=== PATIENT | female | born 1950 | race Caucasian/White ===

== ENCOUNTER 2016-10-16 09:54 | Emergency (ER) | payer OTHER ==
[~2016-10-16 09:54] MED LIST: CARV12.52 PO; CLB200 PO; PHN/100 PO; RXC5 PO; XRL10 PO
[2016-10-16 10:03] VITALS: TEMP 36.8; Ht 154.9 cm
[2016-10-16] MEDS ORDERED: OXYCODONE/ACETAMINOPHEN 5-325 TAB PO STA (10:37)
[2016-10-16 11:08] LABS: BASO % 0.9 %; BASO ABS # 0.05 K/uL (0-0.2); COMPLETE YES; EOS % 5.8 %; HEMATOCRIT 41.6 % (37-47); IG% 0.2 %; LYMPH % 28.8 %; LYMPH ABS # 1.65 K/uL (1.2-3.4); MEAN CELL VOLUME 93.5 fL (80-100); MEAN CORPUSCULAR HEMOGLOBIN 31.2 pg (25-34); MEAN CORPUSCULAR HGB CONC 33.4 g/dl (32-36); MEAN PLATELET VOLUME 9.7 fL (7.4-10.4); MONO % 7.3 %; PLATELET COUNT 230 K/uL (130-400); RED BLOOD COUNT 4.45 M/uL (4.2-5.4); WHITE BLOOD COUNT 5.72 K/uL (4.8-10.8)
[2016-10-16 11:17] LABS: INR 0.9 (0.9-1.1); PARTIAL THROMBOPLASTIN RATIO 0.9; PROTHROMBIN TIME (PATIENT) 10.1 SECONDS (9.0-12.0)
--- NOTE | 2016-10-16 11:23 | DIAGNOSTIC IMAGING REPORT ---
BILATERAL LOWER EXTREMITY VENOUS DOPPLER HISTORY: RIGHT LEG PAIN, EVAL DVT. Symptoms are acute in nature. COMPARISON STUDY: Venous Doppler study 11/09/2008. FINDINGS: There is normal compressibility, flow, and augmentation within the right lower extremity deep venous system. There is limited visualization of the calf vessels. IMPRESSION: No evidence of deep venous thrombosis within the right lower extremity. Electronically signed by: Gt Voss M.D. 10/16/2016 11:21 AM Dictated Date/Time: 10/16/2016 11:19 AM
[2016-10-16 11:29] LABS: ALT/SGPT 24 U/L (12-78); AST/SGOT 16 U/L (15-37); BLOOD UREA NITROGEN 11 mg/dl (7-18); BUN/CREATININE RATIO 15.4 (10-20); CALCIUM 8.9 mg/dl (8.5-10.1); CARBON DIOXIDE 32 mmol/L (21-32); CHLORIDE 109 mmol/L (98-107); CREATININE 0.71 mg/dl (0.60-1.20); GLUCOSE 88 mg/dl (70-99); POTASSIUM 4.3 mmol/L (3.5-5.1); SODIUM 142 mmol/L (136-145)
[2016-10-16 11:32] LABS: ALB/GLOB RATIO 0.8 (0.9-2); ALKALINE PHOSPHATASE 198 U/L (45-117)
--- NOTE | 2016-10-16 11:37 | DIAGNOSTIC IMAGING REPORT ---
RIGHT KNEE 3 VIEWS CLINICAL HISTORY: Right knee pain. COMPARISON: None. DISCUSSION: There are postsurgical changes of a total right knee arthroplasty and patellar resurfacing. No acute fractures or dislocations are visualized. On the sunrise view, there is minor lateral patellar tilt. IMPRESSION: Postsurgical changes of a total knee arthroplasty. No acute fractures. Electronically signed by: Hilario Tipton M.D. 10/16/2016 11:35 AM Dictated Date/Time: 10/16/2016 11:34 AM
[2016-10-16] MEDS ORDERED: CLR10 PO (11:53)
[2016-10-16] MEDS ORDERED: FLUT0.15 NAE (11:53)
[2016-10-16] MEDS ORDERED: ASPI81TA28 PO (11:53)
[2016-10-16] MEDS ORDERED: LOSA50TA6 PO (11:53)
[2016-10-16] MEDS ORDERED: PRLSR20 PO (11:53)
[2016-10-16] MEDS ORDERED: MELO15TA4 PO (11:53)
[2016-10-16] MEDS ORDERED: ATOR-22 PO (11:53)
[2016-10-16] MEDS ORDERED: IPRA0.06 NAE (11:53)
--- NOTE | 2016-10-16 12:39 | DIAGNOSTIC IMAGING REPORT ---
L-SPINE MIN 4 VIEWS ROUTINE CLINICAL HISTORY: LOW BACK, RIGHT LEG PAIN COMPARISON STUDY: No previous studies for comparison. FINDINGS: The bones are osteopenic. There is a transitional vertebra with sacralization of the L5 vertebral body. There are superior endplate compression deformities at the L1, L2 and L3 levels. While age-indeterminate, these are likely old. No subluxations are visualized IMPRESSION: 1. Transitional vertebra 2. Osteopenia 3. Superior endplate deformities at the L1, L2, and L3 levels, likely old Electronically signed by: Hilario Tipton M.D. 10/16/2016 12:38 PM Dictated Date/Time: 10/16/2016 12:36 PM
[2016-10-16] MEDS ORDERED: OXYC-57 PO (13:23)
--- NOTE | 2016-10-16 13:24 | EMERGENCY ROOM VISIT NOTE ---
ED Visit Note First contact with patient: 10:09 CHIEF COMPLAINT: Right leg pain since yesterday HISTORY OF PRESENT ILLNESS: Patient is a 66-year-old white female who presents emergency department for evaluation of right leg pain. She describes pain in her calf, behind her right knee, in the medial aspect of her right thigh. It started acutely upon standing sometime yesterday. She notes pain with weightbearing. She also notes some numbness on the lateral aspect of her foot. She is status post right total knee arthroplasty, had a DVT after her knee replacement. She is not presently anticoagulated. She took a full-strength aspirin yesterday, and no medication for pain today. She denies any trauma to the leg, no unusual activity which could've aggravated her pain. There has been no recent surgeries, no long period of immobilization or long car or plane ride recently. She denies any chest pain, palpitations or shortness of breath, does report that she felt slightly dizzy this morning. She does have a history of back problems, but does not typically have any radicular symptoms with them. She denies any fever or chills. No symptoms in the left leg. She rates her pain 8/10. REVIEW OF SYSTEMS: Review of systems as per HPI. All other systems reviewed were negative. 10 systems reviewed. PMH: Electronic medical records are reviewed and summarized as above/below. See Problem List. SOCIAL HISTORY: Patient lives at home with her spouse. Nonsmoker. PHYSICAL EXAM: Vital Signs: Reviewed Nurse's notes. CONSTITUTIONAL: Patient is a well-appearing 58-year-old white female who is awake and alert and in no acute distress. HEART: Regular rate and rhythm. LUNGS: Clear to auscultation and breath sounds equal, no wheezes, rales, or rhonchi. ABDOMEN: Soft, non-tender, no hepatosplenomegaly, or masses. NEUROLOGICAL: Alert oriented, coherent. PERRL, EOMs full, antalgic gait. EXTREMITIES: Examination of the right lower extremity no a well-healed anterior knee surgical incision. There is no knee joint effusion appreciated. Range of motion is full. She has tenderness to palpation along the medial aspect of the thigh and in the medial aspect of the calf. There is no increased redness, warmth, induration or palpable cords. She does have some tenderness and fullness in the popliteal space of the right knee. There is no inguinal lymphadenopathy appreciated. Femoral pulses are easily palpable. Negative straight leg raise testing bilaterally. Negative logroll. Lower extremity DTRs are equal and symmetrical bilaterally. Good strength to great toe and ankle dorsiflexion/plantar flexion, and hip flexion. SPINE: No bony tenderness over the spinous processes of the lumbar spine. No pain over the SI joint or the sciatic notch. No pain over the greater trochanter. EMERGENCY DEPARTMENT COURSE: The patient was seen and evaluated as above. She was given one Percocet tablet orally for discomfort. IV lock was initiated them CBC, coags and CMP were drawn and were unremarkable. Ultrasound of the right lower extremity was obtained and was negative for DVT. X-rays of the right knee were obtained and showed alignment of her prosthesis without any acute pathology. Lumbar spine x-rays were obtained and showed some mild arthritic changes, with osteopenia. Patient presents emergency department for evaluation of medial right leg pain, with some reported numbness in the lateral aspect of her right foot. Differential diagnoses entertained included DVT, superficial thrombophlebitis, cellulitis, popliteal cyst, lumbar radiculopathy, among others. Workup in the emergency department is fairly unrevealing. She does not have any evidence for DVT. I cannot appreciate any infectious etiology. Patient history and presentation were reviewed with attending physician who also independently evaluated her. She will be placed on a short course of oral Percocet to use as needed for pain, and was advised to follow-up with orthopedics or her primary care provider if her symptoms are not improving. Patient was discharged home in good condition. She rated her pain a 6/10 at discharge. Medication reconciliation: I attest that I have personally reviewed the patient' s current medication list. Blood pressure screening: Patient was found to have a slightly elevated blood pressure due to circumstances. I do not believe that the patient requires hypertension monitoring. Patient was reviewed in the [facility] of [facility] Prescription Drug Monitoring Program, and there were no red flags noted. BILATERAL LOWER EXTREMITY VENOUS DOPPLER HISTORY: RIGHT LEG PAIN, EVAL DVT. Symptoms are acute in nature. COMPARISON STUDY: Venous Doppler study 11/09/2008. FINDINGS: There is normal compressibility, flow, and augmentation within the right lower extremity deep venous system. There is limited visualization of the calf vessels. IMPRESSION: No evidence of deep venous thrombosis within the right lower extremity. RIGHT KNEE 3 VIEWS CLINICAL HISTORY: Right knee pain. COMPARISON: None. DISCUSSION: There are postsurgical changes of a total right knee arthroplasty and patellar resurfacing. No acute fractures or dislocations are visualized. On the sunrise view, there is minor lateral patellar tilt. IMPRESSION: Postsurgical changes of a total knee arthroplasty. No acute fractures. L-SPINE MIN 4 VIEWS ROUTINE CLINICAL HISTORY: LOW BACK, RIGHT LEG PAIN COMPARISON STUDY: No previous studies for comparison. FINDINGS: The bones are osteopenic. There is a transitional vertebra with sacralization of the L5 vertebral body. There are superior endplate compression deformities at the L1, L2 and L3 levels. While age-indeterminate, these are likely old. No subluxations are visualized IMPRESSION: 1. Transitional vertebra 2. Osteopenia 3. Superior endplate deformities at the L1, L2, and L3 levels, likely old Problem List Medical Problems: (1) Fall Status: Resolved (2) Hypertension Status: Chronic (3) Instability of prosthetic hip Status: Resolved (4) Pulmonary embolism Status: Resolved (5) Seizure Status: Chronic Surgical Problems: (1) S/P hip replacement Status: Resolved (2) S/P hysterectomy Status: Resolved (3) S/P knee replacement Status: Resolved Current/Historical Medications Scheduled Aspirin (Aspirin Ec), 81 MG PO DAILY Atorvastatin (Lipitor), 20 MG PO DAILY Carvedilol (Coreg), 12.5 MG PO BID Fluticasone Propionate (Nasal) (Flonase Allergy Relief), 2 SPRAYS FUNMI DAILY Ipratropium [place] (Nasal) (Ipratropium [place]), 2 SPRAYS FUNMI TID Loratadine (Claritin), 10 MG PO DAILY Losartan Potassium (Cozaar), 50 MG PO DAILY Meloxicam (Mobic), 15 MG PO DAILY Omeprazole (Prilosec), 20 MG PO DAILY Phenytoin Sodium (Dilantin), 200 MG PO BID Scheduled PRN Oxycodone/Acetaminophen 5MG/325MG (Percocet 5MG/325MG), 1-2 TABS PO Q4 PRN for Pain Allergies Coded Allergies: No Known Allergies (Verified , 03/04/13) Vital Signs Date Time Temp Pulse Resp B/P (MAP) Pulse Ox O2 Delivery O2 Flow Rate FiO2 10/16/16 13:44 72 20 129/74 97 10/16/16 13:18 70 20 129/74 97 Room Air 10/16/16 11:35 62 20 150/80 97 Room Air 10/16/16 10:03 36.8 68 18 171/114 96 Room Air Laboratory Results 10/16/16 10:47 Red Blood Count 4.45, Mean Corpuscular Volume 93.5, Mean Corpuscular Hemoglobin 31.2, Mean Corpuscular Hemoglobin Concent 33.4, Mean Platelet Volume 9.7, Neutrophils (%) (Auto) 57.0, Lymphocytes (%) (Auto) 28.8, Monocytes (%) (Auto) 7.3, Eosinophils (%) (Auto) 5.8, Basophils (%) (Auto) 0.9, Neutrophils # (Auto) 3.26, Lymphocytes # (Auto) 1.65, Monocytes # (Auto) 0.42, Eosinophils # (Auto) 0.33, Basophils # (Auto) 0.05 10/16/16 10:47 Test 10/16/16 10:47 White Blood Count 5.72 K/uL (4.8-10.8) Red Blood Count 4.45 M/uL (4.2-5.4) Hemoglobin 13.9 g/dL (12.0-16.0) Hematocrit 41.6 % (37-47) Mean Corpuscular Volume 93.5 fL (80-100) Mean Corpuscular Hemoglobin 31.2 pg (25-34) Mean Corpuscular Hemoglobin Concent 33.4 g/dl (32-36) Platelet Count 230 K/uL (130-400) Mean Platelet Volume 9.7 fL (7.4-10.4) Neutrophils (%) (Auto) 57.0 % Lymphocytes (%) (Auto) 28.8 % Monocytes (%) (Auto) 7.3 % Eosinophils (%) (Auto) 5.8 % Basophils (%) (Auto) 0.9 % Neutrophils # (Auto) 3.26 K/uL (1.4-6.5) Lymphocytes # (Auto) 1.65 K/uL (1.2-3.4) Monocytes # (Auto) 0.42 K/uL (0.11-0.59) Eosinophils # (Auto) 0.33 K/uL (0-0.5) Basophils # (Auto) 0.05 K/uL (0-0.2) RDW Standard Deviation 46.3 fL (36.4-46.3) RDW Coefficient of Variation 13.5 % (11.5-14.5) Immature Granulocyte % (Auto) 0.2 % Immature Granulocyte # (Auto) 0.01 K/uL (0.00-0.02) Prothrombin Time 10.1 SECONDS (9.0-12.0) Prothromb Time International Ratio 0.9 (0.9-1.1) Activated Partial Thromboplast Time 23.9 SECONDS (21.0-31.0) Partial Thromboplastin Ratio 0.9 Anion Gap 1.0 mmol/L (3-11) Estimated GFR () 101.4 Estimated GFR (Non- 87.5 BUN/Creatinine Ratio 15.4 (10-20) Calcium Level 8.9 mg/dl (8.5-10.1) Total Bilirubin 0.3 mg/dl (0.2-1) Aspartate Amino Transf (AST/SGOT) 16 U/L (15-37) Alanine Aminotransferase (ALT/SGPT) 24 U/L (12-78) Alkaline Phosphatase 198 U/L (45-117) Total Protein 7.0 gm/dl (6.4-8.2) Albumin 3.2 gm/dl (3.4-5.0) Globulin 3.8 gm/dl (2.5-4.0) Albumin/Globulin Ratio 0.8 (0.9-2) Medications Administered Medications (Trade) Dose Ordered Sig/Marguerite Route Start Time Stop Time Status Last Admin Dose Admin Oxycodone/ Acetaminophen (Percocet 5-325mg Tab) 1 tab NOW STAT PO 10/16/16 10:37 10/16/16 10:39 DC 10/16/16 10:43 1 TAB Departure Information Impression Primary Impression: Leg pain, right Prescriptions Oxycodone/Acetaminophen 5MG/325MG (PERCOCET 5MG/325MG) Tab 1-2 TABS PO Q4 Y for Pain, #20 TAB For Initial Treatment Prov: Jennifer Mosley PA 10/16/16 Referrals Aditya Daniels M.D. (PCP) Forms HOME CARE DOCUMENTATION FORM, IMPORTANT VISIT INFORMATION Patient Instructions My [facility] [address] Additional Instructions DO NOT drive, drink alcohol, operate machinery, or perform dangerous activities today. You were given medications in the ER that can affect your ability to safely function or operate a vehicle. Percocet 5/325 mg: Take 1-2 pills every four hours for breakthrough pain. Avoid alcohol, operating machinery or dangerous equipment, working on ladders or roofs, DRIVING, or situations where being under the influence may be dangerous. It is recommended to use an [id number]-ausemrz stool softener such as Colace, 100mg twice daily while taking this medication to avoid constipation. Ibuprofen(Motrin, Advil) may be used for fever or pain. Use 600mg every six hours as needed. Take with food. Avoid using more than 2400mg in a 24 hour period. Do not use 2400mg per day for more than three consecutive days without physician direction. Prolonged inappropriate use can lead to stomach upset or ulcers. This medication can be taken if you need to drive, work, or perform activities which may be dangerous when taking narcotic pain medication. (AND/OR) Acetaminophen(Tylenol) may be used for fever or pain. Use 1000mg every six hours as needed. Avoid using more than 3000mg in a 24 hour period. This medication can be taken if you need to drive, work, or perform activities which may be dangerous when taking narcotic pain medication. Rest and elevate your injury. Continue current medications. Return to the ER immediately for any numbness, tingling, severe pain, extreme swelling in the extremity or as needed. Follow-up with your primary care physician or with the orthopedic surgeon for further care and evaluation if your symptoms are not improving.
[2016-10-16 13:44] VITALS: BP 129/74; PULSE 72; O2SAT 97
== END 2016-10-16 13:44 | disposition home or self-care (01) ==
LOC: C.EDB 09:55 → C.EDA 13:44
DX: M79.604 Pain in right leg (principal); M54.9 Dorsalgia, unspecified; I10 Essential (primary) hypertension; R56.9 Unspecified convulsions; Z96.651 Presence of right artificial knee joint; Z86.718 Personal history of other venous thrombosis and embolism; Z96.649 Presence of unspecified artificial hip joint; Z90.710 Acquired absence of both cervix and uterus; Z79.82 Long term (current) use of aspirin

== ENCOUNTER → 2016-10-30 | Outpatient (CLI) | payer OTHER ==
[~2016-10-30] MED LIST changes: +ASPI81TA28 PO; +ATOR-22 PO; -CLB200 PO; +CLR10 PO; +FLUT0.15 NAE; +IPRA0.06 NAE; +LOSA50TA6 PO; +MELO15TA4 PO; +OXYC-57 PO; +PRLSR20 PO; -RXC5 PO; -XRL10 PO
[2016-10-30 17:20] LABS: LYME DISEASE AB IGG NEG (NEG); LYME DISEASE AB IGM NEG (NEG)
--- NOTE | 2016-10-30 18:27 | DIAGNOSTIC IMAGING REPORT ---
THREE-PHASE NUCLEAR BONE SCAN OF THE KNEES CLINICAL HISTORY: Right knee pain status post arthroplasty. COMPARISON STUDY: Progressive the right knee dated 10/16/2016. TECHNIQUE: Following the IV administration of 27 mCi of technetium 99m MDP, three-phase bone scan of the knees was performed. Flow and blood pool phase imaging was performed both anteriorly and posteriorly. Bone phase imaging of both knees was performed at three hours in multiple obliquities. FINDINGS: There is no hyperemia seen around either knee on the flow or blood pool phase imaging. On the bone phase imaging there is a photopenic defect in the right knee consistent with a right knee arthroplasty. There is increased activity identified along the tibial component of the arthroplasty in the right knee. No abnormal activity seen around the femoral component. Low-level patellar activity is of doubtful significance. Low-level activity in the left knee is typical in appearance for mild degenerative change. Urine contamination is noted in the groin. IMPRESSION: 1. Three-phase negative bone scan of the right knee. 2. There is increased/abnormal activity identified along the tibial component of the right knee arthroplasty on the bone phase imaging. This is nonspecific but suggests aseptic loosening. Clinical correlation will be required. Electronically signed by: Jorge Dobbins M.D. 10/30/2016 6:26 PM Dictated Date/Time: 10/30/2016 6:23 PM
== END | disposition home or self-care (01) ==
LOC: C.NUCL 14:12
PROVIDERS: ATTEND Orthopaedic Surgery
DX: M25.561 Pain in right knee (principal); M25.461 Effusion, right knee; R93.7 Abnormal findings on diagnostic imaging of other parts of musculoskeletal system; Z96.651 Presence of right artificial knee joint

== ENCOUNTER → 2016-12-15 | Outpatient (CLI) | payer OTHER | END | disposition home or self-care (01) | LOC: C.CPL 10:51 | PROVIDERS: ATTEND Orthopaedic Surgery | DX: L91.0 Hypertrophic scar (principal) ==

== ENCOUNTER → 2016-12-20 | Outpatient (CLI) | payer OTHER | END | disposition home or self-care (01) | LOC: C.LABSPEC 17:15 | PROVIDERS: ATTEND Orthopaedic Surgery | DX: M25.469 Effusion, unspecified knee (principal) ==

== ENCOUNTER 2017-04-24 11:20 | Inpatient (IN) | payer OTHER ==
[~2017-04-24] VITALS: Ht 162.6 cm; Wt 95.0 kg
[2017-04-24] VITALS (7 sets, daily range): BP systolic 94–182; BP diastolic 60–93; PULSE 68–92; TEMP 36.4–36.8; O2SAT 90–99; Ht 162.6 cm; Wt 95.0 kg
--- NOTE | 2017-04-24 07:12 | History and Physical ---
History & Physical Date Apr 24, 2017. Chief Complaint Sarar 67-year-old female presents after having sustained a tear for VMO quad insertion of her left knee issues have weakness of for extension subsequently knees buckling giving out palpable defect as well as defect its for final CT scan involving her VMO insertion in the quite clinically evident that she's had a defect from a fall Hi-Per Flex needed xylol responded History of Present Illness The patient is a 67 year old female with complaints of With this status post VMO quad insertion dehiscence patient presents for repair of the VMO quad dehiscence. Past Medical/Surgical History Medical Problems: (1) Fall (2) Hypertension (3) Instability of prosthetic hip (4) Pulmonary embolism (5) Seizure Surgical Problems: (1) S/P hip replacement (2) S/P hysterectomy (3) S/P knee replacement Additional History Hepatic Disease: No Endocrine Disorder: No Kidney Disease: No Hypertension: Yes Heart Disease: Yes Bleeding Tendencies: No Infectious Diseases: No Allergies Coded Allergies: No Known Allergies (Verified , 03/04/13) Home Medications Scheduled Aspirin (Aspirin Ec), 81 MG PO DAILY Atorvastatin (Lipitor), 20 MG PO DAILY Carvedilol (Coreg), 12.5 MG PO BID Fluticasone Propionate (Nasal) (Flonase Allergy Relief), 2 SPRAYS FUNMI DAILY Ipratropium [place] (Nasal) (Ipratropium [place]), 2 SPRAYS FUNMI TID Loratadine (Claritin), 10 MG PO DAILY Losartan Potassium (Cozaar), 50 MG PO DAILY Meloxicam (Mobic), 15 MG PO DAILY Omeprazole (Prilosec), 20 MG PO DAILY Phenytoin Sodium (Dilantin), 200 MG PO BID Physical Examination Skin: warm/dry, no rash Eyes: normal inspection, EOMI, sclerae normal ENT: normal ENT inspection, pharynx normal Head: normocephalic, atraumatic Neck: supple, no adenopathy, trachea midline Respiratory/Chest: lungs clear, normal breath sounds, no respiratory distress Cardiovascular: regular rate, rhythm, no edema, no murmur Abdomen / GI: normal bowel sounds, non tender Back: normal inspection Extremities: + pertinent finding (patient presents with a palpable defect in the region VMO quad repair) Diagnosis Tear left VMO quad insertion palpable defect weakness and inability to ambulate without a cane Plan of Treatment Posterior pain management DVT prophylaxis physical therapy therapy antibiotics and ambulation therapy is necessary
--- NOTE | 2017-04-24 09:29 | History & Physical Bridge Note ---
H&P Re-Evaluation Bridge Note: I have examined the patient, reviewed the History & Physical and in the interval since the performance of the History & Physical I have noted the following changes of clinical significance: No changes noted
[~2017-04-24 11:20] MED LIST changes: +ATROPINE SULFATE 0.1 MG/ML 5ML SYR IV PRN; +CEFAZOLIN 1000MG IV PUSH 7.5 ML IV SCH; +EpHEDrine SULFATE INJ 50 MG/ML AMP IV PRN; +FENTANYL CITRATE INJ 50 MCG/1 ML 2 ML VIAL IV PRN; +HYDROmorphone INJ 1 MG/ML SYR IV PRN; +LABETALOL HCL IV 5 MG/ML 20ML IV PRN; +LACTATED RINGER'S 1000ML 1,000 ML IV SCH; +MELO-84 PO; -MELO15TA4 PO; +MEPERIDINE HCL 25 MG/ML CARP IV PRN; +MISSING PHYSICIAN SIGNATURE ON ORDER SCH; +ONDANSETRON INJ 2 MG/ML 2 ML VIAL IV PRN; -OXYC-57 PO; +PATIENT'S HEIGHT AND/OR WEIGHT NEEDED SCH
[2017-04-24] MEDS ORDERED: FENTANYL CITRATE INJ 50 MCG/1 ML 2 ML VIAL ONE (12:15)
[2017-04-24] MEDS ORDERED: LIDOCAINE HCL 2% 2 ML VIAL (20MG/ML) ONE (12:15)
[2017-04-24] MEDS ORDERED: DEXAMETHASONE SOD INJ 4 MG/ML VIAL ONE (12:15)
[2017-04-24] MEDS ORDERED: ONDANSETRON INJ 2 MG/ML 2 ML VIAL ONE (12:15)
[2017-04-24] MEDS ORDERED: PROPOFOL IV EMULSION 10 MG/ML 20 ML VIAL IV ONE (12:15)
[2017-04-24] MEDS ORDERED: MIDAZOLAM HCL 1 MG/ML 2ML VIAL ONE ×2 (12:15)
[2017-04-24] MEDS ORDERED: BACITRACIN 50000 UNIT VIAL ONE (12:42)
[2017-04-24] MEDS ORDERED: BUPIVACAINE 0.5 % 5 MG/1 ML PF 10ML VIAL ONE ×3 (13:22→13:43)
--- NOTE | 2017-04-24 13:24 | History & Physical Bridge Note ---
H&P Re-Evaluation Bridge Note: I have examined the patient, reviewed the History & Physical and in the interval since the performance of the History & Physical I have noted the following changes of clinical significance: No changes notedPlease note the correct knee is the right knee the right knee is the vmo repair knee
[2017-04-24] MEDS ORDERED: BUPIVACAINE 0.25% 30 ML VIAL ONE (13:31)
[2017-04-24] MEDS ORDERED: POVIDONE-IODINE OP SOLN 30 ML BTL ONE (14:17)
--- NOTE | 2017-04-24 14:36 | [facility] Post Operative Brief Note ---
Immediate Operative Summary Operative Date Apr 24, 2017. Pre-Operative Diagnosis Tear VMO quad right total knee arthroplasty Post-Operative Diagnosis Attenuation VMO quad repair mild laxity total knee arthroplasty Procedure(s) Performed Poly-change upsize to an 11 x 3 4 Lakia with VMO quad tendon repair right total knee arthroplasty Surgeon Carlos Interior Decorator Paperhanging Surgeon(s) dillan Estimated Blood Loss 5cc Findings Consistent with Post-Op Diagnosis Specimens none Anesthesia Type MAC Spinal Regional Complication(s) none Disposition Disposition: Recovery Room / PACU
--- NOTE | 2017-04-24 14:40 | [facility] Operative Report ---
Operative Report Operative Date Apr 24, 2017. Pre-Operative Diagnosis Tear VMO quad right total knee arthroplasty Post-Operative Diagnosis Attenuation VMO quad repair mild laxity total knee arthroplasty Procedure(s) Performed Poly-change upsize to an 11 x 3 4 Lakia with VMO quad tendon repair right total knee arthroplasty Surgeon Carlos Industrial Relations Worker Surgeon(s) dillan Estimated Blood Loss 5cc Findings Patient presents having after having had a fall flex knee with laxity and weakness of for extension ability climb steps arise from a seated position bone to conservative management including physical therapy bracing and anti- inflammatories presents for VMO quad repair at 5 surgery patient is was noted to have some mild lateral compartment laxity this reason incision made changes poly-to size 11 from a size Corrected the mild laxity medial collateral ligament laxity was noted intraoperatively not appreciated preoperatively the consent was changed with the family interoperatively via discussion and meeting with her . Subsequently the consent was recommended poly-was changed as was the VMO repair Specimens none Drains None Anesthesia Type MAC Spinal Regional Complication(s) none Disposition Recovery Room / PACU Indications Patient presents with weakness for for extension after having a fall flex knee having a tear of the VMO quad repair of the previous total knee arthroplasty from 2012 doing well until this did not repeatable and physical therapy and presents for VMO quad repair times surgery liters and be some mild laxity incision made upsize the poly-thickness was poly-was upsize from 9-11 to accommodate the mild laxity noted Description of Procedure After proper prepping draping the right lower extremity incision made over the region presents extensor incision dissection carried anchors in the VMO quadriceps attenuation VMO quad repair socially the knee was examined to be some mild medial lateral collateral ligament laxity for further evaluation intraoperatively there is noted to be 23 mm lateral collateral ligament laxity for this reason poly-was changed and upsize to a size 11 corrected the laxity the VMO quad repair was performed utilizing #5 FiberWire and #1 Vicryl the wound was less sterilization via pulsatile lavage with meticulous hemostasis obtained and maintained medial proptosis and closed with #5 Ethibond 1 Vicryl subcutaneous closed with 2-0 Vicryl skin was closed skin clips sterile compressive dressing was placed patient taken to the recovery in stable condition operative report dictated by Carlos NINO was necessary for prepping draping retraction wound closure defect is subcutaneous and skin was necessary for the case I attest to the content of the Intraoperative Record and any orders documented therein. Any exceptions are noted below.
[2017-04-24] MEDS ORDERED: BISACODYL 10 MG SUPP PR PRN (14:45)
[2017-04-24] MEDS ORDERED: ZOLPIDEM TARTRATE 5 MG TAB PO PRN (14:45)
[2017-04-24] MEDS ORDERED: SOD PHOSPHATE/SOD BIPHOSPHATE ENEMA 132 ML BTL PR PRN (14:45)
[2017-04-24] MEDS ORDERED: ALUMINUM/MAGNESIUM/SIMETH (MAALOX MAX) 30 ML UDC PO PRN (14:45)
[2017-04-24] MEDS ORDERED: MAGNESIUM HYDROXIDE SUSP 30 ML UDC PO PRN (14:45)
[2017-04-24] MEDS ORDERED: TRAMADOL HCL 50 MG TAB PO PRN (14:45)
[2017-04-24] MEDS ORDERED: MoRPHine SULFATE 2 MG/ML CARP IV PRN (14:45)
[2017-04-24] MEDS ORDERED: ONDANSETRON INJ 2 MG/ML 2 ML VIAL IV PRN (14:45)
--- NOTE | 2017-04-24 15:38 | DIAGNOSTIC IMAGING REPORT ---
R KNEE 1 OR 2 VIEWS ROUTINE HISTORY: 67 years-old Female AP/LATERAL IN PACU RIGHT KNEE status post right knee total joint arthroplasty. Degenerative joint disease. COMPARISON: Right knee radiographs 10/16/2016 TECHNIQUE: 2 views of the right knee FINDINGS: Postoperative changes from right knee total joint arthroplasty with patellar resurfacing. Bones appear mildly demineralized. Alignment is satisfactory without periprosthetic fracture identified. Expected postsurgical soft tissue swelling and deep tissue air with anterior midline skin john and surgical drain. IMPRESSION: Right knee total joint arthroplasty and patellar resurfacing without complication identified. The above report was generated using voice recognition software. It may contain grammatical, syntax or spelling errors. Electronically signed by: Gt Voss M.D. 04/24/2017 3:37 PM Dictated Date/Time: 04/24/2017 3:35 PM
--- NOTE | 2017-04-24 16:11 | Anesthesiology Progress Note ---
Anesthesia Post Op Note Date & Time Apr 24, 2017 at 16:10 Vital Signs Pain Intensity: 0 Vital Signs Past 12 Hours Date Time Temp Pulse Resp B/P (MAP) Pulse Ox O2 Delivery O2 Flow Rate FiO2 04/24/17 16:02 76 20 100 04/24/17 16:02 75 20 04/24/17 16:01 128/84 04/24/17 16:00 36.6 04/24/17 15:57 71 15 04/24/17 15:57 72 15 99 04/24/17 15:56 130/83 04/24/17 15:52 72 23 04/24/17 15:52 74 23 99 04/24/17 15:51 144/80 04/24/17 15:49 78 16 96 04/24/17 15:49 74 16 04/24/17 15:46 129/77 04/24/17 15:44 70 14 04/24/17 15:44 68 14 100 04/24/17 15:41 119/76 04/24/17 15:39 69 12 99 04/24/17 15:39 69 12 04/24/17 15:38 69 13 99 04/24/17 15:38 70 13 04/24/17 15:36 118/71 04/24/17 15:33 73 13 04/24/17 15:33 72 13 93 04/24/17 15:31 120/70 04/24/17 15:28 71 14 04/24/17 15:28 71 14 94 04/24/17 15:27 71 13 94 04/24/17 15:27 71 13 04/24/17 15:26 122/70 04/24/17 15:22 69 15 96 04/24/17 15:22 72 15 04/24/17 15:21 115/71 04/24/17 15:17 70 16 95 04/24/17 15:17 69 16 04/24/17 15:16 150/80 04/24/17 15:15 137/99 04/24/17 15:12 72 13 91/51 95 04/24/17 15:12 36.0 74 16 137/99 96 Oxymask 10 04/24/17 15:12 72 13 04/24/17 12:21 36.8 76 20 182/79 97 Room Air Notes Mental Status: alert / awake / arousable, participated in evaluation Pt Amnestic to Procedure: Yes Nausea / Vomiting: adequately controlled Pain: adequately controlled Airway Patency, RR, SpO2: stable & adequate BP & HR: stable & adequate Hydration State: stable & adequate Anesthetic Complications: no major complications apparent
[2017-04-24] MEDS ORDERED: MoRPHine SULFATE 4 MG/ML 1 ML CARP\\VIAL IV PRN (17:00)
[2017-04-24] MEDS ORDERED: MoRPHine SULFATE 10 MG/ML CARP/VIAL IV PRN (17:00)
[2017-04-24] MEDS: D5W AND 1/2NSS + 20MEQ KCL 1,000 ML IV SCH (17:02)
[2017-04-24] MEDS: OXYCODONE HCL IR 5 MG TAB (IMMEDIATE RELEASE) PO PRN ×2 (18:40→21:59)
[2017-04-24] MEDS: IPRATROPIUM BROMIDE NASAL SPRAY 0.06% 15ML NAE SCH (21:00)
[2017-04-24] MEDS: SENNA 8.6 MG TAB PO SCH (21:00)
[2017-04-24] MEDS: KETOROLAC TROMETHAMINE 15 MG/ML VIAL IV. PRN (21:08)
[2017-04-24] MEDS: DOCUSATE SODIUM 100 MG CAP PO SCH (21:10)
[2017-04-24] MEDS: ASPIRIN 81 MG ECTAB PO SCH (21:10)
[2017-04-24] MEDS: PHENYTOIN SODIUM ER 100 MG CAP PO SCH (21:11)
[2017-04-24] MEDS: CARVEDILOL 12.5 MG TAB PO SCH (21:11)
[2017-04-24] MEDS: ACETAMINOPHEN 500 MG TAB PO SCH (21:59)
[2017-04-24] MEDS: CEFAZOLIN IV 2,000 MG in SYRINGE 0 ML IV SCH (21:59)
[2017-04-25] MEDS: OXYCODONE HCL IR 5 MG TAB (IMMEDIATE RELEASE) PO PRN ×5 (02:24→20:09)
[2017-04-25] MEDS: D5W AND 1/2NSS + 20MEQ KCL 1,000 ML IV SCH ×2 (02:25→12:02)
[2017-04-25 03:03] VITALS: BP 106/67; PULSE 71; TEMP 36.3; O2SAT 93
[2017-04-25] MEDS: KETOROLAC TROMETHAMINE 15 MG/ML VIAL IV. PRN ×2 (03:16→09:33)
[2017-04-25] MEDS: CEFAZOLIN IV 2,000 MG in SYRINGE 0 ML IV SCH (05:53)
[2017-04-25] MEDS: ACETAMINOPHEN 500 MG TAB PO SCH ×3 (05:53→21:33)
[2017-04-25] MEDS ORDERED: CEFAZOLIN 2000MG IV PUSH 15 ML IV SCH (06:00)
[2017-04-25 07:14] VITALS: BP 94/60; PULSE 69; TEMP 36.6; O2SAT 95
--- NOTE | 2017-04-25 07:39 | Orthopedic Progress Note ---
Orthopedic Progress Note Date of Service Apr 25, 2017. Subjective Post OP Day: 1 Reports: feeling well, Denies: chest pain, SOB, nausea / vomiting, light headedness, calf pain Additional Notes: increased pain last evening, states somewhat better this am. Objective calves soft nontender, N/V intact, capillary refill less than 2 sec., dressing C /D/I, A&O x3, toes mobile Date Time Temp Pulse Resp B/P (MAP) Pulse Ox O2 Delivery O2 Flow Rate FiO2 04/25/17 07:14 36.6 69 16 94/60 (71) 95 Room Air 04/25/17 03:03 36.3 71 16 106/67 (80) 93 Room Air 04/25/17 00:15 Room Air 04/24/17 23:04 36.5 68 16 94/60 (71) 90 Room Air 04/24/17 19:21 36.7 77 16 129/77 (94) 93 Room Air 04/24/17 18:18 36.5 80 16 167/93 (117) 93 Room Air 04/24/17 17:18 36.4 92 16 137/80 (99) 97 Nasal Cannula 2.0 04/24/17 16:46 36.4 75 16 170/93 (118) 99 Nasal Cannula 2.0 04/24/17 16:15 99 Nasal Cannula 2.0 04/24/17 16:15 97 Nasal Cannula 2.0 04/24/17 16:15 36.4 74 14 148/88 (108) 98 Nasal Cannula 2.0 04/24/17 16:02 76 20 100 04/24/17 16:02 75 20 04/24/17 16:01 128/84 04/24/17 16:00 36.6 04/24/17 15:57 71 15 04/24/17 15:57 72 15 99 04/24/17 15:56 130/83 04/24/17 15:52 72 23 04/24/17 15:52 74 23 99 04/24/17 15:51 144/80 04/24/17 15:49 78 16 96 04/24/17 15:49 74 16 04/24/17 15:46 129/77 04/24/17 15:44 70 14 04/24/17 15:44 68 14 100 04/24/17 15:41 119/76 04/24/17 15:39 69 12 99 04/24/17 15:39 69 12 04/24/17 15:38 69 13 99 04/24/17 15:38 70 13 04/24/17 15:36 118/71 04/24/17 15:33 73 13 04/24/17 15:33 72 13 93 04/24/17 15:31 120/70 04/24/17 15:28 71 14 04/24/17 15:28 71 14 94 04/24/17 15:27 71 13 94 04/24/17 15:27 71 13 04/24/17 15:26 122/70 04/24/17 15:22 69 15 96 04/24/17 15:22 72 15 04/24/17 15:21 115/71 04/24/17 15:17 70 16 95 04/24/17 15:17 69 16 04/24/17 15:16 150/80 04/24/17 15:15 137/99 04/24/17 15:12 72 13 91/51 95 04/24/17 15:12 36.0 74 16 137/99 96 Oxymask 10 04/24/17 15:12 72 13 04/24/17 12:21 36.8 76 20 182/79 97 Room Air Laboratory Results 24 Hours: Test 04/25/17 06:41 Assessment & Plan Assessment: POD #1 s/p Poly-change upsize to an 11 x 3 4 Lakia with VMO quad tendon repair right total knee arthroplasty -pt/ot -dvt proph with araceli/scd/asa -will make arrangements for HHPT for d/c when stable Discharge Planning Discharge Planning: home with home health DVT Prophylaxis: TEDs, SCDs, ASA Therapy: Physical Therapy
[2017-04-25 07:54] LABS: HEMATOCRIT 35.8 % (37-47); HEMOGLOBIN 11.6 g/dL (12.0-16.0); MEAN CELL VOLUME 94.5 fL (80-100); MEAN CORPUSCULAR HEMOGLOBIN 30.6 pg (25-34); MEAN CORPUSCULAR HGB CONC 32.4 g/dl (32-36); MEAN PLATELET VOLUME 10.3 fL (7.4-10.4); PLATELET COUNT 173 K/uL (130-400); RED CELL DISTRIBUTION WIDTH CV 12.8 % (11.5-14.5); RED CELL DISTRIBUTION WIDTH SD 44.3 fL (36.4-46.3)
[2017-04-25 08:28] LABS: CREATININE 0.93 mg/dl (0.60-1.20)
[2017-04-25 08:29] LABS: CALCIUM 8.2 mg/dl (8.5-10.1); POTASSIUM 4.3 mmol/L (3.5-5.1)
[2017-04-25] MEDS: FLUTICASONE PROPIONATE NA SPR 16 GM BTL NAE SCH (09:00)
[2017-04-25] MEDS: IPRATROPIUM BROMIDE NASAL SPRAY 0.06% 15ML NAE SCH ×3 (09:00→20:36)
--- NOTE | 2017-04-25 09:06 | Anesthesiology Progress Note ---
Anesthesia Post Op Note Date & Time Apr 25, 2017 at 09:06 Vital Signs Pain Intensity: 8.0 Vital Signs Past 12 Hours Date Time Temp Pulse Resp B/P (MAP) Pulse Ox O2 Delivery O2 Flow Rate FiO2 04/25/17 07:50 Room Air 04/25/17 07:14 36.6 69 16 94/60 (71) 95 Room Air 04/25/17 03:03 36.3 71 16 106/67 (80) 93 Room Air 04/25/17 00:15 Room Air 04/24/17 23:04 36.5 68 16 94/60 (71) 90 Room Air Notes Mental Status: alert / awake / arousable, participated in evaluation Pt Amnestic to Procedure: Yes Nausea / Vomiting: adequately controlled Pain: adequately controlled Airway Patency, RR, SpO2: stable & adequate BP & HR: stable & adequate Hydration State: stable & adequate Neuraxial Anesthesia: sensory block resolved Anesthetic Complications: no major complications apparent
[2017-04-25] MEDS: PANTOprazole SOD 40 MG TAB PO SCH (09:24)
[2017-04-25] MEDS: PHENYTOIN SODIUM ER 100 MG CAP PO SCH ×2 (09:24→20:39)
[2017-04-25] MEDS: ATORVASTATIN 20 MG TAB PO SCH (09:24)
[2017-04-25] MEDS: MULTIVITAMIN TAB PO SCH (09:24)
[2017-04-25] MEDS: LOSARTAN POTASSIUM 50 MG TAB PO SCH (09:24)
[2017-04-25] MEDS: DOCUSATE SODIUM 100 MG CAP PO SCH ×2 (09:25→20:38)
[2017-04-25] MEDS: CARVEDILOL 12.5 MG TAB PO SCH ×2 (09:25→20:38)
[2017-04-25] MEDS: LORATADINE 10 MG TAB PO SCH (09:25)
[2017-04-25] MEDS: ASPIRIN 81 MG ECTAB PO SCH ×2 (09:25→20:38)
[2017-04-25 09:27] VITALS: BP 103/67; PULSE 76
[2017-04-25 15:05] VITALS: BP 97/61; PULSE 73; TEMP 36.7; O2SAT 92
[2017-04-25 20:38] VITALS: BP 118/76; PULSE 97
[2017-04-25] MEDS: CeleBREX 200 MG CAP PO SCH (20:39)
[2017-04-25] MEDS: SENNA 8.6 MG TAB PO SCH (20:40)
[2017-04-25 23:55] VITALS: BP 109/69; PULSE 84; TEMP 36.7; O2SAT 92
[2017-04-26] MEDS: OXYCODONE HCL IR 5 MG TAB (IMMEDIATE RELEASE) PO PRN ×2 (02:29→07:57)
[2017-04-26] MEDS: ACETAMINOPHEN 500 MG TAB PO SCH (05:51)
[2017-04-26 07:20] VITALS: BP 136/84; PULSE 79; TEMP 36.6; O2SAT 94
[2017-04-26] MEDS: IPRATROPIUM BROMIDE NASAL SPRAY 0.06% 15ML NAE SCH (07:52)
[2017-04-26] MEDS: FLUTICASONE PROPIONATE NA SPR 16 GM BTL NAE SCH (07:52)
[2017-04-26] MEDS: MULTIVITAMIN TAB PO SCH (07:53)
[2017-04-26] MEDS: ATORVASTATIN 20 MG TAB PO SCH (07:53)
[2017-04-26] MEDS: PANTOprazole SOD 40 MG TAB PO SCH (07:53)
[2017-04-26] MEDS: LOSARTAN POTASSIUM 50 MG TAB PO SCH (07:53)
[2017-04-26] MEDS: LORATADINE 10 MG TAB PO SCH (07:53)
--- NOTE | 2017-04-26 09:07 | Orthopedic Progress Note ---
Orthopedic Progress Note Date of Service Apr 26, 2017. Subjective Post OP Day: 2 Reports: feeling well (Moderate pain) Objective calves soft nontender, N/V intact, dressing C/D/I (Prevena in place), toes mobile Date Time Temp Pulse Resp B/P (MAP) Pulse Ox O2 Delivery O2 Flow Rate FiO2 04/26/17 07:20 36.6 79 16 136/84 (101) 94 Room Air 04/25/17 23:55 36.7 84 16 109/69 (82) 92 Room Air 04/25/17 22:20 Room Air 04/25/17 20:38 97 118/76 (90) 04/25/17 15:05 36.7 73 18 97/61 (73) 92 Room Air 04/25/17 15:00 Room Air 04/25/17 09:27 76 103/67 (79) Assessment & Plan Assessment: POD #2 s/p Poly-change upsize to an 11 x 3 4 Lakia with VMO quad tendon repair right total knee arthroplasty -pt/ot -dvt proph with araceli/scd/asa -will make arrangements for HHPT for d/c when stable Discharge Planning Discharge Planning: home with home health DVT Prophylaxis: TEDs, SCDs, ASA Therapy: Physical Therapy
[2017-04-26] MEDS ORDERED: ASPEC81 PO (09:10)
[2017-04-26] MEDS ORDERED: ACET-24 PO (09:10)
[2017-04-26] MEDS ORDERED: RXC5 PO (09:10)
[2017-04-26] MEDS ORDERED: CLB200 PO (09:10)
[2017-04-26 09:12] VITALS: BP 136/84; PULSE 79; TEMP 36.6; O2SAT 94
--- NOTE | 2017-04-26 09:12 | Discharge Instructions ---
Discharge Instructions Date of Service Apr 26, 2017. Admission Reason for Admission: Right Knee Other Muscle(S) & Tendon(S) Strain Discharge Discharge Diagnosis / Problem: Right TKA poly change and VMO repair Discharge Goals Goal(s): Decrease discomfort, Improve function Activity Recommendations Activity Limitations: as noted below Weightbearing Status: Right weightbearing (as tolerated) . Instructions / Follow-Up Instructions / Follow-Up ACTIVITY RECOMMENDATIONS: SELF CARE INSTRUCTIONS AFTER TOTAL KNEE REPLACEMENT A. You may need to continue a physical therapy program after discharge from the hospital. There are several options available to you. Your doctor will assist you in selecting the best one for you. 1. An out-patient facility 2 to 3 times a week for therapy or home therapy. 2. Continue working on all exercises taught to you in the hospital. Your goals should be to increase bending of your knee to 90 degrees and beyond and to fully straighten your knee. B. You may progress at your own pace from walking with a walker or crutches to a cane; then to no assistive devices. C. Make walking a part of your daily routine. Be up as much as comfortable with rest periods throughout the day. Rest with leg elevation is very important. Use the ice wrap frequently for the first 3-4 weeks. D. There are no restrictions on activities. You may ride in a car, shop, participate in coal inspector and all social activities. E. Wear the long elastic stockings (PATRIA hose) 20 hours a day for 2 weeks after surgery. They can be removed several times a day for laundering and for a bath. F. You may shower, no tub baths until cleared by your doctor. SPECIAL CARE INSTRUCTIONS: VERY IMPORTANT TO READ AND REVIEW A. There are a few signs you need to watch for after you are home. Call [facility] if you notice any of the followin. Increased severe knee pain. Some pain is expected especially when you exercise. 2. Increased swelling in your leg or knee; pain or swelling of the calf muscle in either lower leg. 3. Any fluid drainage from the incision. 4. Shortness of breath or chest pain. B. Please call [facility] at if you have any concerns or questions about your operation or recovery. The doctor or his nurse will return your call promptly. C. You must take antibiotics before dental work, bladder, bowel or other surgery. Your doctor will provide you with a permanent care to carry describing this precaution. IMPORTANT: * REMEMBER TO TAKE ASPIRIN, 81 MG, TWICE DAILY FOR 4 WEEKS UNLESS OTHERWISE DIRECTED. THIS IS YOUR BLOOD THINNER. * HIGH RISK PATIENTS MAY BE PRESCRIBED A STRONGER BLOOD THINNER. THIS WILL BE PROVIDED AT DISCHARGE. * CALL IF INCREASED PAIN, REDNESS, DRAINAGE OR FEVER GREATER THAT 101. * WEAR PATRIA HOSE 20 HOURS PER DAY FOR 2 WEEKS. Prevena- This is a large suction dressing covering your incision. This will help pull any excess drainage from the wound and allow your incision to heal properly. You may shower with this if you can keep the unit outside of the shower. If any bleeding or leakage is noted please call your doctor's office. This will remain on your incision for 7 days and then should be removed. This can be done yourself or by the home nursing staff if applicable. The entire unit is disposable once removed. Once removed, keep incision clean and dry. If redness or drainage is noted, please call your surgeon. FOLLOW UP VISIT: If appointment is not already scheduled: Please call [facility] to make a follow-up appointment for 2 weeks after your surgery at . Current Hospital Diet Patient's current hospital diet: Regular Diet Discharge Diet Recommended Diet: Regular Diet Procedures Procedures Performed: Poly-change upsize to an 11 x 3 4 Lakia with VMO quad tendon repair righttotal knee arthroplasty Pending Studies Studies pending at discharge: no Medical Emergencies . Who to Call and When: Medical Emergencies: If at any time you feel your situation is an emergency, please call 911 immediately. . Non-Emergent Contact Non-Emergency issues call your: Surgeon Call Non-Emergent contact if: temperature is above 101.5, your pain is not controlled, wound has increased drainage, wound has increased redness . "Provider Documentation" section prepared by Terry Rivera PA-C. . VTE Core Measure Inpt VTE Proph given/why not?: Other Anticoagulation (ASA 81mg bid), T.E.D. Stockings, SCD's [place] Drug Monitoring Program Search Results: patient reviewed within database, no issues identified
[2017-04-26] MEDS: CeleBREX 200 MG CAP PO SCH (10:43)
[2017-04-26] MEDS: CARVEDILOL 12.5 MG TAB PO SCH (10:43)
[2017-04-26] MEDS: DOCUSATE SODIUM 100 MG CAP PO SCH (10:43)
[2017-04-26] MEDS: ASPIRIN 81 MG ECTAB PO SCH (10:43)
[2017-04-26] MEDS: PHENYTOIN SODIUM ER 100 MG CAP PO SCH (11:16)
--- NOTE | 2017-04-30 09:07 | Discharge Summary ---
Orthopedic Discharge Summary Admission Date/Reason Apr 24, 2017 at 12:15 Right Knee Other Muscle(S) & Tendon(S) Strain. Discharge Date/Disposition Apr 26, 2017 Home with services Diagnosis Principal Diagnosis: Attenuation VMO quad repair mild laxity total knee arthroplasty Secondary Diagnoses/Problems: Hypertension and heart disease Procedure(s) Performed Poly-change upsize to an 11 x 3 4 Lakia with VMO quad tendon repair right total knee arthroplasty Medication Reconciliation New Medications: Acetaminophen (Sb Non-Aspirin Extra Stre) 500 Mg Tab 1000 MG PO Q8 for 14 Days, TAB Aspirin (Aspirin EC Low Dose) 81 Mg Ectab 81 MG PO BID for 28 Days Celecoxib (Celebrex) 200 Mg Cap 200 MG PO BID, #60 CAP Oxycodone HCl (Oxycodone HCl) 5 Mg Tab 5-10 MG PO Q4H PRN for Pain, #60 TAB Continued Medications: Atorvastatin (Lipitor) 20 Mg Tab 20 MG PO DAILY Carvedilol (Coreg) 12.5 Mg Tab 12.5 MG PO BID, TAB Fluticasone Propionate (Nasal) (Flonase Allergy Relief) 50 Mcg/Act Spr 2 SPRAYS FUNMI DAILY Ipratropium [place] (Nasal) (Ipratropium [place]) 0.06 % Spr 2 SPRAYS FUNMI TID Loratadine (Claritin) 10 Mg Tab 10 MG PO DAILY Losartan Potassium (Cozaar) 50 Mg Tab 50 MG PO DAILY Omeprazole (Prilosec) 20 Mg Capcr 20 MG PO DAILY Phenytoin Sodium (Dilantin) 100 Mg Cap 200 MG PO BID, CAP Discontinued Medications: Aspirin (Aspirin Ec) 81 Mg Tab 81 MG PO DAILY Meloxicam (Mobic) 15 Mg Tab 15 MG PO DAILY Admission Physical Exam As per Admitting History & Physical. Hospital Course Patient was admitted on the above-noted date and had the above noted surgery performed. She tolerated the procedure well. Her first postoperative day, she was remaining stable. Vital signs were stable and she was afebrile. Hemoglobin was stable. Dressings are clean dry and intact and she was started on physical therapy protocol and continued on DVT prophylaxis and pain management. By her second postoperative day, she continued to remain stable. She was progressing with her physical therapy and was felt that she could be discharged to home with home health services. Discharge Instructions Please refer to the electronic Patient Visit Report (Discharge Instructions) for additional information.
== END 2017-04-26 11:45 | disposition home health service (06) | DRG 489 ==
LOC: C.ACU 11:20 → C.3E 12:15 → ENRESERV 15:46
PROVIDERS: ADMIT Orthopaedic Surgery; ATTEND Orthopaedic Surgery
PROC: 0SPC09Z Removal of Liner from Right Knee Joint, Open Approach (ICD-10-PCS; principal; 2017-04-24 13:45)
PROC: 0SUV09Z Supplement Right Knee Joint, Tibial Surface with Liner, Open Approach (ICD-10-PCS; principal; 2017-04-24 13:45)
PROC: 0KQQ0ZZ Repair Right Upper Leg Muscle, Open Approach (ICD-10-PCS; principal; 2017-04-24 13:45)
DX: S76.111A Strain of right quadriceps muscle, fascia and tendon, initial encounter (principal); M23.8X1 Other internal derangements of right knee; Z96.651 Presence of right artificial knee joint; I10 Essential (primary) hypertension; R56.9 Unspecified convulsions; Z79.899 Other long term (current) drug therapy; Z79.82 Long term (current) use of aspirin; Z86.711 Personal history of pulmonary embolism; W19.XXXA Unspecified fall, initial encounter

== ENCOUNTER 2017-07-02 07:37 | Inpatient (IN) | payer OTHER ==
[2017-06-22 14:07] VITALS: Ht 165.1 cm; Wt 100.4 kg
--- NOTE | 2017-06-22 15:00 | PAT Medication Instructions ---
Service Date Jun 22, 2017. Current Home Medication List Aspirin (Aspirin Ec), 81 MG PO QPM Atorvastatin (Lipitor), 20 MG PO QAM Carvedilol (Coreg), 12.5 MG PO BID Fluticasone Propionate (Nasal) (Flonase Allergy Relief), 2 SPRAYS NA QD PRN for Nasal Congestion Hydrocodone/Acetaminophen 5MG/325MG (Craig 5MG/325MG), 1 TABLET PO QD PRN for Pain Ipratropium Honor (Nasal) (Ipratropium Honor), 2 SPRAYS FUNMI TID PRN for SOB/ Wheezing Loratadine (Claritin), 10 MG PO DAILY PRN for Allergic Reaction Losartan Potassium (Cozaar), 50 MG PO QAM Meloxicam (Meloxicam), 1 TAB PO QAM Omeprazole (Prilosec), 20 MG PO QAM Phenytoin Sodium (Dilantin), 2 CAP PO QAM Phenytoin Sodium (Dilantin), 1 CAP PO QPM Medication Instructions For Your Scheduled Surgery -Check with your surgeon for instructions for: Meloxicam (Meloxicam), 1 TAB PO QAM - Hold the following medications the morning of surgery: Loratadine (Claritin), 10 MG PO DAILY PRN for Allergic Reaction Losartan Potassium (Cozaar), 50 MG PO QAM - Take the following medications the morning of surgery with a sip of water: Atorvastatin (Lipitor), 20 MG PO QAM Carvedilol (Coreg), 12.5 MG PO BID Fluticasone Propionate (Nasal) (Flonase Allergy Relief), 2 SPRAYS NA QD PRN for Nasal Congestion (if needed) Hydrocodone/Acetaminophen 5MG/325MG (Craig 5MG/325MG), 1 TABLET PO QD PRN for Pain (if needed, can be taken up to four hours before surgery) Ipratropium Honor (Nasal) (Ipratropium Honor), 2 SPRAYS FUNMI TID PRN for SOB/ Wheezing (if needed) Omeprazole (Prilosec), 20 MG PO QAM Phenytoin Sodium (Dilantin), 2 CAP PO QAM - Take the following medications as scheduled the night before surgery: Aspirin (Aspirin Ec), 81 MG PO QPM Carvedilol (Coreg), 12.5 MG PO BID Fluticasone Propionate (Nasal) (Flonase Allergy Relief), 2 SPRAYS NA QD PRN for Nasal Congestion (if needed) Hydrocodone/Acetaminophen 5MG/325MG (Craig 5MG/325MG), 1 TABLET PO QD PRN for Pain (if needed) Ipratropium Honor (Nasal) (Ipratropium Honor), 2 SPRAYS FUNMI TID PRN for SOB/ Wheezing (if needed) Phenytoin Sodium (Dilantin), 1 CAP PO QPM If you have any questions please call us at [phone] or [phone] or [phone]
[2017-06-22 15:14] LABS: BASO % 1.3 %; BASO ABS # 0.08 K/uL (0-0.2); EOS % 4.1 %; EOS ABS # 0.26 K/uL (0-0.5); HEMATOCRIT 39.1 % (37-47); HEMOGLOBIN 12.8 g/dL (12.0-16.0); IG# 0.01 K/uL (0.00-0.02); LYMPH % 34.1 %; LYMPH ABS # 2.15 K/uL (1.2-3.4); MEAN CELL VOLUME 91.4 fL (80-100); MEAN CORPUSCULAR HEMOGLOBIN 29.9 pg (25-34); MEAN CORPUSCULAR HGB CONC 32.7 g/dl (32-36); MEAN PLATELET VOLUME 9.5 fL (7.4-10.4); MONO % 9.8 %; MONO ABS # 0.62 K/uL (0.11-0.59); NEUT % 50.5 %; NEUT ABS # 3.18 K/uL (1.4-6.5); PLATELET COUNT 218 K/uL (130-400); RED CELL DISTRIBUTION WIDTH CV 13.2 % (11.5-14.5)
[2017-06-22 15:23] LABS: ALBUMIN 3.1 gm/dl (3.4-5.0); CALCIUM 8.6 mg/dl (8.5-10.1); CREATININE 0.71 mg/dl (0.60-1.20); POTASSIUM 4.3 mmol/L (3.5-5.1); PTT PATIENT 23.4 SECONDS (21.0-31.0)
[2017-06-22 15:25] LABS: TOTAL PROTEIN 6.8 gm/dl (6.4-8.2)
--- NOTE | 2017-06-22 15:36 | DIAGNOSTIC IMAGING REPORT ---
CHEST 2 VIEWS ROUTINE HISTORY: 67 years-old Female PAT preoperative exam. No acute chest complaints. COMPARISON: Chest radiograph 03/04/2013, CT chest 03/04/2013, lumbar spine radiographs 10/16/2016 TECHNIQUE: PA and lateral views of the chest FINDINGS: Cardiac silhouette is upper limits of normal, unchanged. Atherosclerosis of the aorta. No pneumothorax, pleural effusion, focal airspace consolidation or overt pulmonary edema. Minimal subsegmental left basilar atelectasis. Degenerative changes are seen within the shoulders and spine. Remote compression deformity of the L2 vertebral body. IMPRESSION: No acute process of the chest. The above report was generated using voice recognition software. It may contain grammatical, syntax or spelling errors. Electronically signed by: Gt Voss M.D. 06/22/2017 3:35 PM Dictated Date/Time: 06/22/2017 3:33 PM
--- NOTE | 2017-06-30 08:08 | History and Physical ---
History & Physical Date Jun 30, 2017. Chief Complaint RIGHT HIP PAIN History of Present Illness The patient is a 67 year old female with complaints of right hip and groin pain for years. Has trouble walking for years. Limping all the time. has failed canes and pt. Past Medical/Surgical History Medical Problems: (1) Fall (2) Hypertension (3) Instability of prosthetic hip (4) Pulmonary embolism (5) Quadriceps muscle rupture (6) Seizure Surgical Problems: (1) S/P hip replacement (2) S/P hysterectomy (3) S/P knee replacement Additional History Hepatic Disease: No Endocrine Disorder: No Kidney Disease: No Hypertension: Yes Heart Disease: Yes Bleeding Tendencies: No Infectious Diseases: No Allergies Coded Allergies: No Known Allergies (Verified , 06/22/17) Home Medications Scheduled Aspirin (Aspirin Ec), 81 MG PO QPM Atorvastatin (Lipitor), 20 MG PO QAM Carvedilol (Coreg), 12.5 MG PO BID Losartan Potassium (Cozaar), 50 MG PO QAM Meloxicam (Meloxicam), 1 TAB PO QAM Omeprazole (Prilosec), 20 MG PO QAM Phenytoin Sodium (Dilantin), 2 CAP PO QAM Phenytoin Sodium (Dilantin), 1 CAP PO QPM Scheduled PRN Fluticasone Propionate (Nasal) (Flonase Allergy Relief), 2 SPRAYS NA QD PRN for Nasal Congestion Hydrocodone/Acetaminophen 5MG/325MG ([place] 5MG/325MG), 1 TABLET PO QD PRN for Pain Ipratropium Spicer (Nasal) (Ipratropium Spicer), 2 SPRAYS FUNMI TID PRN for SOB/ Wheezing Loratadine (Claritin), 10 MG PO DAILY PRN for Allergic Reaction Physical Examination Skin: warm/dry, no rash Eyes: normal inspection, EOMI, sclerae normal ENT: normal ENT inspection, pharynx normal Head: normocephalic, atraumatic Neck: supple, no adenopathy, trachea midline Respiratory/Chest: lungs clear, normal breath sounds, no respiratory distress Cardiovascular: regular rate, rhythm, no edema, no murmur Abdomen / GI: normal bowel sounds, non tender Back: normal inspection Extremities: normal inspection, normal range of motion, + pertinent finding ( pain with rom right hip) Neurologic/Psych: no motor/sensory deficits, alert, normal reflexes, oriented x 3 Diagnosis DJD RIGHT HIP Plan of Treatment ADMIT, UNDERGO RIGHT ROSALINA. HOME PT AND ASA POST OP.
[~2017-07-02] VITALS: Ht 165.1 cm; Wt 100.4 kg
[2017-07-02] VITALS (9 sets, daily range): BP systolic 98–153; BP diastolic 62–89; PULSE 65–91; TEMP 36.3–36.6; O2SAT 92–99
[2017-07-02] MEDS: TRANEXAMIC ACID INJ 1,000 MG x 2 Bags IV SCH ×4 (06:30→09:52)
[~2017-07-02 07:37] MED LIST changes: +ACETAMINOPHEN 500 MG TAB PO SCH; -ATROPINE SULFATE 0.1 MG/ML 5ML SYR IV PRN; +BUPIVACAINE 0.5 % 5 MG/1 ML PF 10ML VIAL ONE; -CEFAZOLIN 1000MG IV PUSH 7.5 ML IV SCH; +CeleBREX 200 MG CAP PO SCH; +DEXAMETHASONE 4 MG TAB PO SCH; +DLN100 PO; -EpHEDrine SULFATE INJ 50 MG/ML AMP IV PRN; +FAMOTIDINE 20 MG TAB PO SCH; -FENTANYL CITRATE INJ 50 MCG/1 ML 2 ML VIAL IV PRN; +FLUT0.15; -FLUT0.15 NAE; +HYDR-5688 PO; -HYDROmorphone INJ 1 MG/ML SYR IV PRN; -LABETALOL HCL IV 5 MG/ML 20ML IV PRN; +LACTATED RINGER'S 1000ML 500 ML IV SCH; +LACTATED RINGER'S 1000ML IV SCH; +MELO-83 PO; -MELO-84 PO; -MEPERIDINE HCL 25 MG/ML CARP IV PRN; +METOCLOPRAMIDE HCL 10 MG TAB PO SCH; -MISSING PHYSICIAN SIGNATURE ON ORDER SCH; -ONDANSETRON INJ 2 MG/ML 2 ML VIAL IV PRN; -PATIENT'S HEIGHT AND/OR WEIGHT NEEDED SCH; -PHN/100 PO; +ROPIVACAINE 5MG/ML 30 ML 150 MG, BUPIVACAINE 0.5% MPF INJ 30 ML, EpINEphrine HCL INJ 0.... INFIL SCH
[2017-07-02] MEDS ORDERED: MIDAZOLAM HCL 1 MG/ML 2ML VIAL ONE (09:08)
[2017-07-02] MEDS ORDERED: FENTANYL CITRATE INJ 50 MCG/1 ML 2 ML VIAL ONE (09:08)
[2017-07-02] MEDS ORDERED: ORTHO JOINT ANESTHETIC ONE (09:58)
[2017-07-02] MEDS ORDERED: BACITRACIN 50000 UNIT VIAL ONE (09:58)
[2017-07-02] MEDS ORDERED: POVIDONE-IODINE OP SOLN 30 ML BTL ONE (09:58)
[2017-07-02] MEDS ORDERED: ONDANSETRON INJ 2 MG/ML 2 ML VIAL IV PRN ×2 (10:00→11:45)
[2017-07-02] MEDS ORDERED: EpHEDrine SULFATE INJ 50 MG/ML AMP IV PRN (10:00)
[2017-07-02] MEDS ORDERED: FENTANYL CITRATE INJ 50 MCG/1 ML 2 ML VIAL IV PRN (10:00)
[2017-07-02] MEDS ORDERED: ATROPINE SULFATE 0.1 MG/ML 5ML SYR IV PRN (10:00)
[2017-07-02] MEDS: CEFAZOLIN 2000MG IV PUSH 15 ML IV SCH ×2 (10:22→13:19)
[2017-07-02] MEDS ORDERED: LIDOCAINE HCL 2% 2 ML VIAL (20MG/ML) ONE (11:06)
[2017-07-02] MEDS ORDERED: EpHEDrine SULFATE 50MG/5ML SYR ONE (11:06)
[2017-07-02] MEDS ORDERED: PROPOFOL IV EMULSION 10 MG/ML 20 ML VIAL IV ONE (11:06)
[2017-07-02] MEDS ORDERED: PHENYLEPHRINE 100MCG/ML 5ML SYR ONE (11:06)
--- NOTE | 2017-07-02 11:42 | [facility] Operative Report ---
Operative Report Operative Date Jul 02, 2017. Pre-Operative Diagnosis Degenerative Joint Disease, Right Hip Post-Operative Diagnosis Degenerative Joint Disease, Right Hip Procedure(s) Performed Right Total Hip Arthroplasty Surgeon Dr. Nemesio Scruggs Marble Installer Supervisor Surgeon(s) Denilson To PA-C Estimated Blood Loss 50 ML Specimens Permanent Solution: A.) Right Femoral Head Drains one Anesthesia Type MAC Spinal Regional Complication(s) none Disposition no Recovery Room / PACU Description of Procedure IMPLANTS USED: [place] size 58 mm PSL JIMENES coated acetabular cup, one acetabular screw, a 36 mm X3 elevated liner, a #8 Accolade 2 stem with a 132 neck and a 36 mm -5 ceramic head INDICATIONS: Mrs. Wilder is a pleasant female)] who has unfortunately failed all forms of conservative measures. Therefore, they have has decided to undergo elective surgical intervention. All risks and benefits of the surgery were discussed with the patient and the family in entirety. PROCEDURE: The patient was brought to the operating room and properly identified by myself, anesthesia, and staff. Patient was given a spinal anesthetic and placed on the operating table with the right hip up. The hip was then prepped and draped in the standard orthopedic fashion. We made a standard posterolateral approach over the greater trochanteric area. We then dissected down to subcutaneous tissue until the fascia was identified. We incised the fascia in line with the skin incision. We then split the gluteus sindy muscles with finger dissection. We then put the Charnley retractor in place. We placed the retractor underneath the gluteus medius to expose the piriformis. The piriformis was then tagged with a tag suture and released from the insertion from the greater trochanteric area with the use of electrocautery. We then performed a T capsulotomy and the femoral head and neck were atraumatically dislocated. We then performed femoral neck osteotomy at the pre-template site. We removed the femoral head and neck without difficulty. We then placed the retractor around the acetabulum. We then began to ream the acetabulum to the appropriate size. We then impacted the cup into place and had a very good fixation within the pelvis. We then put the liner in place as well. Then using multiple size approaches from the Accolade 2 system a size #8 fit very nicely in the proximal femur. I then put trial components in place. WE had very good range of motion, excellent stability, and excellent leg length equality. We removed the trial components and irrigated the wound. We then impacted the components in place and irrigated the wound once more. We then closed the capsule and fascia with a 0 Vicryl suture, the deep dermis with 2-0 Vicryl suture, and finally the skin with a running 3-0 Vicryl subcuticular stitch. A sterile dressing was applied. The patient was taken to the recovery room in stable condition. Due to the complex nature of the procedure, the entire surgery was performed with the operational assistance of Denilson To PA-C. The assistant city attorney was under direct supervision, was involved in the actual performance of all aspects of the surgical procedure including hemostasis, tissue retraction and incision, instrument management, patient positioning, and wound closure. I attest to the content of the Intraoperative Record and any orders documented therein. Any exceptions are noted below.
[2017-07-02] MEDS ORDERED: BISACODYL 10 MG SUPP PR PRN (11:45)
[2017-07-02] MEDS ORDERED: LORATADINE 10 MG TAB PO PRN (11:45)
[2017-07-02] MEDS ORDERED: MAGNESIUM HYDROXIDE SUSP 30 ML UDC PO PRN (11:45)
[2017-07-02] MEDS ORDERED: FLUTICASONE PROPIONATE NA SPR 16 GM BTL PRN (11:45)
[2017-07-02] MEDS ORDERED: ZOLPIDEM TARTRATE 5 MG TAB PO PRN (11:45)
[2017-07-02] MEDS ORDERED: ALUMINUM/MAGNESIUM/SIMETH (MAALOX MAX) 30 ML UDC PO PRN (11:45)
--- NOTE | 2017-07-02 12:41 | Anesthesiology Progress Note ---
Anesthesia Post Op Note Date & Time Jul 02, 2017 at 12:41 Vital Signs Pain Intensity: 0 Vital Signs Past 12 Hours Date Time Temp Pulse Resp B/P (MAP) Pulse Ox O2 Delivery O2 Flow Rate FiO2 07/02/17 12:40 36.4 69 16 122/68 97 Nasal Cannula 2 07/02/17 12:30 66 16 134/79 97 Nasal Cannula 2 07/02/17 12:20 65 16 123/75 97 Oxymask 10 07/02/17 12:12 36.4 60 16 110/62 99 Oxymask 10 07/02/17 08:20 36.6 74 20 153/80 94 Room Air Notes Mental Status: alert / awake / arousable, participated in evaluation Pt Amnestic to Procedure: Yes Nausea / Vomiting: adequately controlled Pain: adequately controlled Airway Patency, RR, SpO2: stable & adequate BP & HR: stable & adequate Hydration State: stable & adequate Neuraxial Anesthesia: was administered, sensory block is resolving Anesthetic Complications: no major complications apparent
[2017-07-02] MEDS: SODIUM CHLORIDE 0.9% 1000ML 1,000 ML IV SCH ×2 (14:01→21:04)
[2017-07-02] MEDS: ACETAMINOPHEN 500 MG TAB PO SCH ×2 (14:01→21:56)
[2017-07-02] MEDS: RIVAROXABAN 10 MG TAB PO SCH (15:45)
[2017-07-02] MEDS ORDERED: TRANEXAMIC ACID INJ 1,000 MG in SODIUM CHLORIDE 0.9% 100ML 100 ML IV SCH (18:00)
[2017-07-02] MEDS: OXYCODONE HCL IR 5 MG TAB (IMMEDIATE RELEASE) PO PRN ×2 (18:01→23:14)
[2017-07-02] MEDS: CEFAZOLIN IV 3,000 MG in SYRINGE 0 ML IV SCH (18:01)
[2017-07-02] MEDS: PHENYTOIN SODIUM ER 100 MG CAP PO SCH (21:02)
[2017-07-02] MEDS: ASPIRIN 81 MG ECTAB PO SCH (21:02)
[2017-07-02] MEDS: CARVEDILOL 12.5 MG TAB PO SCH (21:02)
[2017-07-02] MEDS: DOCUSATE SODIUM 100 MG CAP PO SCH (21:03)
[2017-07-03] MEDS: CEFAZOLIN IV 3,000 MG in SYRINGE 0 ML IV SCH (01:59)
[2017-07-03 03:21] VITALS: BP 93/60; PULSE 77; TEMP 36.4; O2SAT 93
[2017-07-03] MEDS: ACETAMINOPHEN 500 MG TAB PO SCH ×3 (05:18→22:11)
[2017-07-03] MEDS: OXYCODONE HCL IR 5 MG TAB (IMMEDIATE RELEASE) PO PRN ×3 (05:19→20:49)
[2017-07-03] MEDS ORDERED: TRANEXAMIC ACID INJ 1,000 MG x 1 bag Topical TOP SCH ×2 (06:00)
[2017-07-03] MEDS: SODIUM CHLORIDE 0.9% 1000ML 1,000 ML IV SCH (06:52)
[2017-07-03 06:57] LABS: BASO % 0.2 %; BASO ABS # 0.02 K/uL (0-0.2); EOS % 0.2 %; EOS ABS # 0.02 K/uL (0-0.5); HEMATOCRIT 34.3 % (37-47); IG# 0.03 K/uL (0.00-0.02); LYMPH % 14.6 %; LYMPH ABS # 1.62 K/uL (1.2-3.4); MEAN CELL VOLUME 91.5 fL (80-100); MEAN CORPUSCULAR HEMOGLOBIN 29.3 pg (25-34); MEAN CORPUSCULAR HGB CONC 32.1 g/dl (32-36); MONO % 10.7 %; MONO ABS # 1.19 K/uL (0.11-0.59); NEUT ABS # 8.24 K/uL (1.4-6.5); PLATELET COUNT 189 K/uL (130-400); RED CELL DISTRIBUTION WIDTH SD 43.9 fL (36.4-46.3); WHITE BLOOD COUNT 11.12 K/uL (4.8-10.8)
[2017-07-03 07:22] VITALS: BP 107/71; PULSE 73; TEMP 36.3; O2SAT 99
[2017-07-03] MEDS ORDERED: DEXAMETHASONE INJ 10 MG in SYRINGE 0 ML IV SCH (07:30)
--- NOTE | 2017-07-03 08:10 | Orthopedic Progress Note ---
Orthopedic Progress Note Date of Service Jul 03, 2017. Subjective Post OP Day: 1 Reports: feeling well, Denies: chest pain, SOB, nausea / vomiting, light headedness, calf pain Additional Notes: complains of groin pain that started last night will trying to get into bed. She feels that her leg twisted in a certain manor and she had immediate pain in the groin. Since then she has pain in the groin trying to do SLR's and and increased pain with weightbearing which she did not have before. Denies radicular symptoms. No other complaints. Objective calves soft nontender, N/V intact, hip located, dressing C/D/I, A&O x3, toes mobile, hemovac drainage (100ml latest shift) Date Time Temp Pulse Resp B/P (MAP) Pulse Ox O2 Delivery O2 Flow Rate FiO2 07/03/17 07:22 36.3 73 16 107/71 (83) 99 Room Air 07/03/17 03:21 36.4 77 14 93/60 (71) 93 Room Air 07/03/17 00:20 Room Air 07/02/17 23:38 36.5 91 15 98/62 (74) 95 Room Air 07/02/17 20:59 80 107/71 (83) 07/02/17 19:36 36.4 70 16 108/66 (80) 92 Room Air 07/02/17 16:09 36.4 74 16 123/80 (94) 99 Room Air 07/02/17 15:15 Nasal Cannula 2.0 07/02/17 15:00 74 16 115/73 (87) 99 2.0 07/02/17 13:58 73 16 136/89 (105) 98 2.0 07/02/17 13:29 65 16 138/84 (102) 98 2.0 07/02/17 13:00 36.3 65 16 150/84 (106) 99 Nasal Cannula 2.0 07/02/17 13:00 Nasal Cannula 2.0 07/02/17 13:00 Nasal Cannula 2.0 07/02/17 12:40 36.4 69 16 122/68 97 Nasal Cannula 2 07/02/17 12:30 66 16 134/79 97 Nasal Cannula 2 07/02/17 12:20 65 16 123/75 97 Oxymask 10 07/02/17 12:12 36.4 60 16 110/62 99 Oxymask 10 07/02/17 08:20 36.6 74 20 153/80 94 Room Air Laboratory Results 24 Hours: Test 07/03/17 05:37 White Blood Count 11.12 K/uL Red Blood Count 3.75 M/uL Hemoglobin 11.0 g/dL Hematocrit 34.3 % Mean Corpuscular Volume 91.5 fL Mean Corpuscular Hemoglobin 29.3 pg Mean Corpuscular Hemoglobin Concent 32.1 g/dl Platelet Count 189 K/uL Mean Platelet Volume 10.0 fL Neutrophils (%) (Auto) 74.0 % Lymphocytes (%) (Auto) 14.6 % Monocytes (%) (Auto) 10.7 % Eosinophils (%) (Auto) 0.2 % Basophils (%) (Auto) 0.2 % Neutrophils # (Auto) 8.24 K/uL Lymphocytes # (Auto) 1.62 K/uL Monocytes # (Auto) 1.19 K/uL Eosinophils # (Auto) 0.02 K/uL Basophils # (Auto) 0.02 K/uL Assessment & Plan Assessment: POD 1 s/p Right ROSALINA Plan: Will order Hip film due to increased pain with WB Wait on PT/OT to assess film. If film neg, continue PT /OT and plan for dc to home today if pain controlled. Inhouse Planning Pain Management: PO Tylenol, Oxy IR DVT Prophylaxis: TEDs, SCDs, Xarelto Discharge Planning Discharge Planning: home with home health
[2017-07-03] MEDS ORDERED: TRAM-10 PO (08:14)
[2017-07-03] MEDS ORDERED: ACET-24 PO (08:14)
[2017-07-03] MEDS ORDERED: XRL10 PO ×2 (08:14→09:01)
--- NOTE | 2017-07-03 08:16 | Discharge Instructions ---
Discharge Instructions Date of Service Jul 03, 2017. Admission Reason for Admission: Right Hip Osteoarthritis Discharge Discharge Diagnosis / Problem: Right Hip Djd Discharge Goals Goal(s): Decrease discomfort, Improve function, Increase independence Activity Recommendations Activity Limitations: per Instructions/Follow-up section Weightbearing Status: Right weightbearing (as tolerated) . Instructions / Follow-Up Instructions / Follow-Up ACTIVITY RECOMMENDATIONS: SELF CARE INSTRUCTIONS AFTER TOTAL HIP REPLACEMENT Until the incision and soft tissues around your hip have healed, there is a possibility that the hip prosthesis could dislocate. A. Observe the following precautions to prevent dislocation: 1. Don't bend your hip greater than 90 degrees. 2. Avoid crossing your legs or ankles while standing or lying. 3. Sit with your feet placed 6 inches apart. 4. When sitting, keep your knees below your hips. Sit on a firm surface, avoid deep, soft chairs and couches. Use an elevated toilet seat in the bathroom. 5. Don't bend over at the waist. Use a long handled shoehorn and a sock aid to help you put on your shoes and socks. A cupola worker can help you medicinal plant picker objects that are too high or too low to reach. 6. Keep car riding to a minimum for at least one month after surgery. B. Your balance may be shaky for a while. Use crutches or a walker until directed by your doctor. C. Use hand rails when walking on stairs. D. Wear low heeled shoes with non-slip soles. E. Be sure that your floors are free of things that could trip you - throw rugs , electrical cords, small objects. Avoid wet and waxed floors, especially with crutches and canes. F. Try to walk several times a day with rest periods between. G. Continue with all the exercises taught to you in the hospital. Again, make walking a part of your daily routine. SPECIAL CARE INSTRUCTIONS: VERY IMPORTANT TO READ AND REVIEW A. You may still be at risk for phlebitis and blood clots. 1. Wear surgical stockings (PATRIA hose) for 2 weeks after surgery to improve circulation and reduce swelling. 2. Take Aspirin 81mg twice daily for 4 weeks or as directed by your doctor. This is your blood thinner. 3. High risk patients may be prescribed a stronger blood thinner if necessary. 4. If you are on Coumadin normally, your family doctor/pad assembler should monitor your blood work. Expect a phone call the day of or the day after bloodwork is drawn to adjust your dosage. B. You must take antibiotics before having dental work, bladder, bowel and other surgery. Your doctor will provide you with a permanent card to carry describing precautions. C. Call [facility] if you have a fever, redness or swelling around the incision, cloudy drainage from incision, or sudden increase in pain in your hip, not relieved by your regular pain medication. D. Please call the office at if you have any concerns or questions about your operation or recovery. * YOU MAY SHOWER, NO TUB BATHS UNTIL CLEARED BY YOUR DOCTOR. * WEAR PATRIA HOSE 20 HOURS PER DAY FOR 2 WEEKS. * YOU SHOULD USE A WALKER OR CRUTCHES FOR 2-4 WEEKS. THIS WILL HELP PREVENT STRAIN ON YOUR HIP MUSCLE AND ALLOW IT TO HEAL PROPERLY. YOU MAY WEAN TO A CANE TOLERATED. * MOST PATIENTS WILL HAVE HOME NURSING FOR THERAPY. IF YOU DECIDE TO DO OUTPATIENT PHYSICAL THERAPY, PLEASE SCHEDULE THIS 3 TIMES PER WEEK. * Prevena- This is a large suction dressing covering your incision. This will help pull any excess drainage from the wound and allow your incision to heal properly. You may shower with this if you can keep the unit outside of the shower. If any bleeding or leakage is noted please call your doctor's office. This will remain on your incision for 7 days and then should be removed. This can be done yourself or by the home nursing staff if applicable. The entire unit is disposable once removed. Once removed, keep incision clean and dry. If redness or drainage is noted, please call your surgeon. . FOLLOW UP VISIT: If appointment is not already scheduled: Please call [facility] to make a follow-up appointment for 2 weeks after your surgery at . Current Hospital Diet Patient's current hospital diet: Regular Diet Discharge Diet Recommended Diet: Regular Diet Procedures Procedures Performed: Right Total Hip Arthroplasty Pending Studies Studies pending at discharge: no Medical Emergencies . Who to Call and When: Medical Emergencies: If at any time you feel your situation is an emergency, please call 911 immediately. . Non-Emergent Contact Non-Emergency issues call your: Surgeon Call Non-Emergent contact if: temperature is above 101.5, your pain is not controlled, your pain is worsening, wound has increased drainage, wound has increased redness . "Provider Documentation" section prepared by Denilson To. . [place] Drug Monitoring Program Search Results: patient reviewed within database, no issues identified
--- NOTE | 2017-07-03 08:18 | Anesthesiology Progress Note ---
Anesthesia Post Op Note Date & Time Jul 03, 2017 at 08:17 Vital Signs Pain Intensity: 7.0 Vital Signs Past 12 Hours Date Time Temp Pulse Resp B/P (MAP) Pulse Ox O2 Delivery O2 Flow Rate FiO2 07/03/17 07:22 36.3 73 16 107/71 (83) 99 Room Air 07/03/17 03:21 36.4 77 14 93/60 (71) 93 Room Air 07/03/17 00:20 Room Air 07/02/17 23:38 36.5 91 15 98/62 (74) 95 Room Air 07/02/17 20:59 80 107/71 (83) Notes Mental Status: alert / awake / arousable, participated in evaluation Pt Amnestic to Procedure: Yes Nausea / Vomiting: adequately controlled Pain: adequately controlled Airway Patency, RR, SpO2: stable & adequate BP & HR: stable & adequate Hydration State: stable & adequate Neuraxial Anesthesia: was administered, sensory block resolved Anesthetic Complications: no major complications apparent
[2017-07-03] MEDS: DOCUSATE SODIUM 100 MG CAP PO SCH ×2 (08:54→20:55)
[2017-07-03] MEDS: LOSARTAN POTASSIUM 50 MG TAB PO SCH (08:54)
[2017-07-03] MEDS: CARVEDILOL 12.5 MG TAB PO SCH ×2 (08:54→20:55)
[2017-07-03] MEDS: ATORVASTATIN 20 MG TAB PO SCH (08:55)
[2017-07-03] MEDS: PHENYTOIN SODIUM ER 100 MG CAP PO SCH ×2 (08:55→20:54)
--- NOTE | 2017-07-03 10:02 | DIAGNOSTIC IMAGING REPORT ---
SINGLE VIEW PELVIS; TWO VIEWS RIGHT HIP CLINICAL HISTORY: Postoperative examination. FINDINGS: An AP portable view of the hips and pelvis with AP and crosstable lateral portable views of the right hip are obtained. Comparison is made to study dated 06/19/2013. A bipolar right hip arthroplasty is in near-anatomic alignment. A single cortical lag screw transfixes the acetabular cup. No acute fracture is identified. There are expected postoperative changes overlying the right hip including skin clips, subcutaneous gas, a surgical drain, and soft tissue swelling. A left hip arthroplasty is in place. IMPRESSION: Expected postoperative findings status post right hip arthroplasty. No acute fracture is seen. Electronically signed by: Jorge Dobbins M.D. 07/03/2017 10:01 AM Dictated Date/Time: 07/03/2017 10:00 AM
[2017-07-03 12:32] VITALS: BP 103/68; PULSE 84; TEMP 36.6; O2SAT 92
[2017-07-03 15:18] VITALS: BP 102/62; PULSE 78; TEMP 37.1; O2SAT 93
[2017-07-03] MEDS: RIVAROXABAN 10 MG TAB PO SCH (15:28)
[2017-07-03 20:51] VITALS: BP 131/76; PULSE 86
[2017-07-03] MEDS: ASPIRIN 81 MG ECTAB PO SCH (20:54)
[2017-07-03 23:16] VITALS: BP 112/60; PULSE 82; TEMP 37; O2SAT 96
[2017-07-04] MEDS: OXYCODONE HCL IR 5 MG TAB (IMMEDIATE RELEASE) PO PRN ×3 (02:53→20:46)
[2017-07-04] MEDS: ACETAMINOPHEN 500 MG TAB PO SCH ×3 (06:20→22:00)
[2017-07-04 06:34] VITALS: BP 113/57; PULSE 83; TEMP 36.7; O2SAT 95
[2017-07-04] MEDS: CARVEDILOL 12.5 MG TAB PO SCH ×2 (07:21→20:43)
[2017-07-04] MEDS: LOSARTAN POTASSIUM 50 MG TAB PO SCH (07:21)
[2017-07-04] MEDS: DOCUSATE SODIUM 100 MG CAP PO SCH ×2 (07:21→20:43)
[2017-07-04] MEDS: PHENYTOIN SODIUM ER 100 MG CAP PO SCH ×2 (07:21→20:43)
[2017-07-04] MEDS: ATORVASTATIN 20 MG TAB PO SCH (07:21)
--- NOTE | 2017-07-04 08:31 | Orthopedic Progress Note ---
Orthopedic Progress Note Date of Service Jul 04, 2017. Subjective Post OP Day: 2 Reports: feeling well, complaints (CONTINUES TO COMPLAIN OF RIGHT GROIN PAIN. STATES THIS IS THE SAME PAIN SHE HAD PRIOR TO SURGERY. PAIN IS ONLY WITH WB. SHE HAS NO PAIN SITTING OR WITH SIMPLE ROM. ), Denies: chest pain, SOB, nausea / vomiting, light headedness, calf pain Objective calves soft nontender, N/V intact, hip located, capillary refill less than 2 sec., dressing C/D/I, A&O x3, toes mobile Date Time Temp Pulse Resp B/P (MAP) Pulse Ox O2 Delivery O2 Flow Rate FiO2 07/04/17 07:15 Room Air 07/04/17 06:34 36.7 83 16 113/57 (75) 95 Room Air 07/03/17 23:45 Room Air 07/03/17 23:16 37.0 82 15 112/60 (77) 96 Room Air 07/03/17 20:51 86 131/76 (94) 07/03/17 15:25 Room Air 07/03/17 15:18 37.1 78 16 102/62 (75) 93 07/03/17 12:32 36.6 84 16 103/68 (80) 92 Room Air 07/03/17 09:21 Room Air Assessment & Plan Assessment: POD 2 s/p Right ROSALINA Plan: Will order Hip film due to increased pain with WB- XRAYS WNL. COMPONENTS STABLE. NO EVIDENCE OF FRACTURE OR SUBSIDENCE. CONT PT/OT TODAY PAIN MANAGEMENT DVT PROPH- ASA 81MG DC HOME LATER TODAY IF TOLERATES PT. IF NOT PROGRESSING, MAY NEED TO CONSIDER SHORT REHAB STAY. Inhouse Planning Pain Management: PO Tylenol, Oxy IR DVT Prophylaxis: TEDs, SCDs, Xarelto Discharge Planning Discharge Planning: home with home health
[2017-07-04 10:48] VITALS: BP 99/63
[2017-07-04 14:29] LABS: HEMATOCRIT 31.9 % (37-47); HEMOGLOBIN 10.3 g/dL (12.0-16.0); MEAN CELL VOLUME 91.4 fL (80-100); MEAN CORPUSCULAR HEMOGLOBIN 29.5 pg (25-34); MEAN CORPUSCULAR HGB CONC 32.3 g/dl (32-36); MEAN PLATELET VOLUME 9.5 fL (7.4-10.4); PLATELET COUNT 179 K/uL (130-400); RED CELL DISTRIBUTION WIDTH CV 13.6 % (11.5-14.5); RED CELL DISTRIBUTION WIDTH SD 45.3 fL (36.4-46.3); WHITE BLOOD COUNT 8.93 K/uL (4.8-10.8)
[2017-07-04] MEDS: RIVAROXABAN 10 MG TAB PO SCH (15:36)
[2017-07-04 16:00] VITALS: BP 116/76; PULSE 77; TEMP 36.6; O2SAT 94
--- NOTE | 2017-07-04 16:02 | Progress Note ---
Orthopedic SOAP Note Subjective Date of Service: Jul 04, 2017. Additional Notes: More than typical groin pain status post hip replacement. Patient described an incident when after walking without pain she sort of twisted her hip a little and then she has had pain since then Problem List Medical Problems: (1) Leg pain, right Status: Acute Objective Patient can actively flex hip. Passive range of motion hip is painful in groin with both flexion and abduction. Leg out to length distal neurological exam is intact no evidence of dislocation clinically Date Time Temp Pulse Resp B/P (MAP) Pulse Ox O2 Delivery O2 Flow Rate FiO2 07/04/17 07:15 Room Air 07/04/17 06:34 36.7 83 16 113/57 (75) 95 Room Air 07/03/17 23:45 Room Air 07/03/17 23:16 37.0 82 15 112/60 (77) 96 Room Air 07/03/17 20:51 86 131/76 (94) Laboratory Results 24 Hours: Test 07/04/17 14:18 Hematocrit 31.9 % Hemoglobin 10.3 g/dL Assessment POD 2 s/p Right ROSALINA Plan Repeat hip film PAIN MANAGEMENT DVT PROPH- ASA 81MG DC HOME LATER TODAY IF TOLERATES PT. IF NOT PROGRESSING, MAY NEED TO CONSIDER SHORT REHAB STAY.
--- NOTE | 2017-07-04 19:26 | DIAGNOSTIC IMAGING REPORT ---
R HIP UNILATERAL 2 VIEWS CLINICAL HISTORY: Right hip pain status post arthroplasty. COMPARISON: Pelvis and right hip radiographs July 03, 2017. FINDINGS: Exam is compromised due to suboptimal penetration related to body habitus. Alignment of the total right hip arthroplasty is anatomic. No periprosthetic fracture or unexpected radiopaque foreign bodies are identified. Acetabular screw is noted. There are surgical drains and skin john. IMPRESSION: 1. Expected findings following total right hip arthroplasty. 2. Study compromised due to suboptimal penetration related to body habitus. Electronically signed by: Antonio Garcia M.D. 07/04/2017 7:25 PM Dictated Date/Time: 07/04/2017 7:24 PM
[2017-07-04 20:35] VITALS: BP 145/68; PULSE 90
[2017-07-04] MEDS: ASPIRIN 81 MG ECTAB PO SCH (20:43)
[2017-07-04 22:02] VITALS: BP 127/74; PULSE 94
[2017-07-04 22:49] VITALS: BP 133/79; PULSE 94; TEMP 37; O2SAT 92
[2017-07-05] MEDS: ACETAMINOPHEN 500 MG TAB PO SCH (05:56)
[2017-07-05 07:49] VITALS: BP 111/72; PULSE 78; TEMP 36.9; O2SAT 94
--- NOTE | 2017-07-05 08:00 | Orthopedic Progress Note ---
Orthopedic Progress Note Date of Service Jul 05, 2017. Subjective Post OP Day: 3 Reports: complaints (CONTINUED GROIN PAIN. DR. ROSE EVALUATED AND RECHECKED FILMS LAST NIGHT. NO EVIDENCE OF COMPONENT ISSUES.), Denies: chest pain, SOB, nausea / vomiting, light headedness, calf pain Objective calves soft nontender, N/V intact, hip located, capillary refill less than 2 sec., dressing C/D/I (PREVENA), A&O x3, toes mobile, hemovac drainage (50CC LAST SHIFT) Date Time Temp Pulse Resp B/P (MAP) Pulse Ox O2 Delivery O2 Flow Rate FiO2 07/05/17 07:49 36.9 78 17 111/72 (85) 94 Room Air 07/05/17 07:05 Room Air 07/04/17 22:50 Room Air 07/04/17 22:49 37.0 94 16 133/79 (97) 92 Room Air 07/04/17 22:02 94 127/74 (91) 07/04/17 20:35 90 145/68 (93) 07/04/17 16:00 36.6 77 16 116/76 (89) 94 Room Air 07/04/17 15:30 Room Air Laboratory Results 24 Hours: Test 07/04/17 14:18 Hematocrit 31.9 % Hemoglobin 10.3 g/dL Assessment & Plan Assessment: POD 3 s/p Right ROSALINA Plan: Repeat hip film 07/04- WNL. PAIN MANAGEMENT DVT PROPH- XARELTO REFERRAL PLACED TO [facility]. HOPEFUL TRANSFER TODAY WILL LIMIT WB STATUS TO PARTIAL WITH WALKER. Inhouse Planning Pain Management: PO Tylenol, Oxy IR DVT Prophylaxis: TEDs, SCDs, Xarelto Discharge Planning Discharge Planning: home with home health
--- NOTE | 2017-07-05 08:02 | Discharge Instructions ---
Discharge Instructions Date of Service Jul 05, 2017. Admission Reason for Admission: Right Hip Osteoarthritis Discharge Discharge Diagnosis / Problem: SP RIGHT ROSALINA Discharge Goals Goal(s): Decrease discomfort, Improve function, Increase independence Activity Recommendations Activity Level: Assistance Required Therapies: Physical Therapy, Weight Bearing Status (RIGHT PARTIAL WB), Occupational Therapy Weightbearing Status: Right partial . Additional Information Patient informed of condition: Yes Advance Directives: Yes DNR: No Level of Care: Acute Rehab Communicable Disease: No Prognosis: Stable Instructions / Follow-Up Instructions / Follow-Up ACTIVITY RECOMMENDATIONS: SELF CARE INSTRUCTIONS AFTER TOTAL HIP REPLACEMENT Until the incision and soft tissues around your hip have healed, there is a possibility that the hip prosthesis could dislocate. A. Observe the following precautions to prevent dislocation: 1. Don't bend your hip greater than 90 degrees. 2. Avoid crossing your legs or ankles while standing or lying. 3. Sit with your feet placed 6 inches apart. 4. When sitting, keep your knees below your hips. Sit on a firm surface, avoid deep, soft chairs and couches. Use an elevated toilet seat in the bathroom. 5. Don't bend over at the waist. Use a long handled shoehorn and a sock aid to help you put on your shoes and socks. A slab depiler operator can help you slat pickler objects that are too high or too low to reach. 6. Keep car riding to a minimum for at least one month after surgery. B. Your balance may be shaky for a while. Use crutches or a walker until directed by your doctor. C. Use hand rails when walking on stairs. D. Wear low heeled shoes with non-slip soles. E. Be sure that your floors are free of things that could trip you - throw rugs , electrical cords, small objects. Avoid wet and waxed floors, especially with crutches and canes. F. Try to walk several times a day with rest periods between. G. Continue with all the exercises taught to you in the hospital. Again, make walking a part of your daily routine. SPECIAL CARE INSTRUCTIONS: VERY IMPORTANT TO READ AND REVIEW A. You may still be at risk for phlebitis and blood clots. 1. Wear surgical stockings (PATRIA hose) for 2 weeks after surgery to improve circulation and reduce swelling. 2. Take XARELTO 10MG DAILY X 4 WEEKS. 3. High risk patients may be prescribed a stronger blood thinner if necessary. 4. If you are on Coumadin normally, your family doctor/direct marketing manager should monitor your blood work. Expect a phone call the day of or the day after bloodwork is drawn to adjust your dosage. B. You must take antibiotics before having dental work, bladder, bowel and other surgery. Your doctor will provide you with a permanent card to carry describing precautions. C. Call [facility] if you have a fever, redness or swelling around the incision, cloudy drainage from incision, or sudden increase in pain in your hip, not relieved by your regular pain medication. D. Please call the office at if you have any concerns or questions about your operation or recovery. * YOU MAY SHOWER, NO TUB BATHS UNTIL CLEARED BY YOUR DOCTOR. * WEAR PATRIA HOSE 20 HOURS PER DAY FOR 2 WEEKS. * YOU SHOULD USE A WALKER OR CRUTCHES FOR 2-4 WEEKS. THIS WILL HELP PREVENT STRAIN ON YOUR HIP MUSCLE AND ALLOW IT TO HEAL PROPERLY. YOU MAY WEAN TO A CANE TOLERATED. * MOST PATIENTS WILL HAVE HOME NURSING FOR THERAPY. IF YOU DECIDE TO DO OUTPATIENT PHYSICAL THERAPY, PLEASE SCHEDULE THIS 3 TIMES PER WEEK. * Prevena- This is a large suction dressing covering your incision. This will help pull any excess drainage from the wound and allow your incision to heal properly. You may shower with this if you can keep the unit outside of the shower. If any bleeding or leakage is noted please call your doctor's office. This will remain on your incision for 7 days and then should be removed. This can be done yourself or by the home nursing staff if applicable. The entire unit is disposable once removed. Once removed, keep incision clean and dry. If redness or drainage is noted, please call your surgeon. MAINTAIN PARTIAL WB STATUS UNTIL 2 WEEK POST OP VISIT DUE TO ATYPICAL POST OP PAIN. XRAYS NEGATIVE X 2. FOLLOW UP VISIT: If appointment is not already scheduled: Please call [facility] to make a follow-up appointment for 2 weeks after your surgery at . Current Hospital Diet Patient's current hospital diet: Regular Diet Discharge Diet Recommended Diet: Low Fat Diet Procedures Procedures Performed: Right Total Hip Arthroplasty Pending Studies Studies pending at discharge: no Medical Emergencies . Who to Call and When: Medical Emergencies: If at any time you feel your situation is an emergency, please call 911 immediately. . Non-Emergent Contact Non-Emergency issues call your: Surgeon . . "Provider Documentation" section prepared by Silvia Sellers. . Core Measure Problem Core Measures: None
[2017-07-05] MEDS: ATORVASTATIN 20 MG TAB PO SCH (08:24)
[2017-07-05] MEDS: PHENYTOIN SODIUM ER 100 MG CAP PO SCH (08:25)
[2017-07-05] MEDS: CARVEDILOL 12.5 MG TAB PO SCH (08:25)
[2017-07-05] MEDS: DOCUSATE SODIUM 100 MG CAP PO SCH (08:26)
[2017-07-05] MEDS: LOSARTAN POTASSIUM 50 MG TAB PO SCH (08:26)
[2017-07-05] MEDS: OXYCODONE HCL IR 5 MG TAB (IMMEDIATE RELEASE) PO PRN (08:29)
[2017-07-05 10:10] VITALS: BP 111/72; PULSE 78; TEMP 36.9; O2SAT 94
== END 2017-07-05 11:44 | DRG 470 ==
LOC: C.ACU 07:37 → C.3E 09:00 → ENRESERV 12:22
PROVIDERS: ADMIT Orthopaedic Surgery; ATTEND Orthopaedic Surgery
PROC: 0SR90JA Replacement of Right Hip Joint with Synthetic Substitute, Uncemented, Open Approach (ICD-10-PCS; principal; 2017-07-02 10:45)
DX: M16.11 Unilateral primary osteoarthritis, right hip (principal); I10 Essential (primary) hypertension; Z79.82 Long term (current) use of aspirin; Z79.899 Other long term (current) drug therapy

== ENCOUNTER 2022-01-16 02:55 | Inpatient (IN) ==
[2022-01-16] MEDS ORDERED: SODIUM CHLORIDE 0.9% 1000ML 2,000 ML IV ONE (03:11)
--- NOTE | 2022-01-16 03:29 | Emergency Department Note ---
History of Present Illness General Chief complaint: Weakness Stated complaint: Weakness, Hypotension Time Seen by Provider: 01/16/22 03:08 History of Present Illness 71-year-old female presents emergency department with a 2-day history of generalized malaise. Patient states she received the COVID booster on Sunday she has been feeling extremely weak since Sunday and started with diarrhea today patient states she is so weak she could not stand up. Patient called EMS EMS found the patient have a blood pressure 60/40 was given 1 L of IV fluids and Zofran prior to hospital arrival. Patient states that she is much improved. Patient's blood pressure is now 84 systolic. Patient denies vomiting denies abd ominal pain denies chest pain shortness of breath. There are no other mitigating or alleviating factors Home Medications Medication Instructions Recorded Confirmed Type aspirin 81 mg tablet 81 mg PO QAM 10/25/21 11/02/21 History atorvastatin 20 mg tablet 20 mg PO QAM 10/25/21 11/02/21 History carvedilol 12.5 mg tablet 12.5 mg PO BID 10/25/21 11/02/21 History enoxaparin 100 mg/mL subcutaneous 100 mg subcut UD 10/25/21 11/02/21 History syringe fluticasone propionate 50 2 spray intranasal QAM PRN 10/25/21 11/02/21 History mcg/actuation nasal Congestion spray,suspension loratadine 10 mg tablet 10 mg PO QAM PRN allergies 10/25/21 10/25/21 History losartan 50 mg tablet 50 mg PO QAM 10/25/21 11/02/21 History omeprazole 20 mg tablet,delayed 20 mg PO QAM 10/25/21 11/02/21 History release phenytoin sodium 100 mg capsule 200 mg PO BID 10/25/21 11/02/21 History warfarin 5 mg tablet 5 mg PO UD 10/25/21 11/02/21 History Allergies Allergy/AdvReac Type Severity Reaction Status Date / Time No Known Allergies Allergy Unknown Verified 11/02/21 08:20 Past Med/Surg History Medical History Degenerative joint disease of right hip Hypertension 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 Was afraid to go off of the medicine." Surgical History History of cardiac cath "my heart was beating fast">[facility], no stents; f/u PCP. Hx of bladder repair surgery "bladder tacked" Hx of colonoscopy S/P hip replacement bilat. S/P hysterectomy S/P knee replacement rt. Social History Smoking Status: Former smoker Second Hand Exposure: No; Hx Alcohol Use: Yes Alcohol type: beer Hx Substance Use: No Preferred Language: Citizen Of [place] Communication Ability: Effective Law Researcher Required: No Beliefs That Will Affect Care: None Current Living Situation: Spouse Feels Safe at Home: Yes Assistive Devices: Cane, Denture - Upper and Denture - Lower Review of Systems A total of 10 systems reviewed and were otherwise negative Constitutional: + body aches and + weakness; no fever Respiratory: no cough Cardiovascular: no chest pain Gastrointestinal: + diarrhea/loose stools; no abdominal pain Neurologic: + unsteadiness and + generalized weakness Physical Exam Vital Signs Vital Signs - 24 hr 01/16/22 03:07 01/16/22 03:00 01/16/22 03:24 Temperature Temperature Source Pulse Rate Pulse Rate from SpO2 Sensor Respiratory Rate Respiratory Effort / Characteristics Respiratory Depth Blood Pressure Blood Pressure [Right Arm] 84/49 L Blood Pressure Mean Blood Pressure Mean [Right Arm] 60 Pulse Oximetry 93 99 Oxygen Delivery Method Room Air Nasal Cannula Oxygen Flow Rate 2 Sepsis Recent Fever Within 48 Hours Sepsis New/Unexplained Change in Mental Status Sepsis Action Taken by Nursing 01/16/22 02:46 01/16/22 03:19 01/16/22 03:27 Temperature 37.8 C H Temperature Source Oral Pulse Rate 85 81 76 Pulse Rate from SpO2 Sensor 76 Respiratory Rate 24 16 23 Respiratory Effort / Characteristics Non-Labored Spontaneous Respiratory Depth Normal Blood Pressure 71/47 L 83/49 L Blood Pressure [Right Arm] Blood Pressure Mean 55 60 Blood Pressure Mean [Right Arm] Pulse Oximetry 99 93 98 Oxygen Delivery Method Room Air Nasal Cannula Nasal Cannula Oxygen Flow Rate 2 2 Sepsis Recent Fever Within 48 Hours No Sepsis New/Unexplained Change in Mental Status No Sepsis Action Taken by Nursing No Action Required 01/16/22 03:45 01/16/22 04:00 01/16/22 04:45 Temperature Temperature Source Pulse Rate 75 75 78 Pulse Rate from SpO2 Sensor 74 75 73 Respiratory Rate 22 24 16 Respiratory Effort / Characteristics Respiratory Depth Blood Pressure 83/47 L 81/47 L 69/42 L Blood Pressure [Right Arm] Blood Pressure Mean 59 58 51 Blood Pressure Mean [Right Arm] Pulse Oximetry 98 98 94 Oxygen Delivery Method Room Air Nasal Cannula Nasal Cannula Oxygen Flow Rate 2 2 Sepsis Recent Fever Within 48 Hours Sepsis New/Unexplained Change in Mental Status Sepsis Action Taken by Nursing 01/16/22 05:18 Temperature Temperature Source Pulse Rate 71 Pulse Rate from SpO2 Sensor 71 Respiratory Rate 24 Respiratory Effort / Characteristics Respiratory Depth Blood Pressure 76/45 L Blood Pressure [Right Arm] Blood Pressure Mean 55 Blood Pressure Mean [Right Arm] Pulse Oximetry 93 Oxygen Delivery Method Nasal Cannula Oxygen Flow Rate 2 Sepsis Recent Fever Within 48 Hours Sepsis New/Unexplained Change in Mental Status Sepsis Action Taken by Nursing GENERAL: Patient is awake alert in no acute distress patient is resting comfortably and showing no signs of anxiety; having diarrhea while im in room with patient EYES: The conjunctivae are clear. The pupils are round and reactive. EARS, NOSE, MOUTH AND THROAT: The nose is without any evidence of any deformity. Mucous membranes are moist. Tongue is midline. NECK: The neck is nontender and supple. RESPIRATORY: Normal respiratory effort is noted there is no evidence of wheezing rhonchi or rales CARDIOVASCULAR: Regular rate and rhythm noted there no murmurs rubs or gallops normal S1 normal S2. GASTROINTESTINAL: The abdomen is soft. Abdomen is nontender. PELVIS: The Pelvis is stable. No tenderness to palpation is noted. BACK: No midline tenderness or or step-off noted range of motion in flexion extension as well as rotation no signs of muscle spasm noted MUSCULOSKELETAL/EXTREMITIES: There is no evidence of gross deformity full range of motion is noted in the hips and shoulders. SKIN: There is no obvious evidence of any rash. There are no petechiae, pallor or cyanosis noted. NEUROLOGIC: Patient is awake alert and oriented x3 strength is symmetric Course Reevaluation(s) Reevaluation #1: Patient was started on IV fluids; she was given a 3 L IV fluid bolus. Patient is on Coreg patient is on Coumadin. Patient is hypotensive has been around 70s to 82. Patient is resting in no distress not tachycardic. Patient has not not had any further diarrhea. Patient has a normal lactic acid level her creatinine is 1.8. Concern for hypovolemic shock. The case was discussed with the [facility] for admission. On my repeat examination the patient's interactive mentating without any difficulty. Time: 05:09 Consultations Consultation #1: [facility] for admission Time: 05:09 Administered Medications Sodium Chloride (Nss 1000ml) 1,000 mls @ 999 mls/hr IV .Q1H1M ONE Stop: 01/16/22 05:49 Last Admin: 01/16/22 04:55 Dose: 999 mls/hr Documented By: INESSA Magnesium Sulfate/Dextrose (Magnesium Sulfate / D5w) 1 gm in 100 mls @ 50 mls/hr IV Q2H MICHAEL Stop: 01/16/22 11:14 Last Admin: 01/16/22 05:12 Dose: 50 mls/hr Documented By: INESSA Piperacillin Sod/Tazobactam Sod (Zosyn) 4.5 gm in 120 mls @ 240 mls/hr IV NOW ONE Stop: 01/16/22 05:36 Last Admin: 01/16/22 05:13 Dose: 240 mls/hr Documented By: INESSA Metronidazole (Flagyl) 500 mg in 100 mls @ 100 mls/hr IV NOW STA Stop: 01/16/22 06:10 Last Admin: 01/16/22 05:28 Dose: 100 mls/hr Documented By: INESSA Discontinued Medications Acetaminophen (Acetaminophen 325 Mg Tab) 650 mg PO NOW STA Stop: 01/16/22 04:58 Last Admin: 01/16/22 05:16 Dose: 650 mg Documented By: INESSA Dexamethasone (Dexamethasone Sod Inj 4 Mg/Ml Vial) 4 mg IV ONE ONE Stop: 01/16/22 05:16 Last Admin: 01/16/22 05:26 Dose: 4 mg Documented By: INESSA Sodium Chloride (Nss 1000ml) 2,000 mls @ 999 mls/hr IV .Q2H1M ONE Stop: 01/16/22 05:11 Last Infusion: 01/16/22 05:30 Dose: 0 mls/hr Documented By: Admin: 01/16/22 03:35 Dose: 999 mls/hr Documented By: INESSA Potassium Chloride (Potassium Chloride Pwd 20 Meq Pack) 40 meq PO NOW STA Stop: 01/16/22 05:08 Last Admin: 01/16/22 05:25 Dose: 40 meq Documented By: INESSA Critical Care Time Critical Care Time: Yes Total Critical Care Time: 45 I have personally spent greater than 45 minutes of critical care time in the direct management of this patient. This includes bedside care, interpretation of diagnostic studies, and testing, discussion with consultants, patient, and family members, and other required patient management activities. These minutes are in excess of all separately billable procedures. Medical Decision Making Medical Records Attestation: I reviewed the patient's medical records. Home Medications Current Medication List: was personally reviewed by me Laboratory Data Attestation: I reviewed the patient's lab results. Patient has a leukocytosis, mild anemia, mild thrombocytopenia, elevated creatinine in comparison to 2018, a low magnesium; low albumin, plan is to give magnesium, IV fluids, albumin Result diagrams: 01/16/22 04:05 01/16/22 04:05 Lab Results 01/16/22 01/16/22 01/16/22 Range/Units 03:12 03:12 03:12 WBC Cancelled RBC Cancelled Hgb Cancelled Hct Cancelled MCV Cancelled MCH Cancelled MCHC Cancelled RDW Std Deviation Cancelled RDW Coeff of Benny Cancelled Plt Count Cancelled MPV Cancelled Immature Gran % (Auto) Cancelled Neut % (Auto) Cancelled Lymph % (Auto) Cancelled [place] % (Auto) Cancelled Eos % (Auto) Cancelled Baso % (Auto) Cancelled Neut # (Auto) Cancelled Lymph # (Auto) Cancelled [place] # (Auto) Cancelled Eos # (Auto) Cancelled Baso # (Auto) Cancelled Immature Gran # (Auto) Cancelled Absolute Nucleated RBC Cancelled Nucleated RBC % (auto) Cancelled Neutrophils % (Manual) Cancelled Band Neutrophils % Cancelled Lymphocytes % (Manual) Cancelled Prolymphocyte % Cancelled Reactive Lymphs % (Man) Cancelled Monocytes % (Manual) Cancelled Eosinophils % (Manual) Cancelled Basophils % (Manual) Cancelled Metamyelocytes % (Man) Cancelled Myelocytes % (Man) Cancelled Promyelocytes % (Man) Cancelled Blast Cells % (Manual) Cancelled Plasma Cell % (Manual) Cancelled Other Cells % Cancelled Nucleated RBC % Cancelled Neutrophils # (Manual) Cancelled Band Neutrophils # Cancelled Total Absolute Neuts Cancelled Lymphocytes # (Manual) Cancelled Prolymphocyte # Cancelled Reactive Lymphs # Cancelled Total Abs Lymphocytes Cancelled Monocytes # (Manual) Cancelled Eosinophils # (Manual) Cancelled Basophils # (Manual) Cancelled Metamyelocytes # (Man) Cancelled Myelocytes # (Manual) Cancelled Promyelocytes # (Man) Cancelled Blast Cells # (Man) Cancelled Plasma Cell # (Manual) Cancelled Other Cells # Cancelled Nucleated RBCs # (Man) Cancelled Hypersegmented Neuts Cancelled Hyposegmented Neuts Cancelled Hypogranular Neuts Cancelled Large Granular Lymphs Cancelled # Lrg Granular Lymphs Cancelled Hairy Cells Cancelled Smudge Cells Cancelled Toxic Granulation Cancelled Toxic Vacuolation Cancelled Dohle Bodies Cancelled Lesley Rods Cancelled Platelet Estimate Cancelled Hypogranular Platelets Cancelled Clumped Platelets Cancelled Giant Platelets Cancelled Platelet Satelliting Cancelled RBC Morphology Cancelled Polychromasia Cancelled Hypochromasia Cancelled Poikilocytosis Cancelled Basophilic Stippling Cancelled Anisocytosis Cancelled Microcytosis Cancelled Macrocytosis Cancelled Spherocytes Cancelled Pappenheimer Bodies Cancelled Sickle Cells Cancelled Target Cells Cancelled Tear Drop Cells Cancelled Ovalocytes Cancelled Stomatocytes Cancelled [place] Bodies Cancelled Echinocytes Cancelled Acanthocytes (Spur) Cancelled Rouleaux Cancelled RBC Agglutinates Cancelled Schistocytes Cancelled Sezary Cell Cancelled Sodium Cancelled Potassium Cancelled Chloride Cancelled Carbon Dioxide Cancelled Anion Gap Cancelled BUN Cancelled Creatinine Cancelled Est Cr Clr Drug Dosing Cancelled Est GFR ( Amer) Cancelled Est GFR (Non-Af Amer) Cancelled BUN/Creatinine Ratio Cancelled Glucose Cancelled Lactate Cancelled Calcium Cancelled Magnesium Cancelled Total Bilirubin Cancelled Direct Bilirubin Cancelled AST Cancelled ALT Cancelled Alkaline Phosphatase Cancelled Troponin I High Sens Cancelled Total Protein Cancelled Albumin Cancelled Procalcitonin SARS-CoV-2 (PCR) (Negative) Influenza Type A (PCR) (Neg) Influenza Type B (PCR) (Neg) RSV (RT-PCR) (Neg) Blood Parasites ID Cancelled 01/16/22 01/16/22 01/16/22 Range/Units 03:12 03:30 04:05 WBC RBC Hgb Hct MCV MCH MCHC RDW Std Deviation RDW Coeff of Benny Plt Count MPV Immature Gran % (Auto) Neut % (Auto) Lymph % (Auto) [place] % (Auto) Eos % (Auto) Baso % (Auto) Neut # (Auto) Lymph # (Auto) [place] # (Auto) Eos # (Auto) Baso # (Auto) Immature Gran # (Auto) Absolute Nucleated RBC Nucleated RBC % (auto) Neutrophils % (Manual) Band Neutrophils % Lymphocytes % (Manual) Prolymphocyte % Reactive Lymphs % (Man) Monocytes % (Manual) Eosinophils % (Manual) Basophils % (Manual) Metamyelocytes % (Man) Myelocytes % (Man) Promyelocytes % (Man) Blast Cells % (Manual) Plasma Cell % (Manual) Other Cells % Nucleated RBC % Neutrophils # (Manual) Band Neutrophils # Total Absolute Neuts Lymphocytes # (Manual) Prolymphocyte # Reactive Lymphs # Total Abs Lymphocytes Monocytes # (Manual) Eosinophils # (Manual) Basophils # (Manual) Metamyelocytes # (Man) Myelocytes # (Manual) Promyelocytes # (Man) Blast Cells # (Man) Plasma Cell # (Manual) Other Cells # Nucleated RBCs # (Man) Hypersegmented Neuts Hyposegmented Neuts Hypogranular Neuts Large Granular Lymphs # Lrg Granular Lymphs Hairy Cells Smudge Cells Toxic Granulation Toxic Vacuolation Dohle Bodies Lesley Rods Platelet Estimate Hypogranular Platelets Clumped Platelets Giant Platelets Platelet Satelliting RBC Morphology Polychromasia Hypochromasia Poikilocytosis Basophilic Stippling Anisocytosis Microcytosis Macrocytosis Spherocytes Pappenheimer Bodies Sickle Cells Target Cells Tear Drop Cells Ovalocytes Stomatocytes [place] Bodies Echinocytes Acanthocytes (Spur) Rouleaux RBC Agglutinates Schistocytes Sezary Cell Sodium Potassium Chloride Carbon Dioxide Anion Gap BUN Creatinine Est Cr Clr Drug Dosing Est GFR ( Amer) Est GFR (Non-Af Amer) BUN/Creatinine Ratio Glucose Lactate 0.9 Calcium Magnesium Total Bilirubin Direct Bilirubin AST ALT Alkaline Phosphatase Troponin I High Sens Total Protein Albumin Procalcitonin Cancelled SARS-CoV-2 (PCR) NEGATIVE (Negative) Influenza Type A (PCR) Negative (Neg) Influenza Type B (PCR) Negative (Neg) RSV (RT-PCR) Negative (Neg) Blood Parasites ID 01/16/22 01/16/22 01/16/22 Range/Units 04:05 04:05 04:05 WBC 14.31 H RBC 3.52 L Hgb 11.0 L Hct 32.7 L MCV 92.9 MCH 31.3 MCHC 33.6 RDW Std Deviation 45.8 RDW Coeff of Benny 13.5 Plt Count 128 L MPV 9.9 Immature Gran % (Auto) 0.6 Neut % (Auto) 79.9 Lymph % (Auto) 5.6 [place] % (Auto) 13.6 Eos % (Auto) 0.0 Baso % (Auto) 0.3 Neut # (Auto) 11.44 H Lymph # (Auto) 0.80 L [place] # (Auto) 1.94 H Eos # (Auto) 0.00 Baso # (Auto) 0.04 Immature Gran # (Auto) 0.09 H Absolute Nucleated RBC Nucleated RBC % (auto) Neutrophils % (Manual) Band Neutrophils % Lymphocytes % (Manual) Prolymphocyte % Reactive Lymphs % (Man) Monocytes % (Manual) Eosinophils % (Manual) Basophils % (Manual) Metamyelocytes % (Man) Myelocytes % (Man) Promyelocytes % (Man) Blast Cells % (Manual) Plasma Cell % (Manual) Other Cells % Nucleated RBC % Neutrophils # (Manual) Band Neutrophils # Total Absolute Neuts Lymphocytes # (Manual) Prolymphocyte # Reactive Lymphs # Total Abs Lymphocytes Monocytes # (Manual) Eosinophils # (Manual) Basophils # (Manual) Metamyelocytes # (Man) Myelocytes # (Manual) Promyelocytes # (Man) Blast Cells # (Man) Plasma Cell # (Manual) Other Cells # Nucleated RBCs # (Man) Hypersegmented Neuts Hyposegmented Neuts Hypogranular Neuts Large Granular Lymphs # Lrg Granular Lymphs Hairy Cells Smudge Cells Toxic Granulation Toxic Vacuolation Dohle Bodies Lesley Rods Platelet Estimate Decreased L Hypogranular Platelets Clumped Platelets Giant Platelets Platelet Satelliting RBC Morphology Polychromasia Hypochromasia Poikilocytosis Basophilic Stippling Anisocytosis Microcytosis Macrocytosis Spherocytes Pappenheimer Bodies Sickle Cells Target Cells Tear Drop Cells Ovalocytes Stomatocytes [place] Bodies Echinocytes Acanthocytes (Spur) Rouleaux RBC Agglutinates Schistocytes Sezary Cell Sodium 134 L Potassium 3.3 L Chloride 105 Carbon Dioxide 21 Anion Gap 8 BUN 32 H Creatinine 1.80 H Est Cr Clr Drug Dosing 32.2 Est GFR ( Amer) 31.8 Est GFR (Non-Af Amer) 27.4 BUN/Creatinine Ratio 17.8 Glucose 115 H Lactate Calcium 6.7 L Magnesium 1.4 L Total Bilirubin 0.6 Direct Bilirubin 0.1 AST 16 ALT 13 Alkaline Phosphatase 97 Troponin I High Sens 28.7 H Total Protein 4.9 L Albumin 2.5 L Procalcitonin 8.33 H SARS-CoV-2 (PCR) (Negative) Influenza Type A (PCR) (Neg) Influenza Type B (PCR) (Neg) RSV (RT-PCR) (Neg) Blood Parasites ID Imaging Data Attestation: I personally reviewed and interpreted this imaging study as follows: My Impression: Chest x-ray interpreted by me negative for infiltrate ECG Data Attestation: I personally reviewed and interpreted this ECG as follows: Additional Comments: EKG interpreted by me normal sinus rhythm normal intervals normal axis rate of [address] segment elevation or depression MDM Narrative Medical decision making differential diagnosis includes sepsis, dehydration, metabolic derangement, pneumonia, urinary tract infection, electrolyte abnormality. Plan is to check sepsis protocol give IV fluids. Patient was evaluated for hypovolemic shock. Patient has a normal lactic acid level has an elevated creatinine of 1.8 ; pt is definitely having diarrhea. Patient was given 3 L of IV fluids remains hypotensive. Patient is not tachycardic. Patient is afebrile. Concern is the patient is volume depleted. Patient was given empiric antibiotics. Patient will be admitted to the [facility]. Concern for hypovolemic shock, septic shock, dehydration, infectious diarrhea, electrolye imbalances Impression & Plan Hypovolemic shock, MADELIN (acute kidney injury), Diarrhea, Hypomagnesemia Discharge Plan Visit Data Chief Complaint: Weakness Stated Complaint: Weakness, Hypotension ED Provider: Rick Rivera Discharge Problem: Hypovolemic shock, MADELIN (acute kidney injury), Diarrhea, Hypomagnesemia Patient Disposition: Being Evaluated by Hospitalist Forms Stand Alone Forms: My [facility] Prescriptions Prescriptions: No Action losartan 50 mg Tablet 50 mg PO QAM atorvastatin 20 mg Tablet 20 mg PO QAM carvedilol 12.5 mg Tablet 12.5 mg PO BID Rx Instructions: must administer with a meal/food phenytoin sodium 100 mg Capsule 200 mg PO BID warfarin 5 mg Tablet 5 mg PO UD Rx Instructions: once @1600. aspirin 81 mg Tablet 81 mg PO QAM fluticasone propionate 50 mcg/actuation [place],Suspension 2 spray INTRANASAL QAM PRN (Reason: Congestion) Rx Instructions: administer into each nostril loratadine 10 mg Tablet 10 mg PO QAM PRN (Reason: allergies) enoxaparin 100 mg/mL Syringe 100 mg SUBCUT UD Rx Instructions: inject at 0600 and 1800. omeprazole 20 mg Tablet,Delayed Release (Dr/Ec) 20 mg PO QAM Referrals Referrals: Elle Oakes DO [Primary Care Provider] -
[2022-01-16 04:43] LABS: Albumin Level 2.5 gm/dl (3.4-5.0); BUN Creatinine Ratio 17.8 (10-20); Bilirubin Direct 0.1 mg/dl (0-0.2); Bilirubin,Total 0.6 mg/dl (0.2-1.0); Calcium 6.7 mg/dl (8.5-10.1); Creatinine Clr Calc Pharmacy 32.2 ml/min; Est GFR (African American) 31.8 ml/min; Est GFR (Non-African American) 27.4 ml/min; Magnesium 1.4 mg/dl (1.7-2.4); Potassium 3.3 mmol/L (3.5-5.1); Total Protein 4.9 gm/dl (6.0-8.3)
[2022-01-16 04:45] LABS: Troponin I High Sensitivity 28.7 pg/ml (0-14)
[2022-01-16] MEDS ORDERED: SODIUM CHLORIDE 0.9% 1000ML 1,000 ML IV ONE (04:49)
[2022-01-16 04:53] LABS: Influenza A virus by PCR Negative (Neg); Influenza B virus by PCR Negative (Neg); RSV by PCR Negative (Neg); SARS CoV2 RNA(COVID-19)Cepheid NEGATIVE (Negative)
[2022-01-16] MEDS ORDERED: ACETAMINOPHEN 325 MG TAB PO STA (04:57)
--- NOTE | 2022-01-16 05:03 | History & Physical Report ---
Date of Service January 16, 2022 Assessment & Plan (1) Hypotension: Plan: Possible sepsis secondary to infectious enteritis. Positive possible bacterial agent given elevated procalcitonin. Rule out obstructive cardiac pathology Rule out adrenal insufficiency given outpatient steroid injection for hip arthritis given a few weeks ago ARF secondary to above Troponin elevation secondary to illness in the setting of kidney dysfunction chronic diastolic dysfunction, patient on the dry side (EF 60 to 65%, TTE 2018), mild TR, pulmonary hypertension TTE postop PE/DVT status post Coumadin, INR pending hx SVT status post ablation, hyperlipidemia, on statin Rx seizure disorder, stable on regimen chronic anemia, hemoglobin at baseline Hyperglycemia rule out DM past tobacco abuse PCU IVF Clear liquids for now Stool work-up CS, Ceftriaxone, Flagyl Appropriate to hold multiple antihypertensive medications for now Follow troponin, TTE Re: Hypotension with troponin elevation Decadron 1 dose for possible adrenal insufficiency Baseline UA, monitor creatinine response to IVF, renal ultrasound if without improvement Continue Coumadin and Dilantin once INR and Dilantin levels back, respectively. Check hemoglobin A1c DVT prophylaxis. Coumadin INR goal between 2 and 3 Full code Total critical care time was 40 minutes. Text document was generated using [employer] voice recognition software. It may contain grammatical or spelling errors. Kindly contact undersigned for clarification of any documentation item in question. History of Present Illness Chief Complaint: Weakness, explosive diarrhea Primary Care Provider: Elle Oakes, History obtained from patient, family, and records. Medical history significant for chronic diastolic dysfunction (EF 60 to 65%, TTE 2018), mild TR, pulmonary hypertension, postop PE/DVT status post Coumadin, SVT status post ablation, hypertension, hyperlipidemia, GERD, seizure disorder, chronic anemia (baseline hemoglobin of 11), past tobacco abuse. 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 Patient discharged on Coumadin. Patient received COVID-19 booster 3 days ago. Shortly after, patient experienced explosive diarrhea without abdominal pain. No known sick contacts/out-of-town travel/recent antibiotic Rx history. Poor appetite, chills, weakness. No headache, no chest pain, no shortness of breath. No nausea, no emesis. SBP noted to be 60s upon EMS arrival at home. Multiple IVF boluses and Zosyn administered at the ER. MEDICAL HISTORY: As above. Colonoscopy from 2010 showed diverticulosis. SURGERIES: Hip surgery, wrist surgery, knee surgery, hysterectomy, bladder suspension, cataract surgery. FAMILY HISTORY: There is a family history of breast cancer, DM, lung cancer, ovarian cancer, alcoholism PERSONAL AND SOCIAL HISTORY: Past tobacco abuse, no chronic intake of alcoholic beverages. 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 Allergies Allergy/AdvReac Type Severity Reaction Status Date / Time No Known Allergies Allergy Unknown Verified 11/02/21 08:20 Home Medications Medication Instructions Recorded Confirmed Type aspirin 81 mg tablet 81 mg PO QAM 10/25/21 11/02/21 History atorvastatin 20 mg tablet 40 mg PO QAM 10/25/21 11/02/21 History carvedilol 12.5 mg tablet 12.5 mg PO BID 10/25/21 11/02/21 History loratadine 10 mg tablet 10 mg PO QAM 10/25/21 10/25/21 History losartan 50 mg tablet 50 mg PO QAM 10/25/21 11/02/21 History warfarin 5 mg tablet 5 mg PO UD 10/25/21 11/02/21 History ipratropium bromide 2 spray NA BID PRN Nasal Congestion 01/16/22 01/16/22 History phenytoin sodium extended 100 mg 100 mg PO UD 01/16/22 01/16/22 History capsule Past Med/Surg History Medical History Degenerative joint disease of right hip Hypertension 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 Was afraid to go off of the medicine." Surgical History History of cardiac cath "my heart was beating fast">[place], no stents; f/u PCP. Hx of bladder repair surgery "bladder tacked" Hx of colonoscopy S/P hip replacement bilat. S/P hysterectomy S/P knee replacement rt. Social History Smoking Status: Former smoker Second Hand Exposure: No; Hx Alcohol Use: Yes Alcohol type: beer Hx Substance Use: No Preferred Language: Slovak Communication Ability: Effective Home Health Care Provider Required: No Beliefs That Will Affect Care: None Current Living Situation: Spouse Other Information That Helps Us Care for You: No Feels Safe at Home: Yes Safety Concerns: Feels Safe At This Time Assistive Devices: Cane, Denture - Upper and Denture - Lower Review of Systems Review of Systems: As per HPI, all other systems reviewed and negative Physical Exam Physical Exam: GENERAL: uncomfortable, obese, pleasant, no respiratory distress SKIN: Normal color, warm HEENT: [place] palpebral conjunctivae, no ptosis, dry buccal mucosa NECK : Supple, short neck, no tenderness CHEST : Decreased breath sounds, no tenderness HEART : RRR, no obvious murmurs ABDOMEN: Some distention, nontender EXTREMITIES : Minimal LE swelling, no LE tenderness, no other conspicuous deformities noted NEUROLOGIC : Coherent, no facial asymmetry, gait and stance not assessed Results & Data Results & Data ([facility]) Vital Signs (Past 12 Hours) Vital Signs Temp Pulse Resp BP BP Pulse Ox O2 Del Method 01/16/22 04:45 78 16 69/42 L 94 Nasal Cannula 01/16/22 04:00 75 24 81/47 L 98 Nasal Cannula 01/16/22 03:45 75 22 83/47 L 98 Room Air 01/16/22 03:27 76 23 83/49 L 98 Nasal Cannula 01/16/22 03:19 81 16 71/47 L 93 Nasal Cannula 01/16/22 02:46 37.8 C H 85 24 99 Room Air 01/16/22 03:24 99 Nasal Cannula 01/16/22 03:00 84/49 L 01/16/22 03:07 93 Room Air O2 Flow Rate 01/16/22 04:45 2 01/16/22 04:00 2 01/16/22 03:45 01/16/22 03:27 2 01/16/22 03:19 2 01/16/22 02:46 01/16/22 03:24 2 01/16/22 03:00 01/16/22 03:07 Laboratory Results 01/16/22 04:05 01/16/22 04:05 Lab Results 01/16/22 01/16/22 01/16/22 Range/Units 03:12 03:12 03:12 WBC Cancelled RBC Cancelled Hgb Cancelled Hct Cancelled MCV Cancelled MCH Cancelled MCHC Cancelled RDW Std Deviation Cancelled RDW Coeff of Benny Cancelled Plt Count Cancelled MPV Cancelled Immature Gran % (Auto) Cancelled Neut % (Auto) Cancelled Lymph % (Auto) Cancelled [place] % (Auto) Cancelled Eos % (Auto) Cancelled Baso % (Auto) Cancelled Neut # (Auto) Cancelled Lymph # (Auto) Cancelled [place] # (Auto) Cancelled Eos # (Auto) Cancelled Baso # (Auto) Cancelled Immature Gran # (Auto) Cancelled Absolute Nucleated RBC Cancelled Nucleated RBC % (auto) Cancelled Neutrophils % (Manual) Cancelled Band Neutrophils % Cancelled Lymphocytes % (Manual) Cancelled Prolymphocyte %B Cancelled Reactive Lymphs % (Man) Cancelled Monocytes % (Manual) Cancelled Eosinophils % (Manual) Cancelled Basophils % (Manual) Cancelled Metamyelocytes % (Man) Cancelled Myelocytes % (Man) Cancelled Promyelocytes % (Man) Cancelled Blast Cells % (Manual)B Cancelled Plasma Cell % (Manual) Cancelled Other Cells % Cancelled Nucleated RBC % Cancelled Neutrophils # (Manual) Cancelled Band Neutrophils # Cancelled Total Absolute Neuts Cancelled Lymphocytes # (Manual) Cancelled Prolymphocyte # Cancelled Reactive Lymphs # Cancelled Total Abs Lymphocytes Cancelled Monocytes # (Manual) Cancelled Eosinophils # (Manual) Cancelled Basophils # (Manual) Cancelled D Metamyelocytes # (Man) Cancelled Myelocytes # (Manual) Cancelled Promyelocytes # (Man) Cancelled Blast Cells # (Man) Cancelled Plasma Cell # (Manual) Cancelled Other Cells # Cancelled Nucleated RBCs # (Man) Cancelled Hypersegmented Neuts Cancelled Hyposegmented Neuts Cancelled Hypogranular Neuts Cancelled Large Granular Lymphs Cancelled # Lrg Granular Lymphs Cancelled Hairy Cells Cancelled Smudge Cells Cancelled B Toxic Granulation Cancelled Toxic Vacuolation Cancelled Dohle Bodies Cancelled Lesley Rods Cancelled Platelet Estimate Cancelled Hypogranular Platelets Cancelled Clumped Platelets Cancelled Giant Platelets Cancelled Platelet Satelliting Cancelled RBC Morphology Cancelled Polychromasia Cancelled Hypochromasia Cancelled Poikilocytosis Cancelled Basophilic Stippling Cancelled Anisocytosis Cancelled Microcytosis Cancelled Macrocytosis Cancelled Spherocytes Cancelled Pappenheimer Bodies Cancelled Sickle Cells Cancelled Target Cells Cancelled Tear Drop Cells Cancelled Ovalocytes Cancelled Stomatocytes Cancelled [place] Bodies Cancelled Echinocytes Cancelled Acanthocytes (Spur) Cancelled Rouleaux Cancelled RBC Agglutinates Cancelled Schistocytes Cancelled [place] Cell Cancelled Sodium Cancelled Potassium Cancelled Chloride Cancelled Carbon Dioxide Cancelled Anion Gap Cancelled BUN Cancelled Creatinine Cancelled Est Cr Clr Drug Dosing Cancelled Est GFR ( Amer) Cancelled Est GFR (Non-Af Amer) Cancelled BUN/Creatinine Ratio Cancelled Glucose Cancelled Lactate Cancelled Calcium Cancelled Magnesium Cancelled Total Bilirubin Cancelled Direct Bilirubin Cancelled AST Cancelled ALT Cancelled Alkaline Phosphatase Cancelled Troponin I High Sens Cancelled D Total Protein Cancelled Albumin Cancelled Procalcitonin SARS-CoV-2 (PCR) (Negative) Influenza Type A (PCR) (Neg) Influenza Type B (PCR) (Neg) RSV (RT-PCR) (Neg) Blood Parasites ID Cancelled 01/16/22 01/16/22 01/16/22 Range/Units 03:12 03:30 04:05 WBC RBC B Hgb Hct MCV MCH B MCHC RDW Std Deviation RDW Coeff of Benny Plt Count MPV Immature Gran % (Auto) Neut % (Auto) Lymph % (Auto) [place] % (Auto) Eos % (Auto) Baso % (Auto) Neut # (Auto) Lymph # (Auto) [place] # (Auto) Eos # (Auto) Baso # (Auto) Immature Gran # (Auto) Absolute Nucleated RBC Nucleated RBC % (auto) Neutrophils % (Manual) Band Neutrophils % Lymphocytes % (Manual) Prolymphocyte % Reactive Lymphs % (Man) Monocytes % (Manual) Eosinophils % (Manual) Basophils % (Manual) Metamyelocytes % (Man) Myelocytes % (Man) Promyelocytes % (Man) Blast Cells % (Manual) Plasma Cell % (Manual) Other Cells % Nucleated RBC % Neutrophils # (Manual) Band Neutrophils # Total Absolute Neuts Lymphocytes # (Manual) Prolymphocyte # Reactive Lymphs # Total Abs Lymphocytes Monocytes # (Manual) Eosinophils # (Manual) Basophils # (Manual) Metamyelocytes # (Man) Myelocytes # (Manual) Promyelocytes # (Man) Blast Cells # (Man) Plasma Cell # (Manual) Other Cells # Nucleated RBCs # (Man) Hypersegmented Neuts Hyposegmented Neuts Hypogranular Neuts Large Granular Lymphs # Lrg Granular Lymphs Hairy Cells Smudge Cells Toxic Granulation Toxic Vacuolation Dohle Bodies Lesley Rods Platelet Estimate Hypogranular Platelets Clumped Platelets Giant Platelets Platelet Satelliting D RBC Morphology Polychromasia Hypochromasia Poikilocytosis Basophilic Stippling Anisocytosis Microcytosis Macrocytosis Spherocytes Pappenheimer Bodies Sickle Cells Target Cells Tear Drop Cells Ovalocytes Stomatocytes [place] Bodies Echinocytes Acanthocytes (Spur) Rouleaux RBC Agglutinates Schistocytes Sezary Cell Sodium Potassium Chloride Carbon Dioxide Anion Gap BUN Creatinine Est Cr Clr Drug Dosing Est GFR ( Amer) Est GFR (Non-Af Amer) BUN/Creatinine Ratio Glucose Lactate 0.9 Calcium Magnesium Total Bilirubin Direct Bilirubin AST ALT Alkaline Phosphatase Troponin I High Sens Total Protein Albumin Procalcitonin Cancelled SARS-CoV-2 (PCR) NEGATIVE (Negative) Influenza Type A (PCR) Negative (Neg) Influenza Type B (PCR) Negative (Neg) RSV (RT-PCR) Negative (Neg) Blood Parasites ID 01/16/22 01/16/22 01/16/22 Range/Units 04:05 04:05 04:05 WBC 14.31 H RBC 3.52 L Hgb 11.0 L Hct 32.7 L MCV 92.9 MCH 31.3 MCHC 33.6 RDW Std Deviation 45.8 RDW Coeff of Benny 13.5 Plt Count 128 L MPV 9.9 Immature Gran % (Auto) 0.6 Neut % (Auto) 79.9 Lymph % (Auto) 5.6 [place] % (Auto) 13.6 Eos % (Auto) 0.0 Baso % (Auto) 0.3 Neut # (Auto) 11.44 H Lymph # (Auto) 0.80 L D [place] # (Auto) 1.94 H Eos # (Auto) 0.00 Baso # (Auto) 0.04 Immature Gran # (Auto) 0.09 H Absolute Nucleated RBC Nucleated RBC % (auto) Neutrophils % (Manual) Band Neutrophils % Lymphocytes % (Manual) Prolymphocyte % Reactive Lymphs % (Man) Monocytes % (Manual) Eosinophils % (Manual) Basophils % (Manual) Metamyelocytes % (Man) Myelocytes % (Man) Promyelocytes % (Man) Blast Cells % (Manual) Plasma Cell % (Manual) Other Cells % Nucleated RBC % Neutrophils # (Manual) Band Neutrophils # Total Absolute Neuts Lymphocytes # (Manual) B Prolymphocyte # Reactive Lymphs # Total Abs Lymphocytes Monocytes # (Manual) Eosinophils # (Manual) Basophils # (Manual) Metamyelocytes # (Man) Myelocytes # (Manual) Promyelocytes # (Man) Blast Cells # (Man) Plasma Cell # (Manual) Other Cells # Nucleated RBCs # (Man) Hypersegmented Neuts Hyposegmented Neuts Hypogranular Neuts Large Granular Lymphs # Lrg Granular Lymphs Hairy Cells Smudge Cells Toxic Granulation Toxic Vacuolation Dohle Bodies Lesley Rods Platelet Estimate Decreased L Hypogranular Platelets Clumped Platelets Giant Platelets D Platelet Satelliting RBC Morphology Polychromasia Hypochromasia Poikilocytosis Basophilic Stippling Anisocytosis Microcytosis Macrocytosis Spherocytes Pappenheimer Bodies Sickle Cells Target Cells Tear Drop Cells Ovalocytes Stomatocytes [place] Bodies Echinocytes Acanthocytes (Spur) Rouleaux RBC Agglutinates Schistocytes Sezary Cell Sodium 134 L Potassium 3.3 L Chloride 105 Carbon Dioxide 21 Anion Gap 8 BUN 32 H Creatinine 1.80 H Est Cr Clr Drug Dosing 32.2 Est GFR ( Amer) 31.8 Est GFR (Non-Af Amer) 27.4 BUN/Creatinine Ratio 17.8 Glucose 115 H Lactate Calcium 6.7 L Magnesium 1.4 L Total Bilirubin 0.6 Direct Bilirubin 0.1 AST 16 ALT 13 Alkaline Phosphatase 97 Troponin I High Sens 28.7 H Total Protein 4.9 L Albumin 2.5 L Procalcitonin 8.33 H SARS-CoV-2 (PCR) (Negative) Influenza Type A (PCR) (Neg) Influenza Type B (PCR) (Neg) RSV (RT-PCR) (Neg) Blood Parasites ID Diagnostic Findings Chest x-ray per my interpretation atelectasis EKG as per my interpretation : Rate 85, NSR, normal axis, T wave abnormalities inferior leads
[2022-01-16] MEDS ORDERED: PIPERACILLIN/TAZOBACTAM 4.5 GM/120 ML BAG IV ONE (05:07)
[2022-01-16] MEDS ORDERED: POTASSIUM CHLORIDE PWD 20 MEQ PACK PO STA (05:07)
[2022-01-16] MEDS ORDERED: metroNIDAZOLE 500 MG/100 ML BAG IV STA (05:11)
[2022-01-16] MEDS: MAGNESIUM SULFATE / D5W 1 GM/100 ML BAG IV SCH ×4 (05:12→08:23)
[2022-01-16] MEDS ORDERED: dexAMETHasone 4 MG in SYRINGE 0 ML IV ONE (05:15)
[2022-01-16] MEDS ORDERED: DEXAMETHASONE SOD INJ 4 MG/ML VIAL IV ONE (05:15)
[2022-01-16 05:21] LABS: Basophils # (auto) 0.04 K/uL (0-0.2); Basophils % (auto) 0.3 %; Hematocrit (blood only) 32.7 % (34.1-44.9); Immature Granulocytes # (auto) 0.09 K/uL (0.00-0.02); Immature Granulocytes % (auto) 0.6 %; Lymphocytes % (auto) 5.6 %; Mean Corpuscular Hemoglobin 31.3 pg (25.0-34.0); Mean Corpuscular Hgb Conc 33.6 g/dL (32.0-36.0); Mean Corpuscular Volume 92.9 fL (80.0-100.0); Mean Platelet Volume 9.9 fL (9.4-12.3); Monocytes # (auto) 1.94 K/uL (0.24-0.82); Monocytes % (auto) 13.6 %; Neutrophils # (auto) 11.44 K/uL (1.4-6.5); Neutrophils % (auto) 79.9 %; Platelet Count 128 K/uL (130-400); Platelet Estimate Decreased (Normal); RDW Coefficient of Variation 13.5 % (11.5-14.5); RDW Standard Deviation 45.8 fL (36.4-46.3); Red Blood Count 3.52 M/uL (3.93-5.22); White Blood Count 14.31 K/ul (4.8-10.8)
[2022-01-16] MEDS ORDERED: oxyCODONE HCL IR 5 MG TAB (IMMEDIATE RELEASE) PO PRN (05:53)
[2022-01-16] MEDS ORDERED: LACTATED RINGER'S 1,000 ML IV ONE ×2 (05:53→10:00)
[2022-01-16] MEDS ORDERED: PROMETHAZINE HCL 12.5 MG in SODIUM CHLORIDE 0.9% 50 ML IV PRN (05:53)
[2022-01-16] MEDS ORDERED: LORazepam 0.5 MG TAB PO PRN (05:53)
[2022-01-16] MEDS ORDERED: IPRATROPIUM BROMIDE NASAL SPRAY 0.06% 15ML PRN (06:03)
--- NOTE | 2022-01-16 06:41 | XRay Report ---
SINGLE VIEW CHEST CLINICAL HISTORY: Sepsis. FINDINGS: 2 AP, portable, upright chest radiographs are compared to study dated 03/04/2013 and correl ated with chest CT dated 08/07/2017. The cardiomediastinal silhouette is top normal for projection. Th ere is mild elevation of the right hemidiaphragm and bibasilar scarring/atelectasis. The lungs and pl eural spaces are otherwise clear. No pneumothorax is seen. The skeletal structures are osteopenic. Th e bony thorax is grossly intact. Arthritic change is seen in the shoulders. IMPRESSION: No active disease in the chest. ACT 112: Negative or not required by law. Electronically signed by: Jorge Dobbins M.D. 01/16/2022 6:39 AM
[2022-01-16 06:50] LABS: Appearance Urine Turbid (Clear); Bacteria Urine Automated 3+ (Negative); Bilirubin Urine Negative (Negative); Blood Urine 3+ (Negative); Color Urine Yellow; Epithelial Cell Urine Auto >30 /lpf (0-5); Glucose Urine UA Negative (Negative); Ketones Urine Negative (Negative); Leukocyte Esterase Urine 2+ (Negative); Nitrite Urine Negative (Negative); Protein Urine 3+ (Negative); Specific Gravity Urine 1.018 (1.000-1.030); Urobilinogen Urine Negative (Negative); WBC Urine Automated >30 /hpf (0-5)
[2022-01-16 07:08] LABS: Cast Urine Automated >30 /lpf (0-5); Renal Epithelial Cells Urine 0-5 /lpf (0-5)
[2022-01-16 07:12] LABS: Prothrombin Time 20.4 Seconds (9.0-12.0)
[2022-01-16 07:18] LABS: Estimated Average Glucose 117 mg/dl; Hemoglobin A1C 5.7 % (4.5-5.6)
[2022-01-16 07:29] LABS: Adenovirus F 40/41 PCR Not Detected (NotDetected); Astrovirus PCR Not Detected (NotDetected); Campylobacter PCR Not Detected (NotDetected); Cryptosporidium PCR Not Detected (NotDetected); Cyclospora cayetanensis PCR Not Detected (NotDetected); Entamoeba histolytica PCR Not Detected (NotDetected); Enteroaggregative E.coli(EAEC) Not Detected (NotDetected); Enteropathogenic E.coli (EPEC) Not Detected (NotDetected); Enterotoxigenic E.coli (ETEC) Not Detected (NotDetected); Giardia lamblia PCR Not Detected (NotDetected); Norovirus GI/GII PCR Not Detected (NotDetected); Plesiomonas shigelloides PCR Not Detected (NotDetected); Rotavirus A PCR Not Detected (NotDetected); Salmonella PCR Not Detected (NotDetected); Sapovirus PCR Not Detected (NotDetected); Shiga-like Toxin E.coli (STEC) Not Detected (NotDetected); Shigella/Enteroinvasive E.coli Not Detected (NotDetected); Vibrio cholerae PCR Not Detected (NotDetected); Vibrio species PCR Not Detected (NotDetected); Yersinia enterocolitica PCR Not Detected (NotDetected)
[2022-01-16 07:44] LABS: BUN Creatinine Ratio 18.1 (10-20); Calcium 6.5 mg/dl (8.5-10.1); Est GFR (African American) 29.2 ml/min; Est GFR (Non-African American) 25.2 ml/min
[2022-01-16] MEDS ORDERED: SODIUM CHLORIDE 0.9% 1000ML 500 ML IV ONE (08:20)
[2022-01-16] MEDS ORDERED: ALBUMIN 25% 100 mL 25 GM/100 ML VIAL IV ONE (08:22)
[2022-01-16 08:27] LABS: Troponin I High Sensitivity 29.3 pg/ml (0-14)
[2022-01-16] MEDS ORDERED: cefTRIAXone SODIUM 2,000 MG in DEXTROSE 5% 50 ML IV ONE (09:42)
[2022-01-16] MEDS ORDERED: STAT IV STA (09:42)
[2022-01-16] MEDS ORDERED: CALCIUM GLUCONATE 10% 1,000 MG in DEXTROSE 5% 50 ML IV ONE (10:00)
[2022-01-16] MEDS: ATORVASTATIN 40 MG TAB PO SCH (10:14)
[2022-01-16] MEDS: PHENYTOIN SODIUM ER 100 MG CAP PO SCH ×2 (10:14→21:26)
--- NOTE | 2022-01-16 10:16 | Electrocardiogram Report ---
Test Reason : Blood Pressure : / mmHG Vent. Rate : 086 BPM Atrial Rate : 086 BPM P-R Int : 134 ms QRS Dur : 082 ms QT Int : 372 ms P-R-T Axes : 014 031 009 degrees QTc Int : 445 ms Normal sinus rhythm Normal ECG When compared with ECG of 07-AUG-2017 17:10, No significant change was found Confirmed by Jalen Koenig ([id number]) on 01/16/2022 10:16:11 AM Referred By: REFERRED SELF Confirmed By:Jalen Koenig
[2022-01-16] MEDS: SODIUM CHLORIDE 0.9% 1000ML 1,000 ML IV SCH ×2 (10:49→17:38)
[2022-01-16] MEDS: LORATADINE 10 MG TAB PO SCH (10:57)
[2022-01-16] MEDS: ASPIRIN 81 MG ECTAB PO SCH (11:28)
[2022-01-16] MEDS: metroNIDAZOLE 500 MG/100 ML BAG IV SCH ×2 (13:28→21:26)
--- NOTE | 2022-01-16 13:40 | Hospitalist Progress Note ---
Date of Service January 16, 2022 Assessment & Plan (1) Hypotension: Plan: Possible sepsis DD:Enteritis; UTI Dehydration In setting of Recent COVID Vaccine Presented with hypotension, diarrhea Hypoalbuminemia likely contributing to hypotension as well -CXR:No active disease in the chest. -Blood, Urine Culture pending -Negative COVID, influenza, RSV screen -Stool studies negative -Normal lactic acid, elevated procalcitonin -ECHO pending -Hold antihypertensives secondary to significant hypotension Continue IV fluids Empirically on Rocephin, Flagyl Acute Kidney Injury Troponin elevation likely demand Ischemia due to Hypotension in setting of MADELIN Cr: 1.93 Losartan held Avoid nephrotoxic agents as able Continue IV fluids Monitor renal function Consider renal ultrasound if needed Bladder scan as needed Hypomagnesemia Hypocalcemia Hypokalemia Hyponatremia Replete electrolytes as needed Monitor Chronic diastolic dysfunction Clinically dehydrated Last EF 60 to 65%, TTE 2018), mild TR, pulmonary hypertension TTE Update ECHO Monitor Volume status H/O PE/DVT INR 2.0 Continue Coumadin Monitor INR H/O SVT S/P ablation Carvedilol held due to hypotension Resume Carvedilol as able Hyperlipidemia on statin Seizure disorder Continue phenytoin Prediabetes HbA1c 5.7 Past tobacco abuse As per records DVT Px: Coumadin Code Status Full code Admission and Anticipated Discharge Date Admission Date: January 16, 2022 Subjective Patient is seen and examined at bedside States having generalized weakness after having COVID-vaccine recently Also reports diarrhea Denies any nausea, vomiting, chest pain, dyspnea, abdominal pain No other complaints Review of Systems Review of Systems: All systems reviewed & are unremarkable except as noted in Subjective Physical Exam Physical Exam: Physical Exam: Vitals signs as noted above General Appearance:Obese, no apparent distress Head: normocephalic, Atraumatic Eyes: normal inspection, EOMI Neck: supple, Trachea midline Respiratory/Chest: Decreased breath sounds, CTA, No accessory muscle use Cardiovascular: S1, S2, No murmur Abdomen/GI:Soft, Non tender, Bowel sounds present Extremities/Musculoskeletal:normal inspection, Trace pedal edema Neurologic/Psych:AAOX3, grossly no focal neurological deficits, hearing impairment Skin: normal color, warm Results & Data Results & Data ([facility]) Vital Signs (Past 12 Hours) Vital Signs Temp Pulse Pulse Resp BP BP Pulse Ox 01/16/22 11:25 67 20 96/58 L 93 01/16/22 10:00 11/07/22 09:35 60 01/16/22 10:00 01/16/22 09:30 36.7 C 57 L 20 88/58 L 98 01/16/22 09:30 36.6 C 60 18 89/54 L 96 01/16/22 08:34 63 18 88/58 L 98 01/16/22 07:00 59 L 20 77/53 L 93 01/16/22 06:30 65 19 69/45 L 93 01/16/22 06:39 36.6 C 01/16/22 06:00 71 18 83/49 L 93 01/16/22 05:30 71 18 75/41 L 96 01/16/22 05:18 71 24 76/45 L 93 01/16/22 04:45 78 16 69/42 L 94 01/16/22 04:00 75 24 81/47 L 98 01/16/22 03:45 75 22 83/47 L 98 01/16/22 03:27 76 23 83/49 L 98 01/16/22 03:19 81 16 71/47 L 93 01/16/22 02:46 37.8 C H 85 24 99 01/16/22 03:24 99 01/16/22 03:00 84/49 L 01/16/22 03:07 93 Pulse Ox O2 Del Method O2 Del Method O2 Flow Rate O2 Flow Rate 01/16/22 11:25 Oxymask 3 01/16/22 10:00 96 Nasal Cannula 2 01/16/22 09:35 01/16/22 10:00 Nasal Cannula 2 01/16/22 09:30 Oxymask 3 01/16/22 09:30 Nasal Cannula 2 01/16/22 08:34 Room Air 01/16/22 07:00 Room Air 01/16/22 06:30 Nasal Cannula 2 01/16/22 06:39 01/16/22 06:00 Nasal Cannula 2 01/16/22 05:30 Room Air 01/16/22 05:18 Nasal Cannula 2 01/16/22 04:45 Nasal Cannula 2 01/16/22 04:00 Nasal Cannula 2 01/16/22 03:45 Room Air 01/16/22 03:27 Nasal Cannula 2 01/16/22 03:19 Nasal Cannula 2 01/16/22 02:46 Room Air 01/16/22 03:24 Nasal Cannula 2 01/16/22 03:00 01/16/22 03:07 Room Air Laboratory Results Short CBC 01/16/22 01/16/22 Range/Units 03:12 04:05 WBC Cancelled 14.31 H Hgb Cancelled 11.0 L Hct Cancelled 32.7 L Plt Count Cancelled 128 L BMP 01/16/22 01/16/22 01/16/22 03:12 04:05 06:47 Sodium Cancelled 134 L 134 L Potassium Cancelled 3.3 L 4.0 D Chloride Cancelled 105 106 Carbon Dioxide Cancelled 22 BUN Cancelled 32 H 35 H Creatinine Cancelled 1.80 H 1.93 H Glucose Cancelled 115 H 179 H Calcium Cancelled 6.7 L 6.5 L Liver Function 01/16/22 01/16/22 Range/Units 03:12 04:05 Total Bilirubin Cancelled 0.6 Direct Bilirubin Cancelled 0.1 AST Cancelled 16 ALT Cancelled 13 Alkaline Phosphatase Cancelled 97 Albumin Cancelled 2.5 L Urine 01/16/22 Range/Units 06:25 Urine Color Yellow Urine Appearance Turbid A (Clear) Urine pH 5.0 (4.5-7.5) Ur Specific [place] 1.018 (1.000-1.030) Urine Protein 3+ H (Negative) Urine Glucose (UA) Negative (Negative)
[2022-01-16] MEDS: WARFARIN SOD 5 MG TAB PO SCH (15:43)
[2022-01-16 17:38] LABS: A calco-baum cmplx NotReported Not Detected (NotDetected); Bact fragilis Not Reported Not Detected (NotDetected); C auris Not Reported Not Detected (NotDetected); CTX-M Resistant Gene Not Detected (NotDetected); Calbicans Not Reported Not Detected (NotDetected); Candida glabrata Not Reported Not Detected (NotDetected); Candida krusei Not Reported Not Detected (NotDetected); Cneoformans/gatti Not Reported Not Detected (NotDetected); Cparapsilosis Not Reported Not Detected (NotDetected); Ctropicalis Not Reported Not Detected (NotDetected); E cloacae compx Not Reported Not Detected (NotDetected); Efaecalis Not Reported Not Detected (NotDetected); Efaecium Not Reported Not Detected (NotDetected); Enterobacterales DETECTED (NotDetected); Enterobacterales Not Reported DETECTED (NotDetected); Escherichia coli Not Reported DETECTED (NotDetected); H influenzae Not Reported Not Detected (NotDetected); IMP Resistant Gene Not Detected (NotDetected); K aerogenes Not Reported Not Detected (NotDetected); KPC Resistant Gene Not Detected (NotDetected); Koxytoca Not Reported Not Detected (NotDetected); Kpneumoniae grp Not Reported Not Detected (NotDetected); Lmonocyt Not Reported Not Detected (NotDetected); N meningitidis Not Reported Not Detected (NotDetected); NDM Resistant Gene Not Detected (NotDetected); OXA 48 Like Resistant Gene Not Detected (NotDetected); P aeruginosa Not Reported Not Detected (NotDetected); Proteus spp Not Reported Not Detected (NotDetected); Salmonella spp Not Reported Not Detected (NotDetected); Smarcescens Not Reported Not Detected (NotDetected); Staph lugdunensis Not Reported Not Detected (NotDetected); Staph spp. Not Reported Not Detected (NotDetected); Staphaureus Not Reported Not Detected (NotDetected); Staphepi Not Reported Not Detected (NotDetected); Stenmaltophilia Not Reported Not Detected (NotDetected); Strep agal(GrpB) Not Reported Not Detected (NotDetected); Strep pneum Not Reported Not Detected (NotDetected); Strep pyog (GrpA) Not Reported Not Detected (NotDetected); Strep spp Not Reported Not Detected (NotDetected); VIM Resistant Gene Not Detected (NotDetected); mcr-1 Colistin Resistant Gene Not Detected (NotDetected)
[2022-01-16] MEDS: ACETAMINOPHEN 325 MG TAB PO PRN (19:57)
[2022-01-17] MEDS ORDERED: SODIUM CHLORIDE 0.9% 1000ML 500 ML IV ONE (00:30)
[2022-01-17] MEDS ORDERED: dexAMETHasone 4 MG in SYRINGE 0 ML IV ONE ×2 (00:45→02:30)
[2022-01-17 01:38] LABS: INR 3.4 (0.9-1.1)
[2022-01-17 01:42] LABS: Hematocrit (blood only) 33.9 % (34.1-44.9); Hemoglobin 11.2 g/dl (12.0-16.0); Mean Corpuscular Hemoglobin 31.3 pg (25.0-34.0); Mean Corpuscular Volume 94.7 fL (80.0-100.0); Mean Platelet Volume 10.4 fL (9.4-12.3); Platelet Count 116 K/uL (130-400); RDW Coefficient of Variation 13.4 % (11.5-14.5); RDW Standard Deviation 47.3 fL (36.4-46.3); Red Blood Count 3.58 M/uL (3.93-5.22); White Blood Count 20.52 K/ul (4.8-10.8)
[2022-01-17 01:44] LABS: Basophils # (auto) 0.03 K/uL (0-0.2); Basophils % (auto) 0.1 %; Echinocytes 2+; Immature Granulocytes # (auto) 0.31 K/uL (0.00-0.02); Immature Granulocytes % (auto) 1.5 %; Lymphocytes # (auto) 0.72 K/uL (1.2-3.4); Lymphocytes % (auto) 3.5 %; Monocytes # (auto) 2.16 K/uL (0.24-0.82); Monocytes % (auto) 10.5 %; Neutrophils % (auto) 84.4 %
[2022-01-17 01:54] LABS: BUN Creatinine Ratio 12.8 (10-20); Calcium 7.1 mg/dl (8.5-10.1); Creatinine Clr Calc Pharmacy 18.7 ml/min; Est GFR (African American) 16.3 ml/min; Est GFR (Non-African American) 14.1 ml/min; Magnesium 2.1 mg/dl (1.7-2.4); Potassium 3.3 mmol/L (3.5-5.1)
[2022-01-17] MEDS ORDERED: POTASSIUM CHLORIDE PWD 20 MEQ PACK PO STA (01:57)
[2022-01-17] MEDS ORDERED: LACTATED RINGER'S 1,000 ML IV ONE (01:57)
[2022-01-17] MEDS: SODIUM CHLORIDE 0.9% 1000ML 1,000 ML IV SCH ×2 (03:26→17:30)
[2022-01-17] MEDS: LACTATED RINGER'S 1,000 ML IV SCH ×3 (04:20→17:35)
[2022-01-17] MEDS: metroNIDAZOLE 500 MG/100 ML BAG IV SCH ×3 (06:05→20:45)
[2022-01-17 07:23] LABS: BUN Creatinine Ratio 12.8 (10-20); Calcium 7.3 mg/dl (8.5-10.1); Creatinine Clr Calc Pharmacy 17.8 ml/min; Est GFR (African American) 15.4 ml/min; Est GFR (Non-African American) 13.3 ml/min; Potassium 4.4 mmol/L (3.5-5.1)
[2022-01-17] MEDS ORDERED: COUGH DROP (SUGAR FREE) LOZ 24 LOZ/1 BOX BUCCAL ONE (07:41)
[2022-01-17] MEDS: PHENYTOIN SODIUM ER 100 MG CAP PO SCH ×2 (08:53→20:46)
[2022-01-17] MEDS: ASPIRIN 81 MG ECTAB PO SCH (08:53)
[2022-01-17] MEDS: LORATADINE 10 MG TAB PO SCH (08:54)
[2022-01-17] MEDS: ADVANCED PROBIOTIC 1250 MG CAPSULE PO SCH (08:54)
[2022-01-17] MEDS: ATORVASTATIN 40 MG TAB PO SCH (10:11)
[2022-01-17] MEDS: cefTRIAXone SODIUM 2,000 MG in DEXTROSE 5% 50 ML IV SCH (10:12)
--- NOTE | 2022-01-17 12:48 | Ultrasound Report ---
US renal/blad retro comp CLINICAL HISTORY: renal failure TECHNIQUE: Multiple sonographic real-time images of the kidneys and bladder were obtained. COMPARISON: None available at the time of this dictation. FINDINGS: The right kidney measures 11.8 cm in length, and the left kidney measures 9.8 cm in length. The right kidney is normal in size, contour, cortical thickness, and echogenicity. No hydronephrosis is identified. No renal lesion is identified. No perinephric fluid collection is seen. The left kidney is normal in size, contour, cortical thickness and echogenicity. No hydronephrosis i s identified. No renal lesion is identified. No perinephric fluid collection is seen. A [place] catheter is not well visualized by ultrasound. A right adnexal mass is seen measuring 6.4 x 6 .8 x 6.7 cm. Patient is status post hysterectomy. IMPRESSION: 1. No evidence of hydronephrosis. 2. Incidental note is made of a right adnexal mass measuring up to 6.8 cm. Correlation with outside imaging, if available, is recommended. ACT 112: Negative or not required by law. Electronically signed by: Benny Gill M.D. 01/17/2022 12:47 PM
--- NOTE | 2022-01-17 13:39 | Urology Consultation ---
Date of Consultation January 17, 2022 Assessment & Plan (1) Difficult Vidales catheter placement: Plan Urology consulted for difficult Vidales - Afebrile, lab work reviewed - creatinine 3.28, WBC 20.52. - Urine and blood cultures showing gram neg bacilli. - Currently on Rocephin and Flagyl - continue broad spectrum antibiotics and narrow per sensitivity data. - 16 F Vidales catheter inserted without difficulty. - SD showed no hydronephrosis. - Continue antibiotics, supportive care, and management per hospital team. - Can attempt voiding trial prior to discharge. - will sign off. History of Present Illness Requesting Physician: Dr. Ray Attending Physician: Heladio Ray MD History of Present Illness This is a 71 year old female with past medical history significant for chronic diastolic dysfunction, pulmonary hypertension,postop PE/DVT status post Coumadin, SVT status post ablation, hypertension, hyperlipidemia, GERD, seizure disorder, chronic anemia, and past tobacco abuse admitted for weakness, hypotension, and acute kidney injury. Patient presented to [facility] emergency department on 01/16/2022 with 2-day history of malaise, diarrhea and ill feelings. On arrival, she was afebrile and hypotensive. Lab work independently reviewed and notable for creatinine 1.8, WBC 14.31, Hgb 11.0, Magnesium 1.4. Lactate was 0.9. Urinalysis on arrival showed 3+ blood, 2+ leukocytes, >30 WBC, 5-10 RBC, 3+ bacteria. Urine and blood cultures collected. She was treated with IV fluid boluses and Zosyn in the ER. She was admitted to hospital medicine. Urology consulted for Vidales catheter placement. Chart review: Afebrile overnight, Tmax 38.3 on 01/16 @1948 Creatinine 3.28 WBC 20.52 Hgb 11.2 Urine culture 01/16 - Gram negative bacilli Blood cultures 01/16 - Gram negative bacilli Renal US showed no hydronephrosis On IV Flagyl and Rocephin Patient seen and examined at bedside. She is awake, alert and sitting up in bedside chair. at bedside. Subjectively feeling better since arrival. No abdominal or suprapubic pain. No nausea or vomiting. No fever or chills. Vidales catheter was removed this AM. She has not voided since removal. Diarrhea improving. Reports hx of pyelonephritis 50 years ago. No stone history. No family history of malignancy. Allergies Allergy/AdvReac Type Severity Reaction Status Date / Time No Known Allergies Allergy Unknown Verified 11/02/21 08:20 Home Medications Medication Instructions Recorded Confirmed Type aspirin 81 mg tablet 81 mg PO QAM 10/25/21 11/02/21 History atorvastatin 20 mg tablet 40 mg PO QAM 10/25/21 11/02/21 History carvedilol 12.5 mg tablet 12.5 mg PO BID 10/25/21 11/02/21 History loratadine 10 mg tablet 10 mg PO QAM 10/25/21 10/25/21 History losartan 50 mg tablet 50 mg PO QAM 10/25/21 11/02/21 History warfarin 5 mg tablet 5 mg PO UD 10/25/21 11/02/21 History ipratropium bromide 2 spray NA BID PRN Nasal Congestion 01/16/22 01/16/22 History phenytoin sodium extended 100 mg 100 mg PO UD 01/16/22 01/16/22 History capsule Patient History Medical History Degenerative joint disease of right hip Hypertension 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 Was afraid to go off of the medicine." Surgical History History of cardiac cath "my heart was beating fast">[facility] [place], no stents; f/u PCP. Hx of bladder repair surgery "bladder tacked" Hx of colonoscopy S/P hip replacement bilat. S/P hysterectomy S/P knee replacement rt. Social History Smoking Status: Former smoker Second Hand Exposure: No; Hx Alcohol Use: Yes Alcohol type: beer Hx Substance Use: No Preferred Language: Kazakh Communication Ability: Effective Starch And Prosize Mixer Required: No Beliefs That Will Affect Care: None Current Living Situation: Spouse Other Information That Helps Us Care for You: No Feels Safe at Home: Yes Safety Concerns: Feels Safe At This Time Assistive Devices: Cane, Denture - Upper and Denture - Lower Review of Systems Review of Systems: All systems reviewed & are unremarkable except as noted in HPI & below Physical Exam Constitutional: well developed, well nourished and + obese; no acute distress and not ill appearing Eyes: no scleral abnormality Neck: normal visual inspection Respiratory: normal respiratory effort and able to speak in complete sentences; no respiratory distress and no labored breathing Cardiovascular: Extremities: no pedal edema Gastrointestinal (Abdomen): Inspection/Auscultation: abdomen normal to inspection; abdomen not distended Percussion/Palpation: abdomen soft; abdomen nontender and no guarding Musculoskeletal: Head/Neck/Chest: normocephalic and head atraumatic Skin: no visible skin rashes Neurologic: moves all extremities and awake Psychiatric: Orientation: alert and oriented x 3 Genitourinary: no CVA tenderness After preparing using sterile technique, a 16 F catheter was inserted into urethra with immediate return of clear yellow urine. Balloon was inflated with 10 mL. Patient tolerated procedure well, no complications noted. Results & Data ([facility]) Vital Signs (Past 12 Hours) Vital Signs Temp Pulse Pulse Resp BP Pulse Ox O2 Del Method 01/17/22 06:17 64 01/17/22 09:00 Room Air 01/17/22 11:06 36.4 C L 68 19 101/66 98 Room Air 01/17/22 07:11 36.6 C 64 18 99/66 L 99 Nasal Cannula 01/17/22 06:06 102/60 01/17/22 05:30 89/54 L 01/17/22 04:01 87/55 L 01/17/22 03:10 36.5 C 73 20 92/58 L 96 Nasal Cannula 01/17/22 02:17 95/61 L 01/17/22 01:47 76 71/45 L O2 Flow Rate 01/17/22 06:17 01/17/22 09:00 01/17/22 11:06 01/17/22 07:11 1 01/17/22 06:06 01/17/22 05:30 01/17/22 04:01 01/17/22 03:10 2 01/17/22 02:17 01/17/22 01:47 PG Care Time/CCT Total # of Minutes Spent Total Time Spent with Patient: Total time spent is greater than 50% in coordination of care (as documented) at patient's floor/unit and/or counseling patient: Coding Level of Care Code 60962 Initial Inpt Care Lvl 2 Diagnoses Difficult Vidales catheter placement T83.9XXA
--- NOTE | 2022-01-17 14:04 | Hospitalist Progress Note ---
Date of Service January 17, 2022 Assessment & Plan (1) Hypotension: Plan: Sepsis due to Escherichia Coli-POA Sources:Bacteremia, UTI, Enteritis Dehydration In setting of Recent COVID Vaccine Presented with hypotension, diarrhea Hypoalbuminemia likely contributing to hypotension as well -CXR:No active disease in the chest. -Blood Culture: Growing gram-negative bacilli Urine culture growing gram-negative bacilli Repeat blood cultures pending Biofire: Enterobacterales, E. coli -Negative COVID, influenza, RSV screen -Stool studies negative -Normal lactic acid, elevated procalcitonin -Hold antihypertensives secondary to hypotension/Low BP Cautious use of IV fluids given H/O diastolic heart failure Continue Rocephin, Flagyl Acute Kidney Injury Troponin elevation likely demand Ischemia due to Hypotension in setting of MADELIN Cr: 1.93>>3.28 Renal USD:No evidence of hydronephrosis. Losartan held Avoid nephrotoxic agents as able On IV fluids Monitor renal function Bladder scan as needed Nephrology consulted Hypomagnesemia Hypocalcemia Hypokalemia Hyponatremia Replete electrolytes as needed Monitor Right adnexal mass Incidental finding on Ultrasound USD:A right adnexal mass is seen measuring 6.4 x 6.8 x 6.7 cm. Patient is status post hysterectomy. Needs follow up with OBGYN as outpatient Chronic diastolic heart failure Clinically dehydrated on presentation ECHO: Normal LV chamber size and wall thickness. EF 60 to 60%. No segmental left ventricle wall motion abnormality. Grade additional dysfunction. No significant valvular pathology. There is interatrial septum is intact with no evidence of ASD. Monitor Volume status closely H/O PE/DVT INR 2.0>>3.4 Monitor INR Hold Coumadin today H/O SVT S/P ablation Carvedilol held due to hypotension Resume Carvedilol as able Hyperlipidemia on statin Seizure disorder Continue phenytoin Prediabetes HbA1c 5.7 Past tobacco abuse As per records DVT Px: Coumadin--Held INR supratherapeutic Code Status Full code Admission and Anticipated Discharge Date Admission Date: January 16, 2022 Subjective Patient is seen and examined at bedside States feeling better subjectively Has diarrhea but no bleeding issues RN overnight noted decreased urine output Renal function worsening Tolerates diet Discussed with Nephrology today Denies any nausea, vomiting, chest pain, dyspnea, abdominal pain No other complaints Review of Systems Review of Systems: All systems reviewed & are unremarkable except as noted in Subjective Physical Exam Physical Exam: Physical Exam: Vitals signs as noted above General Appearance:Obese, no apparent distress Head: normocephalic, Atraumatic Eyes: normal inspection, EOMI Neck: supple, Trachea midline Respiratory/Chest: Decreased breath sounds, basal crackles, No accessory muscle use Cardiovascular: S1, S2, No murmur Abdomen/GI:Soft, Non tender, Bowel sounds present Extremities/Musculoskeletal:normal inspection, Trace pedal edema Neurologic/Psych:AAOX3, grossly no focal neurological deficits, hearing impairment Skin: normal color, warm Results & Data Results & Data ([facility]) Vital Signs (Past 12 Hours) Vital Signs Temp Pulse Pulse Resp BP Pulse Ox O2 Del Method 01/17/22 06:17 64 01/17/22 09:00 Room Air 01/17/22 11:06 36.4 C L 68 19 101/66 98 Room Air 01/17/22 07:11 36.6 C 64 18 99/66 L 99 Nasal Cannula 01/17/22 06:06 102/60 01/17/22 05:30 89/54 L 01/17/22 04:01 87/55 L 01/17/22 03:10 36.5 C 73 20 92/58 L 96 Nasal Cannula 01/17/22 02:17 95/61 L O2 Flow Rate 01/17/22 06:17 01/17/22 09:00 01/17/22 11:06 01/17/22 07:11 1 01/17/22 06:06 01/17/22 05:30 01/17/22 04:01 01/17/22 03:10 2 01/17/22 02:17 Laboratory Results Short CBC 01/17/22 Range/Units 01:06 WBC 20.52 H (4.8-10.8) K/ul Hgb 11.2 L (12.0-16.0) g/dl Hct 33.9 L (34.1-44.9) % Plt Count 116 L (130-400) K/uL BMP 01/17/22 01/17/22 01:06 06:32 Sodium 133 L 134 L Potassium 3.3 L 4.4 D Chloride 106 106 Carbon Dioxide 18 L 19 L BUN 40 H 42 H Creatinine 3.13 H D 3.28 H Glucose 116 H 115 H Calcium 7.1 L 7.3 L
--- NOTE | 2022-01-17 14:18 | Nephrology Consultation ---
Date of Consultation January 17, 2022 Assessment & Plan (1) MADELIN (acute kidney injury): Stage 3 oliguric ischemic ATN from hypotension in the setting of septicemia; HTN is improved but not resolved, with baseline creatinine 0.9. renal u/s reassuring; cumulative I/O state she has had 8.3 L in and only 400 mL urine output; RN reports 3-4 BM / day as well; urology has replaced sevilla today -cont to hold antihypertensives -check CK, recheck lactate if indicated, CXR -recommend q 1 -2 hr BP check until MAP>65 consistently for up to 12 hrs -continue current LR; low threshold to add pressor if BP drops again -daily bmp, cbc -recommend renal diet and for now no fluid limit -cont strict I/O -given her persistent hypotension, her renal function is likely to continue to worsen for the next 24-48 hrs even if we stabilize her hypotension/improve her blood pressure immediately -no indication for urgent dialysis but cannot rule out need (2) Hypotension: -f/u TTE/ report pending >>unremarkable but for mild diastolic dysfunction/ unchanged from prior -CXR as above -continue LR at 125 ml/hr as tolerated >>>low threshold for pressor if needed to keep MAP > 65 History of Present Illness Reason for Consultation: MADELIN Requesting Physician: Dr Ray Attending Physician: Heladio Ray MD History of Present Illness Community dwelling 71 y/o F whom I'm asked to see for MADELIN was admitted here yesterday with hypotension and diarrhea and presenting creatinine 1.8, climbing further today to 3.3. Her baseline creatinine as of September 2021 and in 2020 is 0.9. Admission cultures remarkable for GNR bacteremia and + urine culture. PMH includes HTN, chronic diastolic dysfunction (EF 60 to 65%, TTE 2018), pulmonary hypertension,postop PE/DVT RLE status post Coumadin, SVT status post ablation, hyperlipidemia, GERD, seizure disorder, chronic anemia (baseline hemoglobin of 11), reformed tobacco abuse, chronic ambulatory dysfunction. Pt developed explosive diarrhea 3 days prior to admission. No abdominal pain, no JIMENES/ chest pain/ SOB; no N or emesis reported at admission. Generalized weakness prior to admission and no rash. No sick contacts or recent abtx. Her SBP when EMS arrived were in 60s. Pt reported to me that she fell prior to admi ssion landing next to her bed without loss of consciousness or injury; she was however unable to get up until EMS arrived despite her children and trying to help her. She has been receiving IVF and zosyn; her losartan and coreg were held at admission. Pt denies NSAID use prior to admission except remotely although later in the interview she tells me she may have taken an advil/tylenol co mbination medication a few times in days before admission. Her SBP has remained 70-90s through this AM at 0530; she is receiving LR at 125 ml/hr. Her WBC on presentation were 14K; increased to 21K today. Renal u/s unremarkable. she currently c/o RLE edema and generalized weakness; denies uncontrolled musculoskeletal pain. no dyspnea or cough. denies abd pain or further diarrhea or poor po. Allergies Allergy/AdvReac Type Severity Reaction Status Date / Time No Known Allergies Allergy Unknown Verified 11/02/21 08:20 Home Medications Medication Instructions Recorded Confirmed Type aspirin 81 mg tablet 81 mg PO QAM 10/25/21 11/02/21 History atorvastatin 20 mg tablet 40 mg PO QAM 10/25/21 11/02/21 History carvedilol 12.5 mg tablet 12.5 mg PO BID 10/25/21 11/02/21 History loratadine 10 mg tablet 10 mg PO QAM 10/25/21 10/25/21 History losartan 50 mg tablet 50 mg PO QAM 10/25/21 11/02/21 History warfarin 5 mg tablet 5 mg PO UD 10/25/21 11/02/21 History ipratropium bromide 2 spray NA BID PRN Nasal Congestion 01/16/22 01/16/22 History phenytoin sodium extended 100 mg 100 mg PO UD 01/16/22 01/16/22 History capsule Patient History Medical History Degenerative joint disease of right hip Hypertension 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 Was afraid to go off of the medici ne." Surgical History History of cardiac cath "my heart was beating fast">[facility] [place], no stents; f/u PCP. Hx of bladder repair surgery "bladder tacked" Hx of colonoscopy S/P hip replacement bilat. S/P hysterectomy S/P knee replacement rt. Family History Other Breast cancer Diabetes Ovarian cancer Social History Smoking Status: Former smoker Second Hand Exposure: No; Hx Alcohol Use: Yes Alcohol type: beer Hx Substance Use: No Preferred Language: Nigerien Communication Ability: Effective Tube Teller Required: No Beliefs That Will Affect Care: None Current Living Situation: Spouse Other Information That Helps Us Care for You: No Feels Safe at Home: Yes Safety Concerns: Feels Safe At This Time Assistive Devices: Cane Review of Systems Review of Systems: All systems reviewed & are unremarkable except as noted in HPI & below Physical Exam Constitutional: well developed, well nourished and + obese; no acute distress Eyes: EOM intact bilaterally ENMT: Ears: no external ear abnormality Nose: no external nose abnormality Mouth: + dry oral mucous membranes Neck: no nuchal rigidity Respiratory: normal respiratory effort and able to speak in complete sentences (but pauses/ a bit dyspneic w/ speech) Auscultation: + diminished lung sounds Cardiovascular: Rate/Rhythm: regular rate and regular rhythm Extremities: + edema (trace BLE) Gastrointestinal (Abdomen): Inspection/Auscultation: normal bowel sounds Percussion/Palpation: abdomen soft; abdomen nontender Musculoskeletal: Extremities: strength 5/5 throughout Skin: no rashes, warm and dry Neurologic: myles, fluent speech, no tremor Psychiatric: Orientation: oriented to person, oriented to place and cooperative (? if she is a reliable historian) Speech: normal rate/rhythm/volume of speech Genitourinary: sevilla w/ jaylyn urine Results & Data ([facility]) Vital Signs (Past 12 Hours) Vital Signs Temp Pulse Pulse Resp BP Pulse Ox O2 Del Method 01/17/22 06:17 64 01/17/22 09:00 Room Air 01/17/22 11:06 36.4 C L 68 19 101/66 98 Room Air 01/17/22 07:11 36.6 C 64 18 99/66 L 99 Nasal Cannula 01/17/22 06:06 102/60 01/17/22 05:30 89/54 L 01/17/22 04:01 87/55 L 01/17/22 03:10 36.5 C 73 20 92/58 L 96 Nasal Cannula 01/17/22 02:17 95/61 L O2 Flow Rate 01/17/22 06:17 01/17/22 09:00 01/17/22 11:06 01/17/22 07:11 1 01/17/22 06:06 01/17/22 05:30 01/17/22 04:01 01/17/22 03:10 2 01/17/22 02:17 Laboratory Results 01/17/22 01:06 01/17/22 06:32 UA w/ sg 1018, turbid urine , > 30 epi and WBC, 3+ prot and blood and bacteria, granular casts CXS > urine GNR; blood 1/4 w/ GNR at admission Diagnostic Findings renal u/s today The right kidney measures 11.8 cm in length, and the left kidney measures 9.8 cm in length. The right kidney is normal in size, contour, cortical thickness, and echogenicity. No hydronephrosis is identified. No renal lesion is identified. No perinephric fluid collection is seen. The left kidney is normal in size, contour, cortical thickness and ec hogenicity. No hydronephrosis is identified. No renal lesion is identified. No perinephric fluid collection is seen. A Sev[place] catheter is not well visualized by ultrasound. A right adnexal mass is s een measuring 6.4 x 6.8 x 6.7 cm. Patient is status post hysterectomy. IMPRESSION: 1. No evidence of hydronephrosis. 2. Incidental note is made of a right adnexal mass measuring up to 6.8 cm. Correlation with outside imaging, if available, is recommended. cxr yesterday > CLINICAL HISTORY: Sepsis. FINDINGS: 2 AP, portable, upright chest radiographs are compared to study dated 03/04/2013 and correlated with chest CT dated 08/07/2017. The cardiomediastinal silhouette is top normal for projection. There is mild elevation of the right hemidiaphragm and bibasilar scarring/atelectasis. The lungs and pleural spaces are otherwise clear. No pneumothorax is seen. The skeletal structures are osteopenic. The bony thorax is grossly intact. Arthritic change is seen in the shoulders. IMPRESSION: No active disease in the chest.
--- NOTE | 2022-01-17 15:43 | XRay Report ---
SINGLE VIEW CHEST CLINICAL HISTORY: Volume overload. FINDINGS: An AP, portable, upright chest radiograph is compared to study dated 01/16/2022 and correlat ed with chest CT dated 08/07/2017. The examination is degraded by portable technique and apical lordot ic positioning. The heart is enlarged. There is prominence of the pulmonary vasculature. There are lo w lung volumes with elevation of the right hemidiaphragm and bibasilar atelectasis. No airspace conso lidation or large pleural effusion is identified. No pneumothorax is seen. The skeletal structures ar e osteopenic. The bony thorax is grossly intact. Advanced arthritic change is seen in the shoulders. IMPRESSION: 1. Cardiomegaly with prominence of the pulmonary vasculature. Correlate clinically for evidence of fl uid overload. 2. No airspace consolidation or large pleural effusion is identified. ACT 112: Negative or not required by law. Electronically signed by: Jorge Dobbins M.D. 01/17/2022 3:41 PM
--- NOTE | 2022-01-17 16:55 | Critical Care Consultation ---
Date of Consultation January 17, 2022 Assessment & Plan (1) Sepsis associated hypotension: Patient initially had a presentation of severe sepsis yesterday with persistently low systolic blood pressures likely resulting in ischemic ATN. Her systolic blood pressures are currently improving. Continue with Rocephin and Flagyl. Recommend judicious use of colloids and crystalloids at this time. I do not see a role for a central line or invasive blood pressure monitoring given her improved mental status, improved urine output and improved systolic blood pressures. Lactates have been unremarkable. Maintain MAP goals above 65 mmHg. We will start the patient on low-dose midodrine 2.5 mg 3 times daily. I discussed this with the hospitalist. This could be discontinued as her systolic blood pressures continue to improve. I also discussed the case with the nursing supervisor electronics inspection and the bedside nurse. Echo from yesterday revealed grade 2 diastolic dysfunction and normal LVEF of 60 to 65%. (2) Complicated urinary tract infection: Antibiotics per primary team. Renal ultrasound without signs of obstructive uropathy. Vidales catheter in place. (3) MADELIN (acute kidney injury): Hopefully her creatinine will plateau soon and she will not require hemodialys is. Nephrology is currently following the patient. (4) Diarrhea: Patient is currently on Flagyl. Consider CT abdomen without contrast if symptoms worsen. Stool bio fire negative. Recommend checking stool C. difficile antigen. History of Present Illness Reason for Consultation: Hypotension Attending Physician: Heladio Ray MD History of Present Illness 71-year-old female who presented yesterday due to hypotension and diarrhea. She was found to be hypotensive in the ER with systolics in the 60s and 70s. She was also found to have MADELIN. There is concern for the fall prior to admission and altered mental status. Her mental status is improved significantly today. She remained hypotensive throughout the day yesterday with systolic blood pressures in the 70s to 90s. Today her most recent systolic blood pressures have been in the 1 teens. She denies any abdominal pain, chest pain, shortness of breath, fevers or chills. She has had increasing MADELIN. Creatinine is climbed to 3.28. She had a Vidales catheter placed today by urology. Blood cultures and urine cultures are growing E. coli and Enterobacterales. Stool bio fire was negative. She is currently on Rocephin and Flagyl. She is almost 9 L positive since hospital admission. Chest x-ray completed today suggestive of cardiomegaly and prominence of the pulmonary vasculature. Renal ultrasound with no evidence of hydronephrosis. Incidental note of a right adnexal mass measuring up to 6.8 cm. Allergies Allergy/AdvReac Type Severity Reaction Status Date / Time No Known Allergies Allergy Unknown Verified 11/02/21 08:20 Home Medications Medication Instructions Recorded Confirmed Type aspirin 81 mg tablet 81 mg PO QAM 10/25/21 11/02/21 History atorvastatin 20 mg tablet 40 mg PO QAM 10/25/21 11/02/21 History carvedilol 12.5 mg tablet 12.5 mg PO BID 10/25/21 11/02/21 History loratadine 10 mg tablet 10 mg PO QAM 10/25/21 10/25/21 History losartan 50 mg tablet 50 mg PO QAM 10/25/21 11/02/21 History warfarin 5 mg tablet 5 mg PO UD 10/25/21 11/02/21 History ipratropium bromide 2 spray NA BID PRN Nasal Congestion 01/16/22 01/16/22 History phenytoin sodium extended 100 mg 100 mg PO UD 01/16/22 01/16/22 History capsule Patient History Medical History (Updated 01/17/22 @ 16:50 by Quincy Reyna MD) Complicated urinary tract infection Degenerative joint disease of right hip Hypertension 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 Was afraid to go off of the medicine." Sepsis associated hypotension Surgical History History of cardiac cath "my heart was beating fast">[facility], no stents; f/u PCP. Hx of bladder repair surgery "bladder tacked" Hx of colonoscopy S/P hip replacement bilat. S/P hysterectomy S/P knee replacement rt. Family History Other Breast cancer Diabetes Ovarian cancer Social History Smoking Status: Former smoker Second Hand Exposure: No; Hx Alcohol Use: Yes Alcohol type: beer Hx Substance Use: No Preferred Language: Mohawk Communication Ability: Effective Environmental Journalist Required: No Beliefs That Will Affect Care: None Current Living Situation: Spouse Other Information That Helps Us Care for You: No Feels Safe at Home: Yes Safety Concerns: Feels Safe At This Time Assistive Devices: Cane Review of Systems Review of Systems: All systems reviewed & are unremarkable except as noted in HPI & below Physical Exam Physical Exam: Constitutional: Patient appears to be of their stated age. Patient is in no apparent distress. Patient is well-developed. Eyes: Pupils are equal round and reactive to light. Conjunctivae are normal. Anicteric sclera. Ears nose, mouth and throat: Mallampati class 2. Normal posterior oropharynx. Uvula is midline. Neck: Trachea is midline. Visual inspection is normal. Respiratory: Clear to auscultation bilaterally. No use of accessory muscles. No significant clubbing noted. Cardiovascular: Regular rate and rhythm. No murmurs. No edema. Gastrointestinal: Normal bowel sounds, soft, nontender and nondistended. No hepatosplenomegaly noted. Musculoskeletal: No cyanosis. Patient is able to move all extremities. Strength is 5 out of 5 in the upper and lower extremities. Skin: No rashes, warm dry and intact. Neurologic: No obvious focal neurological deficits seen. Psychiatric: Alert and oriented x3 with a euthymic affect. Results & Data Results & Data ([facility]) Vital Signs (Past 12 Hours) Vital Signs Temp Pulse Pulse Resp BP Pulse Ox O2 Del Method 01/17/22 15:07 36.3 C L 79 18 111/73 91 Room Air 01/17/22 06:17 64 01/17/22 09:00 Room Air 01/17/22 11:06 36.4 C L 68 19 101/66 98 Room Air 01/17/22 07:11 36.6 C 64 18 99/66 L 99 Nasal Cannula 01/17/22 06:06 102/60 01/17/22 05:30 89/54 L O2 Flow Rate 01/17/22 15:07 01/17/22 06:17 01/17/22 09:00 01/17/22 11:06 01/17/22 07:11 1 01/17/22 06:06 01/17/22 05:30 Coding Level of Care Code 27748 Inpt Consult Level 5 Diagnoses Sepsis associated hypotension A41.9; I95.9 Complicated urinary tract infection N39.0 MADELIN (acute kidney injury) N17.9 Diarrhea R19.7
[2022-01-17] MEDS: MIDODRINE HCL 2.5 MG TAB PO SCH (18:06)
[2022-01-18] MEDS: SODIUM CHLORIDE 0.9% 1000ML 1,000 ML IV SCH (06:19)
[2022-01-18] MEDS: metroNIDAZOLE 500 MG/100 ML BAG IV SCH (06:20)
[2022-01-18 07:29] LABS: Hematocrit (blood only) 34.6 % (34.1-44.9); Hemoglobin 11.7 g/dl (12.0-16.0); Mean Corpuscular Hemoglobin 30.9 pg (25.0-34.0); Mean Corpuscular Hgb Conc 33.8 g/dL (32.0-36.0); Mean Corpuscular Volume 91.3 fL (80.0-100.0); Platelet Count 128 K/uL (130-400); RDW Coefficient of Variation 13.8 % (11.5-14.5); RDW Standard Deviation 46.1 fL (36.4-46.3); Red Blood Count 3.79 M/uL (3.93-5.22); White Blood Count 14.63 K/ul (4.8-10.8)
[2022-01-18 07:34] LABS: Basophils # (auto) 0.02 K/uL (0-0.2); Basophils % (auto) 0.1 %; Echinocytes 3+; Eosinophils # (auto) 0.01 K/uL (0-0.50); Eosinophils % (auto) 0.1 %; Immature Granulocytes # (auto) 0.16 K/uL (0.00-0.02); Immature Granulocytes % (auto) 1.1 %; Lymphocytes # (auto) 0.72 K/uL (1.2-3.4); Lymphocytes % (auto) 4.9 %; Monocytes % (auto) 9.6 %; Neutrophils # (auto) 12.32 K/uL (1.4-6.5); Neutrophils % (auto) 84.2 %
[2022-01-18 07:42] LABS: Albumin Globulin Ratio 1.1 (0.9-2); Albumin Level 2.8 gm/dl (3.4-5.0); BUN Creatinine Ratio 13.7 (10-20); Bilirubin,Total 0.2 mg/dl (0.2-1.0); Calcium 7.4 mg/dl (8.5-10.1); Creatinine Clr Calc Pharmacy 15.4 ml/min; Est GFR (African American) 12.9 ml/min; Est GFR (Non-African American) 11.2 ml/min; Globulin 2.5 gm/dl (2.5-4.0); Magnesium 2.1 mg/dl (1.7-2.4); Phosphorus 4.5 mg/dl (2.5-4.9); Potassium 3.9 mmol/L (3.5-5.1); Total Protein 5.3 gm/dl (6.0-8.3)
[2022-01-18 07:47] LABS: Prothrombin Time 60.2 Seconds (9.0-12.0)
[2022-01-18 08:05] LABS: INR 6.2 (0.9-1.1)
[2022-01-18] MEDS: ASPIRIN 81 MG ECTAB PO SCH (08:56)
[2022-01-18] MEDS: ATORVASTATIN 40 MG TAB PO SCH (08:57)
[2022-01-18] MEDS: ADVANCED PROBIOTIC 1250 MG CAPSULE PO SCH (08:57)
[2022-01-18] MEDS: LORATADINE 10 MG TAB PO SCH (08:57)
[2022-01-18] MEDS: PHENYTOIN SODIUM ER 100 MG CAP PO SCH ×2 (08:57→20:19)
[2022-01-18] MEDS: MIDODRINE HCL 2.5 MG TAB PO SCH ×3 (08:58→17:13)
[2022-01-18] MEDS: cefTRIAXone SODIUM 2,000 MG in DEXTROSE 5% 50 ML IV SCH (09:35)
--- NOTE | 2022-01-18 09:35 | Nephrology Progress Note ---
Date of Service January 18, 2022 Assessment & Plan (1) MADELIN (acute kidney injury): Plan: Stage 3 now nonoliguric ischemic ATN from hypotension in the setting of E coli bacteremia; hypotension is improved past 18 hrs with baseline creatinine 0.9. renal u/s reassuring; cumulative I/O state she has had 11.1 L in and only 1000 mL urine output; RN reports 3-4 BM / day as well; urology has replaced sevilla today; CK mildly elevated at 830 -cont to hold antihypertensives -continue q 2-3 hr BP check until MAP>65 consistently for up to 36 hrs -changed IVF as below; monitor heart rhythm on midodrine but so far tolerating; low threshold to add pressor if BP drops again -daily bmp, cbc -recommend renal diet and for now no fluid limit -cont strict I/O -given her persistent hypotension, her renal function is likely to continue to worsen for the next 24 hrs at least even as we have stabilized her hypotension/improve her blood pressure immediately -no indication for urgent dialysis but cannot rule out need (2) Hypotension: Plan: >>unremarkable but for mild diastolic dysfunction/ unchanged from prior -change NS back to LR d/t hyperchloremic acidosis, already worse w/ diarrhea >>>low threshold for pressor if needed to keep MAP > 65; midodrine started and she seems to be tolerating Admission and Anticipated Discharge Date Admission Date: January 16, 2022 Subjective started on midodrine ON and BP improved for now; also LR changed to NS; SBP rebounding Review of Systems Review of Systems: All systems reviewed & are unremarkable except as noted in Subjective Physical Exam Constitutional: well developed, well nourished and + obese; no acute distress Eyes: EOM intact bilaterally ENMT: Ears: no external ear abnormality Nose: no external nose abnormality Mouth: + dry oral mucous membranes Neck: no nuchal rigidity Respiratory: normal respiratory effort, able to speak in complete sentences (but pauses/ a bit dyspneic w/ speech) and + paradoxical thoraco-abdominal movement Auscultation: + diminished lung sounds Cardiovascular: Rate/Rhythm: regular rate and regular rhythm Extremities: + edema (trace BLE) Gastrointestinal (Abdomen): Inspection/Auscultation: normal bowel sounds Percussion/Palpation: abdomen soft; abdomen nontender Musculoskeletal: Extremities: strength 5/5 throughout Skin: no rashes, warm and dry Psychiatric: Orientation: oriented to person, oriented to place and coope rative (? if she is a reliable historian) Speech: normal rate/rhythm/volume of speech Results & Data ([facility]) Vital Signs (Past 12 Hours) Vital Signs Temp Pulse Pulse Resp BP BP Pulse Ox 01/18/22 07:56 36.2 C L 98 H 18 114/66 97 01/18/22 03:48 35.8 C L 91 H 18 102/70 95 01/17/22 22:59 36.7 C 73 16 116/74 95 01/17/22 22:50 73 O2 Del Method 01/18/22 07:56 01/18/22 03:48 Room Air 01/17/22 22:59 Room Air 01/17/22 22:50 Laboratory Results 01/18/22 06:29 01/18/22 06:29 Diagnostic Findings cxr 1. Cardiomegaly with prominence of the pulmonary vasculature. Correlate clinically for evidence of fluid overload. 2. No airspace consolidation or large pleural effusion is identified.
[2022-01-18] MEDS: LACTATED RINGER'S 1,000 ML IV SCH (10:37)
[2022-01-18] MEDS ORDERED: SIMETHICONE 80 MG CHEW PO PRN (13:52)
[2022-01-18] MEDS ORDERED: LOPERAMIDE HCL 2 MG CAP PO PRN (13:59)
--- NOTE | 2022-01-18 13:59 | Hospitalist Progress Note ---
Date of Service January 18, 2022 Assessment & Plan (1) Sepsis: Plan: - Presented with hypotension, diarrhea - found to have E coli UTI and bacteremia - CXR:No active disease in the chest. - Blood Culture: E coli - Urine culture growing E coli - Repeat blood cultures 01/17/2022 NGTD - Negative COVID, influenza, RSV screen - Stool studies negative - Normal lactic acid, elevated procalcitonin - continue to hold antihypertensives secondary to hypotension/Low BP - improving - Cautious use of IV fluids given H/O diastolic heart failure - LR per renal - Continue ceftriaxone - will need abx for 2 weeks total for bacteremia - can switch to PO after 1 week - started on midodrine for hypotension by ICU - wean as tolerated (2) Complicated urinary tract infection: Plan: - see plan above (3) MADELIN (acute kidney injury): Plan: - in the setting of sepsis with E coli bacteremia and persistent hypotension - Cr continues to rise >3.5, likely representing ATN - renal following - nonoliguric MADELIN - IVF with LR per renal - continue to monitor UOP - trend Cr - avoid nephrotoxic medications - monitor for volume overload (4) Acute respiratory failure with hypoxia: Plan: - unclear etiology - lungs clear on exam but difficult exam given body habitus - will repeat CXR - judicious IVF as above given history of HFpEF - O2 to maintain SpO2 >92% - wean O2 as tolerated (5) Diarrhea: Plan: - unclear etiology but in setting of E coli UTI and bacteremia - abx as above - stool studies negative - loperamide prn (6) (HFpEF) heart failure with preserved ejection fraction: Plan: - EF 60% with G2DD on TTE 01/2022 - does not appear to be in exacerbation - CXR as above to assess respiratory status - LE with trace edema, nonpitting - holding BP meds in setting of hypotension - slowly resolving on midodrine - wean midodrine as tolerated (7) Adnexal mass: Plan: - incidental finding on renal US - right adnexal mass is seen measuring 6.4 x 6.8 x 6.7 cm - will need OBGYN follow up (8) Personal history of DVT (deep vein thrombosis): Plan: - 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 - goal INR 2-3 - daily INR while inpatient - INR up to 6 - unclear etiology - no signs of bleeding, vitals stable, hgb stable - continue to hold Coumadin for now (9) HLD (hyperlipidemia): Plan: - continue statin (10) Seizure disorder: Plan: - continue phenytoin Plan DVT Px: Coumadin --> Held given INR >3 Code Status: Full Code Dispo: telemetry Andrea Shannon MD [facility] Medicine Admission and Anticipated Discharge Date Admission Date: January 16, 2022 Subjective Patient with HFpEF (EF 60%, G2DD 01/2022), h/o DVT/PE on Coumadin, SVT s/p ablation, HLD, GERD, seizure disorder, HTN presented with diarrhea, found to have UTI and bacteremia with E coli. Started on ceftriaxone, IVF. Had persistent hypotension with resultant MADELIN, likely ATN. Renal consulted. Repeat blood cultures negative. Patient reports feeling weak today and still having diarrhea. Denies chest pain, has some shortness of breath, denies abdominal pain, dysuria, flank pain, cough. Review of Systems Review of Systems: All systems reviewed & are unremarkable except as noted in Subjective Physical Exam Physical Exam: General Appearance:Obese, no apparent distress Head: normocephalic, Atraumatic Eyes: normal inspection, EOMI Neck: supple, Trachea midline Respiratory/Chest: Decreased breath sounds, basal crackles, No accessory muscle use Cardiovascular: S1, S2, No murmur Abdomen/GI:Soft, Non tender, Bowel sounds present Extremities/Musculoskeletal:normal inspection, Trace pedal edema Neurologic/Psych:AAOX3, grossly no focal neurological deficits, hearing impairment Skin: normal color, warm Results & Data Results & Data ([facility]) Vital Signs (Past 12 Hours) Vital Signs Temp Pulse Resp BP Pulse Ox O2 Del Method 01/18/22 10:00 36.5 C 98 H 16 108/66 97 01/18/22 07:56 36.2 C L 98 H 18 114/66 97 01/18/22 03:48 35.8 C L 91 H 18 102/70 95 Room Air Diagnostic Findings Laboratory Results WBC 14.63 K/ul (4.8-10.8) H 01/18/22 06:29 RBC 3.79 M/uL (3.93-5.22) L 01/18/22 06:29 Hgb 11.7 g/dl (12.0-16.0) L 01/18/22 06:29 Hct 34.6 % (34.1-44.9) 01/18/22 06:29 MCV 91.3 fL (80.0-100.0) 01/18/22 06:29 MCH 30.9 pg (25.0-34.0) 01/18/22 06:29 MCHC 33.8 g/dL (32.0-36.0) 01/18/22 06:29 RDW Std Deviation 46.1 fL (36.4-46.3) 01/18/22 06:29 RDW Coeff of Benny 13.8 % (11.5-14.5) 01/18/22 06:29 Plt Count 128 K/uL (130-400) L 01/18/22 06:29 MPV 11.0 fL (9.4-12.3) 01/18/22 06:29 Immature Gran % (Auto) 1.1 % 01/18/22 06:29 Neut % (Auto) 84.2 % 01/18/22 06:29 Lymph % (Auto) 4.9 % 01/18/22 06:29 [place] % (Auto) 9.6 % 01/18/22 06:29 Eos % (Auto) 0.1 % 01/18/22 06:29 Baso % (Auto) 0.1 % 01/18/22 06:29 Neut # (Auto) 12.32 K/uL (1.4-6.5) H 01/18/22 06:29 Lymph # (Auto) 0.72 K/uL (1.2-3.4) L 01/18/22 06:29 [place] # (Auto) 1.40 K/uL (0.24-0.82) H 01/18/22 06:29 Eos # (Auto) 0.01 K/uL (0-0.50) 01/18/22 06:29 Baso # (Auto) 0.02 K/uL (0-0.2) 01/18/22 06:29 Immature Gran # (Auto) 0.16 K/uL (0.00-0.02) H 01/18/22 06:29 Absolute Nucleated RBC Cancelled 01/16/22 03:12 Nucleated RBC % (auto) Cancelled 01/16/22 03:12 Neutrophils % (Manual) Cancelled 01/16/22 03:12 Band Neutrophils % Cancelled 01/16/22 03:12 Lymphocytes % (Manual) Cancelled 01/16/22 03:12 Prolymphocyte % Cancelled 01/16/22 03:12 Reactive Lymphs % (Man) Cancelled 01/16/22 03:12 Monocytes % (Manual) Cancelled 01/16/22 03:12 Eosinophils % (Manual) Cancelled 01/16/22 03:12 Basophils % (Manual) Cancelled 01/16/22 03:12 Metamyelocytes % (Man) Cancelled 01/16/22 03:12 Myelocytes % (Man) Cancelled 01/16/22 03:12 Promyelocytes % (Man) Cancelled 01/16/22 03:12 Blast Cells % (Manual) Cancelled 01/16/22 03:12 Plasma Cell % (Manual) Cancelled 01/16/22 03:12 Other Cells % Cancelled 01/16/22 03:12 Nucleated RBC % Cancelled 01/16/22 03:12 Neutrophils # (Manual) Cancelled 01/16/22 03:12 Band Neutrophils # Cancelled 01/16/22 03:12 Total Absolute Neuts Cancelled 01/16/22 03:12 Lymphocytes # (Manual) Cancelled 01/16/22 03:12 Prolymphocyte # Cancelled 01/16/22 03:12 Reactive Lymphs # Cancelled 01/16/22 03:12 Total Abs Lymphocytes Cancelled 01/16/22 03:12 Monocytes # (Manual) Cancelled 01/16/22 03:12 Eosinophils # (Manual) Cancelled 01/16/22 03:12 Basophils # (Manual) Cancelled 01/16/22 03:12 Metamyelocytes # (Man) Cancelled 01/16/22 03:12 Myelocytes # (Manual) Cancelled 01/16/22 03:12 Promyelocytes # (Man) Cancelled 01/16/22 03:12 Blast Cells # (Man) Cancelled 01/16/22 03:12 Plasma Cell # (Manual) Cancelled 01/16/22 03:12 Other Cells # Cancelled 01/16/22 03:12 Nucleated RBCs # (Man) Cancelled 01/16/22 03:12 Hypersegmented Neuts Cancelled 01/16/22 03:12 Hyposegmented Neuts Cancelled 01/16/22 03:12 Hypogranular Neuts Cancelled 01/16/22 03:12 Large Granular Lymphs Cancelled 01/16/22 03:12 # Lrg Granular Lymphs Cancelled 01/16/22 03:12 Hairy Cells Cancelled 01/16/22 03:12 Smudge Cells Cancelled 01/16/22 03:12 Toxic Granulation Cancelled 01/16/22 03:12 Toxic Vacuolation Cancelled 01/16/22 03:12 Dohle Bodies Cancelled 01/16/22 03:12 Lesley Rods Cancelled 01/16/22 03:12 Platelet Estimate Decreased (Normal) L 01/16/22 04:05 Hypogranular Platelets Cancelled 01/16/22 03:12 Clumped Platelets Cancelled 01/16/22 03:12 Giant Platelets Cancelled 01/16/22 03:12 Platelet Satelliting Cancelled 01/16/22 03:12 RBC Morphology Cancelled 01/16/22 03:12 Polychromasia Cancelled 01/16/22 03:12 Hypochromasia Cancelled 01/16/22 03:12 Poikilocytosis Cancelled 01/16/22 03:12 Basophilic Stippling Cancelled 01/16/22 03:12 Anisocytosis Cancelled 01/16/22 03:12 Microcytosis Cancelled 01/16/22 03:12 Macrocytosis Cancelled 01/16/22 03:12 Spherocytes Cancelled 01/16/22 03:12 Pappenheimer Bodies Cancelled 01/16/22 03:12 Sickle Cells Cancelled 01/16/22 03:12 Target Cells Cancelled 01/16/22 03:12 Tear Drop Cells Cancelled 01/16/22 03:12 Ovalocytes Cancelled 01/16/22 03:12 Stomatocytes Cancelled 01/16/22 03:12 [place] Bodies Cancelled 01/16/22 03:12 Echinocytes 3+ 01/18/22 06:29 Acanthocytes (Spur) Cancelled 01/16/22 03:12 Rouleaux Cancelled 01/16/22 03:12 RBC Agglutinates Cancelled 01/16/22 03:12 Schistocytes Cancelled 01/16/22 03:12 Sezary Cell Cancelled 01/16/22 03:12 PT 60.2 Seconds (9.0-12.0) H 01/18/22 06:29 INR 6.2 (0.9-1.1) H* 01/18/22 06:29 Sodium 136 mmol/L (136-145) 01/18/22 06:29 Potassium 3.9 mmol/L (3.5-5.1) 01/18/22 06:29 Chloride 110 mmol/L (98-107) H 01/18/22 06:29 Carbon Dioxide 17 mmol/L (21-32) L 01/18/22 06:29 Anion Gap 9 (3-11) 01/18/22 06:29 BUN 52 mg/dl (6-23) H 01/18/22 06:29 Creatinine 3.79 mg/dl (0.6-1.2) H D 01/18/22 06:29 Est Cr Clr Drug Dosing 15.4 ml/min 01/18/22 06:29 Est GFR ( Amer) 12.9 ml/min 01/18/22 06:29 Est GFR (Non-Af Amer) 11.2 ml/min 01/18/22 06:29 BUN/Creatinine Ratio 13.7 (10-20) 01/18/22 06:29 Glucose 92 mg/dl (70-99(Fasting)) 01/18/22 06:29 Estimat Average Glucose 117 mg/dl 01/16/22 04:05 Hemoglobin A1c 5.7 % (4.5-5.6) H 01/16/22 04:05 Lactate 0.9 mmol/L (0.4-2.0) 01/17/22 17:12 Calcium 7.4 mg/dl (8.5-10.1) L 01/18/22 06:29 Phosphorus 4.5 mg/dl (2.5-4.9) 01/18/22 06:29 Magnesium 2.1 mg/dl (1.7-2.4) 01/18/22 06:29 Total Bilirubin 0.2 mg/dl (0.2-1.0) 01/18/22 06:29 Direct Bilirubin 0.1 mg/dl (0-0.2) 01/16/22 04:05 AST 33 U/L (13-39) 01/18/22 06:29 ALT 20 U/L (7-52) 01/18/22 06:29 Alkaline Phosphatase 88 U/L (34-104) 01/18/22 06:29 Total Creatine Kinase 830 U/L (26-192) H 01/17/22 17:12 Troponin I High Sens 29.3 pg/ml (0-14) H 01/16/22 06:47 Total Protein 5.3 gm/dl (6.0-8.3) L 01/18/22 06:29 Albumin 2.8 gm/dl (3.4-5.0) L 01/18/22 06:29 Globulin 2.5 gm/dl (2.5-4.0) 01/18/22 06:29 Albumin/Globulin Ratio 1.1 (0.9-2) 01/18/22 06:29 Procalcitonin 22.35 ng/ml (0-0.5) H 01/17/22 01:06 TSH 1.046 uIu/ml (0.300-4.500) 01/16/22 04:05 Urine Color Yellow 01/16/22 06:25 Urine Appearance Turbid (Clear) A 01/16/22 06:25 Urine pH 5.0 (4.5-7.5) 01/16/22 06:25 Ur Specific [place] 1.018 (1.000-1.030) 01/16/22 06:25 Urine Protein 3+ (Negative) H 01/16/22 06:25 Urine Glucose (UA) Negative (Negative) 01/16/22 06:25 Urine Ketones Negative (Negative) 01/16/22 06:25 Urine Blood 3+ (Negative) H 01/16/22 06:25 Urine Nitrite Negative (Negative) 01/16/22 06:25 Urine Bilirubin Negative (Negative) 01/16/22 06:25 Urine Urobilinogen Negative (Negative) 01/16/22 06:25 Ur Leukocyte Esterase 2+ (Negative) H 01/16/22 06:25 Urine WBC (Auto) >30 /hpf (0-5) H 01/16/22 06:25 Urine RBC (Auto) 5-10 /hpf (0-4) H 01/16/22 06:25 U Hyaline Cast (Auto) >30 /lpf (0-5) H 01/16/22 06:25 U Epithel Cells (Auto) >30 /lpf (0-5) H 01/16/22 06:25 Urine Bacteria (Auto) 3+ (Negative) H 01/16/22 06:25 Ur Renal Epithelial Cell 0-5 /lpf (0-5) 01/16/22 06:25 Granular Casts 5-10 /lpf (0) H 01/16/22 06:25 Stl C. cayetanensis PCR Not Detected (NotDetected) 01/16/22 05:50 Stool Rotavirus A PCR Not Detected (NotDetected) 01/16/22 05:50 Stl Adenov F 40/41 PCR Not Detected (NotDetected) 01/16/22 05:50 Stool Astrovirus (PCR) Not Detected (NotDetected) 01/16/22 05:50 Stool Campylobacter PCR Not Detected (NotDetected) 01/16/22 05:50 Stool Cryptosporidium PCR Not Detected (NotDetected) 01/16/22 05:50 Stl E.coli Shiga Tox PCR Not Detected (NotDetected) 01/16/22 05:50 Stl Enterotoxigenic E PCR Not Detected (NotDetected) 01/16/22 05:50 Stool EPEC (PCR) Not Detected (NotDetected) 01/16/22 05:50 Stool EAEC (PCR) Not Detected (NotDetected) 01/16/22 05:50 Stl E. histolytica PCR Not Detected (NotDetected) 01/16/22 05:50 Stool Giardia Lamblia PCR Not Detected (NotDetected) 01/16/22 05:50 Stool Salmonella PCR Not Detected (NotDetected) 01/16/22 05:50 Stool Sapovirus (PCR) Not Detected (NotDetected) 01/16/22 05:50 Stl P. shigelloides PCR Not Detected (NotDetected) 01/16/22 05:50 Stl Shigella/EIEC PCR Not Detected (NotDetected) 01/16/22 05:50 St Y.enterocolitica PCR Not Detected (NotDetected) 01/16/22 05:50 Stool Vibrio (PCR) Not Detected (NotDetected) 01/16/22 05:50 Stl Vibrio cholerae PCR Not Detected (NotDetected) 01/16/22 05:50 Stl Norovirus GI/GII PCR Not Detected (NotDetected) 01/16/22 05:50 Phenytoin 5.1 mcg/ml (10-20) L 01/16/22 06:47 SARS-CoV-2 (PCR) NEGATIVE (Negative) 01/16/22 03:30 Enterobacterales (PCR) DETECTED (NotDetected) A 01/16/22 04:29 E. coli (PCR) DETECTED (NotDetected) A 01/16/22 04:29 Influenza Type A (PCR) Negative (Neg) 01/16/22 03:30 Influenza Type B (PCR) Negative (Neg) 01/16/22 03:30 RSV (RT-PCR) Negative (Neg) 01/16/22 03:30 mcr-1 [place] Res Gene PCR Not Detected (NotDetected) 01/16/22 04:29 blaIMP Car res Gene PCR Not Detected (NotDetected) 01/16/22 04:29 KPC-Carbap Res Gene PCR Not Detected (NotDetected) 01/16/22 04:29 blaNDM Car Res Gene PCR Not Detected (NotDetected) 01/16/22 04:29 OXA-48 Carbapenem Resis Gene (PCR) Not Detected (NotDetected) 01/16/22 04:29 blaVIM Car Res Gene PCR Not Detected (NotDetected) 01/16/22 04:29 CTX-M Gene Resistance (PCR) Not Detected (NotDetected) 01/16/22 04:29 Bld Cult ID Panel PCR See PCR Comment (NotDetected) 01/16/22 04:29 Blood Parasites ID Cancelled 01/16/22 03:12 Impressions Renal Ultrasound 01/17/22 07:00 US renal/blad retro comp CLINICAL HISTORY: renal failure TECHNIQUE: Multiple sonographic real-time images of the kidneys and bladder were obtained. COMPARISON: None available at the time of this dictation. FINDINGS: The right kidney measures 11.8 cm in length, and the left kidney measures 9.8 cm in length. The right kidney is normal in size, contour, cortical thickness, and echogenicity. No hydronephrosis is identified. No renal lesion is identified. No perinephric fluid collection is seen. The left kidney is normal in size, contour, cortical thickness and echogenicity. No hydronephrosis is identified. No renal lesion is identified. No perinephric fluid collection is seen. A Vidales catheter is not well visualized by ultrasound. A right adnexal mass is s een measuring 6.4 x 6.8 x 6.7 cm. Patient is status post hysterectomy. IMPRESSION: 1. No evidence of hydronephrosis. 2. Incidental note is made of a right adnexal mass measuring up to 6.8 cm. Carmelo elation with outside imaging, if available, is recommended. ACT 112: Negative or not required by law. Electronically signed by: Benny Gill M.D. 01/17/2022 12:47 PM Chest X-Ray 01/17/22 15:06 SINGLE VIEW CHEST CLINICAL HISTORY: Volume overload. FINDINGS: An AP, portable, upright chest radiograph is compared to study dated 01/16/2022 and correlated with chest CT dated 08/07/2017. The examination is degraded by portable technique and apical lordotic positioning. The heart is enlarged. There is prominence of the pulmonary vasculature. There are low lung v olumes with elevation of the right hemidiaphragm and bibasilar atelectasis. No airspace consolidation or large pleural effusion is identified. No pneumothorax is seen. The skeletal structures are osteopenic. The bony thorax is grossly intact. Advanced arthritic change is seen in the shoulders. IMPRESSION: 1. Cardiomegaly with prominence of the pulmonary vasculature. Correlate clinically for evidence of fluid overload. 2. No airspace consolidation or large pleural effusion is identified. ACT 112: Negative or not required by law. Electronically signed by: Jorge Dobbins M.D. 01/17/2022 3:41 PM Medications Administered Current Inpatient Medications Acetaminophen (Acetaminophen 325 Mg Tab) 650 mg PO Q4H PRN PRN Reason: Pain or Fever Stop: 02/15/22 09:41 Last Admin: 01/16/22 19:57 Dose: 650 mg Aspirin (Aspirin 81 Mg Ectab) [facility] Stop: 02/15/22 08:59 Last Admin: 01/18/22 08:56 Dose: 81 mg Atorvastatin Calcium (Atorvastatin 40 Mg Tab) [facility] Stop: 02/15/22 09:41 Last Admin: 01/18/22 08:57 Dose: 40 mg Promethazine HCl 12.5 mg/ (Sodium Chloride) 50.5 mls @ 202 mls/hr IV Q6H PRN PRN Reason: Nausea And Vomiting Stop: 02/15/22 05:52 Ceftriaxone Sodium 2,000 mg/ (Dextrose) 70 mls @ 100 mls/hr IV DAILY [facility]; Protocol Stop: 01/26/22 08:59 Last Infusion: 01/18/22 10:42 Dose: Infused Metronidazole (Flagyl) 500 mg in 100 mls @ 100 mls/hr IV Q8H MICHAEL Stop: 01/26/22 12:59 Last Infusion: 01/18/22 08:36 Dose: Infused Lactated Ringer's (Lr) 1,000 mls @ 50 mls/hr IV .Q20H MICHAEL Stop: 02/17/22 09:59 Last Infusion: 01/18/22 11:43 Dose: 50 mls/hr Ipratropium [place] (Ipratropium [place] Nasal [place] 0.06% 15ml) 2 sprays NA BID PRN PRN Reason: Nasal Congestion Stop: 02/15/22 06:02 Lactobacillus Acidophilus (Advanced Probiotic 1250 Mg Capsule) 2 cap PO DAILY [facility] Stop: 02/16/22 08:59 Last Admin: 01/18/22 08:57 Dose: 2 cap Loratadine (Loratadine 10 Mg Tab) 10 mg PO DAILY MICHAEL Stop: 02/15/22 08:59 Last Admin: 01/18/22 08:57 Dose: 10 mg Lorazepam (Lorazepam 0.5 Mg Tab) 0.5 mg PO TID PRN PRN Reason: Anxiety Stop: 02/15/22 05:52 Midodrine (Midodrine Hcl 2.5 Mg Tab) 2.5 mg PO TID@0800,1200,1700 [facility] Stop: 02/16/22 16:59 Last Admin: 01/18/22 11:44 Dose: 2.5 mg Oxycodone HCl (Oxycodone Hcl Ir 5 Mg Tab (Immediate Release)) 5 mg PO Q4H PRN PRN Reason: Pain Stop: 01/30/22 05:52 Phenytoin Sodium (Phenytoin Sodium Er 100 Mg Cap) 100 mg PO QAM [facility] Stop: 02/15/22 08:29 Last Admin: 01/18/22 08:57 Dose: 100 mg Phenytoin Sodium (Phenytoin Sodium Er 100 Mg Cap) 200 mg PO QPM [facility] Stop: 02/15/22 20:59 Last Admin: 01/17/22 20:46 Dose: 200 mg Simethicone (Simethicone 80 Mg Chew) 80 mg PO Q6H PRN PRN Reason: bloating, dypepsia Stop: 02/17/22 13:51 Warfarin Sodium (Warfarin Sod 5 Mg Tab) 5 mg PO DAILY@1600 [facility] Stop: 02/15/22 15:59 Last Admin: 01/16/22 15:43 Dose: 5 mg
--- NOTE | 2022-01-18 14:42 | XRay Report ---
XR chest 1V portable CLINICAL HISTORY: Shortness of breath. COMPARISON STUDY: Chest radiograph January 17, 2022. Chest CT August 07, 2017. FINDINGS: Elevation of the right hemidiaphragm is unchanged from earlier exams. Cardiomegaly is noted . There is no evidence for pulmonary edema. Bibasilar opacities are present. No pneumothorax or pleur al effusion is identified. IMPRESSION: 1. Bibasilar opacities which could reflect consolidation or atelectasis. 2. Cardiomegaly without evidence for pulmonary edema. ACT 112: Negative or not required by law. Electronically signed by: Antonio Garcia M.D. 01/18/2022 2:41 PM
[2022-01-19] MEDS: LACTATED RINGER'S 1,000 ML IV SCH (07:58)
[2022-01-19] MEDS: ATORVASTATIN 40 MG TAB PO SCH (07:58)
[2022-01-19] MEDS: MIDODRINE HCL 2.5 MG TAB PO SCH (07:58)
[2022-01-19] MEDS: ADVANCED PROBIOTIC 1250 MG CAPSULE PO SCH (07:59)
[2022-01-19] MEDS: LORATADINE 10 MG TAB PO SCH (07:59)
[2022-01-19] MEDS: ASPIRIN 81 MG ECTAB PO SCH (07:59)
[2022-01-19] MEDS: PHENYTOIN SODIUM ER 100 MG CAP PO SCH ×2 (07:59→20:35)
[2022-01-19] MEDS: cefTRIAXone SODIUM 2,000 MG in DEXTROSE 5% 50 ML IV SCH (08:04)
--- NOTE | 2022-01-19 08:20 | Nephrology Progress Note ---
Date of Service January 19, 2022 Assessment & Plan (1) MADELIN (acute kidney injury): Plan: Stage 3 now nonoliguric ischemic ATN from hypotension in the setting of E coli bacteremia (01/17 blood cxs clear after 48 hr); hypotension is improved past 18 hrs with baseline creatinine 0.9. renal u/s reassuring; cumulative I/O state she has had 12.7 L in and only 1000 mL now up to 2.7 L past 24 hr urine output; RN reports 2-4 BM / dayas well; urology has replaced sevilla today; CK mildly elevated at 830 -cont to hold antihypertensives -resume BP checks per unit protocol -stopped LR -monitor heart rhythm on now prn midodrine but so far tolerating -daily bmp, cbc -cont renal diet and for now no fluid limit -cont strict I/O -given her persistent hypotension for about 24-36 hr after admission but now w/ BP stabilization past 24 hr, her renal function should soon stabilize -no indication for urgent dialysis but cannot rule out need (2) Hypotension: Plan: improving/resolved >>TTE unremarkable but for mild diastolic dysfunction/ unchanged from prior >>changed midodrine to prn >>resume standard q4h BP; no need currently for intensive monitoring Admission and Anticipated Discharge Date Admission Date: January 16, 2022 Subjective feels improved/ stronger, more interested in ender on around her. some exertional dyspnea; no cough or orthopnea. 2 bm so far today Review of Systems Review of Systems: All systems reviewed & are unremarkable except as noted in Subjective Physical Exam Constitutional: well developed, well nourished and + obese; no acute distress Eyes: EOM intact bilaterally ENMT: Ears: no external ear abnormality Nose: no external nose abnormality Mouth: + dry oral mucous membranes Neck: no nuchal rigidity Respiratory: normal respiratory effort, able to speak in complete sentences (but pauses/ a bit dyspneic w/ speech) and + paradoxical thoraco-abdominal movement; no labored breathing Auscultation: + diminished lung sounds and + crackles (bibasilar) Cardiovascular: Rate/Rhythm: regular rate and regular rhythm Extremities: + edema (trace BLE) Gastrointestinal (Abdomen): Inspection/Auscultation: normal bowel sounds Percussion/Palpation: abdomen soft; abdomen nontender Musculoskeletal: Extremities: strength 5/5 throughout Skin: no rashes, warm and dry Psychiatric: Orientation: oriented to person, oriented to place and cooperative (? if she is a reliable historian) Speech: normal rate/rhythm/volume of speech Results & Data ([facility]) Vital Signs (Past 12 Hours) Vital Signs Temp Pulse Pulse Resp BP Pulse Ox O2 Del Method 01/19/22 08:12 36.6 C 82 18 132/73 97 Room Air 01/19/22 03:49 36.7 C 80 20 123/71 95 Nasal Cannula 01/18/22 22:47 36.7 C 80 18 120/74 92 Nasal Cannula 01/18/22 23:06 81 O2 Flow Rate 01/19/22 08:12 01/19/22 03:49 2.0 01/18/22 22:47 2.0 01/18/22 23:06 Laboratory Results 01/19/22 08:46 01/19/22 08:46 Diagnostic Findings cxr yesterday 1. Bibasilar opacities which could reflect consolidation or atelectasis. 2. Cardiomegaly without evidence for pulmonary edema.
[2022-01-19] MEDS ORDERED: MIDODRINE HCL 2.5 MG TAB PO PRN (08:21)
[2022-01-19 09:18] LABS: Basophils # (auto) 0.03 K/uL (0-0.2); Basophils % (auto) 0.3 %; Eosinophils # (auto) 0.04 K/uL (0-0.50); Eosinophils % (auto) 0.4 %; Hematocrit (blood only) 37.7 % (34.1-44.9); Hemoglobin 12.7 g/dl (12.0-16.0); Immature Granulocytes # (auto) 0.08 K/uL (0.00-0.02); Immature Granulocytes % (auto) 0.7 %; Lymphocytes # (auto) 0.77 K/uL (1.2-3.4); Lymphocytes % (auto) 6.8 %; Mean Corpuscular Hemoglobin 30.5 pg (25.0-34.0); Mean Corpuscular Hgb Conc 33.7 g/dL (32.0-36.0); Mean Corpuscular Volume 90.4 fL (80.0-100.0); Mean Platelet Volume 10.9 fL (9.4-12.3); Monocytes # (auto) 1.06 K/uL (0.24-0.82); Monocytes % (auto) 9.3 %; Neutrophils # (auto) 9.39 K/uL (1.4-6.5); Neutrophils % (auto) 82.5 %; Platelet Count 143 K/uL (130-400); RDW Coefficient of Variation 14.2 % (11.5-14.5); RDW Standard Deviation 47.2 fL (36.4-46.3); Red Blood Count 4.17 M/uL (3.93-5.22); White Blood Count 11.37 K/ul (4.8-10.8)
[2022-01-19 09:37] LABS: Prothrombin Time 69.6 Seconds (9.0-12.0)
[2022-01-19 09:46] LABS: Albumin Level 2.7 gm/dl (3.4-5.0); BUN Creatinine Ratio 12.9 (10-20); Bilirubin,Total 0.3 mg/dl (0.2-1.0); Calcium 7.6 mg/dl (8.5-10.1); Creatinine Clr Calc Pharmacy 14.8 ml/min; Est GFR (African American) 12.3 ml/min; Est GFR (Non-African American) 10.6 ml/min; Globulin 2.8 gm/dl (2.5-4.0); Phosphorus 3.9 mg/dl (2.5-4.9); Potassium 3.6 mmol/L (3.5-5.1); Total Protein 5.5 gm/dl (6.0-8.3)
[2022-01-19 09:48] LABS: INR 7.3 (0.9-1.1)
--- NOTE | 2022-01-19 12:27 | Hospitalist Progress Note ---
Date of Service January 19, 2022 Assessment & Plan (1) Sepsis: Plan: - Presented with hypotension, diarrhea - found to have E coli UTI and bacteremia - CXR:No active disease in the chest. - Blood Culture: E coli - Urine culture growing E coli - Repeat blood cultures 01/17/2022 NGTD - Negative COVID, influenza, RSV screen - Stool studies negative - Normal lactic acid, elevated procalcitonin - continue to hold antihypertensives secondary to hypotension/Low BP - improving - Cautious use of IV fluids given H/O diastolic heart failure - LR per renal - Continue ceftriaxone - will need abx for 2 weeks total for bacteremia - can switch to PO after 1 week - started on midodrine for hypotension by ICU - now prn after normalization of BP (2) Complicated urinary tract infection: Plan: - see plan above (3) MADELIN (acute kidney injury): Plan: - in the setting of sepsis with E coli bacteremia and persistent hypotension - Cr continues to rise >3.5, likely representing ATN - renal following - nonoliguric MADELIN - IVF with LR per renal - continue to monitor UOP - trend Cr - avoid nephrotoxic medications - monitor for volume overload - UOP increasing but Cr still elevated - continue to monitor output (4) Acute respiratory failure with hypoxia: Plan: - unclear etiology - lungs clear on exam but difficult exam given body habitus - tachypeneic and SpO2 88% on RA - improved from previous day - repeat CXR with likely atelectasis - judicious IVF as above given history of HFpEF - O2 to maintain SpO2 >92% - wean O2 as tolerated (5) Diarrhea: Plan: - unclear etiology but in setting of E coli UTI and bacteremia - abx as above - stool studies negative - loperamide prn (6) (HFpEF) heart failure with preserved ejection fraction: Plan: - EF 60% with G2DD on TTE 01/2022 - does not appear to be in exacerbation - CXR as above to assess respiratory status - LE with trace edema, nonpitting - holding BP meds in setting of hypotension - slowly resolving on midodrine - wean midodrine as tolerated (7) Adnexal mass: Plan: - incidental finding on renal US - right adnexal mass is seen measuring 6.4 x 6.8 x 6.7 cm - will need OBGYN follow up (8) Personal history of DVT (deep vein thrombosis): Plan: - 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 - goal INR 2-3 - daily INR while inpatient - INR up to 7 - unclear etiology - no signs of bleeding, vitals stable, hgb stable - continue to hold Coumadin for now (9) HLD (hyperlipidemia): Plan: - continue statin (10) Seizure disorder: Plan: - continue phenytoin Plan DVT Px: Coumadin --> Held given INR >3 Code Status: Full Code Dispo: telemetry Andrea Shannon MD [facility] Medicine Admission and Anticipated Discharge Date Admission Date: January 16, 2022 Subjective Patient with HFpEF (EF 60%, G2DD 01/2022), h/o DVT/PE on Coumadin, SVT s/p ablation, HLD, GERD, seizure disorder, HTN presented with diarrhea, found to have UTI and bacteremia with E coli. Started on ceftriaxone, IVF. Had persistent hypotension with resultant MADELIN, likely ATN. Renal consulted. Repeat blood cultures negative. Patient reports feeling weak today and still having diarrhea. Denies chest pain, has some shortness of breath, denies abdominal pain, dysuria, flank pain, cough. Review of Systems Review of Systems: As per HPI, all other systems reviewed and negative Physical Exam Physical Exam: General Appearance:Obese, no apparent distress Head: normocephalic, Atraumatic Eyes: normal inspection, EOMI Neck: supple, Trachea midline Respiratory/Chest: Decreased breath sounds, basal crackles, No accessory muscle use Cardiovascular: S1, S2, No murmur Abdomen/GI:Soft, Non tender, Bowel sounds present Extremities/Musculoskeletal:normal inspection, Trace pedal edema Neurologic/Psych:AAOX3, grossly no focal neurological deficits, hearing impairment Skin: normal color, warm Results & Data Results & Data ([facility]) Vital Signs (Past 12 Hours) Vital Signs Temp Pulse Resp BP BP Pulse Ox O2 Del Method 01/19/22 11:45 36.4 C L 78 18 150/72 H 95 Nasal Cannula 01/19/22 08:12 36.6 C 82 18 132/73 97 Room Air 01/19/22 03:49 36.7 C 80 20 123/71 95 Nasal Cannula O2 Flow Rate 01/19/22 11:45 2 01/19/22 08:12 01/19/22 03:49 2.0
[2022-01-19] MEDS ORDERED: PHYTONADIONE 5 MG TAB PO STA (12:29)
[2022-01-20 06:39] LABS: Basophils # (auto) 0.03 K/uL (0-0.2); Basophils % (auto) 0.3 %; Eosinophils # (auto) 0.14 K/uL (0-0.50); Eosinophils % (auto) 1.3 %; Hemoglobin 11.6 g/dl (12.0-16.0); Immature Granulocytes # (auto) 0.09 K/uL (0.00-0.02); Immature Granulocytes % (auto) 0.8 %; Lymphocytes # (auto) 1.13 K/uL (1.2-3.4); Lymphocytes % (auto) 10.1 %; Mean Corpuscular Hemoglobin 31.2 pg (25.0-34.0); Mean Corpuscular Hgb Conc 34.1 g/dL (32.0-36.0); Mean Corpuscular Volume 91.4 fL (80.0-100.0); Mean Platelet Volume 10.5 fL (9.4-12.3); Monocytes % (auto) 13.5 %; Neutrophils # (auto) 8.25 K/uL (1.4-6.5); Platelet Count 147 K/uL (130-400); RDW Coefficient of Variation 14.2 % (11.5-14.5); RDW Standard Deviation 47.8 fL (36.4-46.3); Red Blood Count 3.72 M/uL (3.93-5.22); White Blood Count 11.14 K/ul (4.8-10.8)
[2022-01-20 07:06] LABS: BUN Creatinine Ratio 12.8 (10-20); Calcium 7.3 mg/dl (8.5-10.1); Creatinine Clr Calc Pharmacy 14.6 ml/min; Est GFR (African American) 12.1 ml/min; Est GFR (Non-African American) 10.4 ml/min; Magnesium 1.9 mg/dl (1.7-2.4); Phosphorus 3.8 mg/dl (2.5-4.9); Potassium 3.7 mmol/L (3.5-5.1)
[2022-01-20 07:13] LABS: INR 1.9 (0.9-1.1)
[2022-01-20] MEDS ORDERED: LACTATED RINGER'S 1,000 ML IV SCH (07:45)
[2022-01-20] MEDS: ADVANCED PROBIOTIC 1250 MG CAPSULE PO SCH (08:45)
[2022-01-20] MEDS: ATORVASTATIN 40 MG TAB PO SCH (08:45)
[2022-01-20] MEDS: cefTRIAXone SODIUM 2,000 MG in DEXTROSE 5% 50 ML IV SCH (08:45)
[2022-01-20] MEDS: PHENYTOIN SODIUM ER 100 MG CAP PO SCH ×2 (08:45→19:56)
[2022-01-20] MEDS: ASPIRIN 81 MG ECTAB PO SCH (08:45)
[2022-01-20] MEDS: LORATADINE 10 MG TAB PO SCH (08:45)
--- NOTE | 2022-01-20 09:44 | Nephrology Progress Note ---
Date of Service January 20, 2022 Assessment & Plan (1) MADELIN (acute kidney injury): Plan: Stage 3 now nonoliguric ischemic ATN from hypotension in the setting of E coli bacteremia (01/17 blood cxs clear after 48 hr); hypotension is improved past 36+ hrs with baseline creatinine 0.9. curve of rise in creatinine has peaked which is great news; hope it will begin downtrend next 24-48 hrs renal u/s reassuring; cumulative I/O state she has had 13.6 L in and now w/ > 1L daily UP x 2 days running w/ 3.8L out total; RN reports 2-4 BM / day as well; CK mildly elevated at 830 -cont to hold antihypertensives -resume BP checks per unit protocol -stopped LR ->>>>from renal standpoint ok to d/c sevilla -daily bmp, cbc -cont renal diet and for now no fluid limit -cont strict I/O -given her persistent hypotension for about 24-36 hr after admission but now w/ BP stabilization, her renal function should soon stabilize -no indication for urgent dialysis and cannot rule out need though less likely now (2) Hypotension: Plan: now resolved; will stop IVF and monitor q4h BP per unit protocol >>TTE unremarkable but for mild diastolic dysfunction/ unchanged from prior >>stopped midodrine -- did not take any anyway Admission and Anticipated Discharge Date Admission Date: January 16, 2022 Subjective no interval events. feels her diarrhe is better controlled. still quite tired, w/ exertional sob Review of Systems Review of Systems: All systems reviewed & are unremarkable except as noted in Subjective Physical Exam Constitutional: well developed, well nourished and + obese; no acute distress Eyes: EOM intact bilaterally ENMT: Ears: no external ear abnormality Nose: no external nose abnormality Mouth: + dry oral mucous membranes Neck: no nuchal rigidity Respiratory: normal respiratory effort and able to speak in complete s entences; no labored breathing Auscultation: + diminished lung sounds and + crackles (bibasilar) Cardiovascular: Rate/Rhythm: regular rate and regular rhythm Extremities: + edema (trace BLE) Gastrointestinal (Abdomen): Inspection/Auscultation: normal bowel sounds Percussion/Palpation: abdomen soft; abdomen nontender Musculoskeletal: Extremities: strength 5/5 throughout Skin: no rashes, warm and dry Psychiatric: Orientation: oriented to person, oriented to place and learning coordinator perative (? if she is a reliable historian) Speech: normal rate/rhythm/volume of speech Results & Data ([facility]) Vital Signs (Past 12 Hours) Vital Signs Temp Pulse Pulse Resp BP BP Pulse Ox 01/20/22 07:46 36.7 C 83 18 161/83 H 97 01/20/22 03:41 36.6 C 87 20 136/73 95 01/19/22 23:06 36.6 C 81 16 124/72 95 01/19/22 22:46 82 O2 Del Method O2 Flow Rate 01/20/22 07:46 Nasal Cannula 01/20/22 03:41 Nasal Cannula 2.0 01/19/22 23:06 Nasal Cannula 2.0 01/19/22 22:46 Laboratory Results 01/20/22 06:10 01/20/22 06:10
--- NOTE | 2022-01-20 10:52 | Hospitalist Progress Note ---
Date of Service January 20, 2022 Assessment & Plan (1) Gram-negative bacteremia: Plan: - Presented with hypotension, diarrhea - found to have E coli UTI and bacteremia - CXR:No active disease in the chest. - Blood Culture: E coli - Urine culture growing E coli - Repeat blood cultures 01/17/2022 NGTD - Normal lactic acid, elevated procalcitonin - s/p IVF per renal - now stopped - Continue ceftriaxone - will need abx for 2 weeks total for bacteremia - can switch to PO after 1 week (2) Complicated urinary tract infection: Plan: - see plan above (3) MADELIN (acute kidney injury): Plan: - in the setting of sepsis with E coli bacteremia and persistent hypotension - Cr continues to rise >3.5, likely representing ATN - renal following - nonoliguric MADELIN - IVF with LR per renal - now stopped - continue to monitor UOP - remove sevilla today - Trial of void - trend Cr - avoid nephrotoxic medications - continue to monitor output (4) Acute respiratory failure with hypoxia: Plan: - unclear etiology - lungs clear on exam but difficult exam given body habitus - tachypeneic and SpO2 88% on RA - repeat CXR with likely atelectasis - encouraged OOB - encouraged IS - O2 to maintain SpO2 >92% - wean O2 as tolerated (5) Diarrhea: Plan: - unclear etiology but in setting of E coli UTI and bacteremia - abx as above - stool studies negative - loperamide prn - resolving (6) (HFpEF) heart failure with preserved ejection fraction: Plan: - EF 60% with G2DD on TTE 01/2022 - does not appear to be in exacerbation - CXR as above to assess respiratory status - LE with trace edema, nonpitting (7) Adnexal mass: Plan: - incidental finding on renal US - right adnexal mass is seen measuring 6.4 x 6.8 x 6.7 cm - will need OBGYN follow up (8) Personal history of DVT (deep vein thrombosis): Plan: - 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 - goal INR 2-3 - daily INR while inpatient - s/p PO vitamin K x1 - INR 1.9 01/20/2022 - no signs of bleeding, vitals stable, hgb stable - resume Coumadin tonight (9) HLD (hyperlipidemia): Plan: - continue statin (10) Seizure disorder: Plan: - continue phenytoin (11) Hypertension: Plan: - hypotension resolved - restart home medications Plan DVT Px: Coumadin Code Status: Full Code Dispo: telemetry Andrea Shannon MD [facility] Medicine Admission and Anticipated Discharge Date Admission Date: January 16, 2022 Subjective Patient with HFpEF (EF 60%, G2DD 01/2022), h/o DVT/PE on Coumadin, SVT s/p ablation, HLD, GERD, seizure disorder, HTN presented with diarrhea, found to have UTI and bacteremia with E coli. Started on ceftriaxone, IVF. Had persistent hypotension with resultant MADELIN, likely ATN. Renal consulted. Repeat blood cultures negative. Patient reports feeling weak today and has not had further diarrhea. Denies chest pain, still has some shortness of breath, denies abdominal pain, dysuria, flank pain, cough. Review of Systems Review of Systems: As per HPI, all other systems reviewed and negative Physical Exam Physical Exam: General Appearance:Obese, no apparent distress Head: normocephalic, Atraumatic Eyes: normal inspection, EOMI Neck: supple, Trachea midline Respiratory/Chest: Decreased breath sounds, CTAB, No accessory muscle use Cardiovascular: S1, S2, No murmur Abdomen/GI:Soft, Non tender, Bowel sounds present Extremities/Musculoskeletal:normal inspection, Trace pedal edema Neurologic/Psych:AAOX3, grossly no focal neurological deficits, hearing impairment Skin: normal color, warm Results & Data Results & Data ([facility]) Vital Signs (Past 12 Hours) Vital Signs Temp Pulse Resp BP BP Pulse Ox O2 Del Method 01/20/22 07:46 36.7 C 83 18 161/83 H 97 Nasal Cannula 01/20/22 03:41 36.6 C 87 20 136/73 95 Nasal Cannula 01/19/22 23:06 36.6 C 81 16 124/72 95 Nasal Cannula O2 Flow Rate 01/20/22 07:46 01/20/22 03:41 2.0 01/19/22 23:06 2.0 Diagnostic Findings Laboratory Results WBC 11.14 K/ul (4.8-10.8) H 01/20/22 06:10 RBC 3.72 M/uL (3.93-5.22) L 01/20/22 06:10 Hgb 11.6 g/dl (12.0-16.0) L 01/20/22 06:10 Hct 34.0 % (34.1-44.9) L 01/20/22 06:10 MCV 91.4 fL (80.0-100.0) 01/20/22 06:10 MCH 31.2 pg (25.0-34.0) 01/20/22 06:10 MCHC 34.1 g/dL (32.0-36.0) 01/20/22 06:10 RDW Std Deviation 47.8 fL (36.4-46.3) H 01/20/22 06:10 RDW Coeff of Benny 14.2 % (11.5-14.5) 01/20/22 06:10 Plt Count 147 K/uL (130-400) 01/20/22 06:10 MPV 10.5 fL (9.4-12.3) 01/20/22 06:10 Immature Gran % (Auto) 0.8 % 01/20/22 06:10 Neut % (Auto) 74.0 % 01/20/22 06:10 Lymph % (Auto) 10.1 % 01/20/22 06:10 Todd % (Auto) 13.5 % 01/20/22 06:10 Eos % (Auto) 1.3 % 01/20/22 06:10 Baso % (Auto) 0.3 % 01/20/22 06:10 Neut # (Auto) 8.25 K/uL (1.4-6.5) H 01/20/22 06:10 Lymph # (Auto) 1.13 K/uL (1.2-3.4) L 01/20/22 06:10 Todd # (Auto) 1.50 K/uL (0.24-0.82) H 01/20/22 06:10 Eos # (Auto) 0.14 K/uL (0-0.50) 01/20/22 06:10 Baso # (Auto) 0.03 K/uL (0-0.2) 01/20/22 06:10 Immature Gran # (Auto) 0.09 K/uL (0.00-0.02) H 01/20/22 06:10 Absolute Nucleated RBC Cancelled 01/16/22 03:12 Nucleated RBC % (auto) Cancelled 01/16/22 03:12 Neutrophils % (Manual) Cancelled 01/16/22 03:12 Band Neutrophils % Cancelled 01/16/22 03:12 Lymphocytes % (Manual) Cancelled 01/16/22 03:12 Prolymphocyte % Cancelled 01/16/22 03:12 Reactive Lymphs % (Man) Cancelled 01/16/22 03:12 Monocytes % (Manual) Cancelled 01/16/22 03:12 Eosinophils % (Manual) Cancelled 01/16/22 03:12 Basophils % (Manual) Cancelled 01/16/22 03:12 Metamyelocytes % (Man) Cancelled 01/16/22 03:12 Myelocytes % (Man) Cancelled 01/16/22 03:12 Promyelocytes % (Man) Cancelled 01/16/22 03:12 Blast Cells % (Manual) Cancelled 01/16/22 03:12 Plasma Cell % (Manual) Cancelled 01/16/22 03:12 Other Cells % Cancelled 01/16/22 03:12 Nucleated RBC % Cancelled 01/16/22 03:12 Neutrophils # (Manual) Cancelled 01/16/22 03:12 Band Neutrophils # Cancelled 01/16/22 03:12 Total Absolute Neuts Cancelled 01/16/22 03:12 Lymphocytes # (Manual) Cancelled 01/16/22 03:12 Prolymphocyte # Cancelled 01/16/22 03:12 Reactive Lymphs # Cancelled 01/16/22 03:12 Total Abs Lymphocytes Cancelled 01/16/22 03:12 Monocytes # (Manual) Cancelled 01/16/22 03:12 Eosinophils # (Manual) Cancelled 01/16/22 03:12 Basophils # (Manual) Cancelled 01/16/22 03:12 Metamyelocytes # (Man) Cancelled 01/16/22 03:12 Myelocytes # (Manual) Cancelled 01/16/22 03:12 Promyelocytes # (Man) Cancelled 01/16/22 03:12 Blast Cells # (Man) Cancelled 01/16/22 03:12 Plasma Cell # (Manual) Cancelled 01/16/22 03:12 Other Cells # Cancelled 01/16/22 03:12 Nucleated RBCs # (Man) Cancelled 01/16/22 03:12 Hypersegmented Neuts Cancelled 01/16/22 03:12 Hyposegmented Neuts Cancelled 01/16/22 03:12 Hypogranular Neuts Cancelled 01/16/22 03:12 Large Granular Lymphs Cancelled 01/16/22 03:12 # Lrg Granular Lymphs Cancelled 01/16/22 03:12 Hairy Cells Cancelled 01/16/22 03:12 Smudge Cells Cancelled 01/16/22 03:12 Toxic Granulation Cancelled 01/16/22 03:12 Toxic Vacuolation Cancelled 01/16/22 03:12 Dohle Bodies Cancelled 01/16/22 03:12 Lesley Rods Cancelled 01/16/22 03:12 Platelet Estimate Decreased (Normal) L 01/16/22 04:05 Hypogranular Platelets Cancelled 01/16/22 03:12 Clumped Platelets Cancelled 01/16/22 03:12 Giant Platelets Cancelled 01/16/22 03:12 Platelet Satelliting Cancelled 01/16/22 03:12 RBC Morphology Cancelled 01/16/22 03:12 Polychromasia Cancelled 01/16/22 03:12 Hypochromasia Cancelled 01/16/22 03:12 Poikilocytosis Cancelled 01/16/22 03:12 Basophilic Stippling Cancelled 01/16/22 03:12 Anisocytosis Cancelled 01/16/22 03:12 Microcytosis Cancelled 01/16/22 03:12 Macrocytosis Cancelled 01/16/22 03:12 Spherocytes Cancelled 01/16/22 03:12 Pappenheimer Bodies Cancelled 01/16/22 03:12 Sickle Cells Cancelled 01/16/22 03:12 Target Cells Cancelled 01/16/22 03:12 Tear Drop Cells Cancelled 01/16/22 03:12 Ovalocytes Cancelled 01/16/22 03:12 Stomatocytes Cancelled 01/16/22 03:12 [place] Bodies Cancelled 01/16/22 03:12 Echinocytes 3+ 01/18/22 06:29 Acanthocytes (Spur) Cancelled 01/16/22 03:12 Rouleaux Cancelled 01/16/22 03:12 RBC Agglutinates Cancelled 01/16/22 03:12 Schistocytes Cancelled 01/16/22 03:12 Sezary Cell Cancelled 01/16/22 03:12 PT 20.0 Seconds (9.0-12.0) H 01/20/22 06:10 INR 1.9 (0.9-1.1) H 01/20/22 06:10 Sodium 139 mmol/L (136-145) 01/20/22 06:10 Potassium 3.7 mmol/L (3.5-5.1) 01/20/22 06:10 Chloride 112 mmol/L (98-107) H 01/20/22 06:10 Carbon Dioxide 18 mmol/L (21-32) L 01/20/22 06:10 Anion Gap 9 (3-11) 01/20/22 06:10 BUN 51 mg/dl (6-23) H 01/20/22 06:10 Creatinine 4.00 mg/dl (0.6-1.2) H 01/20/22 06:10 Est Cr Clr Drug Dosing 14.6 ml/min 01/20/22 06:10 Est GFR ( Amer) 12.1 ml/min 01/20/22 06:10 Est GFR (Non-Af Amer) 10.4 ml/min 01/20/22 06:10 BUN/Creatinine Ratio 12.8 (10-20) 01/20/22 06:10 Glucose 88 mg/dl (70-99(Fasting)) 01/20/22 06:10 Estimat Average Glucose 117 mg/dl 01/16/22 04:05 Hemoglobin A1c 5.7 % (4.5-5.6) H 01/16/22 04:05 Lactate 0.9 mmol/L (0.4-2.0) 01/17/22 17:12 Calcium 7.3 mg/dl (8.5-10.1) L 01/20/22 06:10 Phosphorus 3.8 mg/dl (2.5-4.9) 01/20/22 06:10 Magnesium 1.9 mg/dl (1.7-2.4) 01/20/22 06:10 Total Bilirubin 0.3 mg/dl (0.2-1.0) 01/19/22 08:46 Direct Bilirubin 0.1 mg/dl (0-0.2) 01/16/22 04:05 AST 26 U/L (13-39) 01/19/22 08:46 ALT 21 U/L (7-52) 01/19/22 08:46 Alkaline Phosphatase 92 U/L (34-104) 01/19/22 08:46 Total Creatine Kinase 830 U/L (26-192) H 01/17/22 17:12 Troponin I High Sens 29.3 pg/ml (0-14) H 01/16/22 06:47 Total Protein 5.5 gm/dl (6.0-8.3) L 01/19/22 08:46 Albumin 2.7 gm/dl (3.4-5.0) L 01/19/22 08:46 Globulin 2.8 gm/dl (2.5-4.0) 01/19/22 08:46 Albumin/Globulin Ratio 1.0 (0.9-2) 01/19/22 08:46 Procalcitonin 22.35 ng/ml (0-0.5) H 01/17/22 01:06 TSH 1.046 uIu/ml (0.300-4.500) 01/16/22 04:05 Urine Color Yellow 01/16/22 06:25 Urine Appearance Turbid (Clear) A 01/16/22 06:25 Urine pH 5.0 (4.5-7.5) 01/16/22 06:25 Ur Specific Temple 1.018 (1.000-1.030) 01/16/22 06:25 Urine Protein 3+ (Negative) H 01/16/22 06:25 Urine Glucose (UA) Negative (Negative) 01/16/22 06:25 Urine Ketones Negative (Negative) 01/16/22 06:25 Urine Blood 3+ (Negative) H 01/16/22 06:25 Urine Nitrite Negative (Negative) 01/16/22 06:25 Urine Bilirubin Negative (Negative) 01/16/22 06:25 Urine Urobilinogen Negative (Negative) 01/16/22 06:25 Ur Leukocyte Esterase 2+ (Negative) H 01/16/22 06:25 Urine WBC (Auto) >30 /hpf (0-5) H 01/16/22 06:25 Urine RBC (Auto) 5-10 /hpf (0-4) H 01/16/22 06:25 U Hyaline Cast (Auto) >30 /lpf (0-5) H 01/16/22 06:25 U Epithel Cells (Auto) >30 /lpf (0-5) H 01/16/22 06:25 Urine Bacteria (Auto) 3+ (Negative) H 01/16/22 06:25 Ur Renal Epithelial Cell 0-5 /lpf (0-5) 01/16/22 06:25 Granular Casts 5-10 /lpf (0) H 01/16/22 06:25 Stl C. cayetanensis PCR Not Detected (NotDetected) 01/16/22 05:50 Stool Rotavirus A PCR Not Detected (NotDetected) 01/16/22 05:50 Stl Adenov F 40/41 PCR Not Detected (NotDetected) 01/16/22 05:50 Stool Astrovirus (PCR) Not Detected (NotDetected) 01/16/22 05:50 Stool Campylobacter PCR Not Detected (NotDetected) 01/16/22 05:50 Stool Cryptosporidium PCR Not Detected (NotDetected) 01/16/22 05:50 Stl E.coli Shiga Tox PCR Not Detected (NotDetected) 01/16/22 05:50 Stl Enterotoxigenic E PCR Not Detected (NotDetected) 01/16/22 05:50 Stool EPEC (PCR) Not Detected (NotDetected) 01/16/22 05:50 Stool EAEC (PCR) Not Detected (NotDetected) 01/16/22 05:50 Stl E. histolytica PCR Not Detected (NotDetected) 01/16/22 05:50 Stool Giardia Lamblia PCR Not Detected (NotDetected) 01/16/22 05:50 Stool Salmonella PCR Not Detected (NotDetected) 01/16/22 05:50 Stool Sapovirus (PCR) Not Detected (NotDetected) 01/16/22 05:50 Stl P. shigelloides PCR Not Detected (NotDetected) 01/16/22 05:50 Stl Shigella/EIEC PCR Not Detected (NotDetected) 01/16/22 05:50 St Y.enterocolitica PCR Not Detected (NotDetected) 01/16/22 05:50 Stool Vibrio (PCR) Not Detected (NotDetected) 01/16/22 05:50 Stl Vibrio cholerae PCR Not Detected (NotDetected) 01/16/22 05:50 Stl Norovirus GI/GII PCR Not Detected (NotDetected) 01/16/22 05:50 Phenytoin 5.1 mcg/ml (10-20) L 01/16/22 06:47 SARS-CoV-2 (PCR) NEGATIVE (Negative) 01/16/22 03:30 Enterobacterales (PCR) DETECTED (NotDetected) A 01/16/22 04:29 E. coli (PCR) DETECTED (NotDetected) A 01/16/22 04:29 Influenza Type A (PCR) Negative (Neg) 01/16/22 03:30 Influenza Type B (PCR) Negative (Neg) 01/16/22 03:30 RSV (RT-PCR) Negative (Neg) 01/16/22 03:30 mcr-1 Colistin Res Gene PCR Not Detected (NotDetected) 01/16/22 04:29 blaIMP Car res Gene PCR Not Detected (NotDetected) 01/16/22 04:29 KPC-Carbap Res Gene PCR Not Detected (NotDetected) 01/16/22 04:29 blaNDM Car Res Gene PCR Not Detected (NotDetected) 01/16/22 04:29 OXA-48 Carbapenem Resis Gene (PCR) Not Detected (NotDetected) 01/16/22 04:29 blaVIM Car Res Gene PCR Not Detected (NotDetected) 01/16/22 04:29 CTX-M Gene Resistance (PCR) Not Detected (NotDetected) 01/16/22 04:29 Bld Cult ID Panel PCR See PCR Comment (NotDetected) 01/16/22 04:29 Blood Parasites ID Cancelled 01/16/22 03:12 Impressions Renal Ultrasound 01/17/22 07:00 US renal/blad retro comp CLINICAL HISTORY: renal failure TECHNIQUE: Multiple sonographic real-time images of the kidneys and bladder were obtained. COMPARISON: None available at the time of this dictation. FINDINGS: The right kidney measures 11.8 cm in length, and the left kidney measures 9.8 cm in length. The right kidney is normal in size, contour, cortical thickness, and echogenicity. No hydronephrosis is identified. No renal lesion is identified. No perinephric fluid collection is seen. The left kidney is normal in size, contour, cortical thickness and echogenicity. No hydronephrosis is identified. No renal lesion is identified. No perinephric fluid collection is seen. A Sevilla catheter is not well visualized by ultrasound. A right adnexal mass is seen measuring 6.4 x 6.8 x 6.7 cm. Patient is status post hysterectomy. IMPRESSION: 1. No evidence of hydronephrosis. 2. Incidental note is made of a right adnexal mass measuring up to 6.8 cm. Correlation with outside imaging, if available, is recommended. ACT 112: Negative or not required by law. Electronically signed by: Benny Gill M.D. 01/17/2022 12:47 PM Chest X-Ray 01/18/22 13:47 XR chest 1V portable CLINICAL HISTORY: Shortness of breath. COMPARISON STUDY: Chest radiograph January 17, 2022. Chest CT August 07, 2017. FINDINGS: Elevation of the right hemidiaphragm is unchanged from earlier exams. Cardiomegaly is noted. There is no evidence for pulmonary edema. Bibasilar opacities are present. No pneumothorax or pleural effusion is identified. IMPRESSION: 1. Bibasilar opacities which could reflect consolidation or atelectasis. 2. Cardiomegaly without evidence for pulmonary edema. ACT 112: Negative or not required by law. Electronically signed by: Antonio Garcia M.D. 01/18/2022 2:41 PM Medications Administered Current Inpatient Medications Acetaminophen (Acetaminophen 325 Mg Tab) 650 mg PO Q4H PRN PRN Reason: Pain or Fever Stop: 02/15/22 09:41 Last Admin: 01/16/22 19:57 Dose: 650 mg Aspirin (Aspirin 81 Mg Ectab) 81 mg PO QAM [facility] Stop: 02/15/22 08:59 Last Admin: 01/20/22 08:45 Dose: 81 mg Atorvastatin Calcium (Atorvastatin 40 Mg Tab) 40 mg PO QAM [facility] Stop: 02/15/22 09:41 Last Admin: 01/20/22 08:45 Dose: 40 mg Promethazine HCl 12.5 mg/ (Sodium Chloride) 50.5 mls @ 202 mls/hr IV Q6H PRN PRN Reason: Nausea And Vomiting Stop: 02/15/22 05:52 Ceftriaxone Sodium 2,000 mg/ (Dextrose) 70 mls @ 100 mls/hr IV DAILY [facility]; Protocol Stop: 01/26/22 08:59 Last Infusion: 01/20/22 09:47 Dose: Infused Ipratropium [place] (Ipratropium [place] Nasal [place] 0.06% 15ml) 2 sprays NA BID PRN PRN Reason: Nasal Congestion Stop: 02/15/22 06:02 Lactobacillus Acidophilus (Advanced Probiotic 1250 Mg Capsule) 2 cap PO DAILY MICHAEL Stop: 02/16/22 08:59 Last Admin: 01/20/22 08:45 Dose: 2 cap Loperamide HCl (Loperamide Hcl 2 Mg Cap) 2 mg PO Q6 PRN PRN Reason: diarrhea Stop: 02/17/22 13:58 Loratadine (Loratadine 10 Mg Tab) 10 mg PO DAILY MICHAEL Stop: 02/15/22 08:59 Last Admin: 01/20/22 08:45 Dose: 10 mg Lorazepam (Lorazepam 0.5 Mg Tab) 0.5 mg PO TID PRN PRN Reason: Anxiety Stop: 02/15/22 05:52 Midodrine (Midodrine Hcl 2.5 Mg Tab) 2.5 mg PO TID@0800,1200,1700 PRN PRN Reason: Hypotension Stop: 02/16/22 16:59 Oxycodone HCl (Oxycodone Hcl Ir 5 Mg Tab (Immediate Release)) 5 mg PO Q4H PRN PRN Reason: Pain Stop: 01/30/22 05:52 Phenytoin Sodium (Phenytoin Sodium Er 100 Mg Cap) 100 mg PO QAM [facility] Stop: 02/15/22 08:29 Last Admin: 01/20/22 08:45 Dose: 100 mg Phenytoin Sodium (Phenytoin Sodium Er 100 Mg Cap) 200 mg PO QPM MICHAEL Stop: 02/15/22 20:59 Last Admin: 01/19/22 20:35 Dose: 200 mg Simethicone (Simethicone 80 Mg Chew) 80 mg PO Q6H PRN PRN Reason: bloating, dypepsia Stop: 02/17/22 13:51 Last Admin: 01/18/22 17:13 Dose: 80 mg Warfarin Sodium (Warfarin Sod 5 Mg Tab) 5 mg PO DAILY@1600 [facility] Stop: 02/15/22 15:59 Last Admin: 01/16/22 15:43 Dose: 5 mg
[2022-01-20] MEDS: WARFARIN SOD 5 MG TAB PO SCH (15:52)
[2022-01-20] MEDS: ACETAMINOPHEN 325 MG TAB PO PRN (15:52)
[2022-01-20] MEDS: carvediloL 12.5 MG TAB PO SCH (19:57)
[2022-01-21 07:08] LABS: Basophils # (auto) 0.05 K/uL (0-0.2); Basophils % (auto) 0.5 %; Eosinophils # (auto) 0.39 K/uL (0-0.50); Eosinophils % (auto) 3.9 %; Hematocrit (blood only) 36.4 % (34.1-44.9); Hemoglobin 12.1 g/dl (12.0-16.0); Immature Granulocytes # (auto) 0.14 K/uL (0.00-0.02); Immature Granulocytes % (auto) 1.4 %; Lymphocytes # (auto) 1.53 K/uL (1.2-3.4); Lymphocytes % (auto) 15.2 %; Mean Corpuscular Hemoglobin 30.6 pg (25.0-34.0); Mean Corpuscular Hgb Conc 33.2 g/dL (32.0-36.0); Mean Corpuscular Volume 92.2 fL (80.0-100.0); Mean Platelet Volume 10.2 fL (9.4-12.3); Monocytes # (auto) 1.21 K/uL (0.24-0.82); Neutrophils # (auto) 6.74 K/uL (1.4-6.5); Platelet Count 203 K/uL (130-400); RDW Coefficient of Variation 14.2 % (11.5-14.5); RDW Standard Deviation 48.2 fL (36.4-46.3); Red Blood Count 3.95 M/uL (3.93-5.22); White Blood Count 10.06 K/ul (4.8-10.8)
[2022-01-21 07:23] LABS: INR 2.2 (0.9-1.1); Prothrombin Time 22.4 Seconds (9.0-12.0)
[2022-01-21 07:28] LABS: BUN Creatinine Ratio 12.5 (10-20); Calcium 7.7 mg/dl (8.5-10.1); Creatinine Clr Calc Pharmacy 15.7 ml/min; Est GFR (African American) 12.8 ml/min; Magnesium 1.9 mg/dl (1.7-2.4); Phosphorus 3.9 mg/dl (2.5-4.9); Potassium 3.7 mmol/L (3.5-5.1)
[2022-01-21] MEDS: ATORVASTATIN 40 MG TAB PO SCH (09:16)
[2022-01-21] MEDS: ASPIRIN 81 MG ECTAB PO SCH (09:16)
[2022-01-21] MEDS: LORATADINE 10 MG TAB PO SCH (09:16)
[2022-01-21] MEDS: ADVANCED PROBIOTIC 1250 MG CAPSULE PO SCH (09:16)
[2022-01-21] MEDS: carvediloL 12.5 MG TAB PO SCH ×2 (09:16→19:24)
[2022-01-21] MEDS: cefTRIAXone SODIUM 2,000 MG in DEXTROSE 5% 50 ML IV SCH (09:17)
[2022-01-21] MEDS: PHENYTOIN SODIUM ER 100 MG CAP PO SCH ×2 (10:37→19:23)
--- NOTE | 2022-01-21 13:41 | Hospitalist Progress Note ---
Date of Service January 21, 2022 Assessment & Plan (1) Gram-negative bacteremia: Plan: - Presented with hypotension, diarrhea - found to have E coli UTI and bacteremia - CXR:No active disease in the chest. - Blood Culture: E coli - Urine culture growing E coli - Repeat blood cultures 01/17/2022 NGTD - Normal lactic acid, elevated procalcitonin - s/p IVF per renal - now stopped - Continue ceftriaxone - will need abx for 2 weeks total for bacteremia - can switch to PO after 1 week, likely 01/23/2022 (2) Complicated urinary tract infection: Plan: - see plan above (3) MADELIN (acute kidney injury): Plan: - in the setting of sepsis with E coli bacteremia and persistent hypotension - Cr continues to rise >3.5, likely representing ATN - renal following - nonoliguric MADELIN - IVF with LR per renal - now stopped - continue to monitor UOP - trend Cr - avoid nephrotoxic medications - continue to monitor output (4) Acute respiratory failure with hypoxia: Plan: - unclear etiology - lungs clear on exam but difficult exam given body habitus - tachypeneic and SpO2 88% on RA - repeat CXR with likely atelectasis - encouraged OOB - encouraged IS - O2 to maintain SpO2 >92% - wean O2 as tolerated (5) Diarrhea: Plan: - unclear etiology but in setting of E coli UTI and bacteremia - abx as above - stool studies negative - loperamide prn - resolved (6) (HFpEF) heart failure with preserved ejection fraction: Plan: - EF 60% with G2DD on TTE 01/2022 - does not appear to be in exacerbation - euvolemic on exam - monitor (7) Adnexal mass: Plan: - incidental finding on renal US - right adnexal mass is seen measuring 6.4 x 6.8 x 6.7 cm - will need OBGYN follow up (8) Personal history of DVT (deep vein thrombosis): Plan: - 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 - goal INR 2-3 - daily INR while inpatient - no signs of bleeding, vitals stable, hgb stable - continue Coumadin (9) HLD (hyperlipidemia): Plan: - continue statin (10) Seizure disorder: Plan: - continue phenytoin (11) Hypertension: Plan: - hypotension resolved - restart home medications as tolerated - holding ARB in setting of MADELIN/ATN Plan DVT Px: Coumadin Code Status: Full Code Dispo: telemetry Andrea Shannon MD [facility] Medicine Admission and Anticipated Discharge Date Admission Date: January 16, 2022 Subjective Patient with HFpEF (EF 60%, G2DD 01/2022), h/o DVT/PE on Coumadin, SVT s/p ablation, HLD, GERD, seizure disorder, HTN presented with diarrhea, found to have UTI and bacteremia with E coli. Started on ceftriaxone, IVF. Had persistent hypotension with resultant MADELIN, likely ATN. Renal consulted. Repeat blood cultures negative. Cr improving. Patient reports feeling well today. Denies chest pain, still has some shortness of breath but improved, denies abdominal pain, dysuria, flank pain, cough. Review of Systems Review of Systems: As per HPI, all other systems reviewed and negative Physical Exam Physical Exam: General Appearance:Obese, no apparent distress Head: normocephalic, Atraumatic Eyes: normal inspection, EOMI Neck: supple, Trachea midline Respiratory/Chest: Decreased breath sounds, CTAB, No accessory muscle use Cardiovascular: S1, S2, No murmur Abdomen/GI:Soft, Non tender, Bowel sounds present Extremities/Musculoskeletal:normal inspection, no LE edema Neurologic/Psych:AAOX3, grossly no focal neurological deficits, hearing impairment Skin: normal color, warm Results & Data Results & Data ([facility] [place]) Vital Signs (Past 12 Hours) Vital Signs Temp Pulse Pulse Resp BP Pulse Ox O2 Del Method 01/21/22 08:00 75 01/21/22 11:27 36.4 C L 70 20 101/67 96 Nasal Cannula 01/21/22 07:33 36.4 C L 69 18 115/74 99 Nasal Cannula 01/21/22 03:09 36.6 C 76 18 137/79 96 Nasal Cannula O2 Flow Rate 01/21/22 08:00 01/21/22 11:27 1 01/21/22 07:33 2 01/21/22 03:09 2 Diagnostic Findings Laboratory Results WBC 10.06 K/ul (4.8-10.8) 01/21/22 06:25 RBC 3.95 M/uL (3.93-5.22) 01/21/22 06:25 Hgb 12.1 g/dl (12.0-16.0) 01/21/22 06:25 Hct 36.4 % (34.1-44.9) 01/21/22 06:25 MCV 92.2 fL (80.0-100.0) 01/21/22 06:25 MCH 30.6 pg (25.0-34.0) 01/21/22 06:25 MCHC 33.2 g/dL (32.0-36.0) 01/21/22 06:25 RDW Std Deviation 48.2 fL (36.4-46.3) H 01/21/22 06:25 RDW Coeff of Benny 14.2 % (11.5-14.5) 01/21/22 06:25 Plt Count 203 K/uL (130-400) 01/21/22 06:25 MPV 10.2 fL (9.4-12.3) 01/21/22 06:25 Immature Gran % (Auto) 1.4 % 01/21/22 06:25 Neut % (Auto) 67.0 % 01/21/22 06:25 Lymph % (Auto) 15.2 % 01/21/22 06:25 Dixie % (Auto) 12.0 % 01/21/22 06:25 Eos % (Auto) 3.9 % 01/21/22 06:25 Baso % (Auto) 0.5 % 01/21/22 06:25 Neut # (Auto) 6.74 K/uL (1.4-6.5) H 01/21/22 06:25 Lymph # (Auto) 1.53 K/uL (1.2-3.4) 01/21/22 06:25 Dixie # (Auto) 1.21 K/uL (0.24-0.82) H 01/21/22 06:25 Eos # (Auto) 0.39 K/uL (0-0.50) 01/21/22 06:25 Baso # (Auto) 0.05 K/uL (0-0.2) 01/21/22 06:25 Immature Gran # (Auto) 0.14 K/uL (0.00-0.02) H 01/21/22 06:25 Absolute Nucleated RBC Cancelled 01/16/22 03:12 Nucleated RBC % (auto) Cancelled 01/16/22 03:12 Neutrophils % (Manual) Cancelled 01/16/22 03:12 Band Neutrophils % Cancelled 01/16/22 03:12 Lymphocytes % (Manual) Cancelled 01/16/22 03:12 Prolymphocyte % Cancelled 01/16/22 03:12 Reactive Lymphs % (Man) Cancelled 01/16/22 03:12 Monocytes % (Manual) Cancelled 01/16/22 03:12 Eosinophils % (Manual) Cancelled 01/16/22 03:12 Basophils % (Manual) Cancelled 01/16/22 03:12 Metamyelocytes % (Man) Cancelled 01/16/22 03:12 Myelocytes % (Man) Cancelled 01/16/22 03:12 Promyelocytes % (Man) Cancelled 01/16/22 03:12 Blast Cells % (Manual) Cancelled 01/16/22 03:12 Plasma Cell % (Manual) Cancelled 01/16/22 03:12 Other Cells % Cancelled 01/16/22 03:12 Nucleated RBC % Cancelled 01/16/22 03:12 Neutrophils # (Manual) Cancelled 01/16/22 03:12 Band Neutrophils # Cancelled 01/16/22 03:12 Total Absolute Neuts Cancelled 01/16/22 03:12 Lymphocytes # (Manual) Cancelled 01/16/22 03:12 Prolymphocyte # Cancelled 01/16/22 03:12 Reactive Lymphs # Cancelled 01/16/22 03:12 Total Abs Lymphocytes Cancelled 01/16/22 03:12 Monocytes # (Manual) Cancelled 01/16/22 03:12 Eosinophils # (Manual) Cancelled 01/16/22 03:12 Basophils # (Manual) Cancelled 01/16/22 03:12 Metamyelocytes # (Man) Cancelled 01/16/22 03:12 Myelocytes # (Manual) Cancelled 01/16/22 03:12 Promyelocytes # (Man) Cancelled 01/16/22 03:12 Blast Cells # (Man) Cancelled 01/16/22 03:12 Plasma Cell # (Manual) Cancelled 01/16/22 03:12 Other Cells # Cancelled 01/16/22 03:12 Nucleated RBCs # (Man) Cancelled 01/16/22 03:12 Hypersegmented Neuts Cancelled 01/16/22 03:12 Hyposegmented Neuts Cancelled 01/16/22 03:12 Hypogranular Neuts Cancelled 01/16/22 03:12 Large Granular Lymphs Cancelled 01/16/22 03:12 # Lrg Granular Lymphs Cancelled 01/16/22 03:12 Hairy Cells Cancelled 01/16/22 03:12 Smudge Cells Cancelled 01/16/22 03:12 Toxic Granulation Cancelled 01/16/22 03:12 Toxic Vacuolation Cancelled 01/16/22 03:12 Dohle Bodies Cancelled 01/16/22 03:12 Lesley Rods Cancelled 01/16/22 03:12 Platelet Estimate Decreased (Normal) L 01/16/22 04:05 Hypogranular Platelets Cancelled 01/16/22 03:12 Clumped Platelets Cancelled 01/16/22 03:12 Giant Platelets Cancelled 01/16/22 03:12 Platelet Satelliting Cancelled 01/16/22 03:12 RBC Morphology Cancelled 01/16/22 03:12 Polychromasia Cancelled 01/16/22 03:12 Hypochromasia Cancelled 01/16/22 03:12 Poikilocytosis Cancelled 01/16/22 03:12 Basophilic Stippling Cancelled 01/16/22 03:12 Anisocytosis Cancelled 01/16/22 03:12 Microcytosis Cancelled 01/16/22 03:12 Macrocytosis Cancelled 01/16/22 03:12 Spherocytes Cancelled 01/16/22 03:12 Pappenheimer Bodies Cancelled 01/16/22 03:12 Sickle Cells Cancelled 01/16/22 03:12 Target Cells Cancelled 01/16/22 03:12 Tear Drop Cells Cancelled 01/16/22 03:12 Ovalocytes Cancelled 01/16/22 03:12 Stomatocytes Cancelled 01/16/22 03:12 [place] Bodies Cancelled 01/16/22 03:12 Echinocytes 3+ 01/18/22 06:29 Acanthocytes (Spur) Cancelled 01/16/22 03:12 Rouleaux Cancelled 01/16/22 03:12 RBC Agglutinates Cancelled 01/16/22 03:12 Schistocytes Cancelled 01/16/22 03:12 Sezary Cell Cancelled 01/16/22 03:12 PT 22.4 Seconds (9.0-12.0) H 01/21/22 06:25 INR 2.2 (0.9-1.1) H 01/21/22 06:25 Sodium 141 mmol/L (136-145) 01/21/22 06:25 Potassium 3.7 mmol/L (3.5-5.1) 01/21/22 06:25 Chloride 113 mmol/L (98-107) H 01/21/22 06:25 Carbon Dioxide 19 mmol/L (21-32) L 01/21/22 06:25 Anion Gap 9 (3-11) 01/21/22 06:25 BUN 48 mg/dl (6-23) H 01/21/22 06:25 Creatinine 3.83 mg/dl (0.6-1.2) H 01/21/22 06:25 Est Cr Clr Drug Dosing 15.7 ml/min 01/21/22 06:25 Est GFR ( Amer) 12.8 ml/min 01/21/22 06:25 Est GFR (Non-Af Amer) 11.0 ml/min 01/21/22 06:25 BUN/Creatinine Ratio 12.5 (10-20) 01/21/22 06:25 Glucose 100 mg/dl (70-99(Fasting)) H 01/21/22 06:25 Estimat Average Glucose 117 mg/dl 01/16/22 04:05 Hemoglobin A1c 5.7 % (4.5-5.6) H 01/16/22 04:05 Lactate 0.9 mmol/L (0.4-2.0) 01/17/22 17:12 Calcium 7.7 mg/dl (8.5-10.1) L 01/21/22 06:25 Phosphorus 3.9 mg/dl (2.5-4.9) 01/21/22 06:25 Magnesium 1.9 mg/dl (1.7-2.4) 01/21/22 06:25 Total Bilirubin 0.3 mg/dl (0.2-1.0) 01/19/22 08:46 Direct Bilirubin 0.1 mg/dl (0-0.2) 01/16/22 04:05 AST 26 U/L (13-39) 01/19/22 08:46 ALT 21 U/L (7-52) 01/19/22 08:46 Alkaline Phosphatase 92 U/L (34-104) 01/19/22 08:46 Total Creatine Kinase 830 U/L (26-192) H 01/17/22 17:12 Troponin I High Sens 29.3 pg/ml (0-14) H 01/16/22 06:47 Total Protein 5.5 gm/dl (6.0-8.3) L 01/19/22 08:46 Albumin 2.7 gm/dl (3.4-5.0) L 01/19/22 08:46 Globulin 2.8 gm/dl (2.5-4.0) 01/19/22 08:46 Albumin/Globulin Ratio 1.0 (0.9-2) 01/19/22 08:46 Procalcitonin 22.35 ng/ml (0-0.5) H 01/17/22 01:06 TSH 1.046 uIu/ml (0.300-4.500) 01/16/22 04:05 Urine Color Yellow 01/16/22 06:25 Urine Appearance Turbid (Clear) A 01/16/22 06:25 Urine pH 5.0 (4.5-7.5) 01/16/22 06:25 Ur Specific [place] 1.018 (1.000-1.030) 01/16/22 06:25 Urine Protein 3+ (Negative) H 01/16/22 06:25 Urine Glucose (UA) Negative (Negative) 01/16/22 06:25 Urine Ketones Negative (Negative) 01/16/22 06:25 Urine Blood 3+ (Negative) H 01/16/22 06:25 Urine Nitrite Negative (Negative) 01/16/22 06:25 Urine Bilirubin Negative (Negative) 01/16/22 06:25 Urine Urobilinogen Negative (Negative) 01/16/22 06:25 Ur Leukocyte Esterase 2+ (Negative) H 01/16/22 06:25 Urine WBC (Auto) >30 /hpf (0-5) H 01/16/22 06:25 Urine RBC (Auto) 5-10 /hpf (0-4) H 01/16/22 06:25 U Hyaline Cast (Auto) >30 /lpf (0-5) H 01/16/22 06:25 U Epithel Cells (Auto) >30 /lpf (0-5) H 01/16/22 06:25 Urine Bacteria (Auto) 3+ (Negative) H 01/16/22 06:25 Ur Renal Epithelial Cell 0-5 /lpf (0-5) 01/16/22 06:25 Granular Casts 5-10 /lpf (0) H 01/16/22 06:25 Stl C. cayetanensis PCR Not Detected (NotDetected) 01/16/22 05:50 Stool Rotavirus A PCR Not Detected (NotDetected) 01/16/22 05:50 Stl Adenov F 40/41 PCR Not Detected (NotDetected) 01/16/22 05:50 Stool Astrovirus (PCR) Not Detected (NotDetected) 01/16/22 05:50 Stool Campylobacter PCR Not Detected (NotDetected) 01/16/22 05:50 Stool Cryptosporidium PCR Not Detected (NotDetected) 01/16/22 05:50 Stl E.coli Shiga Tox PCR Not Detected (NotDetected) 01/16/22 05:50 Stl Enterotoxigenic E PCR Not Detected (NotDetected) 01/16/22 05:50 Stool EPEC (PCR) Not Detected (NotDetected) 01/16/22 05:50 Stool EAEC (PCR) Not Detected (NotDetected) 01/16/22 05:50 Stl E. histolytica PCR Not Detected (NotDetected) 01/16/22 05:50 Stool Giardia Lamblia PCR Not Detected (NotDetected) 01/16/22 05:50 Stool Salmonella PCR Not Detected (NotDetected) 01/16/22 05:50 Stool Sapovirus (PCR) Not Detected (NotDetected) 01/16/22 05:50 Stl P. shigelloides PCR Not Detected (NotDetected) 01/16/22 05:50 Stl Shigella/EIEC PCR Not Detected (NotDetected) 01/16/22 05:50 St Y.enterocolitica PCR Not Detected (NotDetected) 01/16/22 05:50 Stool Vibrio (PCR) Not Detected (NotDetected) 01/16/22 05:50 Stl Vibrio cholerae PCR Not Detected (NotDetected) 01/16/22 05:50 Stl Norovirus GI/GII PCR Not Detected (NotDetected) 01/16/22 05:50 Phenytoin 5.1 mcg/ml (10-20) L 01/16/22 06:47 SARS-CoV-2 (PCR) NEGATIVE (Negative) 01/16/22 03:30 Enterobacterales (PCR) DETECTED (NotDetected) A 01/16/22 04:29 E. coli (PCR) DETECTED (NotDetected) A 01/16/22 04:29 Influenza Type A (PCR) Negative (Neg) 01/16/22 03:30 Influenza Type B (PCR) Negative (Neg) 01/16/22 03:30 RSV (RT-PCR) Negative (Neg) 01/16/22 03:30 mcr-1 [place] Res Gene PCR Not Detected (NotDetected) 01/16/22 04:29 blaIMP Car res Gene PCR Not Detected (NotDetected) 01/16/22 04:29 KPC-Carbap Res Gene PCR Not Detected (NotDetected) 01/16/22 04:29 blaNDM Car Res Gene PCR Not Detected (NotDetected) 01/16/22 04:29 OXA-48 Carbapenem Resis Gene (PCR) Not Detected (NotDetected) 01/16/22 04:29 blaVIM Car Res Gene PCR Not Detected (NotDetected) 01/16/22 04:29 CTX-M Gene Resistance (PCR) Not Detected (NotDetected) 01/16/22 04:29 Bld Cult ID Panel PCR See PCR Comment (NotDetected) 01/16/22 04:29 Blood Parasites ID Cancelled 01/16/22 03:12 Impressions Renal Ultrasound 01/17/22 07:00 US renal/blad retro comp CLINICAL HISTORY: renal failure TECHNIQUE: Multiple sonographic real-time images of the kidneys and bladder were obtained. COMPARISON: None available at the time of this dictation. FINDINGS: The right kidney measures 11.8 cm in length, and the left kidney measures 9.8 cm in length. The right kidney is normal in size, contour, cortical thickness, and echogenicity. No hydronephrosis is identified. No renal lesion is identified. No perinephric fluid collection is seen. The left kidney is normal in size, contour, cortical thickness and echogenicity. No hydronephrosis is identified. No renal lesion is identified. No perinephric fluid collection is seen. A [place] catheter is not well visualized by ultrasound. A right adnexal mass is seen measuring 6.4 x 6.8 x 6.7 cm. Patient is status post hysterectomy. IMPRESSION: 1. No evidence of hydronephrosis. 2. Incidental note is made of a right adnexal mass measuring up to 6.8 cm. Correlation with outside imaging, if available, is recommended. ACT 112: Negative or not required by law. Electronically signed by: Benny Gill M.D. 01/17/2022 12:47 PM Chest X-Ray 01/18/22 13:47 XR chest 1V portable CLINICAL HISTORY: Shortness of breath. COMPARISON STUDY: Chest radiograph January 17, 2022. Chest CT August 07, 2017. FINDINGS: Elevation of the right hemidiaphragm is unchanged from earlier exams. Cardiomegaly is noted. There is no evidence for pulmonary edema. Bibasilar opacities are present. No pneumothorax or pleural effusion is identified. IMPRESSION: 1. Bibasilar opacities which could reflect consolidation or atelectasis. 2. Cardiomegaly without evidence for pulmonary edema. ACT 112: Negative or not required by law. Electronically signed by: Antonio Garcia M.D. 01/18/2022 2:41 PM Medications Administered Current Inpatient Medications Acetaminophen (Acetaminophen 325 Mg Tab) 650 mg PO Q4H PRN PRN Reason: Pain or Fever Stop: 02/15/22 09:41 Last Admin: 01/20/22 15:52 Dose: 650 mg Aspirin (Aspirin 81 Mg Ectab) 81 mg PO QAM [facility] Stop: 02/15/22 08:59 Last Admin: 01/21/22 09:16 Dose: 81 mg Atorvastatin Calcium (Atorvastatin 40 Mg Tab) 40 mg PO QAM [facility] Stop: 02/15/22 09:41 Last Admin: 01/21/22 09:16 Dose: 40 mg Carvedilol (Carvedilol 12.5 Mg Tab) 12.5 mg PO BID [facility] Stop: 02/19/22 20:59 Last Admin: 01/21/22 09:16 Dose: 12.5 mg Promethazine HCl 12.5 mg/ (Sodium Chloride) 50.5 mls @ 202 mls/hr IV Q6H PRN PRN Reason: Nausea And Vomiting Stop: 02/15/22 05:52 Ceftriaxone Sodium 2,000 mg/ (Dextrose) 70 mls @ 100 mls/hr IV DAILY [facility]; Protocol Stop: 01/26/22 08:59 Last Infusion: 01/21/22 11:14 Dose: Infused Ipratropium [place] (Ipratropium [place] Nasal [place] 0.06% 15ml) 2 sprays NA BID PRN PRN Reason: Nasal Congestion Stop: 02/15/22 06:02 Lactobacillus Acidophilus (Advanced Probiotic 1250 Mg Capsule) 2 cap PO DAILY [facility] Stop: 02/16/22 08:59 Last Admin: 01/21/22 09:16 Dose: 2 cap Loperamide HCl (Loperamide Hcl 2 Mg Cap) 2 mg PO Q6 PRN PRN Reason: diarrhea Stop: 02/17/22 13:58 Loratadine (Loratadine 10 Mg Tab) 10 mg PO DAILY [facility] Stop: 02/15/22 08:59 Last Admin: 01/21/22 09:16 Dose: 10 mg Lorazepam (Lorazepam 0.5 Mg Tab) 0.5 mg PO TID PRN PRN Reason: Anxiety Stop: 02/15/22 05:52 Midodrine (Midodrine Hcl 2.5 Mg Tab) 2.5 mg PO TID@0800,1200,1700 PRN PRN Reason: Hypotension Stop: 02/16/22 16:59 Oxycodone HCl (Oxycodone Hcl Ir 5 Mg Tab (Immediate Release)) 5 mg PO Q4H PRN PRN Reason: Pain Stop: 01/30/22 05:52 Phenytoin Sodium (Phenytoin Sodium Er 100 Mg Cap) 100 mg PO QAM [facility] Stop: 02/15/22 08:29 Last Admin: 01/21/22 10:37 Dose: 100 mg Phenytoin Sodium (Phenytoin Sodium Er 100 Mg Cap) 200 mg PO QPM MICHAEL Stop: 02/15/22 20:59 Last Admin: 01/20/22 19:56 Dose: 200 mg Simethicone (Simethicone 80 Mg Chew) 80 mg PO Q6H PRN PRN Reason: bloating, dypepsia Stop: 02/17/22 13:51 Last Admin: 01/18/22 17:13 Dose: 80 mg Warfarin Sodium (Warfarin Sod 5 Mg Tab) 5 mg PO DAILY@1600 [facility] Stop: 02/15/22 15:59 Last Admin: 01/20/22 15:52 Dose: 5 mg
--- NOTE | 2022-01-21 14:01 | Nephrology Progress Note ---
Date of Service January 21, 2022 Assessment & Plan (1) MADELIN (acute kidney injury): Plan: slightly improved Stage 3 now nonoliguric ischemic ATN from hypotension in the setting of E coli bacteremia (01/17 blood cxs clear after 48 hr); hypotension is improved past 48+ hrs with baseline creatinine 0.9. curve of rise in creatinine has peaked which is great news; downtrend should continue now renal u/s reassuring; cumulative I/O state she has had 13.6 L in and now w/ > 1L daily UP x 2 days running w/ 3.8L out total; RN reports 2-4 BM / day as well; CK mildly elevated at 830 -cont to hold antihypertensives -resume BP checks per unit protocol ->>>>again, from renal standpoint ok to d/c [place] -daily bmp, cbc -cont renal diet and for now no fluid limit -cont strict I/O -given her persistent hypotension for about 24-36 hr after admission but now w/ BP stabilization, her renal function should soon stabilize -no indication for urgent dialysis and cannot rule out need though less likely now Admission and Anticipated Discharge Date Admission Date: January 16, 2022 Subjective no interval events. notes exertional dyspnea new since hospita.. dizzy last night getting up and again this am whne up to bathroom. also L frontal JIMENES down w/ tylenol/ intermittent Review of Systems Review of Systems: All systems reviewed & are unremarkable except as noted in Subjective Physical Exam Constitutional: well developed, well nourished and + obese; no acute distress Eyes: EOM intact bilaterally ENMT: Ears: no external ear abnormality Nose: no external nose abnormality Mouth: + dry oral mucous membranes Neck: no nuchal rigidity Respiratory: normal respiratory effort, able to speak in complete sentences and + paradoxical thoraco-abdominal movement; no labored breathing Auscult ation: + diminished lung sounds Cardiovascular: Rate/Rhythm: regular rate and regular rhythm Extremities: + edema (trace BLE) Gastrointestinal (Abdomen): Inspection/Auscultation: normal bowel sounds Percussion/Palpation: abdomen soft; abdomen nontender Musculoskeletal: Extremities: strength 5/5 throughout Skin: no rashes, warm and dry Psychiatric: Orientation: oriented to person, oriented to place and cooperative Speech: normal rate/rhythm/volume of speech Genitourinary: [place] /w ample urine Results & Data ([facility]) Vital Signs (Past 12 Hours) Vital Signs Temp Pulse Pulse Resp BP Pulse Ox O2 Del Method 01/21/22 08:00 75 01/21/22 11:27 36.4 C L 70 20 101/67 96 Nasal Cannula 01/21/22 07:33 36.4 C L 69 18 115/74 99 Nasal Cannula 01/21/22 03:09 36.6 C 76 18 137/79 96 Nasal Cannula O2 Flow Rate 01/21/22 08:00 01/21/22 11:27 1 01/21/22 07:33 2 01/21/22 03:09 2 Laboratory Results 01/21/22 06:25 01/21/22 06:25
[2022-01-21] MEDS: WARFARIN SOD 5 MG TAB PO SCH (17:06)
[2022-01-22 06:28] LABS: Hemoglobin 11.9 g/dl (12.0-16.0); Mean Corpuscular Hemoglobin 30.7 pg (25.0-34.0); Mean Corpuscular Volume 90.2 fL (80.0-100.0); Mean Platelet Volume 10.1 fL (9.4-12.3); Platelet Count 231 K/uL (130-400); RDW Coefficient of Variation 14.6 % (11.5-14.5); RDW Standard Deviation 48.1 fL (36.4-46.3); Red Blood Count 3.88 M/uL (3.93-5.22); White Blood Count 10.61 K/ul (4.8-10.8)
[2022-01-22 06:49] LABS: Prothrombin Time 55.6 Seconds (9.0-12.0)
[2022-01-22 06:54] LABS: INR 5.7 (0.9-1.1)
[2022-01-22 07:18] LABS: BUN Creatinine Ratio 13.7 (10-20); Calcium 7.7 mg/dl (8.5-10.1); Creatinine Clr Calc Pharmacy 17.9 ml/min; Est GFR (Non-African American) 12.9 ml/min; Magnesium 1.9 mg/dl (1.7-2.4); Phosphorus 3.7 mg/dl (2.5-4.9); Potassium 3.6 mmol/L (3.5-5.1)
[2022-01-22] MEDS: PHENYTOIN SODIUM ER 100 MG CAP PO SCH ×2 (08:55→20:45)
[2022-01-22] MEDS: cefTRIAXone SODIUM 2,000 MG in DEXTROSE 5% 50 ML IV SCH (08:55)
[2022-01-22] MEDS: LORATADINE 10 MG TAB PO SCH (08:55)
[2022-01-22] MEDS: carvediloL 12.5 MG TAB PO SCH ×2 (08:55→20:45)
[2022-01-22] MEDS: ATORVASTATIN 40 MG TAB PO SCH (08:55)
[2022-01-22] MEDS: ASPIRIN 81 MG ECTAB PO SCH (08:55)
[2022-01-22] MEDS: ADVANCED PROBIOTIC 1250 MG CAPSULE PO SCH (08:55)
--- NOTE | 2022-01-22 13:12 | Hospitalist Progress Note ---
Date of Service January 22, 2022 Assessment & Plan (1) Gram-negative bacteremia: Plan: - Presented with hypotension, diarrhea - found to have E coli UTI and bacteremia - CXR:No active disease in the chest. - Blood Culture: E coli - Urine culture growing E coli - Repeat blood cultures 01/17/2022 NGTD - Normal lactic acid, elevated procalcitonin - s/p IVF per renal - now stopped - Continue ceftriaxone - will need abx for 2 weeks total for bacteremia - can switch to PO after 1 week, likely 01/23/2022 (2) Complicated urinary tract infection: Plan: - see plan above (3) MADELIN (acute kidney injury): Plan: - in the setting of sepsis with E coli bacteremia and persistent hypotension - Cr continues to rise >3.5, likely representing ATN - renal following - nonoliguric MADELIN - IVF with LR per renal - now stopped - continue to monitor UOP - trend Cr - avoid nephrotoxic medications - continue to monitor output (4) Acute respiratory failure with hypoxia: Plan: - unclear etiology - lungs clear on exam but difficult exam given body habitus - tachypeneic and SpO2 88% on RA - repeat CXR with likely atelectasis - encouraged OOB - encouraged IS - O2 to maintain SpO2 >92% - wean O2 as tolerated - 2-step ordered - no oxygen needed at rest or with ambulation (5) Diarrhea: Plan: - unclear etiology but in setting of E coli UTI and bacteremia - abx as above - stool studies negative - loperamide prn (6) (HFpEF) heart failure with preserved ejection fraction: Plan: - EF 60% with G2DD on TTE 01/2022 - does not appear to be in exacerbation - euvolemic on exam - monitor (7) Adnexal mass: Plan: - incidental finding on renal US - right adnexal mass is seen measuring 6.4 x 6.8 x 6.7 cm - will need OBGYN follow up (8) Personal history of DVT (deep vein thrombosis): Plan: - 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 - goal INR 2-3 - daily INR while inpatient - no signs of bleeding, vitals stable, hgb stable - hold Coumadin due to elevated INR today - changed 2.5mg daily for now (9) HLD (hyperlipidemia): Plan: - continue statin (10) Seizure disorder: Plan: - continue phenytoin (11) Hypertension: Plan: - hypotension resolved - restart home medications as tolerated - holding ARB in setting of MADELIN/ATN Plan DVT Px: Coumadin Code Status: Full Code Dispo: telemetry Andrea Shannon MD [facility] Medicine Admission and Anticipated Discharge Date Admission Date: January 16, 2022 Subjective Patient with HFpEF (EF 60%, G2DD 01/2022), h/o DVT/PE on Coumadin, SVT s/p ablation, HLD, GERD, seizure disorder, HTN presented with diarrhea, found to have UTI and bacteremia with E coli. Started on ceftriaxone, IVF. Had persistent hypotension with resultant MADELIN, likely ATN. Renal consulted. Repeat blood cultures negative. Cr improving. Patient reports feeling well today. Denies chest pain, still has some shortness of breath but improved, denies abdominal pain, dysuria, flank pain, cough. Review of Systems Review of Systems: All systems reviewed & are unremarkable except as noted in Subjective Physical Exam Physical Exam: General Appearance:Obese, no apparent distress Head: normocephalic, Atraumatic Eyes: normal inspection, EOMI Neck: supple, Trachea midline Respiratory/Chest: Decreased breath sounds, CTAB, No accessory muscle use Cardiovascular: S1, S2, No murmur Abdomen/GI:Soft, Non tender, Bowel sounds present Extremities/Musculoskeletal:normal inspection, no LE edema Neurologic/Psych:AAOX3, grossly no focal neurological deficits, hearing i mpairment Skin: normal color, warm Results & Data Results & Data ([facility]) Vital Signs (Past 12 Hours) Vital Signs Temp Pulse Pulse Pulse Pulse Resp Resp 01/22/22 11:31 36.6 C 68 18 01/22/22 09:02 90 84 80 22 01/22/22 07:32 36.5 C 83 20 01/22/22 02:49 36.7 C 79 18 Resp Resp BP Pulse Ox Pulse Ox Pulse Ox Pulse Ox 01/22/22 11:31 119/75 94 01/22/22 09:02 18 18 90 92 94 01/22/22 07:32 157/79 H 94 01/22/22 02:49 143/76 H 90 O2 Del Method 01/22/22 11:31 Room Air 01/22/22 09:02 01/22/22 07:32 Room Air 01/22/22 02:49 Room Air
[2022-01-23 07:08] LABS: Calcium 7.7 mg/dl (8.5-10.1); Creatinine Clr Calc Pharmacy 18.9 ml/min; Est GFR (African American) 16.1 ml/min; Est GFR (Non-African American) 13.9 ml/min; Magnesium 1.8 mg/dl (1.7-2.4); Phosphorus 3.9 mg/dl (2.5-4.9); Potassium 3.7 mmol/L (3.5-5.1)
[2022-01-23 07:13] LABS: Prothrombin Time > 90.0 Seconds (9.0-12.0)
[2022-01-23 07:19] LABS: INR > 9.6 (0.9-1.1)
[2022-01-23] MEDS ORDERED: PHYTONADIONE 5 MG TAB PO STA (07:36)
[2022-01-23] MEDS: carvediloL 12.5 MG TAB PO SCH ×2 (08:12→19:55)
[2022-01-23] MEDS: LORATADINE 10 MG TAB PO SCH (08:12)
[2022-01-23] MEDS: ASPIRIN 81 MG ECTAB PO SCH (08:12)
[2022-01-23] MEDS: cefTRIAXone SODIUM 2,000 MG in DEXTROSE 5% 50 ML IV SCH (08:12)
[2022-01-23] MEDS: ATORVASTATIN 40 MG TAB PO SCH (08:12)
[2022-01-23] MEDS: PHENYTOIN SODIUM ER 100 MG CAP PO SCH ×2 (08:13→19:55)
[2022-01-23] MEDS: ADVANCED PROBIOTIC 1250 MG CAPSULE PO SCH (08:13)
--- NOTE | 2022-01-23 10:02 | Nephrology Progress Note ---
Date of Service January 23, 2022 Assessment & Plan Admission and Anticipated Discharge Date Admission Date: January 16, 2022 Subjective Assessment & Plan (1) MADELIN (acute kidney injury): Plan: Nonoliguric ischemic ATN from hypotension in the setting of E coli bacteremia and sepsis. baseline creatinine 0.9. Creat been in the low 3 now for 1 week. making good urine and Good vital signs. BP not low anymore--Can d/c Midodrine from renal standpoint ok to d/c sevilla -daily bmp, cbc -cont renal diet and for now no fluid limit -cont strict I/O No need of dialysis. Should gradually improve from now on. labs--reviewed. Subjective no interval events. notes exertional dyspnea new since admission. BP not low. Review of Systems Review of Systems: All systems reviewed & are unremarkable except as noted in Subjective Physical Exam Constitutional: well developed, well nourished and + obese; no acute distress Eyes: EOM intact bilaterally ENMT: Ears: no external ear abnormality Nose: no external nose abnormality Mouth: + dry oral mucous membranes Neck: no nuchal rigidity Respiratory: normal respiratory effort, able to speak in complete sentences and + paradoxical thoraco-abdominal movement; no labored breathing Auscultation: + diminished lung sounds Cardiovascular: Rate/Rhythm: regular rate and regular rhythm Extremities: + edema (trace BLE) Gastrointestinal (Abdomen): Inspection/Auscultation: normal bowel sounds Per cussion/Palpation: abdomen soft; abdomen nontender Musculoskeletal: Extremities: strength 5/5 throughout Skin: no rashes, warm and dry Psychiatric: Orientation: oriented to person, oriented to place and cooperative Speech: normal rate/rhythm/volume of speech Genitourinary: sevilla Results & Data ([facility]) Vital Signs (Past 12 Hours) Vital Signs Temp Pulse Resp BP BP Pulse Ox O2 Del Method 01/23/22 07:28 36.4 C L 77 18 151/79 H 95 Room Air 01/23/22 03:05 36.4 C L 77 18 129/77 92 Room Air 01/22/22 23:47 36.6 C 74 18 120/66 91 Room Air
[2022-01-23] MEDS ORDERED: CIPROFLOXACIN 250 MG TAB PO SCH (11:30)
[2022-01-23] MEDS: valACYclovir HCL 500 MG TABLET PO SCH (11:34)
--- NOTE | 2022-01-23 15:04 | Hospitalist Progress Note ---
Date of Service January 23, 2022 Assessment & Plan (1) Gram-negative bacteremia: Plan: - Presented with hypotension, diarrhea - found to have E coli UTI and bacteremia - CXR:No active disease in the chest. 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 - goal INR 2-3 - daily INR while inpatient - no signs of bleeding, vitals stable, hgb stable - hold Coumadin due to elevated INR today again 01/23/2022 - given 2.5mg PO vitamin K for INR 9.6 01/23/2022 - changed 2.5mg daily for now (3) Complicated urinary tract infection: Plan: - see plan above (4) MADELIN (acute kidney injury): Plan: - in the setting of sepsis with E coli bacteremia and persistent hypotension - Cr continues to rise >3.5, likely representing ATN - renal following - nonoliguric MADELIN - IVF with LR per renal - now stopped - continue to monitor UOP - trend Cr - avoid nephrotoxic medications - continue to monitor output (5) Diarrhea: Plan: - unclear etiology but in setting of E coli UTI and bacteremia - abx as above - stool studies negative - loperamide prn (6) (HFpEF) heart failure with preserved ejection fraction: Plan: - EF 60% with G2DD on TTE 01/2022 - does not appear to be in exacerbation - euvolemic on exam - monitor (7) Adnexal mass: Plan: - incidental finding on renal US - right adnexal mass is seen measuring 6.4 x 6.8 x 6.7 cm - will need OBGYN follow up (8) HLD (hyperlipidemia): Plan: - continue statin (9) Seizure disorder: Plan: - continue phenytoin (10) Hypertension: Plan: - hypotension resolved - restart home medications as tolerated - holding ARB in setting of MADELIN/ATN Plan DVT Px: Coumadin - being held for supratherapeutic INR Code Status: Full Code Dispo: telemetry Andrea Shannon MD [facility] Medicine Admission and Anticipated Discharge Date Admission Date: January 16, 2022 Subjective Patient with HFpEF (EF 60%, G2DD 01/2022), h/o DVT/PE on Coumadin, SVT s/p ablation, HLD, GERD, seizure disorder, HTN presented with diarrhea, found to have UTI and bacteremia with E coli. Started on ceftriaxone, IVF. Had persistent hypotension with resultant MADELIN, likely ATN. Renal consulted. Repeat blood cultures negative. Cr improving. Patient reports feeling well today. Denies chest pain, shortness of breath, denies abdominal pain, dysuria, flank pain, cough. INR was again elevated to >9. Review of Systems Review of Systems: All systems reviewed & are unremarkable except as noted in Subjective Physical Exam Physical Exam: General Appearance:Obese, no apparent distress Head: normocephalic, Atraumatic Eyes: normal inspection, EOMI Neck: supple, Trachea midline Respiratory/Chest: Decreased breath sounds, CTAB, No accessory muscle use Cardiovascular: S1, S2, No murmur Abdomen/GI:Soft, Non tender, Bowel sounds present Extremities/Musculoskeletal:normal inspection, no LE edema Neurologic/Psych:AAOX3, grossly no focal neurological deficits, hearing impairment Skin: normal color, warm Results & Data Results & Data ([facility]) Vital Signs (Past 12 Hours) Vital Signs Temp Pulse Pulse Resp BP BP Pulse Ox 01/23/22 11:22 36.6 C 71 18 139/75 95 01/23/22 08:00 75 01/23/22 08:00 01/23/22 07:28 36.4 C L 77 18 151/79 H 95 01/23/22 03:05 36.4 C L 77 18 129/77 92 O2 Del Method 01/23/22 11:22 Room Air 01/23/22 08:00 01/23/22 08:00 Room Air 01/23/22 07:28 Room Air 01/23/22 03:05 Room Air Diagnostic Findings Laboratory Results WBC 10.61 K/ul (4.8-10.8) 01/22/22 05:40 RBC 3.88 M/uL (3.93-5.22) L 01/22/22 05:40 Hgb 11.9 g/dl (12.0-16.0) L 01/22/22 05:40 Hct 35.0 % (34.1-44.9) 01/22/22 05:40 MCV 90.2 fL (80.0-100.0) 01/22/22 05:40 MCH 30.7 pg (25.0-34.0) 01/22/22 05:40 MCHC 34.0 g/dL (32.0-36.0) 01/22/22 05:40 RDW Std Deviation 48.1 fL (36.4-46.3) H 01/22/22 05:40 RDW Coeff of Benny 14.6 % (11.5-14.5) H 01/22/22 05:40 Plt Count 231 K/uL (130-400) 01/22/22 05:40 MPV 10.1 fL (9.4-12.3) 01/22/22 05:40 Immature Gran % (Auto) 1.4 % 01/21/22 06:25 Neut % (Auto) 67.0 % 01/21/22 06:25 Lymph % (Auto) 15.2 % 01/21/22 06:25 [place] % (Auto) 12.0 % 01/21/22 06:25 Eos % (Auto) 3.9 % 01/21/22 06:25 Baso % (Auto) 0.5 % 01/21/22 06:25 Neut # (Auto) 6.74 K/uL (1.4-6.5) H 01/21/22 06:25 Lymph # (Auto) 1.53 K/uL (1.2-3.4) 01/21/22 06:25 [place] # (Auto) 1.21 K/uL (0.24-0.82) H 01/21/22 06:25 Eos # (Auto) 0.39 K/uL (0-0.50) 01/21/22 06:25 Baso # (Auto) 0.05 K/uL (0-0.2) 01/21/22 06:25 Immature Gran # (Auto) 0.14 K/uL (0.00-0.02) H 01/21/22 06:25 Absolute Nucleated RBC Cancelled 01/16/22 03:12 Nucleated RBC % (auto) Cancelled 01/16/22 03:12 Neutrophils % (Manual) Cancelled 01/16/22 03:12 Band Neutrophils % Cancelled 01/16/22 03:12 Lymphocytes % (Manual) Cancelled 01/16/22 03:12 Prolymphocyte % Cancelled 01/16/22 03:12 Reactive Lymphs % (Man) Cancelled 01/16/22 03:12 Monocytes % (Manual) Cancelled 01/16/22 03:12 Eosinophils % (Manual) Cancelled 01/16/22 03:12 Basophils % (Manual) Cancelled 01/16/22 03:12 Metamyelocytes % (Man) Cancelled 01/16/22 03:12 Myelocytes % (Man) Cancelled 01/16/22 03:12 Promyelocytes % (Man) Cancelled 01/16/22 03:12 Blast Cells % (Manual) Cancelled 01/16/22 03:12 Plasma Cell % (Manual) Cancelled 01/16/22 03:12 Other Cells % Cancelled 01/16/22 03:12 Nucleated RBC % Cancelled 01/16/22 03:12 Neutrophils # (Manual) Cancelled 01/16/22 03:12 Band Neutrophils # Cancelled 01/16/22 03:12 Total Absolute Neuts Cancelled 01/16/22 03:12 Lymphocytes # (Manual) Cancelled 01/16/22 03:12 Prolymphocyte # Cancelled 01/16/22 03:12 Reactive Lymphs # Cancelled 01/16/22 03:12 Total Abs Lymphocytes Cancelled 01/16/22 03:12 Monocytes # (Manual) Cancelled 01/16/22 03:12 Eosinophils # (Manual) Cancelled 01/16/22 03:12 Basophils # (Manual) Cancelled 01/16/22 03:12 Metamyelocytes # (Man) Cancelled 01/16/22 03:12 Myelocytes # (Manual) Cancelled 01/16/22 03:12 Promyelocytes # (Man) Cancelled 01/16/22 03:12 Blast Cells # (Man) Cancelled 01/16/22 03:12 Plasma Cell # (Manual) Cancelled 01/16/22 03:12 Other Cells # Cancelled 01/16/22 03:12 Nucleated RBCs # (Man) Cancelled 01/16/22 03:12 Hypersegmented Neuts Cancelled 01/16/22 03:12 Hyposegmented Neuts Cancelled 01/16/22 03:12 Hypogranular Neuts Cancelled 01/16/22 03:12 Large Granular Lymphs Cancelled 01/16/22 03:12 # Lrg Granular Lymphs Cancelled 01/16/22 03:12 Hairy Cells Cancelled 01/16/22 03:12 Smudge Cells Cancelled 01/16/22 03:12 Toxic Granulation Cancelled 01/16/22 03:12 Toxic Vacuolation Cancelled 01/16/22 03:12 Dohle Bodies Cancelled 01/16/22 03:12 Lesley Rods Cancelled 01/16/22 03:12 Platelet Estimate Decreased (Normal) L 01/16/22 04:05 Hypogranular Platelets Cancelled 01/16/22 03:12 Clumped Platelets Cancelled 01/16/22 03:12 Giant Platelets Cancelled 01/16/22 03:12 Platelet Satelliting Cancelled 01/16/22 03:12 RBC Morphology Cancelled 01/16/22 03:12 Polychromasia Cancelled 01/16/22 03:12 Hypochromasia Cancelled 01/16/22 03:12 Poikilocytosis Cancelled 01/16/22 03:12 Basophilic Stippling Cancelled 01/16/22 03:12 Anisocytosis Cancelled 01/16/22 03:12 Microcytosis Cancelled 01/16/22 03:12 Macrocytosis Cancelled 01/16/22 03:12 Spherocytes Cancelled 01/16/22 03:12 Pappenheimer Bodies Cancelled 01/16/22 03:12 Sickle Cells Cancelled 01/16/22 03:12 Target Cells Cancelled 01/16/22 03:12 Tear Drop Cells Cancelled 01/16/22 03:12 Ovalocytes Cancelled 01/16/22 03:12 Stomatocytes Cancelled 01/16/22 03:12 [place] Bodies Cancelled 01/16/22 03:12 Echinocytes 3+ 01/18/22 06:29 Acanthocytes (Spur) Cancelled 01/16/22 03:12 Rouleaux Cancelled 01/16/22 03:12 RBC Agglutinates Cancelled 01/16/22 03:12 Schistocytes Cancelled 01/16/22 03:12 Sezary Cell Cancelled 01/16/22 03:12 PT > 90.0 Seconds (9.0-12.0) H 01/23/22 06:30 INR > 9.6 (0.9-1.1) H* 01/23/22 06:30 Sodium 143 mmol/L (136-145) 01/23/22 06:30 Potassium 3.7 mmol/L (3.5-5.1) 01/23/22 06:30 Chloride 114 mmol/L (98-107) H 01/23/22 06:30 Carbon Dioxide 22 mmol/L (21-32) 01/23/22 06:30 Anion Gap 7 (3-11) 01/23/22 06:30 BUN 41 mg/dl (6-23) H 01/23/22 06:30 Creatinine 3.16 mg/dl (0.6-1.2) H 01/23/22 06:30 Est Cr Clr Drug Dosing 18.9 ml/min 01/23/22 06:30 Est GFR ( Amer) 16.1 ml/min 01/23/22 06:30 Est GFR (Non-Af Amer) 13.9 ml/min 01/23/22 06:30 BUN/Creatinine Ratio 13.0 (10-20) 01/23/22 06:30 Glucose 83 mg/dl (70-99(Fasting)) 01/23/22 06:30 Estimat Average Glucose 117 mg/dl 01/16/22 04:05 Hemoglobin A1c 5.7 % (4.5-5.6) H 01/16/22 04:05 Lactate 0.9 mmol/L (0.4-2.0) 01/17/22 17:12 Calcium 7.7 mg/dl (8.5-10.1) L 01/23/22 06:30 Phosphorus 3.9 mg/dl (2.5-4.9) 01/23/22 06:30 Magnesium 1.8 mg/dl (1.7-2.4) 01/23/22 06:30 Total Bilirubin 0.3 mg/dl (0.2-1.0) 01/19/22 08:46 Direct Bilirubin 0.1 mg/dl (0-0.2) 01/16/22 04:05 AST 26 U/L (13-39) 01/19/22 08:46 ALT 21 U/L (7-52) 01/19/22 08:46 Alkaline Phosphatase 92 U/L (34-104) 01/19/22 08:46 Total Creatine Kinase 830 U/L (26-192) H 01/17/22 17:12 Troponin I High Sens 29.3 pg/ml (0-14) H 01/16/22 06:47 Total Protein 5.5 gm/dl (6.0-8.3) L 01/19/22 08:46 Albumin 2.7 gm/dl (3.4-5.0) L 01/19/22 08:46 Globulin 2.8 gm/dl (2.5-4.0) 01/19/22 08:46 Albumin/Globulin Ratio 1.0 (0.9-2) 01/19/22 08:46 Procalcitonin 22.35 ng/ml (0-0.5) H 01/17/22 01:06 TSH 1.046 uIu/ml (0.300-4.500) 01/16/22 04:05 Urine Color Yellow 01/16/22 06:25 Urine Appearance Turbid (Clear) A 01/16/22 06:25 Urine pH 5.0 (4.5-7.5) 01/16/22 06:25 Ur Specific [place] 1.018 (1.000-1.030) 01/16/22 06:25 Urine Protein 3+ (Negative) H 01/16/22 06:25 Urine Glucose (UA) Negative (Negative) 01/16/22 06:25 Urine Ketones Negative (Negative) 01/16/22 06:25 Urine Blood 3+ (Negative) H 01/16/22 06:25 Urine Nitrite Negative (Negative) 01/16/22 06:25 Urine Bilirubin Negative (Negative) 01/16/22 06:25 Urine Urobilinogen Negative (Negative) 01/16/22 06:25 Ur Leukocyte Esterase 2+ (Negative) H 01/16/22 06:25 Urine WBC (Auto) >30 /hpf (0-5) H 01/16/22 06:25 Urine RBC (Auto) 5-10 /hpf (0-4) H 01/16/22 06:25 U Hyaline Cast (Auto) >30 /lpf (0-5) H 01/16/22 06:25 U Epithel Cells (Auto) >30 /lpf (0-5) H 01/16/22 06:25 Urine Bacteria (Auto) 3+ (Negative) H 01/16/22 06:25 Ur Renal Epithelial Cell 0-5 /lpf (0-5) 01/16/22 06:25 Granular Casts 5-10 /lpf (0) H 01/16/22 06:25 Stl C. cayetanensis PCR Not Detected (NotDetected) 01/16/22 05:50 Stool Rotavirus A PCR Not Detected (NotDetected) 01/16/22 05:50 Stl Adenov F 40/41 PCR Not Detected (NotDetected) 01/16/22 05:50 Stool Astrovirus (PCR) Not Detected (NotDetected) 01/16/22 05:50 Stool Campylobacter PCR Not Detected (NotDetected) 01/16/22 05:50 Stool Cryptosporidium PCR Not Detected (NotDetected) 01/16/22 05:50 Stl E.coli Shiga Tox PCR Not Detected (NotDetected) 01/16/22 05:50 Stl Enterotoxigenic E PCR Not Detected (NotDetected) 01/16/22 05:50 Stool EPEC (PCR) Not Detected (NotDetected) 01/16/22 05:50 Stool EAEC (PCR) Not Detected (NotDetected) 01/16/22 05:50 Stl E. histolytica PCR Not Detected (NotDetected) 01/16/22 05:50 Stool Giardia Lamblia PCR Not Detected (NotDetected) 01/16/22 05:50 Stool Salmonella PCR Not Detected (NotDetected) 01/16/22 05:50 Stool Sapovirus (PCR) Not Detected (NotDetected) 01/16/22 05:50 Stl P. shigelloides PCR Not Detected (NotDetected) 01/16/22 05:50 Stl Shigella/EIEC PCR Not Detected (NotDetected) 01/16/22 05:50 St Y.enterocolitica PCR Not Detected (NotDetected) 01/16/22 05:50 Stool Vibrio (PCR) Not Detected (NotDetected) 01/16/22 05:50 Stl Vibrio cholerae PCR Not Detected (NotDetected) 01/16/22 05:50 Stl Norovirus GI/GII PCR Not Detected (NotDetected) 01/16/22 05:50 Phenytoin 5.1 mcg/ml (10-20) L 01/16/22 06:47 SARS-CoV-2 (PCR) NEGATIVE (Negative) 01/16/22 03:30 Enterobacterales (PCR) DETECTED (NotDetected) A 01/16/22 04:29 E. coli (PCR) DETECTED (NotDetected) A 01/16/22 04:29 Influenza Type A (PCR) Negative (Neg) 01/16/22 03:30 Influenza Type B (PCR) Negative (Neg) 01/16/22 03:30 RSV (RT-PCR) Negative (Neg) 01/16/22 03:30 mcr-1 [place] Res Gene PCR Not Detected (NotDetected) 01/16/22 04:29 blaIMP Car res Gene PCR Not Detected (NotDetected) 01/16/22 04:29 KPC-Carbap Res Gene PCR Not Detected (NotDetected) 01/16/22 04:29 blaNDM Car Res Gene PCR Not Detected (NotDetected) 01/16/22 04:29 OXA-48 Carbapenem Resis Gene (PCR) Not Detected (NotDetected) 01/16/22 04:29 blaVIM Car Res Gene PCR Not Detected (NotDetected) 01/16/22 04:29 CTX-M Gene Resistance (PCR) Not Detected (NotDetected) 01/16/22 04:29 Bld Cult ID Panel PCR See PCR Comment (NotDetected) 01/16/22 04:29 Blood Parasites ID Cancelled 01/16/22 03:12 Impressions Renal Ultrasound 01/17/22 07:00 US renal/blad retro comp CLINICAL HISTORY: renal failure TECHNIQUE: Multiple sonographic real-time images of the kidneys and bladder were obtained. COMPARISON: None available at the time of this dictation. FINDINGS: The right kidney measures 11.8 cm in length, and the left kidney measures 9.8 cm in length. The right kidney is normal in size, contour, cortical thickness, and echogenicity. No hydronephrosis is identified. No renal lesion is identified. No perinephric fluid collection is seen. The left kidney is normal in size, contour, cortical thickness and echogenicity. No hydronephrosis is identified. No renal lesion is identified. No perinephric fluid collection is seen. A [place] catheter is not well visualized by ultrasound. A right adnexal mass is seen measuring 6.4 x 6.8 x 6.7 cm. Patient is status post hysterectomy. IMPRESSION: 1. No evidence of hydronephrosis. 2. Incidental note is made of a right adnexal mass measuring up to 6.8 cm. Correlation with outside imaging, if available, is recommended. ACT 112: Negative or not required by law. Electronically signed by: Benny Gill M.D. 01/17/2022 12:47 PM Chest X-Ray 01/18/22 13:47 XR chest 1V portable CLINICAL HISTORY: Shortness of breath. COMPARISON STUDY: Chest radiograph January 17, 2022. Chest CT August 07, 2017. FINDINGS: Elevation of the right hemidiaphragm is unchanged from earlier exams. Cardiomegaly is noted. There is no evidence for pulmonary edema. Bibasilar opacities are present. No pneumothorax or pleural effusion is identified. IMPRESSION: 1. Bibasilar opacities which could reflect consolidation or atelectasis. 2. Cardiomegaly without evidence for pulmonary edema. ACT 112: Negative or not required by law. Electronically signed by: Antonio Garcia M.D. 01/18/2022 2:41 PM Medications Administered Current Inpatient Medications Acetaminophen (Acetaminophen 325 Mg Tab) 650 mg PO Q4H PRN PRN Reason: Pain or Fever Stop: 02/15/22 09:41 Last Admin: 01/20/22 15:52 Dose: 650 mg Aspirin (Aspirin 81 Mg Ectab) 81 mg PO QAM [facility] Stop: 02/15/22 08:59 Last Admin: 01/23/22 08:12 Dose: 81 mg Atorvastatin Calcium (Atorvastatin 40 Mg Tab) 40 mg PO QAM [facility] Stop: 02/15/22 09:41 Last Admin: 01/23/22 08:12 Dose: 40 mg Carvedilol (Carvedilol 12.5 Mg Tab) 12.5 mg PO BID [facility] Stop: 02/19/22 20:59 Last Admin: 01/23/22 08:12 Dose: 12.5 mg Ciprofloxacin (Ciprofloxacin 500 Mg Tab) 500 mg PO BID [facility]; Protocol Stop: 01/30/22 21:59 Promethazine HCl 12.5 mg/ (Sodium Chloride) 50.5 mls @ 202 mls/hr IV Q6H PRN PRN Reason: Nausea And Vomiting Stop: 02/15/22 05:52 Ipratropium [place] (Ipratropium [place] Nasal [place] 0.06% 15ml) 2 sprays NA BID PRN PRN Reason: Nasal Congestion Stop: 02/15/22 06:02 Lactobacillus Acidophilus (Advanced Probiotic 1250 Mg Capsule) 2 cap PO DAILY [facility] Stop: 02/16/22 08:59 Last Admin: 01/23/22 08:13 Dose: 2 cap Loperamide HCl (Loperamide Hcl 2 Mg Cap) 2 mg PO Q6 PRN PRN Reason: diarrhea Stop: 02/17/22 13:58 Loratadine (Loratadine 10 Mg Tab) 10 mg PO DAILY [facility] Stop: 02/15/22 08:59 Last Admin: 01/23/22 08:12 Dose: 10 mg Lorazepam (Lorazepam 0.5 Mg Tab) 0.5 mg PO TID PRN PRN Reason: Anxiety Stop: 02/15/22 05:52 Oxycodone HCl (Oxycodone Hcl Ir 5 Mg Tab (Immediate Release)) 5 mg PO Q4H PRN PRN Reason: Pain Stop: 01/30/22 05:52 Phenytoin Sodium (Phenytoin Sodium Er 100 Mg Cap) 100 mg PO QAM [facility] Stop: 02/15/22 08:29 Last Admin: 01/23/22 08:13 Dose: 100 mg Phenytoin Sodium (Phenytoin Sodium Er 100 Mg Cap) 200 mg PO QPM [facility] Stop: 02/15/22 20:59 Last Admin: 01/22/22 20:45 Dose: 200 mg Simethicone (Simethicone 80 Mg Chew) 80 mg PO Q6H PRN PRN Reason: bloating, dypepsia Stop: 02/17/22 13:51 Last Admin: 01/18/22 17:13 Dose: 80 mg Valacyclovir HCl (Valacyclovir Hcl 500 Mg Tablet) 1,000 mg PO DAILY [facility] Stop: 01/30/22 11:29 Last Admin: 01/23/22 11:34 Dose: 1,000 mg Warfarin Sodium (Warfarin Sod 2.5 Mg Tab) 2.5 mg PO DAILY@1600 [facility] Stop: 02/21/22 15:59
[2022-01-23] MEDS: CIPROFLOXACIN 500 MG TAB PO SCH (19:55)
[2022-01-24 06:34] LABS: INR 1.5 (0.9-1.1); Prothrombin Time 15.7 Seconds (9.0-12.0)
[2022-01-24] MEDS: CIPROFLOXACIN 500 MG TAB PO SCH ×2 (08:24→21:53)
[2022-01-24] MEDS: carvediloL 12.5 MG TAB PO SCH ×2 (08:24→21:56)
[2022-01-24] MEDS: valACYclovir HCL 500 MG TABLET PO SCH (08:26)
[2022-01-24] MEDS: ADVANCED PROBIOTIC 1250 MG CAPSULE PO SCH (08:27)
[2022-01-24] MEDS: PHENYTOIN SODIUM ER 100 MG CAP PO SCH ×2 (08:27→21:56)
[2022-01-24] MEDS: ASPIRIN 81 MG ECTAB PO SCH (08:27)
[2022-01-24] MEDS: ATORVASTATIN 40 MG TAB PO SCH (08:27)
[2022-01-24] MEDS: LORATADINE 10 MG TAB PO SCH (08:27)
[2022-01-24 08:41] LABS: BUN Creatinine Ratio 12.4 (10-20); Calcium 7.6 mg/dl (8.5-10.1); Creatinine Clr Calc Pharmacy 21.5 ml/min; Est GFR (African American) 19.1 ml/min; Est GFR (Non-African American) 16.4 ml/min; Magnesium 1.6 mg/dl (1.7-2.4); Phosphorus 3.6 mg/dl (2.5-4.9); Potassium 3.5 mmol/L (3.5-5.1)
[2022-01-24] MEDS ORDERED: POTASSIUM CHLORIDE CRTAB 20 MEQ TABCR PO STA (08:42)
--- NOTE | 2022-01-24 09:52 | Nephrology Progress Note ---
Date of Service January 24, 2022 Assessment & Plan Admission and Anticipated Discharge Date Admission Date: January 16, 2022 Subjective Subjective Assessment & Plan (1) MADELIN (acute kidney injury): Plan: Nonoliguric ischemic ATN from hypotension in the setting of E coli bacteremia and sepsis. baseline creatinine 0.9. Creat been in the low 3 now for 1 week. making good urine and Good vital signs. BP not low anymore--Can d/c Midodrine labs getting even better. -daily bmp, cbc d/c renal diet and d/c fluid limit. -cont strict I/O No need of dialysis. Should gradually improve from now on. labs--reviewed. Subjective no interval events. notes exertional dyspnea new since admission. BP not low. Review of Systems Review of Systems: All systems reviewed & are unremarkable except as noted in Subjective Physical Exam Constitutional: well developed, well nourished and + obese; no acute distress Eyes: EOM intact bilaterally ENMT: Ears: no external ear abnormality Nose: no external nose abnormality Mouth: + dry oral mucous membranes Neck: no nuchal rigidity Respiratory: normal respiratory effort, able to speak in complete sentences and + paradoxical thoraco-abdominal movement; no labored breathing Auscultation: + diminished lung sounds Cardiovascular: Rate/Rhythm: regular rate and regular rhythm Extremities: + edema (trace BLE) Gastrointestinal (Abdomen): Inspection/Auscultation: normal bowel sounds Percussion/Palpation: abdomen soft; abdomen nontender Musculoskeletal: Extremities: strength 5/5 throughout Skin:L no rashes, warm and dry Psychiatric: Orientation: oriented to person, oriented to place and cooperative Speech: normal rate/rhythm/volume of speech Genitourinary: [place] Results & Data ([facility]) Vital Signs (Past 12 Hours) Vital Signs Temp Pulse Pulse Resp BP Pulse Ox O2 Del Method 01/24/22 07:35 76 01/24/22 07:09 36.6 C 76 20 150/81 H 94 Room Air 01/24/22 02:45 36.8 C 68 20 153/88 H 91 Room Air 01/23/22 22:30 36.6 C 81 18 149/77 H 95
[2022-01-24] MEDS: MAGNESIUM OXIDE 400 MG TAB PO SCH ×3 (10:52→21:57)
--- NOTE | 2022-01-24 13:32 | Hospitalist Progress Note ---
Date of Service January 24, 2022 Assessment & Plan (1) Gram-negative bacteremia: Plan: - Presented with hypotension, diarrhea - found to have E coli UTI and bacteremia - CXR:No active disease in the chest. 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 Mireles about changing to DOAC but contraindication with her seizure medication Phenytoin, so will continue Coumadin - given 2.5mg PO vitamin K for INR 9.6 01/23/2022, Coumadin held --> INR 1.5 01/24/2022 - changed 2.5mg daily for now - resumed 01/24/2022 (4) Complicated urinary tract infection: Plan: - see plan above (5) MADELIN (acute kidney injury): Plan: - in the setting of sepsis with E coli bacteremia and persistent hypotension - Cr continues to rise >3.5, likely representing ATN - renal following - nonoliguric MADELIN - IVF with LR per renal - now stopped - continue to monitor UOP - trend Cr - continues to improve - avoid nephrotoxic medications - continue to monitor output (6) Diarrhea: Plan: - unclear etiology but in setting of E coli UTI and bacteremia - abx as above - C diff ordered 01/24/2022 - loperamide prn (7) (HFpEF) heart failure with preserved ejection fraction: Plan: - EF 60% with G2DD on TTE 01/2022 - does not appear to be in exacerbation - euvolemic on exam - monitor (8) Adnexal mass: Plan: - incidental finding on renal US - right adnexal mass is seen measuring 6.4 x 6.8 x 6.7 cm - will need OBGYN follow up (9) HLD (hyperlipidemia): Plan: - continue statin (10) Seizure disorder: Plan: - continue phenytoin (11) Hypertension: Plan: - hypotension resolved - restart home medications as tolerated - holding ARB in setting of MADELIN/ATN Plan DVT Px: Coumadin - being held for supratherapeutic INR Code Status: Full Code Dispo: telemetry Andrea Shannon MD [facility] Medicine Admission and Anticipated Discharge Date Admission Date: January 16, 2022 Subjective Patient with HFpEF (EF 60%, G2DD 01/2022), h/o DVT/PE on Coumadin, SVT s/p ablation, HLD, GERD, seizure disorder, HTN presented with diarrhea, found to have UTI and bacteremia with E coli. Started on ceftriaxone, IVF. Had persistent hypotension with resultant MADELIN, likely ATN. Renal consulted. Repeat blood cultures negative. Cr improving. INR labile, but restarted coumadin 01/24/2022 after INR improved from 9.6-->1.5 after po vitamin K - no bleeding, hgb stable. C diff ordered for persistent diarrhea. Patient reports feeling ok today. Denies chest pain, shortness of breath, denies abdominal pain, dysuria, flank pain, cough. INR was again elevated to 1.5 this morning. C diff ordered for persistent diarrhea Review of Systems Review of Systems: All systems reviewed & are unremarkable except as noted in Subjective Physical Exam Physical Exam: General Appearance:Obese, no apparent distress Head: normocephalic, Atraumatic Eyes: normal inspection, EOMI Neck: supple, Trachea midline Respiratory/Chest: Decreased breath sounds, CTAB, No accessory muscle use Cardiovascular: S1, S2, No murmur Abdomen/GI:Soft, Non tender, Bowel sounds present Extremities/Musculoskeletal:normal inspection, no LE edema. small rash with vesicles at different stages on left buttock Neurologic/Psych:AAOX3, grossly no focal neurological deficits, hearing impairment Skin: normal color, warm Results & Data Results & Data ([facility]) Vital Signs (Past 12 Hours) Vital Signs Temp Pulse Pulse Resp BP Pulse Ox O2 Del Method 01/24/22 12:23 36.6 C 84 20 109/67 91 Room Air 01/24/22 08:00 Room Air 01/24/22 07:35 76 01/24/22 07:09 36.6 C 76 20 150/81 H 94 Room Air 01/24/22 02:45 36.8 C 68 20 153/88 H 91 Room Air Diagnostic Findings Laboratory Results WBC 10.61 K/ul (4.8-10.8) 01/22/22 05:40 RBC 3.88 M/uL (3.93-5.22) L 01/22/22 05:40 Hgb 11.9 g/dl (12.0-16.0) L 01/22/22 05:40 Hct 35.0 % (34.1-44.9) 01/22/22 05:40 MCV 90.2 fL (80.0-100.0) 01/22/22 05:40 MCH 30.7 pg (25.0-34.0) 01/22/22 05:40 MCHC 34.0 g/dL (32.0-36.0) 01/22/22 05:40 RDW Std Deviation 48.1 fL (36.4-46.3) H 01/22/22 05:40 RDW Coeff of Benny 14.6 % (11.5-14.5) H 01/22/22 05:40 Plt Count 231 K/uL (130-400) 01/22/22 05:40 MPV 10.1 fL (9.4-12.3) 01/22/22 05:40 Immature Gran % (Auto) 1.4 % 01/21/22 06:25 Neut % (Auto) 67.0 % 01/21/22 06:25 Lymph % (Auto) 15.2 % 01/21/22 06:25 Wells % (Auto) 12.0 % 01/21/22 06:25 Eos % (Auto) 3.9 % 01/21/22 06:25 Baso % (Auto) 0.5 % 01/21/22 06:25 Neut # (Auto) 6.74 K/uL (1.4-6.5) H 01/21/22 06:25 Lymph # (Auto) 1.53 K/uL (1.2-3.4) 01/21/22 06:25 Wells # (Auto) 1.21 K/uL (0.24-0.82) H 01/21/22 06:25 Eos # (Auto) 0.39 K/uL (0-0.50) 01/21/22 06:25 Baso # (Auto) 0.05 K/uL (0-0.2) 01/21/22 06:25 Immature Gran # (Auto) 0.14 K/uL (0.00-0.02) H 01/21/22 06:25 Absolute Nucleated RBC Cancelled 01/16/22 03:12 Nucleated RBC % (auto) Cancelled 01/16/22 03:12 Neutrophils % (Manual) Cancelled 01/16/22 03:12 Band Neutrophils % Cancelled 01/16/22 03:12 Lymphocytes % (Manual) Cancelled 01/16/22 03:12 Prolymphocyte % Cancelled 01/16/22 03:12 Reactive Lymphs % (Man) Cancelled 01/16/22 03:12 Monocytes % (Manual) Cancelled 01/16/22 03:12 Eosinophils % (Manual) Cancelled 01/16/22 03:12 Basophils % (Manual) Cancelled 01/16/22 03:12 Metamyelocytes % (Man) Cancelled 01/16/22 03:12 Myelocytes % (Man) Cancelled 01/16/22 03:12 Promyelocytes % (Man) Cancelled 01/16/22 03:12 Blast Cells % (Manual) Cancelled 01/16/22 03:12 Plasma Cell % (Manual) Cancelled 01/16/22 03:12 Other Cells % Cancelled 01/16/22 03:12 Nucleated RBC % Cancelled 01/16/22 03:12 Neutrophils # (Manual) Cancelled 01/16/22 03:12 Band Neutrophils # Cancelled 01/16/22 03:12 Total Absolute Neuts Cancelled 01/16/22 03:12 Lymphocytes # (Manual) Cancelled 01/16/22 03:12 Prolymphocyte # Cancelled 01/16/22 03:12 Reactive Lymphs # Cancelled 01/16/22 03:12 Total Abs Lymphocytes Cancelled 01/16/22 03:12 Monocytes # (Manual) Cancelled 01/16/22 03:12 Eosinophils # (Manual) Cancelled 01/16/22 03:12 Basophils # (Manual) Cancelled 01/16/22 03:12 Metamyelocytes # (Man) Cancelled 01/16/22 03:12 Myelocytes # (Manual) Cancelled 01/16/22 03:12 Promyelocytes # (Man) Cancelled 01/16/22 03:12 Blast Cells # (Man) Cancelled 01/16/22 03:12 Plasma Cell # (Manual) Cancelled 01/16/22 03:12 Other Cells # Cancelled 01/16/22 03:12 Nucleated RBCs # (Man) Cancelled 01/16/22 03:12 Hypersegmented Neuts Cancelled 01/16/22 03:12 Hyposegmented Neuts Cancelled 01/16/22 03:12 Hypogranular Neuts Cancelled 01/16/22 03:12 Large Granular Lymphs Cancelled 01/16/22 03:12 # Lrg Granular Lymphs Cancelled 01/16/22 03:12 Hairy Cells Cancelled 01/16/22 03:12 Smudge Cells Cancelled 01/16/22 03:12 Toxic Granulation Cancelled 01/16/22 03:12 Toxic Vacuolation Cancelled 01/16/22 03:12 Dohle Bodies Cancelled 01/16/22 03:12 Lesley Rods Cancelled 01/16/22 03:12 Platelet Estimate Decreased (Normal) L 01/16/22 04:05 Hypogranular Platelets Cancelled 01/16/22 03:12 Clumped Platelets Cancelled 01/16/22 03:12 Giant Platelets Cancelled 01/16/22 03:12 Platelet Satelliting Cancelled 01/16/22 03:12 RBC Morphology Cancelled 01/16/22 03:12 Polychromasia Cancelled 01/16/22 03:12 Hypochromasia Cancelled 01/16/22 03:12 Poikilocytosis Cancelled 01/16/22 03:12 Basophilic Stippling Cancelled 01/16/22 03:12 Anisocytosis Cancelled 01/16/22 03:12 Microcytosis Cancelled 01/16/22 03:12 Macrocytosis Cancelled 01/16/22 03:12 Spherocytes Cancelled 01/16/22 03:12 Pappenheimer Bodies Cancelled 01/16/22 03:12 Sickle Cells Cancelled 01/16/22 03:12 Target Cells Cancelled 01/16/22 03:12 Tear Drop Cells Cancelled 01/16/22 03:12 Ovalocytes Cancelled 01/16/22 03:12 Stomatocytes Cancelled 01/16/22 03:12 [place] Bodies Cancelled 01/16/22 03:12 Echinocytes 3+ 01/18/22 06:29 Acanthocytes (Spur) Cancelled 01/16/22 03:12 Rouleaux Cancelled 01/16/22 03:12 RBC Agglutinates Cancelled 01/16/22 03:12 Schistocytes Cancelled 01/16/22 03:12 Sezary Cell Cancelled 01/16/22 03:12 PT 15.7 Seconds (9.0-12.0) H 01/24/22 05:57 INR 1.5 (0.9-1.1) H 01/24/22 05:57 Sodium 143 mmol/L (136-145) 01/24/22 06:01 Potassium 3.5 mmol/L (3.5-5.1) 01/24/22 06:01 Chloride 113 mmol/L (98-107) H 01/24/22 06:01 Carbon Dioxide 22 mmol/L (21-32) 01/24/22 06:01 Anion Gap 8 (3-11) 01/24/22 06:01 BUN 34 mg/dl (6-23) H 01/24/22 06:01 Creatinine 2.75 mg/dl (0.6-1.2) H D 01/24/22 06:01 Est Cr Clr Drug Dosing 21.5 ml/min 01/24/22 06:01 Est GFR ( Amer) 19.1 ml/min 01/24/22 06:01 Est GFR (Non-Af Amer) 16.4 ml/min 01/24/22 06:01 BUN/Creatinine Ratio 12.4 (10-20) 01/24/22 06:01 Glucose 92 mg/dl (70-99(Fasting)) 01/24/22 06:01 Estimat Average Glucose 117 mg/dl 01/16/22 04:05 Hemoglobin A1c 5.7 % (4.5-5.6) H 01/16/22 04:05 Lactate 0.9 mmol/L (0.4-2.0) 01/17/22 17:12 Calcium 7.6 mg/dl (8.5-10.1) L 01/24/22 06:01 Phosphorus 3.6 mg/dl (2.5-4.9) 01/24/22 06:01 Magnesium 1.6 mg/dl (1.7-2.4) L 01/24/22 06:01 Total Bilirubin 0.3 mg/dl (0.2-1.0) 01/19/22 08:46 Direct Bilirubin 0.1 mg/dl (0-0.2) 01/16/22 04:05 AST 26 U/L (13-39) 01/19/22 08:46 ALT 21 U/L (7-52) 01/19/22 08:46 Alkaline Phosphatase 92 U/L (34-104) 01/19/22 08:46 Total Creatine Kinase 830 U/L (26-192) H 01/17/22 17:12 Troponin I High Sens 29.3 pg/ml (0-14) H 01/16/22 06:47 Total Protein 5.5 gm/dl (6.0-8.3) L 01/19/22 08:46 Albumin 2.7 gm/dl (3.4-5.0) L 01/19/22 08:46 Globulin 2.8 gm/dl (2.5-4.0) 01/19/22 08:46 Albumin/Globulin Ratio 1.0 (0.9-2) 01/19/22 08:46 Procalcitonin 22.35 ng/ml (0-0.5) H 01/17/22 01:06 TSH 1.046 uIu/ml (0.300-4.500) 01/16/22 04:05 Urine Color Yellow 01/16/22 06:25 Urine Appearance Turbid (Clear) A 01/16/22 06:25 Urine pH 5.0 (4.5-7.5) 01/16/22 06:25 Ur Specific [place] 1.018 (1.000-1.030) 01/16/22 06:25 Urine Protein 3+ (Negative) H 01/16/22 06:25 Urine Glucose (UA) Negative (Negative) 01/16/22 06:25 Urine Ketones Negative (Negative) 01/16/22 06:25 Urine Blood 3+ (Negative) H 01/16/22 06:25 Urine Nitrite Negative (Negative) 01/16/22 06:25 Urine Bilirubin Negative (Negative) 01/16/22 06:25 Urine Urobilinogen Negative (Negative) 01/16/22 06:25 Ur Leukocyte Esterase 2+ (Negative) H 01/16/22 06:25 Urine WBC (Auto) >30 /hpf (0-5) H 01/16/22 06:25 Urine RBC (Auto) 5-10 /hpf (0-4) H 01/16/22 06:25 U Hyaline Cast (Auto) >30 /lpf (0-5) H 01/16/22 06:25 U Epithel Cells (Auto) >30 /lpf (0-5) H 01/16/22 06:25 Urine Bacteria (Auto) 3+ (Negative) H 01/16/22 06:25 Ur Renal Epithelial Cell 0-5 /lpf (0-5) 01/16/22 06:25 Granular Casts 5-10 /lpf (0) H 01/16/22 06:25 Stl C. cayetanensis PCR Not Detected (NotDetected) 01/16/22 05:50 Stool Rotavirus A PCR Not Detected (NotDetected) 01/16/22 05:50 Stl Adenov F 40/41 PCR Not Detected (NotDetected) 01/16/22 05:50 Stool Astrovirus (PCR) Not Detected (NotDetected) 01/16/22 05:50 Stool Campylobacter PCR Not Detected (NotDetected) 01/16/22 05:50 Stool Cryptosporidium PCR Not Detected (NotDetected) 01/16/22 05:50 Stl E.coli Shiga Tox PCR Not Detected (NotDetected) 01/16/22 05:50 Stl Enterotoxigenic E PCR Not Detected (NotDetected) 01/16/22 05:50 Stool EPEC (PCR) Not Detected (NotDetected) 01/16/22 05:50 Stool EAEC (PCR) Not Detected (NotDetected) 01/16/22 05:50 Stl E. histolytica PCR Not Detected (NotDetected) 01/16/22 05:50 Stool Giardia Lamblia PCR Not Detected (NotDetected) 01/16/22 05:50 Stool Salmonella PCR Not Detected (NotDetected) 01/16/22 05:50 Stool Sapovirus (PCR) Not Detected (NotDetected) 01/16/22 05:50 Stl P. shigelloides PCR Not Detected (NotDetected) 01/16/22 05:50 Stl Shigella/EIEC PCR Not Detected (NotDetected) 01/16/22 05:50 St Y.enterocolitica PCR Not Detected (NotDetected) 01/16/22 05:50 Stool Vibrio (PCR) Not Detected (NotDetected) 01/16/22 05:50 Stl Vibrio cholerae PCR Not Detected (NotDetected) 01/16/22 05:50 Stl Norovirus GI/GII PCR Not Detected (NotDetected) 01/16/22 05:50 Phenytoin 5.1 mcg/ml (10-20) L 01/16/22 06:47 SARS-CoV-2 (PCR) NEGATIVE (Negative) 01/16/22 03:30 Enterobacterales (PCR) DETECTED (NotDetected) A 01/16/22 04:29 E. coli (PCR) DETECTED (NotDetected) A 01/16/22 04:29 Influenza Type A (PCR) Negative (Neg) 01/16/22 03:30 Influenza Type B (PCR) Negative (Neg) 01/16/22 03:30 RSV (RT-PCR) Negative (Neg) 01/16/22 03:30 mcr-1 [place] Res Gene PCR Not Detected (NotDetected) 01/16/22 04:29 blaIMP Car res Gene PCR Not Detected (NotDetected) 01/16/22 04:29 KPC-Carbap Res Gene PCR Not Detected (NotDetected) 01/16/22 04:29 blaNDM Car Res Gene PCR Not Detected (NotDetected) 01/16/22 04:29 OXA-48 Carbapenem Resis Gene (PCR) Not Detected (NotDetected) 01/16/22 04:29 blaVIM Car Res Gene PCR Not Detected (NotDetected) 01/16/22 04:29 CTX-M Gene Resistance (PCR) Not Detected (NotDetected) 01/16/22 04:29 Bld Cult ID Panel PCR See PCR Comment (NotDetected) 01/16/22 04:29 Blood Parasites ID Cancelled 01/16/22 03:12 Impressions Renal Ultrasound 01/17/22 07:00 US renal/blad retro comp CLINICAL HISTORY: renal failure TECHNIQUE: Multiple sonographic real-time images of the kidneys and bladder were obtained. COMPARISON: None available at the time of this dictation. FINDINGS: The right kidney measures 11.8 cm in length, and the left kidney measures 9.8 cm in length. The right kidney is normal in size, contour, cortical thickness, and echogenicity. No hydronephrosis is identified. No renal lesion is identified. No perinephric fluid collection is seen. The left kidney is normal in size, contour, cortical thickness and echogenicity. No hydronephrosis is identified. No renal lesion is identified. No perinephric fluid collection is seen. A [place] catheter is not well visualized by ultrasound. A right adnexal mass is seen measuring 6.4 x 6.8 x 6.7 cm. Patient is status post hysterectomy. IMPRESSION: 1. No evidence of hydronephrosis. 2. Incidental note is made of a right adnexal mass measuring up to 6.8 cm. Correlation with outside imaging, if available, is recommended. ACT 112: Negative or not required by law. Electronically signed by: Benny Gill M.D. 01/17/2022 12:47 PM Chest X-Ray 01/18/22 13:47 XR chest 1V portable CLINICAL HISTORY: Shortness of breath. COMPARISON STUDY: Chest radiograph January 17, 2022. Chest CT August 07, 2017. FINDINGS: Elevation of the right hemidiaphragm is unchanged from earlier exams. Cardiomegaly is noted. There is no evidence for pulmonary edema. Bibasilar opacities are present. No pneumothorax or pleural effusion is identified. IMPRESSION: 1. Bibasilar opacities which could reflect consolidation or atelectasis. 2. Cardiomegaly without evidence for pulmonary edema. ACT 112: Negative or not required by law. Electronically signed by: Antonio Garcia M.D. 01/18/2022 2:41 PM Medications Administered Current Inpatient Medications Acetaminophen (Acetaminophen 325 Mg Tab) 650 mg PO Q4H PRN PRN Reason: Pain or Fever Stop: 02/15/22 09:41 Last Admin: 01/20/22 15:52 Dose: 650 mg Aspirin (Aspirin 81 Mg Ectab) [facility] Stop: 02/15/22 08:59 Last Admin: 01/24/22 08:27 Dose: 81 mg Atorvastatin Calcium (Atorvastatin 40 Mg Tab) [facility] Stop: 02/15/22 09:41 Last Admin: 01/24/22 08:27 Dose: 40 mg Carvedilol (Carvedilol 12.5 Mg Tab) 12.5 mg PO BID [facility] Stop: 02/19/22 20:59 Last Admin: 01/24/22 08:24 Dose: 12.5 mg Ciprofloxacin (Ciprofloxacin 500 Mg Tab) 500 mg PO BID [facility]; Protocol Stop: 01/30/22 21:59 Last Admin: 01/24/22 08:24 Dose: 500 mg Promethazine HCl 12.5 mg/ (Sodium Chloride) 50.5 mls @ 202 mls/hr IV Q6H PRN PRN Reason: Nausea And Vomiting Stop: 02/15/22 05:52 Ipratropium [place] (Ipratropium [place] Nasal [place] 0.06% 15ml) 2 sprays NA BID PRN PRN Reason: Nasal Congestion Stop: 02/15/22 06:02 Lactobacillus Acidophilus (Advanced Probiotic 1250 Mg Capsule) 2 cap PO DAILY [facility] Stop: 02/16/22 08:59 Last Admin: 01/24/22 08:27 Dose: 2 cap Loperamide HCl (Loperamide Hcl 2 Mg Cap) 2 mg PO Q6 PRN PRN Reason: diarrhea Stop: 02/17/22 13:58 Loratadine (Loratadine 10 Mg Tab) 10 mg PO DAILY [facility] Stop: 02/15/22 08:59 Last Admin: 01/24/22 08:27 Dose: 10 mg Lorazepam (Lorazepam 0.5 Mg Tab) 0.5 mg PO TID PRN PRN Reason: Anxiety Stop: 02/15/22 05:52 Magnesium Oxide (Magnesium Oxide 400 Mg Tab) 400 mg PO TID [facility] Stop: 01/25/22 08:59 Last Admin: 01/24/22 10:52 Dose: 400 mg Oxycodone HCl (Oxycodone Hcl Ir 5 Mg Tab (Immediate Release)) 5 mg PO Q4H PRN PRN Reason: Pain Stop: 01/30/22 05:52 Phenytoin Sodium (Phenytoin Sodium Er 100 Mg Cap) 100 mg PO QAM [facility] Stop: 02/15/22 08:29 Last Admin: 01/24/22 08:27 Dose: 100 mg Phenytoin Sodium (Phenytoin Sodium Er 100 Mg Cap) 200 mg PO QPM [facility] Stop: 02/15/22 20:59 Last Admin: 01/23/22 19:55 Dose: 200 mg Simethicone (Simethicone 80 Mg Chew) 80 mg PO Q6H PRN PRN Reason: bloating, dypepsia Stop: 02/17/22 13:51 Last Admin: 01/18/22 17:13 Dose: 80 mg Valacyclovir HCl (Valacyclovir Hcl 500 Mg Tablet) 1,000 mg PO DAILY [facility] Stop: 01/30/22 11:29 Last Admin: 01/24/22 08:26 Dose: 1,000 mg Warfarin Sodium (Warfarin Sod 2.5 Mg Tab) 2.5 mg PO DAILY@1600 [facility] Stop: 02/21/22 15:59
[2022-01-24] MEDS: WARFARIN SOD 2.5 MG TAB PO SCH (16:48)
[2022-01-25 06:32] LABS: Hematocrit (blood only) 34.1 % (34.1-44.9); Hemoglobin 11.3 g/dl (12.0-16.0); Mean Corpuscular Hemoglobin 30.8 pg (25.0-34.0); Mean Corpuscular Hgb Conc 33.1 g/dL (32.0-36.0); Mean Corpuscular Volume 92.9 fL (80.0-100.0); Mean Platelet Volume 9.4 fL (9.4-12.3); Platelet Count 316 K/uL (130-400); RDW Coefficient of Variation 14.1 % (11.5-14.5); RDW Standard Deviation 48.3 fL (36.4-46.3); Red Blood Count 3.67 M/uL (3.93-5.22); White Blood Count 11.26 K/ul (4.8-10.8)
[2022-01-25 06:40] LABS: INR 1.2 (0.9-1.1); Prothrombin Time 12.6 Seconds (9.0-12.0)
[2022-01-25 06:54] LABS: Albumin Level 2.9 gm/dl (3.4-5.0); BUN Creatinine Ratio 12.1 (10-20); Bilirubin,Total 0.4 mg/dl (0.2-1.0); Calcium 7.8 mg/dl (8.5-10.1); Creatinine Clr Calc Pharmacy 23.8 ml/min; Est GFR (African American) 21.6 ml/min; Est GFR (Non-African American) 18.6 ml/min; Magnesium 1.5 mg/dl (1.7-2.4); Phosphorus 3.2 mg/dl (2.5-4.9); Total Protein 5.9 gm/dl (6.0-8.3)
[2022-01-25] MEDS: ADVANCED PROBIOTIC 1250 MG CAPSULE PO SCH (07:52)
[2022-01-25] MEDS: valACYclovir HCL 500 MG TABLET PO SCH (07:53)
[2022-01-25] MEDS: ASPIRIN 81 MG ECTAB PO SCH (07:53)
[2022-01-25] MEDS: CIPROFLOXACIN 500 MG TAB PO SCH (07:53)
[2022-01-25] MEDS: PHENYTOIN SODIUM ER 100 MG CAP PO SCH (07:53)
[2022-01-25] MEDS: carvediloL 12.5 MG TAB PO SCH (07:54)
[2022-01-25] MEDS: LORATADINE 10 MG TAB PO SCH (07:54)
[2022-01-25] MEDS: ATORVASTATIN 40 MG TAB PO SCH (07:54)
[2022-01-25] MEDS ORDERED: MAGNESIUM SULFATE / D5W 1 GM/100 ML BAG IV ONE (09:20)
--- NOTE | 2022-01-25 10:26 | Nephrology Progress Note ---
Date of Service January 25, 2022 Assessment & Plan Admission and Anticipated Discharge Date Admission Date: January 16, 2022 Subjective Assessment & Plan (1) MADELIN (acute kidney injury): Plan: Nonoliguric ischemic ATN from hypotension in the setting of E coli bacteremia and sepsis. baseline creatinine 0.9. Creat been trending down every day making good urine and Good vital signs. daily bmp, cbc cont strict I/O No need of dialysis. Should gradually improve from now on. Give total of 3 gm iv mag today--low mag from Diarrhea labs--reviewed and improved. mag low creat down Subjective no interval events.Making urine. Labs better. BP not low. Review of Systems Review of Systems: All systems reviewed & are unremarkable except as noted in Subjective Physical Exam Constitutional: well developed, well nourished and + obese; no acute distress Eyes: EOM intact bilaterally ENMT: Ears: no external ear abnormality Nose: no external nose abnormality Mouth: + dry oral mucous membranes Neck: no nuchal rigidity Respiratory: normal respiratory effort, able to speak in complete sentences and + paradoxical thoraco-abdominal movement; no labored breathing Auscultation: + diminished lung sounds Cardiovascular: Rate/Rhythm: regular rate and regular rhythm Extremities: + edema (trace BLE) Gastrointestinal (Abdomen): Inspection/Auscultation: normal bowel sounds Percussion/Palpation: abdomen soft; abdomen nontender Musculoskeletal: Extremities: No edema Skin: no rashes, warm and dry Psychiatric: Orientation: oriented to person, oriented to place and cooperative Speech: normal rate/rhythm/volume of speech Results & Data ([facility]) Vital Signs (Past 12 Hours) Vital Signs Temp Pulse Pulse Resp BP Pulse Ox O2 Del Method 01/25/22 09:31 Room Air 01/25/22 07:00 75 01/25/22 07:59 36.6 C 73 18 152/78 H 96 Room Air 01/25/22 03:26 36.7 C 83 18 135/78 91 Room Air
[2022-01-25] MEDS: MAGNESIUM SULFATE / D5W 1 GM/100 ML BAG IV SCH ×2 (12:28→14:32)
[2022-01-25] MEDS: WARFARIN SOD 2.5 MG TAB PO SCH (15:33)
--- NOTE | 2022-01-26 09:15 | Discharge Summary ---
Date of Service January 25, 2022 Admission Exam Per Admitting Provider GENERAL: uncomfortable, obese, pleasant, no respiratory distress SKIN: Normal color, warm HEENT: [place] palpebral conjunctivae, no ptosis, dry buccal mucosa NECK : Supple, short neck, no tenderness CHEST : Decreased breath sounds, no tenderness HEART : RRR, no obvious murmurs ABDOMEN: Some distention, nontender EXTREMITIES : Minimal LE swelling, no LE tenderness, no other conspicuous deformities noted NEUROLOGIC : Coherent, no facial asymmetry, gait and stance not assessed Principal Diagnosis Gram-negative bacteremia: Urinary tract infection Shingles: History of deep vein thrombosis and MADELIN (acute kidney injury): Diarrhea: (HFpEF) heart failure with preserved ejection fraction: Adnexal mass: HLD (hyperlipidemia): Seizure disorder: Hypertension: Discharge Exam General Appearance:Obese, no apparent distress Head: normocephalic, Atraumatic Eyes: normal inspection, EOMI Neck: supple, Trachea midline Respiratory/Chest: Decreased breath sounds, CTAB, No accessory muscle use Cardiovascular: S1, S2, No murmur Abdomen/GI:Soft, Non tender, Bowel sounds present Extremities/Musculoskeletal:normal inspection, no LE edema. small rash with vesicles at different stages on left buttock Neurologic/Psych:AAOX3, grossly no focal neurological deficits, hearing impairment Skin: normal color, warm Discharge Data Allergies Allergy/AdvReac Type Severity Reaction Status Date / Time No Known Allergies Allergy Unknown Verified 11/02/21 08:20 Consultations 01/17/22 08:37 Consult Nephrology Routine 01/17/22 12:00 Consult Urology Routine 01/17/22 16:48 Consult Fire Protection Equipment Technician Routine Ordered Studies 01/17/22 07:00 US renal/blad retro comp Routine Laboratory Results WBC 11.26 K/ul (4.8-10.8) H 01/25/22 05:57 RBC 3.67 M/uL (3.93-5.22) L 01/25/22 05:57 Hgb 11.3 g/dl (12.0-16.0) L 01/25/22 05:57 Hct 34.1 % (34.1-44.9) 01/25/22 05:57 MCV 92.9 fL (80.0-100.0) 01/25/22 05:57 MCH 30.8 pg (25.0-34.0) 01/25/22 05:57 MCHC 33.1 g/dL (32.0-36.0) 01/25/22 05:57 RDW Std Deviation 48.3 fL (36.4-46.3) H 01/25/22 05:57 RDW Coeff of Benny 14.1 % (11.5-14.5) 01/25/22 05:57 Plt Count 316 K/uL (130-400) 01/25/22 05:57 MPV 9.4 fL (9.4-12.3) 01/25/22 05:57 Immature Gran % (Auto) 1.4 % 01/21/22 06:25 Neut % (Auto) 67.0 % 01/21/22 06:25 Lymph % (Auto) 15.2 % 01/21/22 06:25 Coffee % (Auto) 12.0 % 01/21/22 06:25 Eos % (Auto) 3.9 % 01/21/22 06:25 Baso % (Auto) 0.5 % 01/21/22 06:25 Neut # (Auto) 6.74 K/uL (1.4-6.5) H 01/21/22 06:25 Lymph # (Auto) 1.53 K/uL (1.2-3.4) 01/21/22 06:25 Coffee # (Auto) 1.21 K/uL (0.24-0.82) H 01/21/22 06:25 Eos # (Auto) 0.39 K/uL (0-0.50) 01/21/22 06:25 Baso # (Auto) 0.05 K/uL (0-0.2) 01/21/22 06:25 Immature Gran # (Auto) 0.14 K/uL (0.00-0.02) H 01/21/22 06:25 Absolute Nucleated RBC Cancelled 01/16/22 03:12 Nucleated RBC % (auto) Cancelled 01/16/22 03:12 Neutrophils % (Manual) Cancelled 01/16/22 03:12 Band Neutrophils % Cancelled 01/16/22 03:12 Lymphocytes % (Manual) Cancelled 01/16/22 03:12 Prolymphocyte % Cancelled 01/16/22 03:12 Reactive Lymphs % (Man) Cancelled 01/16/22 03:12 Monocytes % (Manual) Cancelled 01/16/22 03:12 Eosinophils % (Manual) Cancelled 01/16/22 03:12 Basophils % (Manual) Cancelled 01/16/22 03:12 Metamyelocytes % (Man) Cancelled 01/16/22 03:12 Myelocytes % (Man) Cancelled 01/16/22 03:12 Promyelocytes % (Man) Cancelled 01/16/22 03:12 Blast Cells % (Manual) Cancelled 01/16/22 03:12 Plasma Cell % (Manual) Cancelled 01/16/22 03:12 Other Cells % Cancelled 01/16/22 03:12 Nucleated RBC % Cancelled 01/16/22 03:12 Neutrophils # (Manual) Cancelled 01/16/22 03:12 Band Neutrophils # Cancelled 01/16/22 03:12 Total Absolute Neuts Cancelled 01/16/22 03:12 Lymphocytes # (Manual) Cancelled 01/16/22 03:12 Prolymphocyte # Cancelled 01/16/22 03:12 Reactive Lymphs # Cancelled 01/16/22 03:12 Total Abs Lymphocytes Cancelled 01/16/22 03:12 Monocytes # (Manual) Cancelled 01/16/22 03:12 Eosinophils # (Manual) Cancelled 01/16/22 03:12 Basophils # (Manual) Cancelled 01/16/22 03:12 Metamyelocytes # (Man) Cancelled 01/16/22 03:12 Myelocytes # (Manual) Cancelled 01/16/22 03:12 Promyelocytes # (Man) Cancelled 01/16/22 03:12 Blast Cells # (Man) Cancelled 01/16/22 03:12 Plasma Cell # (Manual) Cancelled 01/16/22 03:12 Other Cells # Cancelled 01/16/22 03:12 Nucleated RBCs # (Man) Cancelled 01/16/22 03:12 Hypersegmented Neuts Cancelled 01/16/22 03:12 Hyposegmented Neuts Cancelled 01/16/22 03:12 Hypogranular Neuts Cancelled 01/16/22 03:12 Large Granular Lymphs Cancelled 01/16/22 03:12 # Lrg Granular Lymphs Cancelled 01/16/22 03:12 Hairy Cells Cancelled 01/16/22 03:12 Smudge Cells Cancelled 01/16/22 03:12 Toxic Granulation Cancelled 01/16/22 03:12 Toxic Vacuolation Cancelled 01/16/22 03:12 Dohle Bodies Cancelled 01/16/22 03:12 Lesley Rods Cancelled 01/16/22 03:12 Platelet Estimate Decreased (Normal) L 01/16/22 04:05 Hypogranular Platelets Cancelled 01/16/22 03:12 Clumped Platelets Cancelled 01/16/22 03:12 Giant Platelets Cancelled 01/16/22 03:12 Platelet Satelliting Cancelled 01/16/22 03:12 RBC Morphology Cancelled 01/16/22 03:12 Polychromasia Cancelled 01/16/22 03:12 Hypochromasia Cancelled 01/16/22 03:12 Poikilocytosis Cancelled 01/16/22 03:12 Basophilic Stippling Cancelled 01/16/22 03:12 Anisocytosis Cancelled 01/16/22 03:12 Microcytosis Cancelled 01/16/22 03:12 Macrocytosis Cancelled 01/16/22 03:12 Spherocytes Cancelled 01/16/22 03:12 Pappenheimer Bodies Cancelled 01/16/22 03:12 Sickle Cells Cancelled 01/16/22 03:12 Target Cells Cancelled 01/16/22 03:12 Tear Drop Cells Cancelled 01/16/22 03:12 Ovalocytes Cancelled 01/16/22 03:12 Stomatocytes Cancelled 01/16/22 03:12 [place] Bodies Cancelled 01/16/22 03:12 Echinocytes 3+ 01/18/22 06:29 Acanthocytes (Spur) Cancelled 01/16/22 03:12 Rouleaux Cancelled 01/16/22 03:12 RBC Agglutinates Cancelled 01/16/22 03:12 Schistocytes Cancelled 01/16/22 03:12 Sezary Cell Cancelled 01/16/22 03:12 PT 12.6 Seconds (9.0-12.0) H 01/25/22 05:57 INR 1.2 (0.9-1.1) H 01/25/22 05:57 Sodium 142 mmol/L (136-145) 01/25/22 05:57 Potassium 4.0 mmol/L (3.5-5.1) 01/25/22 05:57 Chloride 112 mmol/L (98-107) H 01/25/22 05:57 Carbon Dioxide 23 mmol/L (21-32) 01/25/22 05:57 Anion Gap 7 (3-11) 01/25/22 05:57 BUN 30 mg/dl (6-23) H 01/25/22 05:57 Creatinine 2.48 mg/dl (0.6-1.2) H 01/25/22 05:57 Est Cr Clr Drug Dosing 23.8 ml/min 01/25/22 05:57 Est GFR ( Amer) 21.6 ml/min 01/25/22 05:57 Est GFR (Non-Af Amer) 18.6 ml/min 01/25/22 05:57 BUN/Creatinine Ratio 12.1 (10-20) 01/25/22 05:57 Glucose 87 mg/dl (70-99(Fasting)) 01/25/22 05:57 Estimat Average Glucose 117 mg/dl 01/16/22 04:05 Hemoglobin A1c 5.7 % (4.5-5.6) H 01/16/22 04:05 Lactate 0.9 mmol/L (0.4-2.0) 01/17/22 17:12 Calcium 7.8 mg/dl (8.5-10.1) L 01/25/22 05:57 Phosphorus 3.2 mg/dl (2.5-4.9) 01/25/22 05:57 Magnesium 1.5 mg/dl (1.7-2.4) L 01/25/22 05:57 Total Bilirubin 0.4 mg/dl (0.2-1.0) 01/25/22 05:57 Direct Bilirubin 0.1 mg/dl (0-0.2) 01/16/22 04:05 AST 37 U/L (13-39) 01/25/22 05:57 ALT 26 U/L (7-52) 01/25/22 05:57 Alkaline Phosphatase 116 U/L (34-104) H 01/25/22 05:57 Total Creatine Kinase 830 U/L (26-192) H 01/17/22 17:12 Troponin I High Sens 29.3 pg/ml (0-14) H 01/16/22 06:47 Total Protein 5.9 gm/dl (6.0-8.3) L 01/25/22 05:57 Albumin 2.9 gm/dl (3.4-5.0) L 01/25/22 05:57 Globulin 3.0 gm/dl (2.5-4.0) 01/25/22 05:57 Albumin/Globulin Ratio 1.0 (0.9-2) 01/25/22 05:57 Procalcitonin 22.35 ng/ml (0-0.5) H 01/17/22 01:06 TSH 1.046 uIu/ml (0.300-4.500) 01/16/22 04:05 Urine Color Yellow 01/16/22 06:25 Urine Appearance Turbid (Clear) A 01/16/22 06:25 Urine pH 5.0 (4.5-7.5) 01/16/22 06:25 Ur Specific [place] 1.018 (1.000-1.030) 01/16/22 06:25 Urine Protein 3+ (Negative) H 01/16/22 06:25 Urine Glucose (UA) Negative (Negative) 01/16/22 06:25 Urine Ketones Negative (Negative) 01/16/22 06:25 Urine Blood 3+ (Negative) H 01/16/22 06:25 Urine Nitrite Negative (Negative) 01/16/22 06:25 Urine Bilirubin Negative (Negative) 01/16/22 06:25 Urine Urobilinogen Negative (Negative) 01/16/22 06:25 Ur Leukocyte Esterase 2+ (Negative) H 01/16/22 06:25 Urine WBC (Auto) >30 /hpf (0-5) H 01/16/22 06:25 Urine RBC (Auto) 5-10 /hpf (0-4) H 01/16/22 06:25 U Hyaline Cast (Auto) >30 /lpf (0-5) H 01/16/22 06:25 U Epithel Cells (Auto) >30 /lpf (0-5) H 01/16/22 06:25 Urine Bacteria (Auto) 3+ (Negative) H 01/16/22 06:25 Ur Renal Epithelial Cell 0-5 /lpf (0-5) 01/16/22 06:25 Granular Casts 5-10 /lpf (0) H 01/16/22 06:25 Stl C. cayetanensis PCR Not Detected (NotDetected) 01/16/22 05:50 Stool Rotavirus A PCR Not Detected (NotDetected) 01/16/22 05:50 Stl Adenov F 40/41 PCR Not Detected (NotDetected) 01/16/22 05:50 Stool Astrovirus (PCR) Not Detected (NotDetected) 01/16/22 05:50 Stool Campylobacter PCR Not Detected (NotDetected) 01/16/22 05:50 Stool Cryptosporidium PCR Not Detected (NotDetected) 01/16/22 05:50 Stl E.coli Shiga Tox PCR Not Detected (NotDetected) 01/16/22 05:50 Stl Enterotoxigenic E PCR Not Detected (NotDetected) 01/16/22 05:50 Stool EPEC (PCR) Not Detected (NotDetected) 01/16/22 05:50 Stool EAEC (PCR) Not Detected (NotDetected) 01/16/22 05:50 Stl E. histolytica PCR Not Detected (NotDetected) 01/16/22 05:50 Stool Giardia Lamblia PCR Not Detected (NotDetected) 01/16/22 05:50 Stool Salmonella PCR Not Detected (NotDetected) 01/16/22 05:50 Stool Sapovirus (PCR) Not Detected (NotDetected) 01/16/22 05:50 Stl P. shigelloides PCR Not Detected (NotDetected) 01/16/22 05:50 Stl Shigella/EIEC PCR Not Detected (NotDetected) 01/16/22 05:50 St Y.enterocolitica PCR Not Detected (NotDetected) 01/16/22 05:50 Stool Vibrio (PCR) Not Detected (NotDetected) 01/16/22 05:50 Stl Vibrio cholerae PCR Not Detected (NotDetected) 01/16/22 05:50 Stl Norovirus GI/GII PCR Not Detected (NotDetected) 01/16/22 05:50 Phenytoin 5.1 mcg/ml (10-20) L 01/16/22 06:47 SARS-CoV-2 (PCR) NEGATIVE (Negative) 01/16/22 03:30 Enterobacterales (PCR) DETECTED (NotDetected) A 01/16/22 04:29 E. coli (PCR) DETECTED (NotDetected) A 01/16/22 04:29 Influenza Type A (PCR) Negative (Neg) 01/16/22 03:30 Influenza Type B (PCR) Negative (Neg) 01/16/22 03:30 RSV (RT-PCR) Negative (Neg) 01/16/22 03:30 mcr-1 [place]in Res Gene PCR Not Detected (NotDetected) 01/16/22 04:29 blaIMP Car res Gene PCR Not Detected (NotDetected) 01/16/22 04:29 KPC-Carbap Res Gene PCR Not Detected (NotDetected) 01/16/22 04:29 blaNDM Car Res Gene PCR Not Detected (NotDetected) 01/16/22 04:29 OXA-48 Carbapenem Resis Gene (PCR) Not Detected (NotDetected) 01/16/22 04:29 blaVIM Car Res Gene PCR Not Detected (NotDetected) 01/16/22 04:29 CTX-M Gene Resistance (PCR) Not Detected (NotDetected) 01/16/22 04:29 Bld Cult ID Panel PCR See PCR Comment (NotDetected) 01/16/22 04:29 Blood Parasites ID Cancelled 01/16/22 03:12 Impressions Renal Ultrasound 01/17/22 07:00 US renal/blad retro comp CLINICAL HISTORY: renal failure TECHNIQUE: Multiple sonographic real-time images of the kidneys and bladder were obtained. COMPARISON: None available at the time of this dictation. FINDINGS: The right kidney measures 11.8 cm in length, and the left kidney measures 9.8 cm in length. The right kidney is normal in size, contour, cortical thickness, and echogenicit y. No hydronephrosis is identified. No renal lesion is identified. No perinephric fluid collection is seen. The left kidney is normal in size, contour, cortical thickness and echogenicity. No hydronephrosis is identified. No renal lesion is identified. No perinephric fluid collection is seen. A [place] catheter is not well visualized by ultrasound. A right adnexal mass is seen measuring 6.4 x 6.8 x 6.7 cm. Patient is status post hysterectomy. IMPRESSION: 1. No evidence of hydronephrosis. 2. Incidental note is made of a right adnexal mass measuring up to 6.8 cm. Correlation with outside imaging, if available, is recommended. ACT 112: Negative or not required by law. Electronically signed by: Benny Gill M.D. 01/17/2022 12:47 PM Chest X-Ray 01/18/22 13:47 XR chest 1V portable CLINICAL HISTORY: Shortness of breath. COMPARISON STUDY: Chest radiograph January 17, 2022. Chest CT August 07, 2017. FINDINGS: Elevation of the right hemidiaphragm is unchanged from earlier exams. Cardiomegaly is noted. There is no evidence for pulmonary edema. Bibasilar opacities are present. No pneumothorax or pleural effusion is identified. IMPRESSION: 1. Bibasilar opacities which could reflect consolidation or atelectasis. 2. Cardiomegaly without evidence for pulmonary edema. ACT 112: Negative or not required by law. Electronically signed by: Antonio Garcia M.D. 01/18/2022 2:41 PM Hospital Course (1) Gram-negative bacteremia: - Presented with hypotension, diarrhea - found to have E coli UTI and bacteremia - CXR:No active disease in the chest. - Blood Culture: E coli - Urine culture growing E coli - Repeat blood cultures 01/17/2022 NGTD - Normal lactic acid, elevated procalcitonin - s/p IVF per renal - now stopped - s/p 7 days ceftriaxone - started on ciprofloxacin 500mg BID for additional 7 days - end date to be 01/30/2022 (2) Shingles: - noted on left buttock with vesicles - no pain - started on valacyclovir for 7 days - renally dosed - monitor for improvement - droplet and contact precautions (3) Personal history of DVT (deep vein thrombosis): - 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 - goal INR 2-3 - daily INR while inpatient - no signs of bleeding, vitals stable, hgb stable - discussed with Dr. Mireles about changing to DOAC but contraindication with her seizure medication Phenytoin, so will continue Coumadin - given 2.5mg PO vitamin K for INR 9.6 01/23/2022, Coumadin held --> INR 1.5 01/24/2022 - changed 2.5mg daily for now - resumed 01/24/2022 - INR 1.2 today - Coumadin clinic was notified and will follow the patient on discharge (4) Complicated urinary tract infection: - see plan above (5) MADELIN (acute kidney injury): - in the setting of sepsis with E coli bacteremia and persistent hypotension - Cr continues to rise >3.5, likely representing ATN - renal following - nonoliguric MADELIN - IVF with LR per renal - now stopped - continue to monitor UOP - trend Cr - continues to improve - avoid nephrotoxic medications - case discussed with nephro recommended to check BMP in 1 week - Follow up with nephrology (6) Diarrhea: - unclear etiology but in setting of E coli UTI and bacteremia - abx as above - C diff ordered 01/24/2022 - loperamide prn (7) (HFpEF) heart failure with preserved ejection fraction: - EF 60% with G2DD on TTE 01/2022 - does not appear to be in exacerbation - euvolemic on exam - monitor (8) Adnexal mass: - incidental finding on renal US - right adnexal mass is seen measuring 6.4 x 6.8 x 6.7 cm - will need OBGYN follow up (9) HLD (hyperlipidemia): - continue statin (10) Seizure disorder: - continue phenytoin (11) Hypertension: - hypotension resolved - restart home medications as tolerated - holding ARB in setting of MADELIN/ATN Plan DVT Px: Coumadin - being held for supratherapeutic INR Code Status: Full Code Dispo: Discharge home with home health Total Time Total Time Spent Total Time Spent (In Minutes): 35 minutes Discharge Plan Discharge Items Patient Disposition: Home - Home Health Services Reason For Visit: HYPOTENSION Discharge Diagnosis: Gram-negative bacteremia: Urinary tract infection Shingles: History of deep vein thrombosis and MADELIN (acute kidney injury): Diarrhea: (HFpEF) heart failure with preserved ejection fraction: Adnexal mass: HLD (hyperlipidemia): Seizure disorder: Hypertension: Activity: Resume your previous activity Non-emergency contact: Primary Care Provider, Salary And Wage Administrator and Home Supervisor Call non-emergency contact if: you have any medication questions and your symptoms worsen Follow-up/Referrals: Elle Oakes DO [Primary Care Provider] - (Date & Time 02/01/2022 11:10 AM Provider Elle Oakes DO Department Family Medicine [facility] ) Diet: Heart Healthy Addtl Attending Provider Instructions: You were admitted at [facility] for bacteria in your urine and your blood. You were found to be in acute kidney failure that improved. Follow up with your primary care provider Dr. Oakes 02/01/2022 @ 11:10 AM Elle Oakes DO [facility] Follow up with the coumadin clinic to monitor your PT/INR.( Check INR in 1-2 days). The pharmacist will advise you about the coumadin dose. Coumadin 2.5 mg given today. Follow up with nephrology in 4 to 6 weeks for your renal function It is very important to Follow with OB-MACHINE LEATHER TRIMMER for the right adnexal mass that was found on the renal ultrasound Continue to hold losartan due to elevate creatinine. Your provider will advise you when to resume it Continue monitor your blood pressure and bring your blood pressure log at your next follow up appointment with your provider Check BMP and magnesium in 1 week to monitor your kidney function and electrolytes Complete the course of the antibiotic with Cipro Continue Fall and seizure precaution Pending Studies at Discharge: No Stand-Alone Forms: My [facility], Smoking Cessation Medications and DC Order Prescriptions: New ciprofloxacin HCl 500 mg Tablet 500 mg PO BID 5 Days Qty: 10 0RF valacyclovir 500 mg Tablet 1,000 mg PO DAILY Qty: 4 0RF Advanced Probiotic 625 mg (10 billion cell) Capsule 2 cap PO DAILY Qty: 30 0RF loperamide 2 mg Capsule 2 mg PO Q6 PRN (Reason: diarrhea) Qty: 30 0RF magnesium oxide 400 mg magnesium tablet 400 mg PO BID Qty: 60 0RF Continued phenytoin sodium extended 100 mg capsule 100 mg PO UD Rx Instructions: 1 cap in AM, 2 caps in PM ipratropium bromide 2 spray NA BID PRN (Reason: Nasal Congestion) atorvastatin 20 mg Tablet 40 mg PO QAM carvedilol 12.5 mg Tablet 12.5 mg PO BID Rx Instructions: must administer with a meal/food warfarin 5 mg Tablet 5 mg PO UD Rx Instructions: once @1600. aspirin 81 mg Tablet 81 mg PO QAM loratadine 10 mg Tablet 10 mg PO QAM Discontinued losartan 50 mg Tablet 50 mg PO QAM Discharge Orders: Discharge Order (Routine); Ordered 01/25/22 Ordered By: Eli De La Cruz Admission Data Admit Date/Time: 01/16/22 05:50 Attending Provider: Eli De La Cruz Admit Provider: Christian Villa Primary Care Provider: Elle Oakes Other Providers: Bernie Block ; Quincy Reyna ; Andrea Shannon ; John Velasco [facility] Other Interventions: Discharge Summary Assessment (RN) Last Done: 01/25/22 15:40
== END 2022-01-25 16:00 | disposition home health service (06) | DRG 871 ==
LOC: ED 02:55 → 2S 05:50 → SUATTDRO 05:50 → 2S 09:30 → 2W 01-24 18:17

== ENCOUNTER 2022-03-21 10:05 | Inpatient (IN) ==
[2022-03-21 10:47] LABS: Basophils # (auto) 0.06 K/uL (0-0.2); Basophils % (auto) 0.8 %; Eosinophils # (auto) 0.14 K/uL (0-0.50); Eosinophils % (auto) 1.8 %; Hematocrit (blood only) 38.3 % (34.1-44.9); Hemoglobin 12.7 g/dl (12.0-16.0); Immature Granulocytes # (auto) 0.02 K/uL (0.00-0.02); Immature Granulocytes % (auto) 0.3 %; Lymphocytes # (auto) 1.74 K/uL (1.2-3.4); Lymphocytes % (auto) 22.2 %; Mean Corpuscular Hemoglobin 30.6 pg (25.0-34.0); Mean Corpuscular Hgb Conc 33.2 g/dL (32.0-36.0); Mean Corpuscular Volume 92.3 fL (80.0-100.0); Mean Platelet Volume 10.3 fL (9.4-12.3); Monocytes # (auto) 0.94 K/uL (0.24-0.82); Neutrophils # (auto) 4.94 K/uL (1.4-6.5); Neutrophils % (auto) 62.9 %; Platelet Count 224 K/uL (130-400); RDW Coefficient of Variation 13.4 % (11.5-14.5); RDW Standard Deviation 45.7 fL (36.4-46.3); Red Blood Count 4.15 M/uL (3.93-5.22); White Blood Count 7.84 K/ul (4.8-10.8)
[2022-03-21 11:08] LABS: Albumin Globulin Ratio 0.9 (0.9-2); Albumin Level 3.2 gm/dl (3.4-5.0); BUN Creatinine Ratio 11.9 (10-20); Bilirubin,Total 0.5 mg/dl (0.2-1.0); Calcium 8.6 mg/dl (8.5-10.1); Creatinine Clr Calc Pharmacy 63.2 ml/min; Est GFR (African American) 79.4 ml/min; Est GFR (Non-African American) 68.5 ml/min; Globulin 3.5 gm/dl (2.5-4.0); Potassium 3.8 mmol/L (3.5-5.1); Total Protein 6.7 gm/dl (6.0-8.3)
[2022-03-21] MEDS ORDERED: HYDROmorphone INJ 0.5 MG/0.5 ML SYR IV STA (13:03)
[2022-03-21] MEDS ORDERED: ONDANSETRON INJ 2 MG/ML 2 ML VIAL IV STA (13:03)
[2022-03-21] MEDS: SODIUM CHLORIDE 0.9% 1000ML 1,000 ML IV SCH ×2 (13:17→22:04)
--- NOTE | 2022-03-21 14:05 | Emergency Department Note ---
Impression & Plan Peritonitis, Continuous severe abdominal pain, Pelvic mass ED Provider Note INFORMANT: Patient and ED PROVIDER(S): Froylan Young MD CHIEF COMPLAINT: Abdominal pain PLAN: Disposition: Admitted Condition: Guarded Outpatient prescription management: none Referral: None MEDICAL DECISION MAKING: Patient presented to the emergency department because of abdominal pain. Patient was treated with IV fluids, IV Zofran and IV Dilaudid for pain control. On reassessment she was feeling significantly better. She was recently undergoing procedure for drainage of a cystic mass. I did attempt to obtain the CT imaging results from yesterday however they were unavailable. I did consult with her GI specialist Dr. Jay Reyes and he recommended repeat CT imaging given the patient's discomfort and pain. The patient had an unremarkable CBC and chemistry panel. Patient underwent CT imaging and this was concerning for a large pelvic mass which appears to have ruptured causing peritonitis. Hemorrhage is not ruled out. Patient does have a stable hemoglobin. I discu ssed this with Dr. Jose sherman. Multiple etiologies are possible and he recommended surgical consultation. I did administer IV Zosyn for prophylactic antibiotic coverage. I did discuss this with Dr. Diaz of general surgery. He did evaluate the CT imaging and recommended tertiary care consultation. I discussed the case with [facility] general surgery Dr. Lema. The patient was excepted however they do not have any available beds tonight. He recommended conservative management here until a bed is available and will accept the patient in transfer. He discussed serial CBCs and surgery moderate the patient. I did notify Dr. Diaz and we discussed this in detail. The patient will be admitted by the [facility] hospitalist service. I discussed this with the patient and . They feel very comfortable and are extremely pleased with the treatment provided in the emergency department. They are happy to stay here until [facility] is available. I discussed the case with Ariane Hobson PA-C as well as Dr. Alanis. Patient was evaluated by the [facility] team in the emerge ncy department and admitted for further management. Triage Nursing notes reviewed and agree them. Vital Signs: reviewed and remarkable for no significant abnormalities Prior /Outside records reviewed: none Differential diagnosis: Complication of recent procedure, appendicitis, ovarian cyst, ovarian torsion, ectopic , infections, diverticulitis, UTI, obstruction, mesenteric ischemia, aortic pathology, inflammatory bowel disease, renal colic, PUD, pancreatitis, biliary pathology, as well as other pathologies. Diagnostics, as interpreted by me: ECG: none Cardiac Monitoring: .Cardiac monitoring ordered by me: The patient was placed on continuous cardiac monitoring and observed. It revealed a normal sinus rhythm at 78 beats per minute without ectopy or evidence of dysrhythmia. Medical decision rules: none Imaging studies: CT imaging as discussed above. Large pelvic mass with peritonitis. I refer you to the EMR for further details. HPI: The patient is a 72year old female who presents to the Emergency Room with complaints of severe abdominal pain. It is mostly generalized but seems to be worse in the lower aspect. On March 16 the patient underwent a IR drainage procedure for a large pelvic mass at [facility]. Per her GI physician, Dr. Jay Reyes she had a 10 cm pelvic cyst that was drained by IR. He had gelatinous material expressed and culture and cytology were indeterminate. Patient notes that the pain worsened significantly over the last 24 hours. The patient also notes the following associated symptoms, fatigue. The patient has found no relieving factors. Current pain is rated as 9/10. Pt denies LOC, headache, fevers, chills, diaphoresis, visual changes, neck pain, chest pain, breathing difficulties, nausea, vomiting, back pain, melena, hematochezia, uri nary symptoms, numbness, weakness, lymphadenopathy, rash, or other complaints. PAST MEDICAL HISTORY: See Below, high cholesterol PAST SURGICAL HISTORY: See Below, hysterectomy SOCIAL HISTORY: See Below, HOME MEDICATIONS: See Below ALLERGIES: See Below VITALS: See Below PHYSICAL EXAMINATION: GENERAL: Awake, alert, uncomfortable-appearing, in no distress HENT: Normocephalic, atraumatic. Oropharynx unremarkable. EYES: Normal conjunctiva. Sclera non-icteric. NECK: Inspection normal. Non-tender. Supple. No nuchal rigidity. FROM. No masses. RESPIRATORY: Clear to auscultation. No wheezes. No rales. Normal respiratory effort. CARDIAC: Normal rate. Normal rhythm. No murmurs. No rubs. Extremities warm and well perfused. Pulses equal. No JVD. GI: Soft, non-distended. Diffuse tenderness to palpation. Mild rebound and moderate guarding. No masses. RECTAL: Deferred. MUSCULOSKELETAL: Atraumatic. Chest examination reveals no tenderness. The back is symmetrical on inspection without obvious abnormality. There is no CVA tenderness to palpation. No joint edema. LOWER EXTREMITIES: Calves are equal size bilaterally and non-tender. No edema. No discoloration. NEURO: Normal sensorium. No sensory or motor deficits noted. SKIN: No rash or jaundice noted. CRITICAL CARE: I have personally spent greater than 50 minutes of critical care time in the direct management of this patient. This includes bedside care, interpretation of diagnostic studies, and testing, discussion with consultants, patient, and family members, and other required patient management activities. These minutes are in excess of all separately billable procedures. 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 Hx of bladder repair surgery "bladder tacked" Hx of colonoscopy S/P hip replacement bilat. S/P hysterectomy complete S/P knee replacement rt. Family History Other Breast cancer Diabetes Ovarian cancer Social History Smoking Status: Never smoker Second Hand Exposure: No; Hx Alcohol Use: Yes Alcohol type: beer Hx Substance Use: No Preferred Language: Norwegian Communication Ability: Effective [employer] T[employer] Required: No Beliefs That Will Affect Care: None Current Living Situation: Spouse Feels Safe at Home: Yes Assistive Devices: Cane Allergies Allergies Allergy/AdvReac Type Severity Reaction Status Date / Time No Known Allergies Allergy Unknown Verified 03/21/22 16:03 Home Meds Home Medications Medication Instructions Recorded Confirmed aspirin 81 mg tablet 81 mg PO QAM 10/25/21 03/21/22 carvedilol 12.5 mg tablet 12.5 mg PO BID 10/25/21 03/21/22 loratadine 10 mg tablet 10 mg PO QAM 10/25/21 03/21/22 warfarin 5 mg tablet 5 mg PO FR@1600 10/25/21 03/21/22 phenytoin sodium extended 100 mg 100 mg PO UD 01/16/22 03/21/22 capsule amoxicillin 875 mg-potassium 1 tab PO BID 03/21/22 03/21/22 clavulanate 125 mg tablet atorvastatin 40 mg tablet 40 mg PO QAM 03/21/22 03/21/22 ipratropium bromide 42 mcg (0.06 2 spray intranasal BID PRN Nasal 03/21/22 03/21/22 %) nasal spray Congestion losartan 50 mg tablet 50 mg PO DAILY 03/21/22 03/21/22 valacyclovir 500 mg tablet 1,000 mg PO DAILY PRN .BREAKOUTS 03/21/22 03/21/22 warfarin 5 mg tablet 2.5 mg PO SUMOTUWETHSA@1600 03/21/22 03/21/22 Previous Rx's Medication Instructions Recorded L.acidop,casei,lactis,rham-B.lact,benji 2 cap PO DAILY #30 caps 01/25/22 625 mg (10 billion cell) capsule (Advanced Probiotic) Results & Data (ED) Vital Signs Vital Signs - 24 hr 03/21/22 10:08 03/21/22 12:05 03/21/22 14:00 Temperature 36.8 C Temperature Source Temporal Artery Scan Pulse Rate 85 Pulse Rate [Finger] 83 82 Pulse Rhythm [Finger] Pulse Strength [Finger] Respiratory Rate 18 18 18 Respiratory Effort / Characteristics Non-Labored Spontaneous Non-Labored Respiratory Depth Normal Normal Blood Pressure 147/92 H Blood Pressure [Right Arm] 163/83 H 136/82 Blood Pressure Mean 110 Blood Pressure Mean [Right Arm] 109 100 Blood Pressure Position Sitting Blood Pressure Position [Right Arm] Pulse Oximetry 93 95 97 Oxygen Delivery Method Room Air Room Air Sepsis Recent Fever Within 48 Hours No Sepsis New/Unexplained Change in Mental Status N/A Sepsis Action Taken by Nursing No Action Required 03/21/22 15:19 03/21/22 17:51 Temperature Temperature Source Pulse Rate Pulse Rate [Finger] 87 78 Pulse Rhythm [Finger] Regular Regular Pulse Strength [Finger] Normal Normal Respiratory Rate 18 19 Respiratory Effort / Characteristics Non-Labored Spontaneous Non-Labored Respiratory Depth Normal Normal Blood Pressure Blood Pressure [Right Arm] 137/81 126/79 Blood Pressure Mean Blood Pressure Mean [Right Arm] 99 94 Blood Pressure Position Blood Pressure Position [Right Arm] Lying Lying Pulse Oximetry 97 98 Oxygen Delivery Method Room Air Room Air Sepsis Recent Fever Within 48 Hours Sepsis New/Unexplained Change in Mental Status Sepsis Action Taken by Nursing Laboratory Data 03/21/22 10:33 03/21/22 10:33 Lab Results 03/21/22 03/21/22 03/21/22 Range/Units 10:33 10:33 15:38 WBC 7.84 (4.8-10.8) K/ul RBC 4.15 (3.93-5.22) M/uL Hgb 12.7 (12.0-16.0) g/dl Hct 38.3 (34.1-44.9) % MCV 92.3 (80.0-100.0) fL MCH 30.6 (25.0-34.0) pg MCHC 33.2 (32.0-36.0) g/dL RDW Std Deviation 45.7 (36.4-46.3) fL RDW Coeff of Benny 13.4 (11.5-14.5) % Plt Count 224 (130-400) K/uL MPV 10.3 (9.4-12.3) fL Immature Gran % (Auto) 0.3 % Neut % (Auto) 62.9 % Lymph % (Auto) 22.2 % Bethel % (Auto) 12.0 % Eos % (Auto) 1.8 % Baso % (Auto) 0.8 % Neut # (Auto) 4.94 (1.4-6.5) K/uL Lymph # (Auto) 1.74 (1.2-3.4) K/uL Bethel # (Auto) 0.94 H (0.24-0.82) K/uL Eos # (Auto) 0.14 (0-0.50) K/uL Baso # (Auto) 0.06 (0-0.2) K/uL Immature Gran # (Auto) 0.02 (0.00-0.02) K/uL Sodium 141 (136-145) mmol/L Potassium 3.8 (3.5-5.1) mmol/L Chloride 105 (98-107) mmol/L Carbon Dioxide 31 (21-32) mmol/L Anion Gap 5 (3-11) BUN 10 (6-23) mg/dl Creatinine 0.84 (0.6-1.2) mg/dl Est Cr Clr Drug Dosing 63.2 ml/min Est GFR ( Amer) 79.4 ml/min Est GFR (Non-Af Amer) 68.5 ml/min BUN/Creatinine Ratio 11.9 (10-20) Glucose 98 (70-99(Fasting)) mg/dl Calcium 8.6 (8.5-10.1) mg/dl Total Bilirubin 0.5 (0.2-1.0) mg/dl AST 19 (13-39) U/L ALT 19 (7-52) U/L Alkaline Phosphatase 131 H (34-104) U/L Total Protein 6.7 (6.0-8.3) gm/dl Albumin 3.2 L (3.4-5.0) gm/dl Globulin 3.5 (2.5-4.0) gm/dl Albumin/Globulin Ratio 0.9 (0.9-2) Lipase 11 (11-82) U/L Urine Color Urine Appearance (Clear) Urine pH (4.5-7.5) Ur Specific Neely (1.000-1.030) Urine Protein (Negative) Urine Glucose (UA) (Negative) Urine Ketones (Negative) Urine Blood (Negative) Urine Nitrite (Negative) Urine Bilirubin (Negative) Urine Urobilinogen (Negative) Ur Leukocyte Esterase (Negative) Urine WBC (Auto) (0-5) /hpf Urine RBC (Auto) (0-4) /hpf U Hyaline Cast (Auto) (0-5) /lpf U Epithel Cells (Auto) (0-5) /lpf Urine Bacteria (Auto) (Negative) SARS-CoV-2, RNA, NAAT NEGATIVE (NEGATIVE) 03/21/22 Range/Units 16:10 WBC (4.8-10.8) K/ul RBC (3.93-5.22) M/uL Hgb (12.0-16.0) g/dl Hct (34.1-44.9) % MCV (80.0-100.0) fL MCH (25.0-34.0) pg MCHC (32.0-36.0) g/dL RDW Std Deviation (36.4-46.3) fL RDW Coeff of Benny (11.5-14.5) % Plt Count (130-400) K/uL MPV (9.4-12.3) fL Immature Gran % (Auto) % Neut % (Auto) % Lymph % (Auto) % Bethel % (Auto) % Eos % (Auto) % Baso % (Auto) % Neut # (Auto) (1.4-6.5) K/uL Lymph # (Auto) (1.2-3.4) K/uL Bethel # (Auto) (0.24-0.82) K/uL Eos # (Auto) (0-0.50) K/uL Baso # (Auto) (0-0.2) K/uL Immature Gran # (Auto) (0.00-0.02) K/uL Sodium (136-145) mmol/L Potassium (3.5-5.1) mmol/L Chloride (98-107) mmol/L Carbon Dioxide (21-32) mmol/L Anion Gap (3-11) BUN (6-23) mg/dl Creatinine (0.6-1.2) mg/dl Est Cr Clr Drug Dosing ml/min Est GFR ( Amer) ml/min Est GFR (Non-Af Amer) ml/min BUN/Creatinine Ratio (10-20) Glucose (70-99(Fasting)) mg/dl Calcium (8.5-10.1) mg/dl Total Bilirubin (0.2-1.0) mg/dl AST (13-39) U/L ALT (7-52) U/L Alkaline Phosphatase (34-104) U/L Total Protein (6.0-8.3) gm/dl Albumin (3.4-5.0) gm/dl Globulin (2.5-4.0) gm/dl Albumin/Globulin Ratio (0.9-2) Lipase (11-82) U/L Urine Color Yellow Urine Appearance Clear (Clear) Urine pH 6.5 (4.5-7.5) Ur Specific Neely 1.045 H (1.000-1.030) Urine Protein 3+ H (Negative) Urine Glucose (UA) Negative (Negative) Urine Ketones Negative (Negative) Urine Blood 3+ H (Negative) Urine Nitrite Negative (Negative) Urine Bilirubin Negative (Negative) Urine Urobilinogen Negative (Negative) Ur Leukocyte Esterase Negative (Negative) Urine WBC (Auto) 1-5 (0-5) /hpf Urine RBC (Auto) >30 H (0-4) /hpf U Hyaline Cast (Auto) 1-5 (0-5) /lpf U Epithel Cells (Auto) >30 H (0-5) /lpf Urine Bacteria (Auto) Negative (Negative) SARS-CoV-2, RNA, NAAT (NEGATIVE) Administered Medications Sodium Chloride (Nss 1000ml) 1,000 mls @ 125 mls/hr IV .Q8H MICHAEL Stop: 04/20/22 13:14 Last Admin: 03/21/22 13:17 Dose: 125 mls/hr Documented By: OLEGARIO Discontinued Medications Hydromorphone HCl (Hydromorphone Inj 0.5 Mg/0.5 Ml Syr) 0.5 mg IV NOW STA Stop: 03/21/22 13:04 Last Admin: 03/21/22 13:17 Dose: 0.5 mg Documented By: OLEGARIO Piperacillin Sod/Tazobactam Sod (Zosyn) 4.5 gm in 120 mls @ 240 mls/hr IV NOW ONE Stop: 03/21/22 15:56 Last Infusion: 03/21/22 17:46 Dose: 0 mls/hr Documented By: Admin: 03/21/22 15:39 Dose: 240 mls/hr Documented By: FLORIN Ioversol (Optiray 350 100ml) 88 ml IV ONCE ONE Stop: 03/21/22 14:48 Last Admin: 03/21/22 14:47 Dose: 88 ml Documented By: NITHYA Ondansetron HCl (Ondansetron Inj 2 Mg/Ml 2 Ml Vial) 4 mg IV NOW STA Stop: 03/21/22 13:04 Last Admin: 03/21/22 13:17 Dose: 4 mg Documented By: OLEGARIO Imaging Data Radiologist's Impression: Abdomen/Pelvis CT 03/21/22 13:59 CT OF THE ABDOMEN AND PELVIS WITH CONTRAST CLINICAL HISTORY: Abdominal pain. 10cm cyst in pelvis. drain attempt 03/16 COMPARISON STUDY: Renal ultrasound January 17, 2022. CT of the chest and abdomen November 08, 2008. TECHNIQUE: Following IV administration of 88 mL of Optiray, axial images of the abdomen and pelvis were obtained from the lung bases to the proximal femurs. Images were reviewed in the axial, sagittal, and coronal planes. IV contrast was administered without complication. Automated exposure control was utilized for the study. A dose lowering technique was utilized adhering to the principles of ALARA. CT DOSE: 1640.00 mGy.cm FINDINGS: No pneumatosis, free air or portal venous gas is present. Subpleural right lower lobe opacity suggests atelectasis. There is no pneumatosis, free air or portal venous gas. No hepatic lesions are present. The gallbladder is mildly distended. However, there is no adjacent infiltration. Spleen, adrenal glands, kidneys and pancreas are unremarkable. There is no biliary or pancreatic ductal dilatation. There is no evidence for a bowel obstruction. There is oral contrast within the colon and rectum as well as contrast within the bladder from recent contrast-enhanced CT. Note is made of a tubular masslike abnormality within the right lower quadrant that measures 11.6 x 5.6 cm. This extends toward the cecum. This has peripheral calcification as well as areas of increased attenuation which could reflect enhancement or hemorrhage. There is a moderate amount of adjacent peritoneal fluid with peritoneal enhancement and mild thickening. This fluid is mildly loculated with the largest component measuring 9.7 x 9.5 cm. Mild adjacent stranding. There is no extraluminal gas. Normal-appearing appendix is not visualized. The uterus is surgically absent. Bilateral hip arthroplasty are noted. There is sigmoid diverticulosis without evidence for acute d iverticulitis. Major vasculature is patent. IMPRESSION: 1. 11.6 x 5.6 cm tubular mass-like abnormality within the right lower quadrant, adjacent to the cecum. This has peripheral calcification and areas of increased attenuation which could reflect enhancement or hemorrhage. This is suspicious for a neoplasm. Although nonspecific, a appendiceal mucocele is within the differential. Moderate adjacent loculated fluid suggests lesion rupture. Associated peritoneal thickening is nonspecific and suggests a nonspecific p eritonitis. Surgical consultation is recommended. 2. No bowel obstruction. 3. Gallbladder distention without adjacent infiltration. No convincing evidence for acute cholecystitis. 4. Sigmoid diverticulosis without evidence for acute diverticulitis. ACT 112: Negative or not required by law. Electronically signed by: Antonio Garcia M.D. 03/21/2022 3:29 PM Discharge Plan Visit Data Chief Complaint: Abdominal Pain Stated Complaint: ABDOMINAL PAIN ED Provider: Froylan Young Discharge Problem: Peritonitis, Continuous severe abdominal pain, Pelvic mass Forms Stand Alone Forms: My [facility] Prescriptions Prescriptions: No Action phenytoin sodium extended 100 mg capsule 100 mg PO UD Rx Instructions: 1 cap in AM, 2 caps in PM Advanced Probiotic 625 mg (10 billion cell) Capsule 2 cap PO DAILY Qty: 30 0RF losartan 50 mg tablet 50 mg PO DAILY atorvastatin 40 mg tablet 40 mg PO QAM warfarin 5 mg Tablet 2.5 mg PO SUMOTUWETHSA@1600 ipratropium bromide 42 mcg (0.06 %) spray,non-aerosol 2 spray INTRANASAL BID PRN (Reason: Nasal Congestion) valacyclovir 500 mg tablet 1,000 mg PO DAILY PRN (Reason: .BREAKOUTS) amoxicillin-pot clavulanate 875-125 mg tablet 1 tab PO BID carvedilol 12.5 mg Tablet 12.5 mg PO BID Rx Instructions: must administer with a meal/food warfarin 5 mg Tablet 5 mg PO FR@1600 aspirin 81 mg Tablet 81 mg PO QAM loratadine 10 mg Tablet 10 mg PO QAM Referrals Referrals: Elle Oakes DO [Primary Care Provider] -
[2022-03-21] MEDS ORDERED: OPTIRAY 350 100ml IV ONE (14:47)
[2022-03-21] MEDS ORDERED: PIPERACILLIN/TAZOBACTAM 4.5 GM/120 ML BAG IV ONE (15:27)
--- NOTE | 2022-03-21 15:30 | CT Scan Report ---
CT OF THE ABDOMEN AND PELVIS WITH CONTRAST CLINICAL HISTORY: Abdominal pain. 10cm cyst in pelvis. drain attempt 03/16 COMPARISON STUDY: Renal ultrasound January 17, 2022. CT of the chest and abdomen November 08, 2008. TECHNIQUE: Following IV administration of 88 mL of Optiray, axial images of the abdomen and pelvis we re obtained from the lung bases to the proximal femurs. Images were reviewed in the axial, sagittal, and coronal planes. IV contrast was administered without complication. Automated exposure control wa s utilized for the study. A dose lowering technique was utilized adhering to the principles of ALARA . CT DOSE: 1640.00 mGy.cm FINDINGS: No pneumatosis, free air or portal venous gas is present. Subpleural right lower lobe opaci ty suggests atelectasis. There is no pneumatosis, free air or portal venous gas. No hepatic lesions a re present. The gallbladder is mildly distended. However, there is no adjacent infiltration. Spleen, adrenal glands, kidneys and pancreas are unremarkable. There is no biliary or pancreatic ductal dilat ation. There is no evidence for a bowel obstruction. There is oral contrast within the colon and rect um as well as contrast within the bladder from recent contrast-enhanced CT. Note is made of a tubular masslike abnormality within the right lower quadrant that measures 11.6 x 5.6 cm. This extends towar d the cecum. This has peripheral calcification as well as areas of increased attenuation which could reflect enhancement or hemorrhage. There is a moderate amount of adjacent peritoneal fluid with perit mcbride enhancement and mild thickening. This fluid is mildly loculated with the largest component dionne uring 9.7 x 9.5 cm. Mild adjacent stranding. There is no extraluminal gas. Normal-appearing appendix is not visualized. The uterus is surgically absent. Bilateral hip arthroplasty are noted. There is si gmoid diverticulosis without evidence for acute diverticulitis. Major vasculature is patent. IMPRESSION: 1. 11.6 x 5.6 cm tubular mass-like abnormality within the right lower quadrant, adjacent to the cecum . This has peripheral calcification and areas of increased attenuation which could reflect enhancemen t or hemorrhage. This is suspicious for a neoplasm. Although nonspecific, a appendiceal mucocele is w ithin the differential. Moderate adjacent loculated fluid suggests lesion rupture. Associated periton eal thickening is nonspecific and suggests a nonspecific peritonitis. Surgical consultation is recomm ended. 2. No bowel obstruction. 3. Gallbladder distention without adjacent infiltration. No convincing evidence for acute cholecystit is. 4. Sigmoid diverticulosis without evidence for acute diverticulitis. ACT 112: Negative or not required by law. Electronically signed by: Antonio Garcia M.D. 03/21/2022 3:29 PM
[2022-03-21 16:30] LABS: Appearance Urine Clear (Clear); Bacteria Urine Automated Negative (Negative); Bilirubin Urine Negative (Negative); Blood Urine 3+ (Negative); Color Urine Yellow; Epithelial Cell Urine Auto >30 /lpf (0-5); Glucose Urine UA Negative (Negative); Ketones Urine Negative (Negative); Leukocyte Esterase Urine Negative (Negative); Nitrite Urine Negative (Negative); Protein Urine 3+ (Negative); RBC Urine Automated >30 /hpf (0-4); Specific Gravity Urine 1.045 (1.000-1.030); Urobilinogen Urine Negative (Negative); pH Urine 6.5 (4.5-7.5)
--- NOTE | 2022-03-21 18:35 | History & Physical Report ---
Date of Service March 21, 2022 Assessment & Plan (1) Continuous severe abdominal pain: (2) Pelvic mass: Plan: This is a 72-year-old female with PMH of chronic diastolic heart failure, CKD stage III, hypertension, GERD, seizure disorder, history of DVT/PE on chronic anticoagulation and pelvic mass status post IR drainage on 03/16/2022 presenting with persistent abdominal pain. Was incidentally found to have an intra-abdominal fluid collection with unclear etiology and underwent IR drainage at [facility] on 03/16/22 The material expressed was gelatinous and culture and cytology were indeterminate Patient presents today with worsening lowed abdominal pain x 4 days with intermittent fevers CT abd/pelvis with a 11.6 x 5.6 cm tubular mass-like abnormality within the right lower quadrant, adjacent to the cecum. This has peripheral calcification and areas of increased attenuation which could reflect enhancement or hemorrhage. This is suspicious for a neoplasm. Although nonspecific, a appendiceal mucocele is within the differential. Moderate adjacent loculated fluid suggests lesion rupture. Associated peritoneal thickening is nonspecific and suggests a nonspecific peritonitis Discussed with Dr. Diaz, who recommends transfer to tertiary care facility given complexity. Accepted at [facility] by surgeon Dr. Lema; no bed available at this time VSS, afebrile, no leukocytosis, covering with empiric Zosyn. Keeping NPO, pain control PRN (3) Personal history of DVT (deep vein thrombosis): Plan: Last took coumadin yesterday evening. Holding for now (4) Seizure disorder: Plan: Remote h/o seizure. Dilantin BID (5) Hypertension: Plan: Normotensive. Taking carvedilol 12.5mg BID. No longer taking hctz or losartan (6) HLD (hyperlipidemia): Plan: Continue statin (7) (HFpEF) heart failure with preserved ejection fraction: Plan: Reportedly not taking lasix. Appears euvolemic. Will get admission CXR. Denies any BLE edema DVT Ppx: SCDs Code status: FULL PCP: Violette Dispo: Admitted to [facility] Patient seen in collaboration with Dr. Alanis. Please see addendum. History of Present Illness Chief Complaint: Abdominal pain, postprocedure Primary Care Provider: Elle Oakes, DO This is a 72-year-old female with PMH of chronic diastolic heart failure, CKD stage III, hypertension, GERD, seizure disorder, history of DVT/PE on chronic anticoagulation and pelvic mass status post IR drainage on 03/16/2022 presenting with persistent abdominal pain. Was incidentally found to have an intra- abdominal fluid collection with unclear etiology and scheduled for IR drainage at [facility]. The material expressed was gelatinous and culture and cytology were indeterminate. The day after procedure, patient developed lower abdominal pain worse on the right side that is persisted since then. Pain is constant and aching but becomes sharper when moving or with coughing. Also notes fever with T-max of 100.4, occasional chills and decreased appetite. No lightheadedness, h eadache, chest pain, shortness of breath, nausea, vomiting, dysuria, diarrhea or constipation. Has had a normal bowel movement since procedure. Was started on course of Augmentin yesterday by Dr. Webb and directed to come to ED for further evaluation of abdominal pain. Allergies Allergy/AdvReac Type Severity Reaction Status Date / Time No Known Allergies Allergy Unknown Verified 03/21/22 16:03 Home Medications Medication Instructions Recorded Confirmed Type aspirin 81 mg tablet 81 mg PO QAM 10/25/21 03/21/22 History carvedilol 12.5 mg tablet 12.5 mg PO BID 10/25/21 03/21/22 History loratadine 10 mg tablet 10 mg PO QAM 10/25/21 03/21/22 History warfarin 5 mg tablet 5 mg PO FR@1600 10/25/21 03/21/22 History phenytoin sodium extended 100 mg 100 mg PO UD 01/16/22 03/21/22 History capsule L.acidop,casei,lactis,rham-B.lact,benji 2 cap PO DAILY #30 caps 01/25/22 03/21/22 Rx 625 mg (10 billion cell) capsule (Advanced Probiotic) amoxicillin 875 mg-potassium 1 tab PO BID 03/21/22 03/21/22 History clavulanate 125 mg tablet atorvastatin 40 mg tablet 40 mg PO QAM 03/21/22 03/21/22 History ipratropium bromide 42 mcg (0.06 2 spray intranasal BID PRN Nasal 03/21/22 03/21/22 History %) nasal spray Congestion nystatin 100,000 unit/mL oral 5 ml PO QID 03/21/22 03/21/22 History suspension valacyclovir 500 mg tablet 1,000 mg PO DAILY PRN .BREAKOUTS 03/21/22 03/21/22 History warfarin 5 mg tablet 2.5 mg PO ALVINTLASHAWN@1600 03/21/22 03/21/22 History Past Med/Surg History Medical History (HFpEF) heart failure with preserved ejection fraction Adnexal mass Degenerative joint disease of right hip Difficult Vidales catheter placement HLD (hyperlipidemia) Hypertension Hypomagnesemia 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 Hx of bladder repair surgery "bladder tacked" Hx of colonoscopy S/P hip replacement bilat. S/P hysterectomy complete S/P knee replacement rt. 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 Physical Exam Physical Exam: Please see Dr. Alanis's addendum for physical exam. Results & Data Results & Data ([facility]) Vital Signs (Past 12 Hours) Vital Signs Temp Pulse Pulse Resp BP BP Pulse Ox 03/21/22 17:51 78 19 126/79 98 03/21/22 15:19 87 18 137/81 97 03/21/22 14:00 82 18 136/82 97 03/21/22 12:05 83 18 163/83 H 95 03/21/22 10:08 36.8 C 85 18 147/92 H 93 O2 Del Method 03/21/22 17:51 Room Air 03/21/22 15:19 Room Air 03/21/22 14:00 03/21/22 12:05 Room Air 03/21/22 10:08 Room Air Laboratory Results Short CBC 03/21/22 Range/Units 10:33 WBC 7.84 (4.8-10.8) K/ul Hgb 12.7 (12.0-16.0) g/dl Hct 38.3 (34.1-44.9) % Plt Count 224 (130-400) K/uL BMP 03/21/22 10:33 Sodium 141 Potassium 3.8 Chloride 105 Carbon Dioxide 31 BUN 10 Creatinine 0.84 Glucose 98 Calcium 8.6 Liver Function 03/21/22 Range/Units 10:33 Total Bilirubin 0.5 (0.2-1.0) mg/dl AST 19 (13-39) U/L ALT 19 (7-52) U/L Alkaline Phosphatase 131 H (34-104) U/L Albumin 3.2 L (3.4-5.0) gm/dl Urine 03/21/22 Range/Units 16:10 Urine Color Yellow Urine Appearance Clear (Clear) Urine pH 6.5 (4.5-7.5) Ur Specific [place] 1.045 H (1.000-1.030) Urine Protein 3+ H (Negative) Urine Glucose (UA) Negative (Negative) Diagnostic Findings Abdomen/Pelvis CT 03/21/22 13:59 CT OF THE ABDOMEN AND PELVIS WITH CONTRAST CLINICAL HISTORY: Abdominal pain. 10cm cyst in pelvis. drain attempt 03/16 COMPARISON STUDY: Renal ultrasound January 17, 2022. CT of the chest and abdomen November 08, 2008. TECHNIQUE: Following IV administration of 88 mL of Optiray, axial images of the abdomen and pelvis were obtained from the lung bases to the proximal femurs. Im ages were reviewed in the axial, sagittal, and coronal planes. IV contrast was administered without complication. Automated exposure control was utilized for the study. A dose lowering technique was utilized adhering to the principles of ALARA. CT DOSE: 1640.00 mGy.cm FINDINGS: No pneumatosis, free air or portal venous gas is present. Subpleural right lower lobe opacity suggests atelectasis. There is no pneumatosis, free air or portal venous gas. No hepatic lesions are present. The gallbladder is mildly distended. However, there is no adjacent infiltration. Spleen, adrenal glands, kidneys and pancreas are unremarkable. There is no biliary or pancreatic ductal dilatation. There is no evidence for a bowel obstruction. There is oral contrast within the colon and rectum as well as contrast within the bladder from recent contrast-enhanced CT. Note is made of a tubular masslike abnormality within the right lower quadrant that measures 11.6 x 5.6 cm. This extends toward the cecum. This has peripheral calcification as well as areas of increased attenuation which could reflect enhancement or hemorrhage. There is a moderate amount of adjacent peritoneal fluid with peritoneal enhancement and mild thickening. This fluid is mildly loculated with the largest component measuring 9.7 x 9.5 cm. Mild adjacent stranding. There is no extraluminal gas. Normal-appearing appendix is not visualized. The uterus is surgically absent. Bilateral hip arthroplasty are noted. There is sigmoid diverticulosis without evidence for acute diverticulitis. Major vasculature is patent. IMPRESSION: 1. 11.6 x 5.6 cm tubular mass-like abnormality within the right lower quadrant, adjacent to the cecum. This has peripheral calcification and areas of increased attenuation which could reflect enhancement or hemorrhage. This is suspicious for a neoplasm. Although nonspecific, a appendiceal mucocele is within the differential. Moderate adjacent loculated fluid suggests lesion rupture. Associated peritoneal thickening is nonspecific and suggests a nonspecific peritonitis. Surgical consultation is recommended. 2. No bowel obstruction. 3. Gallbladder distention without adjacent infiltration. No convincing evidence for acute cholecystitis. 4. Sigmoid diverticulosis without evidence for acute diverticulitis. ACT 112: Negative or not required by law. Electronically signed by: Antonio Garcia M.D. 03/21/2022 3:29 PM Supervising Physician Co-Signing Physician Notes I have seen and examined the patient and have discussed the case with the provider above. I agree with the assessment and plan as stated. The patient is a 72 yo F with a possible developing peritonitis who presents two days after attempted IR drainage of a pelvic mass. As noted above, cytology was indeterminate, but noted no specific tumor cells present. She has no symptoms prior to the drainage, and it was read as a fluid filled mass which appears to be why IR drainage was attempted. She currently has a sharp lower abdominal pain worse on the right but present bilaterally. She is wearing a small amount of supplemental oxygen but denies shortness of breath or respiratory symptoms. She is denying chest pain. She reports some recent fevers and chills with normal BMs and decreased appetite. Physical exam reveals a hemodynamically stable obese female in NAD. Normal respiratory effort and lungs are clear to auscultation throughout. Cardiac exam reveals S1/2 heard with no murmurs, gallops or rubs and there is no peripheral edema. Abdomen is TTP in RLQ>LLQ and there is no tenderness in the upper abdomen. Nondistended abdomen. Extremities are warm and well perfused and there is no gross focal neuromuscular deficits. HEENT exam also unremarkable. Workup reveals abdomen and pelvis CT with contrast revealed 11.6 x 5.6 tubular masslike abnormality in the right lower quadrant adjacent to the cecum. This is suspicious for neoplasm with peritoneal thickening nonspecific and suggest peritonitis. She has no elevation in white count and a normal CBC. Chemistry is normal. Urine appears concentrated with evidence of blood and protein. There is no evidence of infection. EKG and CXR pending. 1. Pelvic mass 2. abdominal pain 2/2 possible developing peritonitis 3. h/o DVT on coumadin (last had PE in 2018)-chronically on coumadin 72 yo patient with ruptured pelvic mass presents with abdominal pain likely related to developing peritonitis. Per urgent surgical consultation, this patient needs to be transferred to a tertiary care. She has been accepted at [facility] but there is currently no bed available. She will continue on zosyn as noted above and will continue to monitor her closely on telemetry. For now will hold warfarin in preparation for possible upcoming surgical procedure. DO Zeke
--- NOTE | 2022-03-21 19:46 | Surgery Consultation ---
Date of Consultation March 21, 2022 Assessment & Plan (1) Pelvic mass: Plan 72-year-old woman with what appears to be a ruptured appendiceal mucocele. 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 Apparently a drainage procedure was attempted on . Large amount of mucin was returned. There did not appear to be any tumor cells contained within the mucin, however the specimen was considered nondiagnostic. On CT scan today, it appears that the mass is ruptured, spilling mucin into her abdominal cavity. She has fairly significant abdominal pain, but white count is normal, vital signs are normal. She is not in extremis. 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 She has been accepted at [facility], and is awaiting a bed. We will continue to monitor her with serial labs and abdominal exams. History of Present Illness Reason for Consultation: Pelvic mass, possible perforated mucocele/mucinous carcinoma Requesting Physician: MD Zeke Attending Physician: MD Zeke History of Present Illness 72-year-old woman presents with increasing lower abdominal pain. She underwent CT scan as an outpatient for a bladder infection which demonstrated what was characterized as a "fluid collection" in the lower abdomen, abutting the cecum. This past , and interventional radiology drainage procedure was attempted, and gelatinous mucin was returned. This was sent off for pathology evaluation. Since Sunday she has been having increasing abdominal pain in the lower abdomen. She has had a temperature to 100.4. She denies nausea or vomiting. She has been eating but does not have much of an appetite. CT scan today demonstrates what appears to be a large mucocele or mucinous tumor with surrounding fluid indicating perforation and spillage of the mucin into the abdominal cavity. Allergies Allergy/AdvReac Type Severity Reaction Status Date / Time No Known Allergies Allergy Unknown Verified 03/21/22 16:03 Home Medications Medication Instructions Recorded Confirmed Type aspirin 81 mg tablet 81 mg PO QAM 10/25/21 03/21/22 History carvedilol 12.5 mg tablet 12.5 mg PO BID 10/25/21 03/21/22 History loratadine 10 mg tablet 10 mg PO QAM 10/25/21 03/21/22 History warfarin 5 mg tablet 5 mg PO FR@1600 10/25/21 03/21/22 History phenytoin sodium extended 100 mg 100 mg PO UD 01/16/22 03/21/22 History capsule L.acidop,casei,lactis,rham-B.lact,benji 2 cap PO DAILY #30 caps 01/25/22 03/21/22 Rx 625 mg (10 billion cell) capsule (Advanced Probiotic) amoxicillin 875 mg-potassium 1 tab PO BID 03/21/22 03/21/22 History clavulanate 125 mg tablet atorvastatin 40 mg tablet 40 mg PO QAM 03/21/22 03/21/22 History ipratropium bromide 42 mcg (0.06 2 spray intranasal BID PRN Nasal 03/21/22 03/21/22 History %) nasal spray Congestion nystatin 100,000 unit/mL oral 5 ml PO QID 03/21/22 03/21/22 History suspension valacyclovir 500 mg tablet 1,000 mg PO DAILY PRN .BREAKOUTS 03/21/22 03/21/22 History warfarin 5 mg tablet 2.5 mg PO SUMOTUWETHSA@1600 03/21/22 03/21/22 History Patient History Medical History (HFpEF) heart failure with preserved ejection fraction Adnexal mass Degenerative joint disease of right hip Difficult Vidales catheter placement HLD (hyperlipidemia) Hypertension Hypomagnesemia 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 Hx of bladder repair surgery "bladder tacked" Hx of colonoscopy S/P hip replacement bilat. S/P hysterectomy complete S/P knee replacement rt. 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 Beliefs That Will Affect Care: None Current Living Situation: Spouse Feels Safe at Home: Yes Assistive Devices: Cane Review of Systems Review of Systems: All systems reviewed & are unremarkable except as noted in HPI & below Physical Exam Constitutional: WD/WN, vitals as above Eyes: PERRL, conjunctivae normal, anicteric sclerae Neck: trachea midline, no thyromegaly Respiratory: normal respiratory effort; no respiratory distress and no labored breathing Cardiovascular: Rate/Rhythm: regular rate and regular rhythm Gastrointestinal (Abdomen): Inspection/Auscultation: abdomen normal to inspection and + abdomen distended Percussion/Palpation: + abdomen tender (Bilateral lower quadrants) and abdomen soft; no guarding and abdomen not rigid Skin: no rashes, warm and dry Psychiatric: A+Ox3, euthymic affect Results & Data ([facility]) Vital Signs (Past 12 Hours) Vital Signs Temp Pulse Pulse Resp BP BP Pulse Ox 03/21/22 17:51 78 19 126/79 98 03/21/22 15:19 87 18 137/81 97 03/21/22 14:00 82 18 136/82 97 03/21/22 12:05 83 18 163/83 H 95 03/21/22 10:08 36.8 C 85 18 147/92 H 93 O2 Del Method 03/21/22 17:51 Room Air 03/21/22 15:19 Room Air 03/21/22 14:00 03/21/22 12:05 Room Air 03/21/22 10:08 Room Air Laboratory Results 03/21/22 03/21/22 03/21/22 Range/Units 16:10 15:38 10:33 WBC (4.8-10.8) K/ul RBC (3.93-5.22) M/uL Hgb (12.0-16.0) g/dl Hct (34.1-44.9) % MCV (80.0-100.0) fL MCH (25.0-34.0) pg MCHC (32.0-36.0) g/dL RDW Std Deviation (36.4-46.3) fL RDW Coeff of Benny (11.5-14.5) % Plt Count (130-400) K/uL MPV (9.4-12.3) fL Immature Gran % (Auto) % Neut % (Auto) % Lymph % (Auto) % [place] % (Auto) % Eos % (Auto) % Baso % (Auto) % Neut # (Auto) (1.4-6.5) K/uL Lymph # (Auto) (1.2-3.4) K/uL [place] # (Auto) (0.24-0.82) K/uL Eos # (Auto) (0-0.50) K/uL Baso # (Auto) (0-0.2) K/uL Immature Gran # (Auto) (0.00-0.02) K/uL Sodium 141 (136-145) mmol/L Potassium 3.8 (3.5-5.1) mmol/L Chloride 105 (98-107) mmol/L Carbon Dioxide 31 (21-32) mmol/L Anion Gap 5 (3-11) BUN 10 (6-23) mg/dl Creatinine 0.84 (0.6-1.2) mg/dl Est Cr Clr Drug Dosing 63.2 ml/min Est GFR ( Amer) 79.4 ml/min Est GFR (Non-Af Amer) 68.5 ml/min BUN/Creatinine Ratio 11.9 (10-20) Glucose 98 (70-99(Fasting)) mg/dl Calcium 8.6 (8.5-10.1) mg/dl Total Bilirubin 0.5 (0.2-1.0) mg/dl AST 19 (13-39) U/L ALT 19 (7-52) U/L Alkaline Phosphatase 131 H (34-104) U/L Total Protein 6.7 (6.0-8.3) gm/dl Albumin 3.2 L (3.4-5.0) gm/dl Globulin 3.5 (2.5-4.0) gm/dl Albumin/Globulin Ratio 0.9 (0.9-2) Lipase 11 (11-82) U/L Urine Color Yellow Urine Appearance Clear (Clear) Urine pH 6.5 (4.5-7.5) Ur Specific [place] 1.045 H (1.000-1.030) Urine Protein 3+ H (Negative) Urine Glucose (UA) Negative (Negative) Urine Ketones Negative (Negative) Urine Blood 3+ H (Negative) Urine Nitrite Negative (Negative) Urine Bilirubin Negative (Negative) Urine Urobilinogen Negative (Negative) Ur Leukocyte Esterase Negative (Negative) Urine WBC (Auto) 1-5 (0-5) /hpf Urine RBC (Auto) >30 H (0-4) /hpf U Hyaline Cast (Auto) 1-5 (0-5) /lpf U Epithel Cells (Auto) >30 H (0-5) /lpf Urine Bacteria (Auto) Negative (Negative) SARS-CoV-2, RNA, NAAT NEGATIVE (NEGATIVE) 03/21/22 Range/Units 10:33 WBC 7.84 (4.8-10.8) K/ul RBC 4.15 (3.93-5.22) M/uL Hgb 12.7 (12.0-16.0) g/dl Hct 38.3 (34.1-44.9) % MCV 92.3 (80.0-100.0) fL MCH 30.6 (25.0-34.0) pg MCHC 33.2 (32.0-36.0) g/dL RDW Std Deviation 45.7 (36.4-46.3) fL RDW Coeff of Benny 13.4 (11.5-14.5) % Plt Count 224 (130-400) K/uL MPV 10.3 (9.4-12.3) fL Immature Gran % (Auto) 0.3 % Neut % (Auto) 62.9 % Lymph % (Auto) 22.2 % [place] % (Auto) 12.0 % Eos % (Auto) 1.8 % Baso % (Auto) 0.8 % Neut # (Auto) 4.94 (1.4-6.5) K/uL Lymph # (Auto) 1.74 (1.2-3.4) K/uL [place] # (Auto) 0.94 H (0.24-0.82) K/uL Eos # (Auto) 0.14 (0-0.50) K/uL Baso # (Auto) 0.06 (0-0.2) K/uL Immature Gran # (Auto) 0.02 (0.00-0.02) K/uL Sodium (136-145) mmol/L Potassium (3.5-5.1) mmol/L Chloride (98-107) mmol/L Carbon Dioxide (21-32) mmol/L Anion Gap (3-11) BUN (6-23) mg/dl Creatinine (0.6-1.2) mg/dl Est Cr Clr Drug Dosing ml/min Est GFR ( Amer) ml/min Est GFR (Non-Af Amer) ml/min BUN/Creatinine Ratio (10-20) Glucose (70-99(Fasting)) mg/dl Calcium (8.5-10.1) mg/dl Total Bilirubin (0.2-1.0) mg/dl AST (13-39) U/L ALT (7-52) U/L Alkaline Phosphatase (34-104) U/L Total Protein (6.0-8.3) gm/dl Albumin (3.4-5.0) gm/dl Globulin (2.5-4.0) gm/dl Albumin/Globulin Ratio (0.9-2) Lipase (11-82) U/L Urine Color Urine Appearance (Clear) Urine pH (4.5-7.5) Ur Specific [place] (1.000-1.030) Urine Protein (Negative) Urine Glucose (UA) (Negative) Urine Ketones (Negative) Urine Blood (Negative) Urine Nitrite (Negative) Urine Bilirubin (Negative) Urine Urobilinogen (Negative) Ur Leukocyte Esterase (Negative) Urine WBC (Auto) (0-5) /hpf Urine RBC (Auto) (0-4) /hpf U Hyaline Cast (Auto) (0-5) /lpf U Epithel Cells (Auto) (0-5) /lpf Urine Bacteria (Auto) (Negative) SARS-CoV-2, RNA, NAAT (NEGATIVE) Diagnostic Findings CT OF THE ABDOMEN AND PELVIS WITH CONTRAST CLINICAL HISTORY: Abdominal pain. 10cm cyst in pelvis. drain attempt 03/16 COMPARISON STUDY: Renal ultrasound January 17, 2022. CT of the chest and abdome n November 08, 2008. TECHNIQUE: Following IV administration of 88 mL of Optiray, axial images of the abdomen and pelvis were obtained from the lung bases to the proximal femurs. Images were reviewed in the axial, sagittal, and coronal planes. IV contrast was administered without complication. Automated exposure control was utilized for the study. A dose lowering technique was utilized adhering to the principles of ALARA. CT DOSE: 1640.00 mGy.cm FINDINGS: No pneumatosis, free air or portal venous gas is present. Subpleural right lower lobe opacity suggests atelectasis. There is no pneumatosis, free air or portal venous gas. No hepatic lesions are present. The gallbladder is mildly distended. However, there is no adjacent infiltration. Spleen, adrenal glands, kidneys and pancreas are unremarkable. There is no biliary or pancreatic ductal dilatation. There is no evidence for a bowel obstruction. There is oral contrast within the colon and rectum as well as contrast within the bladder from recent contrast-enhanced CT. Note is made of a tubular masslike abnormality within the right lower quadrant that measures 11.6 x 5.6 cm. This extends toward the cecum. This has peripheral calcification as well as areas of increased attenuation which could reflect enhancement or hemorrhage. There is a moderate amount of adjacent peritoneal fluid with peritoneal enhancement and mild thickening. This fluid is mildly loculated with the largest component measuring 9.7 x 9.5 cm. Mild adjacent stranding. There is no extraluminal gas. Normal-appearing appendix is not visualized. The uterus is surgically absent. Bilateral hip arthroplasty are noted. There is sigmoid diverticulosis without evidence for acute diverticulitis. Major vasculature is patent. IMPRESSION: 1. 11.6 x 5.6 cm tubular mass-like abnormality within the right lower quadrant, adjacent to the cecum. This has peripheral calcification and areas of increased attenuation which could reflect enhancement or hemorrhage. This is suspicious for a neoplasm. Although nonspecific, a appendiceal mucocele is within the differential. Moderate adjacent loculated fluid suggests lesion rupture. Associated peritoneal thickening is nonspecific and suggests a nonspecific peritonitis. Surgical consultation is recommended. 2. No bowel obstruction. 3. Gallbladder distention without adjacent infiltration. No convincing evidence for acute cholecystitis. 4. Sigmoid diverticulosis without evidence for acute diverticulitis.
--- NOTE | 2022-03-21 20:49 | XRay Report ---
SINGLE VIEW CHEST CLINICAL HISTORY: Generalized abdominal pain. Preadmission testing. Ruptured cystic lesion in the pel vis. FINDINGS: An AP, portable, upright chest radiograph is compared to study dated 01/18/2022 and correlat ed with chest CT dated 08/07/2017. The examination is degraded by portable technique and apical lordot ic positioning. The cardiomediastinal silhouette is top normal for projection. There is chronic eleva tion of the right hemidiaphragm with bibasilar scarring/atelectasis. No airspace consolidation or lar ge pleural effusion is identified. No pneumothorax is seen. The skeletal structures are osteopenic. T he bony thorax is grossly intact. Arthritic change is seen in the shoulders. IMPRESSION: No acute cardiopulmonary abnormality. ACT 112: Negative or not required by law. Electronically signed by: Jorge Dobbins M.D. 03/21/2022 8:48 PM
[2022-03-21] MEDS ORDERED: IPRATROPIUM BROMIDE NASAL SPRAY 0.06% 15ML NAE PRN (21:34)
[2022-03-21] MEDS ORDERED: ONDANSETRON INJ 2 MG/ML 2 ML VIAL IV PRN (21:34)
[2022-03-21] MEDS: HYDROmorphone INJ 0.5 MG/0.5 ML SYR IV PRN (22:16)
[2022-03-21] MEDS: PIPERACILLIN/TAZOBACTAM 3.375 GM in DEXTROSE 5% 100 ML IV SCH (22:30)
[2022-03-21] MEDS: carvediloL 12.5 MG TAB PO SCH (22:33)
[2022-03-21] MEDS: NYSTATIN SUSP 500,000 U/5 ML UDC PO SCH (22:33)
[2022-03-21] MEDS: PHENYTOIN SODIUM ER 100 MG CAP PO SCH (22:34)
[2022-03-22] MEDS: SODIUM CHLORIDE 0.9% 1000ML 1,000 ML IV SCH ×2 (04:37→14:08)
[2022-03-22] MEDS: HYDROmorphone INJ 0.5 MG/0.5 ML SYR IV PRN ×4 (04:42→23:51)
[2022-03-22] MEDS: PIPERACILLIN/TAZOBACTAM 3.375 GM in DEXTROSE 5% 100 ML IV SCH ×3 (05:27→22:47)
[2022-03-22 06:47] LABS: INR 1.2 (0.9-1.1)
[2022-03-22] MEDS: carvediloL 12.5 MG TAB PO SCH ×2 (08:47→19:46)
[2022-03-22] MEDS: NYSTATIN SUSP 500,000 U/5 ML UDC PO SCH ×4 (08:47→19:46)
[2022-03-22] MEDS ORDERED: ASPIRIN 81 MG ECTAB PO SCH (09:00)
[2022-03-22] MEDS ORDERED: PHENYTOIN SODIUM ER 100 MG CAP PO SCH (09:00)
[2022-03-22] MEDS ORDERED: ATORVASTATIN 40 MG TAB PO SCH (09:00)
--- NOTE | 2022-03-22 11:16 | Electrocardiogram Report ---
Test Reason : Blood Pressure : / mmHG Vent. Rate : 086 BPM Atrial Rate : 086 BPM P-R Int : 152 ms QRS Dur : 084 ms QT Int : 376 ms P-R-T Axes : 033 023 -02 degrees QTc Int : 449 ms Sinus rhythm with occasional Premature ventricular complexes Nonspecific ST and T wave abnormality Abnormal ECG When compared with ECG of 16-JAN-2022 03:04, Premature ventricular complexes are now Present Confirmed by Aristides Melvin ([id number]) on 03/22/2022 11:15:45 AM Referred By: REFERRED SELF Confirmed By:Aristides Melvin
--- NOTE | 2022-03-22 15:24 | Surgery Progress Note ---
Date of Service March 22, 2022 Assessment & Plan (1) Pelvic mass: Plan: 72-year-old woman with ruptured mucocele/mucinous appendiceal lesion. Awaiting transfer to tertiary care center/surgical oncology. Will require advanced surgical technique for resection of the mucinous tumor as well as treatment of the developing pseudomyxoma peritonei. Continue to monitor, transfer to tertiary care as soon as a bed opens up. Admission and Anticipated Discharge Date Admission Date: March 21, 2022 Subjective Hospital day 2, doing fairly well. Continues with lower abdominal pain. No fevers or chills overnight. No nausea or vomiting. No chest pain or shortness of breath. Physical Exam Constitutional: WD/WN, vitals as above Gastrointestinal (Abdomen): Inspection/Auscultation: abdomen normal to inspection and + abdomen distended Percussion/Palpation: + abdomen tender (Bilateral lower quadrants) and abdomen soft; no guarding and abdomen not rigid Psychiatric: A+Ox3, euthymic affect Results & Data ([facility]) Vital Signs (Past 12 Hours) Vital Signs Temp Pulse Resp BP Pulse Ox O2 Del Method O2 Flow Rate 03/22/22 14:55 36.6 C 90 19 117/73 91 Nasal Cannula 2 03/22/22 11:07 36.3 C L 80 18 110/69 95 Nasal Cannula 2 03/22/22 07:32 36.9 C 90 18 123/76 92 Nasal Cannula 2 03/22/22 03:41 36.9 C 95 H 20 129/76 92 Nasal Cannula 2 Laboratory Results 03/22/22 03/21/22 03/21/22 Range/Units 05:28 16:10 15:38 PT 13.0 H (9.0-12.0) Seconds INR 1.2 H (0.9-1.1) Urine Color Yellow Urine Appearance Clear (Clear) Urine pH 6.5 (4.5-7.5) Ur Specific [place] 1.045 H (1.000-1.030) Urine Protein 3+ H (Negative) Urine Glucose (UA) Negative (Negative) Urine Ketones Negative (Negative) Urine Blood 3+ H (Negative) Urine Nitrite Negative (Negative) Urine Bilirubin Negative (Negative) Urine Urobilinogen Negative (Negative) Ur Leukocyte Esterase Negative (Negative) Urine WBC (Auto) 1-5 (0-5) /hpf Urine RBC (Auto) >30 H (0-4) /hpf U Hyaline Cast (Auto) 1-5 (0-5) /lpf U Epithel Cells (Auto) >30 H (0-5) /lpf Urine Bacteria (Auto) Negative (Negative) SARS-CoV-2, RNA, NAAT NEGATIVE (NEGATIVE)
--- NOTE | 2022-03-22 18:59 | Hospitalist Progress Note ---
Date of Service March 22, 2022 Assessment & Plan (1) Continuous severe abdominal pain: (2) Pelvic mass: Plan: This is a 72-year-old female with PMH of chronic diastolic heart failure, CKD stage III, hypertension, GERD, seizure disorder, history of DVT/PE on chronic anticoagulation and pelvic mass status post IR drainage on 03/16/2022 presenting with persistent abdominal pain. Was incidentally found to have an intra-abdominal fluid collection with unclear etiology and underwent IR drainage at [facility] on 03/16/22 The material expressed was gelatinous and culture and cytology were indeterminate Patient presents today with worsening lowed abdominal pain x 4 days with intermittent fevers CT abd/pelvis with a 11.6 x 5.6 cm tubular mass-like abnormality within the right lower quadrant, adjacent to the cecum. This has peripheral calcification and areas of increased attenuation which could reflect enhancement or hemorrhage. This is suspicious for a neoplasm. Although nonspecific, a appendiceal mucocele is within the differential. Moderate adjacent loculated fluid suggests lesion rupture. Associated peritoneal thickening is nonspecific and suggests a nonspecific peritonitis Discussed with Dr. Diaz, who recommends transfer to tertiary care facility given complexity. [place] [facility] [place] Dr. Lema; no bed available at this time Spoke to our surgeon Dr. Diaz about the bed situation at [facility]. Dr. Diaz said that she is stable. No emergent operation at this time. but she needs to operate with the mucin out in the abdominal cavity Continue empiric Zosyn. Keeping NPO, pain control PRN Waiting for bed to transfer to [facility] - Possible in am as per transfer center (3) Personal history of DVT (deep vein thrombosis): Plan: Continue to hold coumadin (4) Seizure disorder: Plan: Remote h/o seizure. Dilantin BID (5) Hypertension: Plan: Normotensive. Taking carvedilol 12.5mg BID. No longer taking hctz or losartan (6) HLD (hyperlipidemia): Plan: Continue statin (7) (HFpEF) heart failure with preserved ejection fraction: Plan: Reportedly not taking lasix. Appears euvolemic. Continue monitor closely while on IVF DVT Ppx: SCDs Code status: FULL PCP: [facility] Dispo: Admitted to [facility] Admission and Anticipated Discharge Date Admission Date: March 21, 2022 Subjective Patient was seen and evaluated for follow-up of abdominal pain Lying in bed with no acute distress. She continues to have abdominal pain. I called [facility] the said there is no bed available that pt will expect to get a bed tomorrow I notified our surgeon Dr. Diaz about the bed situation denies any chest pain, palpitation, dizziness and fever Review of Systems Review of Systems: All systems reviewed & are unremarkable except as noted in Subjective Physical Exam Physical Exam: General- No acute distress Head- atraumatic Eyes- PERRL, EOMI, ENT- oropharynx clear Neck- supple, no JVD Lungs- clear to auscultation Heart- regular rhythm; no murmur Abdomen- +abdominal pain Extremities- no calf tenderness Neuro- alert, oriented x 3; PERRL, EOMI; no facial palsy; no dysarthria Skin- warm & dry Results & Data Results & Data ([facility]) Vital Signs (Past 12 Hours) Vital Signs Temp Pulse Pulse Resp BP Pulse Ox O2 Del Method 03/22/22 07:00 Nasal Cannula 03/22/22 16:00 82 03/22/22 07:00 89 03/22/22 14:55 36.6 C 90 19 117/73 91 Nasal Cannula 03/22/22 11:07 36.3 C L 80 18 110/69 95 Nasal Cannula 03/22/22 07:32 36.9 C 90 18 123/76 92 Nasal Cannula O2 Flow Rate 03/22/22 07:00 2 03/22/22 16:00 03/22/22 07:00 03/22/22 14:55 2 03/22/22 11:07 2 03/22/22 07:32 2
[2022-03-22] MEDS: PHENYTOIN SODIUM ER 100 MG CAP PO SCH (19:46)
--- NOTE | 2022-03-22 22:56 | Discharge Summary ---
Date of Service March 22, 2022 Admission HPI Per Admitting Provider This is a 72-year-old female with PMH of chronic diastolic heart failure, CKD stage III, hypertension, GERD, seizure disorder, history of DVT/PE on chronic anticoagulation and pelvic mass status post IR drainage on 03/16/2022 presenting with persistent abdominal pain. Was incidentally found to have an intra- abdominal fluid collection with unclear etiology and scheduled for IR drainage at [facility]. The material expressed was gelatinous and culture and cytology were indeterminate. The day after procedure, patient developed lower abdominal pain worse on the right side that is persisted since then. Pain is constant and aching but becomes sharper when moving or with coughing. Also notes fever with T-max of 100.4, occasional chills and decreased appetite. No lightheadedness, headache, chest pain, shortness of breath, nausea, vomiting, dysuria, diarrhea or constipation. Has had a normal bowel movement since procedure. Was started on course of Augmentin yesterday by Dr. Webb and directed to come to ED fo r further evaluation of abdominal pain. Discharge Data Consultations 03/21/22 17:35 Consult General Surgery Routine 03/22/22 22:29 Burn CD for patient Stat Hospital Course (1) Continuous severe abdominal pain: (2) Pelvic mass: This is a 72-year-old female with PMH of chronic diastolic heart failure, CKD stage III, hypertension, GERD, seizure disorder, history of DVT/PE on chronic anticoagulation and pelvic mass status post IR drainage on 03/16/2022 presenting with persistent abdominal pain. Was incidentally found to have an intra-abdominal fluid collection with unclear etiology and underwent IR drainage at [facility] on 03/16/22 The material expressed was gelatinous and culture and cytology were indeterminate Patient presents today with worsening lowed abdominal pain x 4 days with intermittent fevers CT abd/pelvis with a 11.6 x 5.6 cm tubular mass-like abnormality within the right lower quadrant, adjacent to the cecum. This has peripheral calcification and areas of increased attenuation which could reflect enhancement or hemorrhage. This is suspicious for a neoplasm. Although nonspecific, a appendiceal mucocele is within the differential. Moderate adjacent loculated fluid suggests lesion rupture. Associated peritoneal thickening is nonspecific and suggests a nonspecific peritonitis Discussed with Dr. Diaz, who recommends transfer to tertiary care facility given complexity. Accepted at [facility] by surgeon Dr. Lema; no bed available at this time VSS, afebrile, no leukocytosis, covering with empiric Zosyn. Keeping NPO, pain control PRN (Preceding documentation as per morning provider.) 04/02/22, 1030 PM Notified by staff of [facility] bed availability. Total time to prepare this discharge summary was less than 10 minutes. Text document was generated using [employer] voice recognition software. It may contain grammatical or spelling errors. Kindly contact undersigned for clarification of any documentation item in question. (3) Personal history of DVT (deep vein thrombosis): Last took coumadin yesterday evening. Holding for now (4) Seizure disorder: Remote h/o seizure. Dilantin BID (5) Hypertension: Normotensive. Taking carvedilol 12.5mg BID. No longer taking hctz or losartan (6) HLD (hyperlipidemia): Continue statin (7) (HFpEF) heart failure with preserved ejection fraction: Supervising Physician Co-Signing Physician Notes I have seen and examined the patient and have discussed the case with the prov ider above. I agree with the assessment and plan as stated. The patient is a 72 yo F with a possible developing peritonitis who presents two days after attempted IR drainage of a pelvic mass. As noted above, cytology was indeterminate, but noted no specific tumor cells present. She has no symptoms prior to the drainage, and it was read as a fluid filled mass which appears to be why IR drainage was attempted. She currently has a sharp lower abdominal pain worse on the right but present bilaterally. She is wearing a small amount of supplemental oxygen but denies shortness of breath or respiratory symptoms. She is denying chest pain. She reports some recent fevers and chills with normal BMs and decreased appetite. Physical exam reveals a hemodynamically stable obese female in NAD. Normal respiratory effort and lungs are clear to auscultation throughout. Cardiac exam reveals S1/2 heard with no murmurs, gallops or rubs and there is no peripheral edema. Abdomen is TTP in RLQ>LLQ and there is no tenderness in the upper abdomen. Nondistended abdomen. Extremities are warm and well perfused and there is no gross focal neuromuscular deficits. HEENT exam also unremarkable. Workup reveals abdomen and pelvis CT with contrast revealed 11.6 x 5.6 tubular masslike abnormality in the right lower quadrant adjacent to the cecum. This is suspicious for neoplasm with peritoneal thickening nonspecific and suggest peritonitis. She has no elevation in white count and a normal CBC. Chemistry is normal. Urine appears concentrated with evidence of blood and protein. There is no evidence of infection. EKG and CXR pending. 1. Pelvic mass 2. abdominal pain 2/2 possible developing peritonitis 3. h/o DVT on coumadin (last had PE in 2018)-chronically on coumadin 72 yo patient with ruptured pelvic mass presents with abdominal pain likely related to developing peritonitis. Per urgent surgical consultation, this patient needs to be transferred to a tertiary care. She has been accepted at [facility] but there is currently no bed available. She will continue on zosyn as noted above and will continue to monitor her closely on telemetry. For now will hold warfarin in preparation for possible upcoming surgical procedure. DO Zeke
== END 2022-03-23 00:10 | disposition short-term general hospital (02) | DRG 372 ==
LOC: ED 10:05 → 2N 19:01 → SUATTDRO 19:01 → 2N 23:35

== ENCOUNTER 2022-04-03 07:51 | Observation (INO) ==
[2022-04-03] MEDS ORDERED: PANTOprazole 80 MG in DEXTROSE 5% 100 ML IV ONE (08:07)
--- NOTE | 2022-04-03 08:07 | Emergency Department Note ---
Impression & Plan Acute GI bleeding, Anticoagulant long-term use ED Provider Note NAME: DAYO MOTA AGE: 72 SEX: F : 1950 ARRIVES VIA: Ambulance INFORMANT: Patient, ED PROVIDER(S): Mack Newell MD CHIEF COMPLAINT: Rectal bleeding MEDICAL DECISION MAKING: Patient was seen due to concern for GI bleeding. Blood works obtained along w ith an EKG. The patient was started on PPI bolus and drip. 2 large-bore IVs were ordered. the patient's blood work shows a normal white counts anemia hemoglobin 10.1 but not grossly changed from this past Sunday. Platelet count is unremarkable. INR supratherapeutic at 3.3. Mildly low potassium 3.3. Calcium 7.6. Given the patient's associated GI bleeding decision was made to admit the patient. I did speak with Lay Hernandez PA-C and the patient was admitted to the medicine service by Dr. Hill. We discussed this with the primary inpatient team we discussed holding additional anticoagulant medications not the need for an acute reversal at this time given the patient's stable vital signs and hemoglobin. Prior /Outside records reviewed: I did review the patient's discharge summary Dr. Srinivasan at [facility] in [place]. 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 Differential diagnosis: Diverticulosis, AVM, coagulopathy, colitis, inflammatory bowel disease, malignancy, Kathya-Joyce tear, esophagitis, peptic ulcer disease, variceal bleed, gastritis, epistaxis, fissure, hemorrhoids, as well as other pathologies. Diagnostics, as interpreted by me: ECG: Normal sinus rhythm, rate of 80, normal intervals normal axis no ST elevations [place] lateral ST changes. Nonspecific ST changes appear grossly unchanged from comparison March 21, 2022. Cardiac monitoring: An order was placed for continuous cardiac monitoring. The monitor shows a rate of 92 with sinus rhythm. Patient was placed on pulse oximetry Medical decision rules: None Imaging studies: See below HPI: Patient does present due to concern for rectal bleeding. The patient initially had dark stools but this is progressed to more bright red blood per rectum. The patient is currently on a Lovenox bridge to Coumadin therapy as the patient had had this stopped for a recent partial colectomy exploratory lap c ompleted at [facility] in [place] on the . The patient was seen on the due to bleeding at injection sites on Sunday. Patient denies any chest pains but has had some shortness of breath and does wear 1 L at all times. The patient does have lower extremity swelling. Patient has any cough. Patient does feel some abdominal tightness but no abdominal pain in light of her recent surgery. Patient denies any nausea vomiting or alcohol or tobacco use. Patient did not take her Lovenox this morning but most recently took her Coumadin. Patient denies any additional exacerbating remitting factors PAST MEDICAL HISTORY: See Below PAST SURGICAL HISTORY: See Below SOCIAL HISTORY: See Below HOME MEDICATIONS: See Below ALLERGIES: See Below VITALS: See Below PHYSICAL EXAMINATION: GENERAL: NAD, wearing a mask, non-toxic. EYE EXAM: Normal conjunctiva. PERRL, no anisocoria and EOM's grossly intact w/o pain. NECK: Supple, no nuchal rigidity, no adenopathy, non-tender. No signs of m eningismus. FROM of the neck with good chin to chest and neck extension. No stridor. LUNGS: Clear to auscultation. Normal chest wall mechanics. HEART: NSR, no MRG. ABDOMEN: Abdomen soft, Midline abdominal incisional site with john, no active bleeding TTP erythema or drainage, normo-active bowel sounds, no masses, no rebound or guarding. BACK: No CVA TTP. SKIN: No rashes and no bruising. UPPER EXTREMITIES: Upper extremities are grossly normal. LOWER EXTREMITIES: Grossly normal, 2+ symmetric bilateral lower extremity edema NEURO EXAM: A&O x3, cranial nerves II-XII grossly intact, normal speech, moves all 4 extremities. 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 Hx of bladder repair surgery "bladder tacked" Hx of colonoscopy Hx of right hemicolectomy 2/2 appendiceal mass S/P hip replacement bilat. S/P hysterectomy complete S/P knee replacement rt. Family History Other Breast cancer Diabetes Ovarian cancer Social History Smoking Status: Former smoker Tobacco Type: Cigarettes Second Hand Exposure: No; Hx Alcohol Use: Yes Alcohol type: beer Hx Substance Use: No Preferred Language: Puerto Rican Communication Ability: Effective Television Engineer Required: No Beliefs That Will Affect Care: None Current Living Situation: Family Current Living Situation Comment: Daughter and family Feels Safe at Home: Yes Assistive Devices: Walker Allergies Allergies Allergy/AdvReac Type Severity Reaction Status Date / Time No Known Allergies Allergy Unknown Verified 03/21/22 16:03 Home Meds Home Medications Medication Instructions Recorded Confirmed aspirin 81 mg tablet 81 mg PO QAM 10/25/21 04/03/22 carvedilol 12.5 mg tablet 12.5 mg PO BID 10/25/21 04/03/22 loratadine 10 mg tablet 10 mg PO QAM 10/25/21 04/03/22 warfarin 5 mg tablet 5 mg PO FR@1600 10/25/21 04/03/22 phenytoin sodium extended 100 mg 100 mg PO UD 01/16/22 04/03/22 capsule ipratropium bromide 42 mcg (0.06 2 spray intranasal BID PRN Nasal 03/21/22 04/03/22 %) nasal spray Congestion nystatin 100,000 unit/mL oral 5 ml PO QID 03/21/22 04/03/22 suspension warfarin 5 mg tablet 2.5 mg PO SUMOTUWETHSA@1600 03/21/22 04/03/22 enoxaparin 100 mg/mL subcutaneous 100 mg subcut Q12 04/03/22 04/03/22 syringe furosemide 20 mg tablet 20 mg PO DAILY 04/03/22 04/03/22 Previous Rx's Medication Instructions Recorded L.acidop,casei,lactis,rham-B.lact,benji 2 cap PO DAILY #30 caps 01/25/22 625 mg (10 billion cell) capsule (Advanced Probiotic) Results & Data (ED) Vital Signs Vital Signs - 24 hr 04/03/22 08:00 04/03/22 08:35 04/03/22 08:04 Temperature 36.8 C Temperature Source Oral Pulse Rate 81 83 Pulse Rate from SpO2 Sensor 69 Respiratory Rate 19 20 Respiratory Effort / Characteristics Non-Labored Respiratory Depth Normal Respiratory Pattern Regular Blood Pressure 128/72 Blood Pressure Mean 90 Blood Pressure Position Semi-fowlers Pulse Oximetry 95 96 Oxygen Delivery Method Room Air Room Air Sepsis Recent Fever Within 48 Hours No Sepsis New/Unexplained Change in Mental Status N/A Sepsis Action Taken by Nursing No Action Required 04/03/22 08:30 04/03/22 09:00 04/03/22 09:10 Temperature Temperature Source Pulse Rate 76 84 Pulse Rate from SpO2 Sensor 72 83 Respiratory Rate 19 15 Respiratory Effort / Characteristics Respiratory Depth Respiratory Pattern Blood Pressure 138/87 Blood Pressure Mean 104 Blood Pressure Position Pulse Oximetry 92 93 Oxygen Delivery Method Sepsis Recent Fever Within 48 Hours Sepsis New/Unexplained Change in Mental Status Sepsis Action Taken by Nursing 04/03/22 09:10 04/03/22 09:30 04/03/22 09:30 Temperature Temperature Source Pulse Rate 91 H 85 Pulse Rate from SpO2 Sensor 76 86 Respiratory Rate 16 19 Respiratory Effort / Characteristics Respiratory Depth Respiratory Pattern Blood Pressure 136/66 Blood Pressure Mean 89 Blood Pressure Position Pulse Oximetry 95 92 Oxygen Delivery Method Sepsis Recent Fever Within 48 Hours Sepsis New/Unexplained Change in Mental Status Sepsis Action Taken by Nursing 04/03/22 10:00 Temperature Temperature Source Pulse Rate 82 Pulse Rate from SpO2 Sensor 82 Respiratory Rate 19 Respiratory Effort / Characteristics Respiratory Depth Respiratory Pattern Blood Pressure 144/78 H Blood Pressure Mean 100 Blood Pressure Position Pulse Oximetry 93 Oxygen Delivery Method Sepsis Recent Fever Within 48 Hours Sepsis New/Unexplained Change in Mental Status Sepsis Action Taken by Alf Medications Current Medication List: was personally reviewed by me Laboratory Data Attestation: I reviewed the patient's lab results. 04/03/22 07:45 04/03/22 07:45 Lab Results 04/03/22 04/03/22 04/03/22 Range/Units 07:45 07:45 07:45 WBC 5.78 (4.8-10.8) K/ul RBC 3.39 L (3.93-5.22) M/uL Hgb 10.1 L (12.0-16.0) g/dl Hct 32.1 L (34.1-44.9) % MCV 94.7 (80.0-100.0) fL MCH 29.8 (25.0-34.0) pg MCHC 31.5 L (32.0-36.0) g/dL RDW Std Deviation 48.8 H (36.4-46.3) fL RDW Coeff of Benny 14.1 (11.5-14.5) % Plt Count 359 (130-400) K/uL MPV 10.2 (9.4-12.3) fL Immature Gran % (Auto) 1.2 % Neut % (Auto) 55.6 % Lymph % (Auto) 25.1 % Bollinger % (Auto) 12.6 % Eos % (Auto) 4.5 % Baso % (Auto) 1.0 % Neut # (Auto) 3.21 (1.4-6.5) K/uL Lymph # (Auto) 1.45 (1.2-3.4) K/uL Bollinger # (Auto) 0.73 (0.24-0.82) K/uL Eos # (Auto) 0.26 (0-0.50) K/uL Baso # (Auto) 0.06 (0-0.2) K/uL Immature Gran # (Auto) 0.07 H (0.00-0.02) K/uL PT 33.2 H (9.0-12.0) Seconds INR 3.3 H (0.9-1.1) APTT 38.3 H (21.0-31.0) Seconds PTT Ratio 1.4 Sodium 145 (136-145) mmol/L Potassium 3.3 L (3.5-5.1) mmol/L Chloride 105 (98-107) mmol/L Carbon Dioxide 32 (21-32) mmol/L Anion Gap 8 (3-11) BUN 5 L (6-23) mg/dl Creatinine 0.66 (0.6-1.2) mg/dl Est Cr Clr Drug Dosing 83.5 ml/min Est GFR ( Amer) 100.9 ml/min Est GFR (Non-Af Amer) 87.0 ml/min BUN/Creatinine Ratio 7.6 L (10-20) Glucose 78 (70-99(Fasting)) mg/dl Calcium 7.6 L (8.5-10.1) mg/dl Total Bilirubin 0.3 (0.2-1.0) mg/dl AST 37 (13-39) U/L ALT 17 (7-52) U/L Alkaline Phosphatase 105 H (34-104) U/L Total Protein 5.4 L (6.0-8.3) gm/dl Albumin 2.9 L (3.4-5.0) gm/dl Globulin 2.5 (2.5-4.0) gm/dl Albumin/Globulin Ratio 1.2 (0.9-2) SARS-CoV-2, RNA, NAAT (NEGATIVE) Blood Type Antibody Screen Crossmatch 04/03/22 04/03/22 Range/Units 09:08 09:10 WBC (4.8-10.8) K/ul RBC (3.93-5.22) M/uL Hgb (12.0-16.0) g/dl Hct (34.1-44.9) % MCV (80.0-100.0) fL MCH (25.0-34.0) pg MCHC (32.0-36.0) g/dL RDW Std Deviation (36.4-46.3) fL RDW Coeff of Benny (11.5-14.5) % Plt Count (130-400) K/uL MPV (9.4-12.3) fL Immature Gran % (Auto) % Neut % (Auto) % Lymph % (Auto) % Bollinger % (Auto) % Eos % (Auto) % Baso % (Auto) % Neut # (Auto) (1.4-6.5) K/uL Lymph # (Auto) (1.2-3.4) K/uL Bollinger # (Auto) (0.24-0.82) K/uL Eos # (Auto) (0-0.50) K/uL Baso # (Auto) (0-0.2) K/uL Immature Gran # (Auto) (0.00-0.02) K/uL PT (9.0-12.0) Seconds INR (0.9-1.1) APTT (21.0-31.0) Seconds PTT Ratio Sodium (136-145) mmol/L Potassium (3.5-5.1) mmol/L Chloride (98-107) mmol/L Carbon Dioxide (21-32) mmol/L Anion Gap (3-11) BUN (6-23) mg/dl Creatinine (0.6-1.2) mg/dl Est Cr Clr Drug Dosing ml/min Est GFR ( Amer) ml/min Est GFR (Non-Af Amer) ml/min BUN/Creatinine Ratio (10-20) Glucose (70-99(Fasting)) mg/dl Calcium (8.5-10.1) mg/dl Total Bilirubin (0.2-1.0) mg/dl AST (13-39) U/L ALT (7-52) U/L Alkaline Phosphatase (34-104) U/L Total Protein (6.0-8.3) gm/dl Albumin (3.4-5.0) gm/dl Globulin (2.5-4.0) gm/dl Albumin/Globulin Ratio (0.9-2) SARS-CoV-2, RNA, NAAT NEGATIVE (NEGATIVE) Blood Type B Positive Antibody Screen NEGATIVE Crossmatch See Detail Administered Medications Pantoprazole Sodium 40 mg/ (Dextrose) 100 mls @ 20 mls/hr IV Q5H [facility] Stop: 04/10/22 13:14 Last Admin: 04/03/22 14:16 Dose: 8 mg/hr, 20 mls/hr Documented By: Infusion: 04/03/22 13:23 Dose: 0 mg/hr, 0 mls/hr Documented By: Infusion: 04/03/22 13:03 Dose: 0 mg/hr, 0 mls/hr Documented By: Infusion: 04/03/22 09:50 Dose: 8 mg/hr, 20 mls/hr Documented By: Infusion: 04/03/22 09:36 Dose: 0 mg/hr, 0 mls/hr Documented By: Admin: 04/03/22 09:36 Dose: 8 mg/hr, 20 mls/hr Documented By: TERESA Lactated Ringer's (Lr) 1,000 mls @ 80 mls/hr IV .[id number] MICHAEL Stop: 04/03/22 19:13 Last Admin: 04/03/22 13:43 Dose: 80 mls/hr Documented By: SAULO Discontinued Medications Pantoprazole Sodium 80 mg/ (Dextrose) 100 mls @ 400 mls/hr IV NOW ONE Stop: 04/03/22 08:21 Last Infusion: 04/03/22 09:50 Dose: 0 mls/hr Documented By: Admin: 04/03/22 09:30 Dose: 400 mls/hr Documented By: TERESA Potassium Chloride (K Shakir / Wtr) 10 meq in 100 mls @ 100 mls/hr IV Q1H MICHAEL; Protocol Stop: 04/03/22 13:14 Last Admin: 04/03/22 13:49 Dose: 100 mls/hr Documented By: SAULO Ioversol (Optiray 350 100ml) 94 ml IV ONCE ONE Stop: 04/03/22 10:55 Last Admin: 04/03/22 10:54 Dose: 94 ml Documented By: KESHAWN Phytonadione (Phytonadione 5 Mg Tab) 2.5 mg PO NOW STA Stop: 04/03/22 13:01 Last Admin: 04/03/22 13:49 Dose: 2.5 mg [place]ed [place] [facility] [place] Visit Data Chief Complaint: Rectal Bleed ED Provider: Mack Newell Discharge Problem: Acute GI bleeding, Anticoagulant long-term use Patient Disposition: Admitted As Inpatient Discharge Instructions Interventions: ED Discharge Assessment Last Done: 04/03/22 12:36
[2022-04-03 08:22] LABS: Basophils # (auto) 0.06 K/uL (0-0.2); Eosinophils # (auto) 0.26 K/uL (0-0.50); Eosinophils % (auto) 4.5 %; Hematocrit (blood only) 32.1 % (34.1-44.9); Hemoglobin 10.1 g/dl (12.0-16.0); Immature Granulocytes # (auto) 0.07 K/uL (0.00-0.02); Immature Granulocytes % (auto) 1.2 %; Lymphocytes # (auto) 1.45 K/uL (1.2-3.4); Lymphocytes % (auto) 25.1 %; Mean Corpuscular Hemoglobin 29.8 pg (25.0-34.0); Mean Corpuscular Hgb Conc 31.5 g/dL (32.0-36.0); Mean Corpuscular Volume 94.7 fL (80.0-100.0); Mean Platelet Volume 10.2 fL (9.4-12.3); Monocytes # (auto) 0.73 K/uL (0.24-0.82); Monocytes % (auto) 12.6 %; Neutrophils # (auto) 3.21 K/uL (1.4-6.5); Neutrophils % (auto) 55.6 %; Platelet Count 359 K/uL (130-400); RDW Coefficient of Variation 14.1 % (11.5-14.5); RDW Standard Deviation 48.8 fL (36.4-46.3); Red Blood Count 3.39 M/uL (3.93-5.22); White Blood Count 5.78 K/ul (4.8-10.8)
[2022-04-03 08:33] LABS: INR 3.3 (0.9-1.1); Partial Thromboplastin Ratio 1.4; Partial Thromboplastin Time 38.3 Seconds (21.0-31.0); Prothrombin Time 33.2 Seconds (9.0-12.0)
[2022-04-03 09:16] LABS: Albumin Globulin Ratio 1.2 (0.9-2); Albumin Level 2.9 gm/dl (3.4-5.0); BUN Creatinine Ratio 7.6 (10-20); Bilirubin,Total 0.3 mg/dl (0.2-1.0); Calcium 7.6 mg/dl (8.5-10.1); Creatinine Clr Calc Pharmacy 83.5 ml/min; Est GFR (African American) 100.9 ml/min; Globulin 2.5 gm/dl (2.5-4.0); Potassium 3.3 mmol/L (3.5-5.1); Total Protein 5.4 gm/dl (6.0-8.3)
[2022-04-03] MEDS: PANTOprazole 40 MG in DEXTROSE 5% 100 ML IV SCH ×3 (09:36→19:31)
--- NOTE | 2022-04-03 09:59 | History & Physical Report ---
Date of Service April 03, 2022 Assessment & Plan (1) Rectal bleeding: (2) S/P right hemicolectomy: (3) Neoplasm of appendix: (4) Supratherapeutic INR: (5) Hypokalemia: (6) (HFpEF) heart failure with preserved ejection fraction: (7) Personal history of DVT (deep vein thrombosis): (8) Seizure disorder: Plan This is a 72-year-old female who has significant past medical history of diastolic CHF, HTN, HLD, CKD stage III, history of epilepsy, history of PE and DVT who presents to ED secondary to concern for rectal bleeding x [address] a/p: IMPRESSION: 1. Expected postsurgical changes status post right hemicolectomy with small ascites, overall decreased from prior exam. Liquid contents are seen in the colon but there is no evidence of mass or dehiscence to explain rectal bleeding. 2. Reactive soft tissue changes at the midline incision. No drainable fluid collection is seen. Correlation with physical exam is recommended to exclude site infection. 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 Yehuda Lema Supratherapeutic INR admit to med tele remain NPO for now consult GI CT shows no signs of dehiscence of bleeding explanation pt passed 2 quarter sized dark red clots while examining will give gentle IVF for 500ml - pt already volume overloaded but given recent contrast want to give small amount PPI gtt started in ED, will continue for now last c scope was 2010 - sigmoid diverticulosis hold wafarin and d/c lovenox vit K 2.5mg oral x 1 now Anemia hgb 10.1, normal indices hgb was 11.9 on day of D/C from [facility] will type and cross 1 units to transfuse if hgb < 7 or symptomatic Hypokalemia K 3.3 give oral potassium, didn't tolerate IV repeat Chronic HFpEF 01/16/22 - EF 60-65%, grade II DD pt reports 12lb weight gain since hospitalization with significant increase in lower extremity edema will start lasix 20mg IV daily tomorrow monitor electrolytes, daily weights, strict I and O continue coreg hx of DVT/PE follows [facility] pharmacy hold warfarin, d/c lovenox will need to determine if pt should continue on warfarin at this time or not only 1 x hx of DVT/PE per pt post knee replacement Seizure d/o last one in 1972 continue dilantin DVT ppx: SCDS Dispo: med tele FULL CODE PCP: Violet[facility] Pt was seen and examined in collaboration with Dr. Hill, please see addendum A total of 90 minutes were spent with greater than 50% of that time face to face with the patient, personally reviewing all current laboratories, imaging studies, past medication reconciliation, outpatient chart review, and discussion with specialists to collaborate care for the patient with attending. Please see attending documentation for corrections and/or additions. Blood consent was obtained from the patient (or patient delegate) as delegated by Dr. Hill. Risks and benefits were explained. All questions were answered, and the patient Dr. Hill was offered the opportunity to discuss with attending physician and declined. History of Present Illness Chief Complaint: Rectal bleeding x 1 day. Primary Care Provider: Elle Oakes, DO This is a 72-year-old female who has significant past medical history of diastolic CHF, HTN, HLD, CKD stage III, history of epilepsy, history of PE and DVT who presents to ED secondary to concern for rectal bleeding x 1 day. Of significance patient was recently hospitalized at [facility] on January 2022 with urosepsis and E. coli bacteremia. A pelvic fluid collection was incidentally found on renal ultrasound done for MADELIN. At that time there was concern it may communicate with the colon. Her pelvic fluid collection was drained by IR at [facility] as an outpatient on 03/16/2022. Cytology was unsatisfactory for evaluation showing no organisms. An IR drain was not replaced due to lack of ability to aspirate because collection was very gelatinous. On 03/20/22 she reported low-grade fever and chills as well as severe abdominal pain. She was seen and evaluated at [facility] and a CT scan shows the pelvic collection has gotten larger. She was transferred to [facility] for further evaluation. She was taken to the OR on 03/24/2022 for exploratory laparotomy for pelvic mass. She does have known history for DURAN and BSO. 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 She tolerated the procedure well and had return to normal bowel function after couple days and was able to tolerate a normal diet. Her surgeron was Dr. Yehuda Lema. She was discharged from [facility] on 03/29/2022. She was discharged on therapeutic Lovenox and bridging to warfarin due to history of DVT/PE. She didn't realize she was to start warfarin therefore has just been on lovenox. She did see [facility] pharmacy on Sunday and had 5mg of warfarin Sunday and sunday and 2.5mg yesterday. She was to continue lovenox through today, but last dose was yesterday. She states yesterday she noticed passing large amount of red blood via rectum w/o stool, but feeling the urge to have a BM. She denies any lorenza abd pain. Up until yesterday was mostly passing brown liquid. Due to concern for blood in stool she presented to ED. She denies any f/c/s, chest pain, sob, cough, dizziness, lightheaded, n/v, abd pain. Her appetite is stable and feels she is eating/drinking okay. She has been taking her medications as prescribed. She denies any lorenza epigastric pain. In ED shirley ent remained hemodynamically stable. Her H&H was 10.1 and 32.1. Her INR was supratherapeutic at 3.3. Her potassium was mildly low at 3.3 and renal function was otherwise normal. She does have hypoalbuminemia. Allergies Allergy/AdvReac Type Severity Reaction Status Date / Time No Known Allergies Allergy Unknown Verified 03/21/22 16:03 Home Medications Medication Instructions Recorded Confirmed Type aspirin 81 mg tablet 81 mg PO QAM 10/25/21 04/03/22 History carvedilol 12.5 mg tablet 12.5 mg PO BID 10/25/21 04/03/22 History loratadine 10 mg tablet 10 mg PO QAM 10/25/21 04/03/22 History warfarin 5 mg tablet 5 mg PO FR@1600 10/25/21 04/03/22 History phenytoin sodium extended 100 mg 100 mg PO UD 01/16/22 04/03/22 History capsule L.acidop,casei,lactis,rham-B.lact,benji 2 cap PO DAILY #30 caps 01/25/22 04/03/22 Rx 625 mg (10 billion cell) capsule (Advanced Probiotic) ipratropium bromide 42 mcg (0.06 2 spray intranasal BID PRN Nasal 03/21/22 04/03/22 History %) nasal spray Congestion nystatin 100,000 unit/mL oral 5 ml PO QID 03/21/22 04/03/22 History suspension warfarin 5 mg tablet 2.5 mg PO SUMOTUWETHSA@1600 03/21/22 04/03/22 History enoxaparin 100 mg/mL subcutaneous 100 mg subcut Q12 04/03/22 04/03/22 History syringe furosemide 20 mg tablet 20 mg PO DAILY 04/03/22 04/03/22 History Past Med/Surg History Medical History (HFpEF) heart failure with preserved ejection fraction 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 Hx of bladder repair surgery "bladder tacked" Hx of colonoscopy Hx of right hemicolectomy 2/2 appendiceal mass S/P hip replacement bilat. S/P hysterectomy complete S/P knee replacement rt. Family History Other Breast cancer Diabetes Ovarian cancer Social History Smoking Status: Former smoker Tobacco Type: Cigarettes Second Hand Exposure: No; Do You Dip or Chew Tobacco: No; Tobacco Cessation Education Requested by Patient: No Hx Alcohol Use: No Hx Substance Use: No Preferred Language: Kazakh Communication Ability: Effective Third Miller Required: No Beliefs That Will Affect Care: None Current Living Situation: Spouse Current Living Situation Comment: Daughter and family Other Information That Helps Us Care for You: No Feels Safe at Home: Yes Safety Concerns: Feels Safe At This Time Assistive Devices: Cane and Walker Review of Systems Review of Systems: All systems reviewed & are unremarkable except as noted in HPI & below Physical Exam Physical Exam: Constitutional: WD/WN, vitals as above, NAD, sitting up in bed, pleasant, conversing easily Head: Normocephalic, Atraumatic Eyes: PERRL, conjunctivae normal, anicteric sclerae ENMT: external ear and nose normal, oropharynx normal Neck: trachea midline, no thyromegaly normal visual inspection Respiratory: normal respiratory effort, lungs clear to auscultation, no wheeze, rales, rhonchi. Normal insp/exp effort, no accessory muscle use Cardiovascular: RRR, no murmur, significant lower extremity edema extending to proximal thigh , +2 Vessels: no JVD or carotid bruit Chest: normal inspection of chest Abdomen: normal bowel sounds, soft, obese, + exp lap incision, john noted, surrounding ecchymosis but no erythema, no hepatosplenomegaly appreciated Musculoskeletal: no cyanosis or clubbing, extremities motor strength 5/5 Skin: no rashes, warm and dry normal turgor Neurologic: PERRL, EOMI, accommodation nl, no face palsy, no dysarthria CN's II-XI intact bilaterally and moves all extremities Psychiatric: A+Ox3, euthymic affect Lymphatic: no cervical or axillary lymphadenopathy : deferred Results & Data Results & Data ([facility]) Vital Signs (Past 12 Hours) Vital Signs Temp Pulse Resp BP Pulse Ox O2 Del Method 04/03/22 08:35 Room Air 04/03/22 08:00 36.8 C 81 19 128/72 95 Room Air Medications Administered Medication List Pantoprazole Sodium 40 mg/ (Dextrose) 100 mls @ 20 mls/hr IV Q5H [facility] Stop: 04/03/22 13:14 Last Infusion: 04/03/22 09:50 Dose: 8 mg/hr, 20 mls/hr Documented By: Infusion: 04/03/22 09:36 Dose: 0 mg/hr, 0 mls/hr Documented By: Admin: 04/03/22 09:36 Dose: 8 mg/hr, 20 mls/hr Documented By: TERESA Discontinued Medications Pantoprazole Sodium 80 mg/ (Dextrose) 100 mls @ 400 mls/hr IV NOW ONE Stop: 04/03/22 08:21 Last Infusion: 04/03/22 09:50 Dose: 0 mls/hr Documented By: Admin: 04/03/22 09:30 Dose: 400 mls/hr Documented By: TERESA Ioversol (Optiray 350 100ml) 94 ml IV ONCE ONE Stop: 04/03/22 10:55 Last Admin: 04/03/22 10:54 Dose: 94 ml Documented By: KESHAWN ECG Rate (beats per minute): 80 Rhythm: normal sinus Additional Comments: flat st segment laterally ekg was reviewed by me and interpreted by me COVID-19 Results Results COVID-19 Adm Lab Results: RBC 2.84 M/uL (3.93-5.22) L 04/04/22 WBC 4.81 K/ul (4.8-10.8) 04/04/22 Hgb 8.6 g/dl (12.0-16.0) L 04/04/22 Hct 27.3 % (34.1-44.9) L 04/04/22 Plt Count 291 K/uL (130-400) 04/04/22 Neutrophils (%) (Auto) 55.2 % 04/04/22 Lymphocytes (%) (Auto) 24.3 % 04/04/22 Monocytes # (Auto) 0.59 K/uL (0.24-0.82) 04/04/22 Eosinophils # (Auto) 0.23 K/uL (0-0.50) 04/04/22 Immature Granulocyte % (Auto) 1.9 % 04/04/22 Neutrophils # (Auto) 2.66 K/uL (1.4-6.5) 04/04/22 Lymphocytes # (Auto) 1.17 K/uL (1.2-3.4) L 04/04/22 Monocytes # (Auto) 0.59 K/uL (0.24-0.82) 04/04/22 Eosinophils # (Auto) 0.23 K/uL (0-0.50) 04/04/22 Basophils # (Auto) 0.07 K/uL (0-0.2) 04/04/22 Immature Granulocyte # (Auto) 0.09 K/uL (0.00-0.02) H 04/04 Na 143 mmol/L (136-145) 04/04/22 K 3.0 mmol/L (3.5-5.1) L 04/04/22 Cl 107 mmol/L (98-107) 04/04/22 CO2 29 mmol/L (21-32) 04/04/22 Anion Gap 7 (3-11) 04/04/22 BUN 4 mg/dl (6-23) L 04/04/22 Creatinine 0.58 mg/dl (0.6-1.2) L 04/04/22 BUN/Creatinine Ratio 6.9 (10-20) L 04/04/22 Glucose Level 77 mg/dl (70-99(Fasting)) 04/04/22 Ca 7.3 mg/dl (8.5-10.1) L 04/04/22 Total Bilirubin 0.3 mg/dl (0.2-1.0) 04/03/22 AST/SGOT 37 U/L (13-39) 04/03/22 ALT/SGPT 17 U/L (7-52) 04/03/22 Alkaline Phosphatase 105 U/L (34-104) H 04/03/22 Total Protein 5.4 gm/dl (6.0-8.3) L 04/03/22 Albumin 2.9 gm/dl (3.4-5.0) L 04/03/22 Globulin 2.5 gm/dl (2.5-4.0) 04/03/22 Albumin/Globulin Ratio 1.2 (0.9-2) 04/03/22 PTT 38.3 Seconds (21.0-31.0) H 04/03/22 INR 1.4 (0.9-1.1) H 04/04/22 SARS-CoV-2, RNA, NAAT NEGATIVE (NEGATIVE) 04/03/22 Code Status & VTE Plan Code Status FULL CODE Supervising Physician Co-Signing Physician Notes Attending addendum: The patient was seen and examined on 04/03/2022 in medical telemetry unit She is status post hemicolectomy secondary to high-grade appendiceal mucinous neoplasm on of this month in [place] Was admitted to [facility] with rectal bleeding Hemoglobin remains reasonably stable without any significant abdominal pain and/or discomfort On examination No apparent distress at rest Chest-clear to auscultate bilateral Heart-S1-S2, regular Abdomen-recent surgical sutures intact, soft and mildly tender, bowel sound present Extremities-trace edema bilaterally Her admission labs, imaging studies reviewed Rectal bleeding with recent right hemicolectomy due to mucinous plasm of the appendix Will monitor H&H and reverse anticoagulation GI has been consulted Agree with assessment and plan as outlined above by Lay Hill
[2022-04-03] MEDS ORDERED: OPTIRAY 350 100ml IV ONE (10:54)
--- NOTE | 2022-04-03 11:47 | CT Scan Report ---
CT abd pelvis IV con only CLINICAL HISTORY: rectal bleeding, recent r hemicolectomy TECHNIQUE: Helical axial images of the abdomen and pelvis were obtained and displayed. Automated dose lowering techniques and/or adjustment according to patient size were utilized for this exam. This e xam was performed with intravenous contrast. CT DOSE: 1250.66 mGy.cm COMPARISON: Comparison is made to CT abdomen pelvis 03/21/2022 FINDINGS: Lower chest: Atelectasis is seen in the right greater than left lower lungs. Liver: Unremarkable. No focal lesions are seen. Gallbladder and biliary tree: No calcified gallstones. Normal caliber wall. No intra- or extrahepatic biliary ductal dilation. Pancreas: Unremarkable, no focal lesions. Spleen: Unremarkable. Adrenals: Unremarkable. Kidneys and ureters: Unremarkable. Bladder: Focus of air is seen, correlation with recent rotation is recommended. Reproductive organs: Unremarkable. Bowel: There is liquid material in the colon. Postsurgical changes of right hemicolectomy are seen. T here is a small amount of diverticulosis. Lymph nodes Retroperitoneal: Unremarkable. Pelvic: Unremarkable. Mesenteric: Unremarkable. Peritoneum: There is small ascites. No pneumoperitoneum is seen. Vessels: Atherosclerotic calcifications are seen. Abdominal wall: There is fat stranding and a small amount of fluid in the midline incision. No well-d efined drainable fluid collection is seen. Bones: Degenerative changes in the visualized spine. There are bilateral hip arthroplasties. There is an old L2 compression deformity. IMPRESSION: 1. Expected postsurgical changes status post right hemicolectomy with small ascites, overall decreas ed from prior exam. Liquid contents are seen in the colon but there is no evidence of mass or dehisce nce to explain rectal bleeding. 2. Reactive soft tissue changes at the midline incision. No drainable fluid collection is seen. Carmelo elation with physical exam is recommended to exclude site infection. ACT 112: Negative or not required by law. Electronically signed by: Benny Gill M.D. 04/03/2022 11:45 AM
[2022-04-03] MEDS ORDERED: SODIUM CHLORIDE 0.9% 250 ML IV PRN (12:59)
[2022-04-03] MEDS ORDERED: LACTATED RINGER'S 1,000 ML IV SCH (12:59)
[2022-04-03] MEDS ORDERED: PHENYTOIN SODIUM ER 100 MG CAP PO SCH (12:59)
[2022-04-03] MEDS ORDERED: ACETAMINOPHEN 325 MG TAB PO PRN (12:59)
[2022-04-03] MEDS ORDERED: ONDANSETRON INJ 2 MG/ML 2 ML VIAL IV PRN (12:59)
[2022-04-03] MEDS ORDERED: PHYTONADIONE 5 MG TAB PO STA (13:00)
--- NOTE | 2022-04-03 13:09 | Gastrointestinal Consultation ---
Date of Consultation April 03, 2022 Assessment & Plan (1) S/P right hemicolectomy: (2) Rectal bleeding: Pt is a 72 yo female w PMHx of seizure disorder, HTN, HLD, CKD III, PE & DVT on Warfarin, appendiceal neoplasm w/o R hemicolectomy w anastomosis on 03/24/2022 (at [facility] who presented with rectal bleeding started yesterday. INR supratherapeutic at 3.3. CT abd/pelvis wo acute findings except post surgical changes. Suspect surgical area bleeding in setting of supratherapuetic INR. She is hemodynamically stable w also stable blood ct compared to labs 2 days ago. Benign abd exam today, noted she passes small amts of blood clots per rectum on commode while I was in room. She said bleeding is much improved from yesterday. - Monitor for further s/s of GI bleeding - Monitor blood ct and transfuse prn - Vit K to reverse INR - Deferring colonoscopy at this time given stability and also recent colon tiffanie du Supervising Physician Co-Signing Physician Notes 72 y/o F with history of seizure disorder, HTN, HLD, CKD III, PE & DVT on Warfarin, appendiceal neoplasm w/o R hemicolectomy w/ anastomosis on 03/24/2022 (at [facility] who presented with rectal bleeding. States that yesterday she felt she had to pee nad multiple times she went to the bathroom and had bright red blood passing from the rectum. States that today she feels the bleeding has slowed and is now quarter sized clots. She did have a bowel movement when she arrived to the floor with about 3-4 blood clots per nursing. Patient feels her bleeding is slowing down. INR was 3.3. on admission. She was recently restarted on coumadin with a lovenox bridge. She states her john and surgical incision has been c/d/i without any drainage, warmth, or erythema. Has multiple ecchymosis over her abdomen and arms. hgb on admission was 10.9 and 10.1 on recheck (was 12 at time of surgery). CT with expected post-surgical changes with small ascites and no evidence of dehiscence. At this time given stable H/H and the fact that her bleeding is slowing would like to hold off on colonoscopy at this time. She has a recent surgery with fresh anastomosis so would not want to pursue colonoscopy unless absolutely necessary. If bleeding continues or H/H drops would plan for colonoscopy at that time and would discuss with surgeon at [facility] as well prior to procedure. Trixie Smith DO Gastroenterology and Hepatology History of Present Illness Reason for Consultation: Rectal bleeding Requesting Physician: Dr. Wendy Hill Attending Physician: Dr. Trixie Smith History of Present Illness Pt is a 72 yo female w PMHx of seizure disorder, HTN, HLD, CKD III, PE & DVT on Warfarin, appendiceal neoplasm w/o R hemicolectomy w anastomosis on 03/24/2022 (at [facility] who presented with rectal bleeding started yesterday. Pt had been to this ED 2 days ago wo bleeding on stomach where she was giving herself Lovenox injections. Hgb at that time was 10. INR 1.6. Yesterday she felt urge to defecate but not passing stools, rather lots of red blood w clots "all day long". She denies any other associated symptoms such as light headedness, dizziness, CP, SOB. abd pain, n/v. Blood ct stable from 2 days ago. Afebrile, wo tachycardia or hypotension. INR noted to be 3.3. Today she has had a couple more rectal bleeding but mostly clots per her report, not as much blood. CT abd/pelvis w contrast: 1. Expected postsurgical changes status post right hemicolectomy with small ascites, overall decreased from prior exam. Liquid contents are seen in the colon but there is no evidence of mass or dehiscence to explain rectal bleeding. 2. Reactive soft tissue changes at the midline incision. No drainable fluid collection is seen. Correlation with physical exam is recommended to exclude site infection. Allergies Allergy/AdvReac Type Severity Reaction Status Date / Time No Known Allergies Allergy Unknown Verified 03/21/22 16:03 Home Medications Medication Instructions Recorded Confirmed Type aspirin 81 mg tablet 81 mg PO QAM 10/25/21 04/03/22 History carvedilol 12.5 mg tablet 12.5 mg PO BID 10/25/21 04/03/22 History loratadine 10 mg tablet 10 mg PO QAM 10/25/21 04/03/22 History warfarin 5 mg tablet 5 mg PO FR@1600 10/25/21 04/03/22 History phenytoin sodium extended 100 mg 100 mg PO UD 01/16/22 04/03/22 History capsule L.acidop,casei,lactis,rham-B.lact,benji 2 cap PO DAILY #30 caps 01/25/22 04/03/22 Rx 625 mg (10 billion cell) capsule (Advanced Probiotic) ipratropium bromide 42 mcg (0.06 2 spray intranasal BID PRN Nasal 03/21/22 04/03/22 History %) nasal spray Congestion nystatin 100,000 unit/mL oral 5 ml PO QID 03/21/22 04/03/22 History suspension warfarin 5 mg tablet 2.5 mg PO SUMOTUWETHSA@1600 03/21/22 04/03/22 History enoxaparin 100 mg/mL subcutaneous 100 mg subcut Q12 04/03/22 04/03/22 History syringe furosemide 20 mg tablet 20 mg PO DAILY 04/03/22 04/03/22 History Patient History Medical History (HFpEF) heart failure with preserved ejection fraction 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 Hx of bladder repair surgery "bladder tacked" Hx of colonoscopy Hx of right hemicolectomy 2/2 appendiceal mass S/P hip replacement bilat. S/P hysterectomy complete S/P knee replacement rt. 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 Beliefs That Will Affect Care: None Current Living Situation: Family Current Living Situation Comment: Daughter and family Feels Safe at Home: Yes Assistive Devices: Walker Review of Systems Review of Systems: All systems reviewed & are unremarkable except as noted in HPI & below Physical Exam Constitutional: WD/WN, vitals as above well groomed, cooperative and comfortable Eyes: PERRL, conjunctivae normal, anicteric sclerae ENMT: external ear and nose normal, oropharynx normal Respiratory: normal respiratory effort, lungs clear to auscultation Cardiovascular: RRR, no murmur, no edema Gastrointestinal (Abdomen): normal bowel sounds, soft, nontender, no hepatosplenomegaly Skin: no rashes, warm and dry no jaundice midline abd incision w john intact, CDI. multiple areas of bruising on abdomen Psychiatric: A+Ox3, euthymic affect Lymphatic: no lymphedema Results & Data ([facility]) Vital Signs (Past 12 Hours) Vital Signs Temp Pulse Resp BP Pulse Ox O2 Del Method 04/03/22 10:30 83 26 H 96 04/03/22 10:00 82 19 144/78 H 93 04/03/22 09:30 85 19 92 04/03/22 09:30 136/66 04/03/22 09:10 91 H 16 95 04/03/22 09:10 138/87 04/03/22 09:00 84 15 93 04/03/22 08:30 76 19 92 04/03/22 08:04 83 20 96 04/03/22 08:35 Room Air 04/03/22 08:00 36.8 C 81 19 128/72 95 Room Air
[2022-04-03] MEDS: POTASSIUM CHLORIDE / WTR 10 MEQ/100 ML PLCT IV SCH ×2 (13:49→16:06)
[2022-04-03] MEDS ORDERED: POTASSIUM CHLORIDE CRTAB 20 MEQ TABCR PO STA (14:19)
--- NOTE | 2022-04-03 18:21 | Electrocardiogram Report ---
Test Reason : Blood Pressure : / mmHG Vent. Rate : 080 BPM Atrial Rate : 080 BPM P-R Int : 124 ms QRS Dur : 084 ms QT Int : 390 ms P-R-T Axes : 020 014 -44 degrees QTc Int : 449 ms Poor data quality, interpretation may be adversely affected Normal sinus rhythm Nonspecific ST and T wave abnormality Abnormal ECG When compared with ECG of 21-MAR-2022 22:27, Premature ventricular complexes are no longer Present Confirmed by Nemesio Garnica ([id number]) on 04/03/2022 6:21:07 PM Referred By: Confirmed By:Simon Garnica
[2022-04-03] MEDS: PHENYTOIN SODIUM ER 100 MG CAP PO SCH (19:33)
[2022-04-03] MEDS: carvediloL 12.5 MG TAB PO SCH (19:34)
[2022-04-03 20:42] LABS: Hematocrit (blood only) 25.3 % (34.1-44.9); Hemoglobin 8.4 g/dl (12.0-16.0)
[2022-04-03 20:52] LABS: INR 3.5 (0.9-1.1); Prothrombin Time 34.5 Seconds (9.0-12.0)
[2022-04-03] MEDS ORDERED: PHYTONADIONE 10 MG in DEXTROSE 5% 50 ML IV ONE (23:15)
[2022-04-03] MEDS ORDERED: SODIUM CHLORIDE 0.9% 1000ML 1,000 ML IV SCH (23:30)
[2022-04-04] MEDS: PANTOprazole 40 MG in DEXTROSE 5% 100 ML IV SCH ×2 (00:12→05:43)
[2022-04-04 06:56] LABS: INR 1.4 (0.9-1.1); Prothrombin Time 15.1 Seconds (9.0-12.0)
[2022-04-04 06:59] LABS: Basophils # (auto) 0.07 K/uL (0-0.2); Basophils % (auto) 1.5 %; Eosinophils # (auto) 0.23 K/uL (0-0.50); Eosinophils % (auto) 4.8 %; Hematocrit (blood only) 27.3 % (34.1-44.9); Hemoglobin 8.6 g/dl (12.0-16.0); Immature Granulocytes # (auto) 0.09 K/uL (0.00-0.02); Immature Granulocytes % (auto) 1.9 %; Lymphocytes # (auto) 1.17 K/uL (1.2-3.4); Lymphocytes % (auto) 24.3 %; Mean Corpuscular Hemoglobin 30.3 pg (25.0-34.0); Mean Corpuscular Hgb Conc 31.5 g/dL (32.0-36.0); Mean Corpuscular Volume 96.1 fL (80.0-100.0); Monocytes # (auto) 0.59 K/uL (0.24-0.82); Monocytes % (auto) 12.3 %; Neutrophils # (auto) 2.66 K/uL (1.4-6.5); Neutrophils % (auto) 55.2 %; Platelet Count 291 K/uL (130-400); RDW Coefficient of Variation 14.2 % (11.5-14.5); RDW Standard Deviation 49.8 fL (36.4-46.3); Red Blood Count 2.84 M/uL (3.93-5.22); White Blood Count 4.81 K/ul (4.8-10.8)
[2022-04-04 07:01] LABS: Calcium 7.3 mg/dl (8.5-10.1); Magnesium 1.3 mg/dl (1.7-2.4)
[2022-04-04 07:07] LABS: BUN Creatinine Ratio 6.9 (10-20); Creatinine Clr Calc Pharmacy 94.6 ml/min; Est GFR (African American) 105.2 ml/min; Est GFR (Non-African American) 90.8 ml/min
[2022-04-04] MEDS: LORATADINE 10 MG TAB PO SCH (08:30)
[2022-04-04] MEDS: carvediloL 12.5 MG TAB PO SCH ×2 (08:30→20:07)
[2022-04-04] MEDS: ADVANCED PROBIOTIC 1250 MG CAPSULE PO SCH (08:30)
[2022-04-04] MEDS: ASPIRIN 81 MG ECTAB PO SCH (08:30)
[2022-04-04] MEDS: PHENYTOIN SODIUM ER 100 MG CAP PO SCH ×3 (08:30→20:08)
[2022-04-04] MEDS: FUROSEMIDE INJ 20 MG/2 ML VIAL IV SCH (08:31)
--- NOTE | 2022-04-04 09:13 | Gastroenterology Progress Note ---
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 INR supratherapeutic at 3.3. CT abd/pelvis wo acute findings except post surgical changes. Suspect surgical area bleeding in setting of supratherapeutic INR. She is hemodynamically stable w also stable blood ct compared to labs 2 days ago. Benign abd exam today, noted she passes small amts of blood clots per rectum on commode while I was in room. She said bleeding is much improved from yesterday. Rectal bleeding continues, Hgb dropped to 8 but stable overnight. No abd pain, n/v. - Monitor for further s/s of GI bleeding - Monitor blood ct and transfuse prn - Deferring colonoscopy at this time given stability and also recent colon surgery. Will reach out to her surgeon (Dr. 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 States that yesterday she felt she had to pee nad multiple times she went to the bathroom and had bright red blood passing from the rectum. States that today she feels the bleeding has slowed and is now quarter sized clots. She did have a bowel movement when she arrived to the floor with about 3-4 blood clots per nursing. Patient feels her bleeding is slowing down. INR was 3.3. on admission. She was recently restarted on coumadin with a lovenox bridge. She states her john and surgical incision has been c/d/i without any drainage, warmth, or erythema. Has multiple ecchymosis over her abdomen and arms. hgb on admission was 10.9 and 8.6 this AM (was 12 at time of surgery). CT with expected post-surgical changes with small ascites and no evidence of dehiscence. H/H did drop 2 grams since yesterday and patient still with some ongoing bleeding. I spoke with patient's surgeon up at [place] who performed her surgery who would like us to avoid colonoscopy as he states that she is likely oozing/bleeding around anastomosis and feels that it would be risky to go in when she is only 11 days post-operative and do a colonoscopy. He recommended correcting INR (which has been done) and monitoring H/H. If ongoing bleeding will need surgery consult and may need transferred to tertiary care center. Trixie Smith, DO Gastroenterology and Hepatology Subjective Hgb dropped to 8 overnight, remains stable this AM. She is having speck of blood clots per rectum still. Denies any abd pain, n/v. Review of Systems Review of Systems: All systems reviewed & are unremarkable except as noted in HPI & below Physical Exam Constitutional: WD/WN, vitals as above well groomed, cooperative and comfortable Eyes: PERRL, conjunctivae normal, anicteric sclerae ENMT: external ear and nose normal, oropharynx normal Respiratory: normal respiratory effort, lungs clear to auscultation Cardiovascular: RRR, no murmur, no edema Gastrointestinal (Abdomen): normal bowel sounds, soft, nontender, no hepatosplenomegaly Skin: no rashes, warm and dry no jaundice midline abd incision w john CDI. Multiple areas of ecchymosis on abd, arms. Psychiatric: A+Ox3, euthymic affect Lymphatic: no lymphedema Results & Data ([facility] [place]) Vital Signs (Past 12 Hours) Vital Signs Temp Pulse Pulse Resp BP Pulse Ox O2 Del Method 04/04/22 07:48 85 04/04/22 07:45 36.4 C L 82 20 153/91 H 92 Room Air 04/04/22 06:15 85 04/04/22 03:09 36.4 C L 90 18 153/75 H 92 Room Air 04/03/22 23:03 36.5 C 75 18 128/77 96 Room Air
[2022-04-04] MEDS: PANTOprazole 40 MG TAB PO SCH ×2 (10:49→20:07)
[2022-04-04] MEDS ORDERED: POTASSIUM CHLORIDE CRTAB 20 MEQ TABCR PO STA (11:42)
--- NOTE | 2022-04-04 11:42 | Hospitalist Progress Note ---
Date of Service April 04, 2022 Assessment & Plan (1) Rectal bleeding: (2) S/P right hemicolectomy: (3) Neoplasm of appendix: (4) Supratherapeutic INR: (5) Hypokalemia: (6) (HFpEF) heart failure with preserved ejection fraction: (7) Personal history of DVT (deep vein thrombosis): (8) Seizure disorder: Plan This is a 72-year-old female who has significant past medical history of diastolic CHF, HTN, HLD, CKD stage III, history of epilepsy, history of PE and DVT who presents to ED secondary to concern for rectal bleeding x [address] a/p: IMPRESSION: 1. Expected postsurgical changes status post right hemicolectomy with small ascites, overall decreased from prior exam. Liquid contents are seen in the colon but there is no evidence of mass or dehiscence to explain rectal bleeding. 2. Reactive soft tissue changes at the midline incision. No drainable fluid collection is seen. Correlation with physical exam is recommended to exclude site infection. 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 Yehuda Lema Supratherapeutic INR admit to med tele remain NPO for now consult GI CT shows no signs of dehiscence of bleeding explanation pt passed 2 quarter sized dark red clots while examining will give gentle IVF for 500ml - pt already volume overloaded but given recent contrast want to give small amount PPI gtt started in ED, will continue for now last c scope was 2010 - sigmoid diverticulosis hold wafarin and d/c lovenox vit K 2.5mg oral x 1 now Has had fresh blood per rectum last evening Normal bowel movement this morning as per the patient Appreciate GI input and recommendation Denies any abdominal pain, distention, nausea and or vomiting Anemia hgb 10.1, normal indices hgb was 11.9 on day of D/C from [facility] will type and cross 1 units to transfuse if hgb < 7 or symptomatic Hemoglobin dropped to 8.6 from 10.9 on admission on 04/03/2022 Hypokalemia K 3.3 give oral potassium, didn't tolerate IV repeat Will give supplemental potassium Chronic HFpEF 01/16/22 - EF 60-65%, grade II DD pt reports 12lb weight gain since hospitalization with significant increase in lower extremity edema will start lasix 20mg IV daily tomorrow monitor electrolytes, daily weights, strict I and O continue coreg hx of DVT/PE follows [facility] hold warfarin, d/c lovenox will need to determine if pt should continue on warfarin at this time or not only 1 x hx of DVT/PE per pt post knee replacement Coumadin is on hold now due to ongoing rectal bleed Seizure d/o last one in 1972 continue dilantin DVT ppx: SCDS Dispo: med tele FULL CODE PCP: [facility] Admission and Anticipated Discharge Date Admission Date: April 03, 2022 Subjective 04/04/2022 The patient was seen and examined in medical telemetry unit She has had bright red rectal bleed last evening and has had a normal bowel movement this morning Denies any abdominal pain, distention, nausea and or vomiting Hemoglobin dropped to 8.6 from 10.9 on admission Review of Systems Review of Systems: All systems reviewed and are unremarkable except as noted below Physical Exam Physical Exam: Lying in bed comfortably Constitutional: well developed, well nourished, + ill appearing and + obese Eyes: PERRL, conjunctivae normal, anicteric sclerae ENMT: external ear and nose normal, oropharynx normal Neck: trachea midline, no thyromegaly Respiratory: no respiratory distress Auscultation: lungs clear to auscultation bilaterally Cardiovascular: Rate/Rhythm: regular rate and regular rhythm; not tachycardic Heart Sounds: normal S1 and normal S2; no murmur Extremities: + edema (1-2+ edema bilateral) Gastrointestinal (Abdomen): Inspection/Auscultation: normal bowel sounds; abdomen not distended Percussion/Palpation: + abdomen tender (Mildly tender all over) and abdomen soft Abdominal john are in place without any infection at the wound Musculoskeletal: No acute arthritis in any joint Neurologic: normal touch/pain/proprioception and moves all extremities; no focal motor deficits Psychiatric: A+Ox3, euthymic affect Lymphatic: no cervical or axillary lymphadenopathy Results & Data Results & Data ([facility]) Vital Signs (Past 12 Hours) Vital Signs Temp Pulse Pulse Resp BP Pulse Ox O2 Del Method 04/04/22 11:11 36.6 C 75 20 136/80 94 Room Air 04/04/22 07:48 85 04/04/22 07:45 36.4 C L 82 20 153/91 H 92 Room Air 04/04/22 06:15 85 04/04/22 03:09 36.4 C L 90 18 153/75 H 92 Room Air Laboratory Results Short CBC 04/03/22 04/04/22 04/04/22 Range/Units 20:27 06:17 06:17 WBC Cancelled 4.81 Hgb 8.4 L Cancelled 8.6 L (12.0-16.0) g/dl Hct 25.3 L Cancelled 27.3 L (34.1-44.9) % Plt Count Cancelled 291 BMP 04/04/22 06:17 Sodium 143 Potassium 3.0 L Chloride 107 Carbon Dioxide 29 BUN 4 L Creatinine 0.58 L Glucose 77 Calcium 7.3 L Medications Administered Current Inpatient Medications Acetaminophen (Acetaminophen 325 Mg Tab) 650 mg PO Q4H PRN PRN Reason: Pain or Fever Stop: 05/03/22 12:58 Aspirin (Aspirin 81 Mg Ectab) [facility] Stop: 05/04/22 08:59 Last Admin: 04/04/22 08:30 Dose: 81 mg Carvedilol (Carvedilol 12.5 Mg Tab) 12.5 mg PO BID [facility] Stop: 05/03/22 20:59 Last Admin: 04/04/22 08:30 Dose: 12.5 mg Furosemide (Furosemide Inj 20 Mg/2 Ml Vial) 20 mg IV DAILY [facility] Stop: 05/04/22 08:59 Last Admin: 04/04/22 08:31 Dose: 20 mg Sodium Chloride (Nss 1000ml) 1,000 mls @ 80 mls/hr IV .[id number] [facility] Stop: 05/03/22 23:29 Last Admin: 04/03/22 23:34 Dose: 80 mls/hr Lactobacillus Acidophilus (Advanced Probiotic 1250 Mg Capsule) 2 cap PO DAILY [facility] Stop: 05/04/22 08:59 Last Admin: 04/04/22 08:30 Dose: 2 cap Loratadine (Loratadine 10 Mg Tab) 10 mg PO QAM [facility] Stop: 05/04/22 08:59 Last Admin: 04/04/22 08:30 Dose: 10 mg Ondansetron HCl (Ondansetron Inj 2 Mg/Ml 2 Ml Vial) 4 mg IV Q6H PRN PRN Reason: Nausea Stop: 05/03/22 12:58 Pantoprazole Sodium (Pantoprazole 40 Mg Tab) 40 mg PO BID [facility] Stop: 05/04/22 08:59 Last Admin: 04/04/22 10:49 Dose: 40 mg Phenytoin Sodium (Phenytoin Sodium Er 100 Mg Cap) 100 mg PO QAM [facility] Stop: 05/04/22 08:59 Last Admin: 04/04/22 08:30 Dose: 100 mg Phenytoin Sodium (Phenytoin Sodium Er 100 Mg Cap) 200 mg PO QPM [facility] Stop: 05/03/22 20:59 Last Admin: 04/03/22 19:33 Dose: 200 mg
[2022-04-04] MEDS: POTASSIUM CHLORIDE CRTAB 20 MEQ TABCR PO SCH (20:08)
[2022-04-05] MEDS: POTASSIUM CHLORIDE CRTAB 20 MEQ TABCR PO SCH ×2 (07:38→21:04)
[2022-04-05] MEDS: PHENYTOIN SODIUM ER 100 MG CAP PO SCH ×3 (07:39→21:05)
[2022-04-05] MEDS: PANTOprazole 40 MG TAB PO SCH ×2 (07:39→21:06)
[2022-04-05] MEDS: carvediloL 12.5 MG TAB PO SCH ×2 (07:39→21:04)
[2022-04-05] MEDS: LORATADINE 10 MG TAB PO SCH (07:39)
[2022-04-05] MEDS: ADVANCED PROBIOTIC 1250 MG CAPSULE PO SCH (07:39)
[2022-04-05] MEDS: ASPIRIN 81 MG ECTAB PO SCH (07:39)
[2022-04-05] MEDS: FUROSEMIDE INJ 20 MG/2 ML VIAL IV SCH (07:40)
[2022-04-05 11:19] LABS: Basophils # (auto) 0.08 K/uL (0-0.2); Basophils % (auto) 1.3 %; Eosinophils # (auto) 0.35 K/uL (0-0.50); Eosinophils % (auto) 5.9 %; Hematocrit (blood only) 28.2 % (34.1-44.9); Hemoglobin 9.1 g/dl (12.0-16.0); Immature Granulocytes # (auto) 0.12 K/uL (0.00-0.02); Lymphocytes % (auto) 23.6 %; Mean Corpuscular Hemoglobin 30.1 pg (25.0-34.0); Mean Corpuscular Hgb Conc 32.3 g/dL (32.0-36.0); Mean Corpuscular Volume 93.4 fL (80.0-100.0); Mean Platelet Volume 10.2 fL (9.4-12.3); Monocytes # (auto) 0.63 K/uL (0.24-0.82); Monocytes % (auto) 10.6 %; Neutrophils # (auto) 3.36 K/uL (1.4-6.5); Neutrophils % (auto) 56.6 %; Platelet Count 359 K/uL (130-400); RDW Coefficient of Variation 14.4 % (11.5-14.5); RDW Standard Deviation 48.9 fL (36.4-46.3); Red Blood Count 3.02 M/uL (3.93-5.22); White Blood Count 5.94 K/ul (4.8-10.8)
[2022-04-05 11:46] LABS: BUN Creatinine Ratio 4.3 (10-20); Calcium 7.5 mg/dl (8.5-10.1); Creatinine Clr Calc Pharmacy 77.1 ml/min; Est GFR (African American) 99.4 ml/min; Est GFR (Non-African American) 85.8 ml/min; Magnesium 1.4 mg/dl (1.7-2.4); Potassium 3.4 mmol/L (3.5-5.1)
--- NOTE | 2022-04-05 12:39 | Gastroenterology Progress Note ---
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 INR supratherapeutic at 3.3. CT abd/pelvis wo acute findings except post surgical changes. Suspect surgical area bleeding in setting of supratherapeutic INR. She is hemodynamically stable, AM labs pending. Hgb dropped from 10 to 8 2 days ago but stable since then. She has started passing small amt of brown stool as of yesterday. We had spoken with patient's surgeon at [facility] [place] who performed her surgery who would like us to avoid colonoscopy as he states that she is likely oozing/bleeding around anastomosis and feels that it would be risky to perform colonoscopy when she is only 11 days post-operative. - Advance to low soft, low residue diet as tolerated - Monitor blood ct and transfuse prn - Deferring colonoscopy at this time - No contraindication for DC home from GI standpoint with close monitoring of her coag function once her Warfarin has been restarted. 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 INR was 3.3. on admission. She was recently restarted on coumadin with a lovenox bridge. CT with expected post- surgical changes with small ascites and no evidence of dehisce. I spoke with patient's surgeon up at [place] who performed her surgery who would like us to avoid colonoscopy as he states that she is likely had oozing/bleeding around anastomosis and feels that it would be risky to go in when she is only 11 days post-operative and do a colonoscopy. Today patient no longer has any bleeding. hgb has increased. stools are turning brown. From a GI standpoint patient is ok to discharge home as her bleeding seems to have slowed down and stopped. She should follow up with surgery as outpatient for a post-operative appointment. Would also recommend that if she is restarted on coumadin she is closely followed as an outpatient to avoid supratherapeutic INR which will increase risk of bleeding. Ok for diet from a GI standpoint. Trixie Smith, DO Gastroenterology and Hepatology Subjective Patient reports that she started having small amounts of brown stools. Denies abdominal pain, nausea or vomiting, feels hungry and would like solid meals. Review of Systems Review of Systems: All systems reviewed & are unremarkable except as noted in HPI & below Physical Exam Constitutional: WD/WN, vitals as above well groomed, cooperative and comfortable Eyes: PERRL, conjunctivae normal, anicteric sclerae ENMT: external ear and nose normal, oropharynx normal Respiratory: normal respiratory effort, lungs clear to auscultation Cardiovascular: RRR, no murmur, no edema Gastrointestinal (Abdomen): normal bowel sounds, soft, nontender, no hepatosplenomegaly Skin: no rashes, warm and dry no jaundice Psychiatric: A+Ox3, euthymic affect Lymphatic: no lymphedema Results & Data ([facility]) Vital Signs (Past 12 Hours) Vital Signs Temp Pulse Pulse Resp BP BP Pulse Ox 04/05/22 11:23 36.7 C 92 H 21 144/79 H 96 04/05/22 08:27 36.8 C 79 20 155/85 H 92 04/05/22 02:44 36.6 C 76 18 129/71 93 04/04/22 23:55 79 O2 Del Method 04/05/22 11:23 Room Air 04/05/22 08:27 Room Air 04/05/22 02:44 Room Air 04/04/22 23:55
--- NOTE | 2022-04-05 14:00 | Hospitalist Progress Note ---
Date of Service April 05, 2022 Assessment & Plan (1) Rectal bleeding: (2) S/P right hemicolectomy: (3) Neoplasm of appendix: (4) Supratherapeutic INR: (5) Hypokalemia: (6) (HFpEF) heart failure with preserved ejection fraction: (7) Personal history of DVT (deep vein thrombosis): (8) Seizure disorder: Plan This is a 72-year-old female who has significant past medical history of diastolic CHF, HTN, HLD, CKD stage III, history of epilepsy, history of PE and DVT who presents to ED secondary to concern for rectal bleeding x [address] a/p: IMPRESSION: 1. Expected postsurgical changes status post right hemicolectomy with small ascites, overall decreased from prior exam. Liquid contents are seen in the colon but there is no evidence of mass or dehiscence to explain rectal bleeding. 2. Reactive soft tissue changes at the midline incision. No drainable fluid collection is seen. Correlation with physical exam is recommended to exclude site infection. 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 Yehuda Lema Supratherapeutic INR CT shows no signs of dehiscence of bleeding explanation pt passed 2 quarter sized dark red clots while examining will give gentle IVF for 500ml - pt already volume overloaded but given recent contrast want to give small amount PPI gtt started in ED, will continue for now last c scope was 2010 - sigmoid diverticulosis Warfarin has been on hold and d/c lovenox Vit K 2.5mg oral x 1 now Has had fresh blood per rectum last evening Normal bowel movement this morning as per the patient Hgb stable 9.1 today Gastroenterology Denies any abdominal pain, distention, nausea and or vomiting Anemia hgb 10.1, normal indices hgb was 11.9 on day of D/C from [facility] will type and cross 1 units to transfuse if hgb < 7 or symptomatic Hemoglobin stable 9.1 at 04/03/2022 Will resume coumadin Hypokalemia K 3.4 K replaced Continue monitor BMP Chronic HFpEF 01/16/22 - EF 60-65%, grade II DD pt reports 12lb weight gain since hospitalization with significant increase in lower extremity edema Continue Lasix 20mg daily Continue monitor BMP while on lasix hx of DVT/PE follows [facility] pharmacy hold warfarin, d/c lovenox will need to determine if pt should continue on warfarin at this time or not only 1 x hx of DVT/PE per pt post knee replacement Coumadin was held due to ongoing rectal bleed Seizure d/o last one in 1972 continue dilantin DVT ppx: SCDS Disposition Unable to get a ride to discharge home today FULL CODE PCP: [facility] Admission and Anticipated Discharge Date Admission Date: April 03, 2022 Subjective Pt was seen and examined for follow up of GI bleeding Lying in bed with no acute distress Pt said that she feels much better today She said that she is hungry Pt said that she would rather go home tomorrow Denies any chest pain, palpitation, dizziness and SOB Review of Systems Review of Systems: All systems reviewed & are unremarkable except as noted in Subjective Physical Exam Physical Exam: General- No acute distress Head- atraumatic Eyes- PERRL, EOMI, ENT- oropharynx clear Neck- supple, no JVD Lungs- clear to auscultation Heart- regular rhythm; no murmur Abdomen- normal bowel sounds, soft, nontender Extremities- no calf tenderness, +edema Neuro- alert, oriented x 3; PERRL, EOMI; no facial palsy; no dysarthria Skin- warm & dry Results & Data Results & Data ([facility]) Vital Signs (Past 12 Hours) Vital Signs Temp Pulse Pulse Resp BP BP Pulse Ox 04/05/22 08:00 80 04/05/22 11:23 36.7 C 92 H 21 144/79 H 96 04/05/22 08:27 36.8 C 79 20 155/85 H 92 04/05/22 02:44 36.6 C 76 18 129/71 93 O2 Del Method 04/05/22 08:00 04/05/22 11:23 Room Air 04/05/22 08:27 Room Air 04/05/22 02:44 Room Air
[2022-04-05] MEDS: MAGNESIUM SULFATE / D5W 1 GM/100 ML BAG IV SCH ×2 (15:01→17:19)
[2022-04-05] MEDS ORDERED: WARFARIN SOD 3 MG TAB PO ONE (17:01)
[2022-04-06 06:46] LABS: Hematocrit (blood only) 27.5 % (37.0-47.0); Hemoglobin 8.8 g/dl (12.0-16.0); Mean Corpuscular Hemoglobin 30.1 pg (25.0-34.0); Mean Corpuscular Volume 94.2 fL (80.0-100.0); Platelet Count 306 K/uL (130-400); RDW Coefficient of Variation 14.5 % (11.5-14.5); Red Blood Count 2.92 M/uL (4.20-5.40); White Blood Count 6.03 K/ul (4.8-10.8)
[2022-04-06 06:59] LABS: BUN Creatinine Ratio 4.5 (10-20); Calcium 7.6 mg/dl (8.5-10.1); Creatinine Clr Calc Pharmacy 79.8 ml/min; Est GFR (African American) 100.9 ml/min; Magnesium 1.8 mg/dl (1.7-2.4); Phosphorus 2.7 mg/dl (2.5-4.9); Potassium 3.5 mmol/L (3.5-5.1)
[2022-04-06 07:24] LABS: INR 1.1 (0.9-1.1); Prothrombin Time 11.2 Seconds (9.0-12.0)
[2022-04-06] MEDS: ASPIRIN 81 MG ECTAB PO SCH (09:54)
[2022-04-06] MEDS: carvediloL 12.5 MG TAB PO SCH (09:56)
[2022-04-06] MEDS: ADVANCED PROBIOTIC 1250 MG CAPSULE PO SCH (09:57)
[2022-04-06] MEDS: LORATADINE 10 MG TAB PO SCH (09:58)
[2022-04-06] MEDS: PANTOprazole 40 MG TAB PO SCH (09:59)
[2022-04-06] MEDS: PHENYTOIN SODIUM ER 100 MG CAP PO SCH (09:59)
[2022-04-06] MEDS: POTASSIUM CHLORIDE CRTAB 20 MEQ TABCR PO SCH (10:00)
[2022-04-06] MEDS: FUROSEMIDE INJ 20 MG/2 ML VIAL IV SCH (10:00)
--- NOTE | 2022-04-06 10:20 | Discharge Summary ---
Date of Service April 06, 2022 Admission HPI Per Admitting Provider This is a 72-year-old female who has significant past medical history of diastolic CHF, HTN, HLD, CKD stage III, history of epilepsy, history of PE and DVT who presents to ED secondary to concern for rectal bleeding x 1 day. Of significance patient was recently hospitalized at [facility] on January 2022 with urosepsis and E. coli bacteremia. A pelvic fluid collection was incidentally found on renal ultrasound done for MADELIN. At that time there was concern it may communicate with the colon. Her pelvic fluid collection was drained by IR at [facility] as an outpatient on 03/16/2022. Cytology was unsatisfactory for evaluation showing no organisms. An IR drain was not replaced due to lack of ability to aspirate because collection was very gelatinous. On 03/20/22 she reported low-grade fever and chills as well as severe abdominal pain. She was seen and evaluated at [facility] and a CT scan shows the pelvic collection has gotten larger. She was transferred to [facility] for further evaluation. She was taken to the OR on 03/24/2022 for exploratory laparotomy for pelvic mass. She does have known history for DURAN and BSO. 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 She tolerated the procedure well and had return to normal bowel function after couple days and was able to tolerate a normal diet. Her surgeron was Dr. Yehuda Lema. She was discharged from [facility] on 03/29/2022. She was discharged on therapeutic Lovenox and bridging to warfarin due to history of DVT/PE. She didn't realize she was to start warfarin therefore has just been on lovenox. She did see [facility] pharmacy on Sunday and had 5mg of warfarin Sunday and sunday and 2.5mg yesterday. She was to continue lovenox through today, but last dose was yesterday. She states yesterday she noticed passing large amount of red blood via rectum w/o stool, but feeling the urge to have a BM. She denies any lorenza abd pain. Up until yesterday was mostly passing brown liquid. Due to concern for blood in stool she presented to ED. She denies any f/c/s, chest pain, sob, cough, dizziness, lightheaded, n/v, abd pain. Her appetite is stable and feels she is eating/drinking okay. She has been taking her medications as prescribed. She denies any lorenza epigastric pain. In ED patient remained hemodynamically stable. Her H&H was 10.1 and 32.1. Her INR was supratherapeutic at 3.3. Her potassium was mildly low at 3.3 and renal function was otherwise normal. She does have hypoalbuminemia. Admission Exam Per Admitting Provider Constitutional: WD/WN, vitals as above, NAD, sitting up in bed, pleasant, conversing easily Head: Normocephalic, Atraumatic Eyes: PERRL, conjunctivae normal, anicteric sclerae ENMT: external ear and nose normal, oropharynx normal Neck: trachea midline, no thyromegaly normal visual inspection Respiratory: normal respiratory effort, lungs clear to auscultation, no wheeze, rales, rhonchi. Normal insp/exp effort, no accessory muscle use Cardiovascular: RRR, no murmur, significant lower extremity edema extending to proximal thigh , +2 Vessels: no JVD or carotid bruit Chest: normal inspection of chest Abdomen: normal bowel sounds, soft, obese, + exp lap incision, john noted, surrounding ecchymosis but no erythema, no hepatosplenomegaly appreciated Musculoskeletal: no cyanosis or clubbing, extremities motor strength 5/5 Skin: no rashes, warm and dry normal turgor Neurologic: PERRL, EOMI, accommodation nl, no face palsy, no dysarthria CN's II-XI intact bilaterally and moves all extremities Psychiatric: A+Ox3, euthymic affect Lymphatic: no cervical or axillary lymphadenopathy : deferred Principal Diagnosis (1) Rectal bleeding: (2) S/P right hemicolectomy: (3) Neoplasm of appendix: (4) Supratherapeutic INR: (5) Hypokalemia: (6) (HFpEF) heart failure with preserved ejection fraction: (7) Personal history of DVT (deep vein thrombosis): (8) Seizure disorder: Discharge Exam General- No acute distress Head- atraumatic Eyes- PERRL, EOMI, ENT- oropharynx clear Neck- supple, no JVD Lungs- clear to auscultation Heart- regular rhythm; no murmur Abdomen- normal bowel sounds, nontender, incision area with no erythema and drainage with john intact Extremities- no calf tenderness, +edema Neuro- alert, oriented x 3; PERRL, EOMI; no facial palsy; no dysarthria Skin- warm & dry Discharge Data Allergies Allergy/AdvReac Type Severity Reaction Status Date / Time No Known Allergies Allergy Unknown Verified 03/21/22 16:03 Consultations 04/03/22 09:47 ED Decision to Admit Stat 04/03/22 11:58 Consult Gastroenterology Routine Ordered Studies 04/03/22 10:49 CT abd pelvis IV con only Stat Laboratory Results WBC 6.03 K/ul (4.8-10.8) 04/06/22 06:10 RBC 2.92 M/uL (4.20-5.40) L 04/06/22 06:10 Hgb 8.8 g/dl (12.0-16.0) L 04/06/22 06:10 Hct 27.5 % (37.0-47.0) L 04/06/22 06:10 MCV 94.2 fL (80.0-100.0) 04/06/22 06:10 MCH 30.1 pg (25.0-34.0) 04/06/22 06:10 MCHC 32.0 g/dL (32.0-36.0) 04/06/22 06:10 RDW Std Deviation 49.0 fL (36.4-46.3) H 04/06/22 06:10 RDW Coeff of Benny 14.5 % (11.5-14.5) 04/06/22 06:10 Plt Count 306 K/uL (130-400) 04/06/22 06:10 MPV 10.0 fL (9.4-12.4) 04/06/22 06:10 Immature Gran % (Auto) 2.0 % 04/05/22 08:36 Neut % (Auto) 56.6 % 04/05/22 08:36 Lymph % (Auto) 23.6 % 04/05/22 08:36 [place] % (Auto) 10.6 % 04/05/22 08:36 Eos % (Auto) 5.9 % 04/05/22 08:36 Baso % (Auto) 1.3 % 04/05/22 08:36 Neut # (Auto) 3.36 K/uL (1.4-6.5) 04/05/22 08:36 Lymph # (Auto) 1.40 K/uL (1.2-3.4) 04/05/22 08:36 [place] # (Auto) 0.63 K/uL (0.24-0.82) 04/05/22 08:36 Eos # (Auto) 0.35 K/uL (0-0.50) 04/05/22 08:36 Baso # (Auto) 0.08 K/uL (0-0.2) 04/05/22 08:36 Immature Gran # (Auto) 0.12 K/uL (0.00-0.02) H 04/05/22 08:36 Absolute Nucleated RBC Cancelled 04/04/22 06:17 Nucleated RBC % (auto) Cancelled 04/04/22 06:17 Neutrophils % (Manual) Cancelled 04/04/22 06:17 Band Neutrophils % Cancelled 04/04/22 06:17 Lymphocytes % (Manual) Cancelled 04/04/22 06:17 Prolymphocyte % Cancelled 04/04/22 06:17 Reactive Lymphs % (Man) Cancelled 04/04/22 06:17 Monocytes % (Manual) Cancelled 04/04/22 06:17 Eosinophils % (Manual) Cancelled 04/04/22 06:17 Basophils % (Manual) Cancelled 04/04/22 06:17 Metamyelocytes % (Man) Cancelled 04/04/22 06:17 Myelocytes % (Man) Cancelled 04/04/22 06:17 Promyelocytes % (Man) Cancelled 04/04/22 06:17 Blast Cells % (Manual) Cancelled 04/04/22 06:17 Plasma Cell % (Manual) Cancelled 04/04/22 06:17 Other Cells % Cancelled 04/04/22 06:17 Nucleated RBC % Cancelled 04/04/22 06:17 Neutrophils # (Manual) Cancelled 04/04/22 06:17 Band Neutrophils # Cancelled 04/04/22 06:17 Total Absolute Neuts Cancelled 04/04/22 06:17 Lymphocytes # (Manual) Cancelled 04/04/22 06:17 Prolymphocyte # Cancelled 04/04/22 06:17 Reactive Lymphs # Cancelled 04/04/22 06:17 Total Abs Lymphocytes Cancelled 04/04/22 06:17 Monocytes # (Manual) Cancelled 04/04/22 06:17 Eosinophils # (Manual) Cancelled 04/04/22 06:17 Basophils # (Manual) Cancelled 04/04/22 06:17 Metamyelocytes # (Man) Cancelled 04/04/22 06:17 Myelocytes # (Manual) Cancelled 04/04/22 06:17 Promyelocytes # (Man) Cancelled 04/04/22 06:17 Blast Cells # (Man) Cancelled 04/04/22 06:17 Plasma Cell # (Manual) Cancelled 04/04/22 06:17 Other Cells # Cancelled 04/04/22 06:17 Nucleated RBCs # (Man) Cancelled 04/04/22 06:17 Hypersegmented Neuts Cancelled 04/04/22 06:17 Hyposegmented Neuts Cancelled 04/04/22 06:17 Hypogranular Neuts Cancelled 04/04/22 06:17 Large Granular Lymphs Cancelled 04/04/22 06:17 # Lrg Granular Lymphs Cancelled 04/04/22 06:17 Hairy Cells Cancelled 04/04/22 06:17 Smudge Cells Cancelled 04/04/22 06:17 Toxic Granulation Cancelled 04/04/22 06:17 Toxic Vacuolation Cancelled 04/04/22 06:17 Dohle Bodies Cancelled 04/04/22 06:17 Lesley Rods Cancelled 04/04/22 06:17 Platelet Estimate Cancelled 04/04/22 06:17 Hypogranular Platelets Cancelled 04/04/22 06:17 Clumped Platelets Cancelled 04/04/22 06:17 Giant Platelets Cancelled 04/04/22 06:17 Platelet Satelliting Cancelled 04/04/22 06:17 RBC Morphology Cancelled 04/04/22 06:17 Polychromasia Cancelled 04/04/22 06:17 Hypochromasia Cancelled 04/04/22 06:17 Poikilocytosis Cancelled 04/04/22 06:17 Basophilic Stippling Cancelled 04/04/22 06:17 Anisocytosis Cancelled 04/04/22 06:17 Microcytosis Cancelled 04/04/22 06:17 Macrocytosis Cancelled 04/04/22 06:17 Spherocytes Cancelled 04/04/22 06:17 Pappenheimer Bodies Cancelled 04/04/22 06:17 Sickle Cells Cancelled 04/04/22 06:17 Target Cells Cancelled 04/04/22 06:17 Tear Drop Cells Cancelled 04/04/22 06:17 Ovalocytes Cancelled 04/04/22 06:17 Stomatocytes Cancelled 04/04/22 06:17 [place] Bodies Cancelled 04/04/22 06:17 Echinocytes Cancelled 04/04/22 06:17 Acanthocytes (Spur) Cancelled 04/04/22 06:17 Rouleaux Cancelled 04/04/22 06:17 RBC Agglutinates Cancelled 04/04/22 06:17 Schistocytes Cancelled 04/04/22 06:17 Sezary Cell Cancelled 04/04/22 06:17 PT 11.2 Seconds (9.0-12.0) 04/06/22 06:10 INR 1.1 (0.9-1.1) 04/06/22 06:10 APTT 38.3 Seconds (21.0-31.0) H 04/03/22 07:45 PTT Ratio 1.4 04/03/22 07:45 Sodium 144 mmol/L (136-145) 04/06/22 06:10 Potassium 3.5 mmol/L (3.5-5.1) 04/06/22 06:10 Chloride 107 mmol/L (98-107) 04/06/22 06:10 Carbon Dioxide 30 mmol/L (21-32) 04/06/22 06:10 Anion Gap 7 (3-11) 04/06/22 06:10 BUN 3 mg/dl (6-23) L 04/06/22 06:10 Creatinine 0.66 mg/dl (0.6-1.2) 04/06/22 06:10 Est Cr Clr Drug Dosing 79.8 ml/min 04/06/22 06:10 Est GFR ( Amer) 100.9 ml/min 04/06/22 06:10 Est GFR (Non-Af Amer) 87.0 ml/min 04/06/22 06:10 BUN/Creatinine Ratio 4.5 (10-20) L 04/06/22 06:10 Glucose 76 mg/dl (70-99(Fasting)) 04/06/22 06:10 Calcium 7.6 mg/dl (8.5-10.1) L 04/06/22 06:10 Phosphorus 2.7 mg/dl (2.5-4.9) 04/06/22 06:10 Magnesium 1.8 mg/dl (1.7-2.4) 04/06/22 06:10 Total Bilirubin 0.3 mg/dl (0.2-1.0) 04/03/22 07:45 AST 37 U/L (13-39) 04/03/22 07:45 ALT 17 U/L (7-52) 04/03/22 07:45 Alkaline Phosphatase 105 U/L (34-104) H 04/03/22 07:45 Total Protein 5.4 gm/dl (6.0-8.3) L 04/03/22 07:45 Albumin 2.9 gm/dl (3.4-5.0) L 04/03/22 07:45 Globulin 2.5 gm/dl (2.5-4.0) 04/03/22 07:45 Albumin/Globulin Ratio 1.2 (0.9-2) 04/03/22 07:45 POC Stool Occult Blood Cancelled 04/03/22 10:51 SARS-CoV-2, RNA, NAAT NEGATIVE (NEGATIVE) 04/03/22 09:10 Blood Parasites ID Cancelled 04/04/22 06:17 Blood Type B Positive 04/03/22 09:08 Blood Type Recheck B Positive 04/03/22 20:27 Antibody Screen NEGATIVE 04/03/22 09:08 Crossmatch See Detail 04/03/22 09:08 Impressions Abdomen/Pelvis CT 04/03/22 10:49 CT abd pelvis IV con only CLINICAL HISTORY: rectal bleeding, recent r hemicolectomy TECHNIQUE: Helical axial images of the abdomen and pelvis were obtained and displayed. Automated dose lowering techniques and/or adjustment according to patient size were utilized for this exam. This exam was performed with intravenous contrast. CT DOSE: 1250.66 mGy.cm COMPARISON: Comparison is made to CT abdomen pelvis 03/21/2022 FINDINGS: Lower chest: Atelectasis is seen in the right greater than left lower lungs. Liver: Unremarkable. No focal lesions are seen. Gallbladder and biliary tree: No calcified gallstones. Normal caliber wall. No intra- or extrahepatic biliary ductal dilation. Pancreas: Unremarkable, no focal lesions. Spleen: Unremarkable. Adrenals: Unremarkable. Kidneys and ureters: Unremarkable. Bladder: Focus of air is seen, correlation with recent rotation is recommended. Reproductive organs: Unremarkable. Bowel: There is liquid material in the colon. Postsurgical changes of right hemicolectomy are seen. There is a small amount of diverticulosis. Lymph nodes Retroperitoneal: Unremarkable. Pelvic: Unremarkable. Mesenteric: Unremarkable. Peritoneum: There is small ascites. No pneumoperitoneum is seen. Vessels: Atherosclerotic calcifications are seen. Abdominal wall: There is fat stranding and a small amount of fluid in the midline incision. No well-defined drainable fluid collection is seen. Bones: Degenerative changes in the visualized spine. There are bilateral hip arthroplasties. There is an old L2 compression deformity. IMPRESSION: 1. Expected postsurgical changes status post right hemicolectomy with small ascites, overall decreased from prior exam. Liquid contents are seen in the colon but there is no evidence of mass or dehiscence to explain rectal bleeding. 2. Reactive soft tissue changes at the midline incision. No drainable fluid collection is seen. Correlation with physical exam is recommended to exclude site infection. ACT 112: Negative or not required by law. Electronically signed by: Benny Gill M.D. 04/03/2022 11:45 AM Hospital Course (1) Rectal bleeding: (2) S/P right hemicolectomy: (3) Neoplasm of appendix: (4) Supratherapeutic INR: (5) Hypokalemia: (6) (HFpEF) heart failure with preserved ejection fraction: (7) Personal history of DVT (deep vein thrombosis): (8) Seizure disorder: Plan This is a 72-year-old female who has significant past medical history of diastolic CHF, HTN, HLD, CKD stage III, history of epilepsy, history of PE and DVT who presents to ED secondary to concern for rectal bleeding x [address] a/p: IMPRESSION: 1. Expected postsurgical changes status post right hemicolectomy with small ascites, overall decreased from prior exam. Liquid contents are seen in the colon but there is no evidence of mass or dehiscence to explain rectal bleeding. 2. Reactive soft tissue changes at the midline incision. No drainable fluid collection is seen. Correlation with physical exam is recommended to exclude site infection. 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 Yehuda Lema Supratherapeutic INR CT shows no signs of dehiscence of bleeding explanation pt passed 2 quarter sized dark red clots while examining will give gentle IVF for 500ml - pt already volume overloaded but given recent contrast want to give small amount PPI gtt started in ED, will continue for now last c scope was 2010 - sigmoid diverticulosis Warfarin has been on hold and d/c lovenox Has had fresh blood per rectum last evening Vit K 2.5mg oral x 1 given during the admission Normal bowel movement this morning as per the patient Hgb stable 8.8 today Gastroenterology Denies any abdominal pain, distention, nausea and or vomiting Check CBC in in 1 week Anemia hgb 10.1, normal indices hgb was 11.9 on day of D/C from [facility] will type and cross 1 units to transfuse if hgb < 7 or symptomatic Hemoglobin stable 9.1 at 04/03/2022 Will resume coumadin Hypokalemia K 3.5 Continue K supplement Check BMP in 1 week Chronic HFpEF 01/16/22 - EF 60-65%, grade II DD pt reports 12lb weight gain since hospitalization with significant increase in lower extremity edema Continue Lasix 20mg daily Continue monitor BMP while on lasix hx of DVT/PE follows [place] [facility] hold warfarin, d/c lovenox will need to determine if pt should continue on warfarin at this time or not since she had 1 x hx of DVT/PE per pt post knee replacement Pt said that she had other orthopedic procedure where they made the decision for her to continue the anticoagulant Advised pt to discuss with her physician about the residential anticoagulant Coumadin was held due to rectal bleed Coumadin resumed, advised pt to take 5mg today Follow up with the coumadin clinic Seizure d/o last one in 1972 continue dilantin DVT ppx: SCDS Disposition She was not able to get a ride yesterday due to the snow Discharge home today FULL CODE PCP: Violette Total Time Total Time Spent Total Time Spent (In Minutes): 35 minutes Discharge Plan Discharge Items Patient Disposition: Home - Home Health Services Reason For Visit: RECTAL BLEEDING Discharge Diagnosis: (1) Rectal bleeding: (2) S/P right hemicolectomy: (3) Neoplasm of appendix: (4) Supratherapeutic INR: (5) Hypokalemia: (6) (HFpEF) heart failure with preserved ejection fraction: (7) Personal history of DVT (deep vein thrombosis): (8) Seizure disorder: Activity: Resume your previous activity Non-emergency contact: Primary Care Provider, Surgeon and Custom Designer Call non-emergency contact if: you have any medication questions, your symptoms worsen and your temperature is above 101 Follow-up/Referrals: Elle Oakes DO [Primary Care Provider] - (Date & Time 04/12/2022 11:10 AM Provider Elle Oakes DO [facility] ) Diet: Low Fiber and Low Fat Addtl Attending Provider Instructions: Follow up with your primary care provider 04/12/2022 @ 11:10 AM Elle Oakes DO [facility] Follow up with the coumadin clinic to monitor your PT/INR ( Take coumadin 5 mg today ) Follow up with surgery for staple removal Check CBC within 1 week to monitor your hemoglobin Check BMP within 1 week to monitor your electrolytes Please advance activity ( like walking) as tolerate to decrease the risk of blood clot Fall precaution Seek medical attention if your symptoms reoccur Pending Studies at Discharge: No Stand-Alone Forms: My [facility], Smoking Cessation Medications and DC Order Prescriptions: New potassium chloride 20 mEq Tablet,Er Particles/Crystals 20 meq PO DAILY Qty: 30 0RF Continued phenytoin sodium extended 100 mg capsule 100 mg PO UD Rx Instructions: 1 cap in AM, 2 caps in PM Advanced Probiotic 625 mg (10 billion cell) Capsule 2 cap PO DAILY Qty: 30 0RF warfarin 5 mg Tablet 2.5 mg PO SUMOTUWETHSA@1600 ipratropium bromide 42 mcg (0.06 %) spray,non-aerosol 2 spray INTRANASAL BID PRN (Reason: Nasal Congestion) nystatin 100,000 unit/mL suspension 5 ml PO QID furosemide 20 mg tablet 20 mg PO DAILY carvedilol 12.5 mg Tablet 12.5 mg PO BID Rx Instructions: must administer with a meal/food warfarin 5 mg Tablet 5 mg PO FR@1600 aspirin 81 mg Tablet 81 mg PO QAM loratadine 10 mg Tablet 10 mg PO QAM Discontinued enoxaparin 100 mg/mL syringe 100 mg subcut Q12 Admission Data Admit Date/Time: 04/03/22 10:10 Attending Provider: Eli De La Cruz Admit Provider: Wendy Hill Primary Care Provider: Elle Oakes Other Providers: Wendy Hill ; Trixie Smith Other Interventions: Discharge Summary Assessment (RN) Last Done: 04/06/22 11:07
[2022-04-06] MEDS ORDERED: WARFARIN SOD 5 MG TAB PO SCH (16:00)
== END 2022-04-06 11:46 | disposition home health service (06) ==
LOC: ED 07:51 → 2N 07:51 → SUATTDRO 10:10 → 2N 12:36